=== PATIENT | female | born 1950 | race Caucasian/White ===

== ENCOUNTER 2017-07-05 16:36 | Inpatient (IN) ==
--- NOTE | 2017-07-05 17:54 | Emergency Department Note ---
Disposition Clinical Impression: ESRD (end stage renal disease) Pneumonia Qualifiers: Pneumonia type: due to unspecified organism Laterality: unspecified laterality Lung location: unspecified part of lung Qualified Code(s): J18.9 - Pneumonia, unspecified organism Hypothermia Qualifiers: Encounter type: initial encounter Qualified Code(s): T68.XXXA - Hypothermia, initial encounter Hypotension Qualifiers: Hypotension type: unspecified hypotension type Qualified Code(s): I95.9 - Hypotension, unspecified Chronic kidney disease Qualifiers: Chronic kidney disease stage: unspecified stage Qualified Code(s): N18.9 - Chronic kidney disease, unspecified Disposition: Admitted As Inpatient Condition: Fair Referrals: Robyn Van, [employer] [Primary Care Provider] - Forms: ED Satisfaction Letter Time of Disposition: 19:58 General Adult HPI - General Chief complaint: ED Shortness of Breath/Dyspnea Stated complaint: "swelling all over" Time Seen by Provider: 07/05/17 17:33 Source: patient Mode of arrival: wheelchair Limitations: no limitations Nursing Notes Reviewed: Yes Vital Signs Reviewed: Yes - History of Present Illness HPI Narrative: 67-year-old female with a history of diabetes, chronic kidney disease, COPD presents for evaluation of generalized swelling. Patient's history provided via the patient as well as the boyfriend at bedside. States that the patient had progressive swelling and weakness. Patient denies any chest pain. Patient states that she still is able to produce some urine however it is hard to quantify given that she wears a diaper. Patient denies any excessive oral intake. Warfarin states that the patient has been evaluated by nephrology and is in the process of undergoing an dialysis. Patient does not have a dialysis access established. Warfarin states the patient has been feeling short of breath. Patient typically does not wear any oxygen. Patient denies any abdominal pain. No nausea or vomiting. Denies history of liver disease or alcoholism. Pain Scale: 9 - Related Data Home Medications Medication Instructions Recorded Confirmed Acetaminophen [Tylenol] 500 mg PO Q6HR PRN 07/05/17 07/05/17 Allopurinol [Zyloprim 100 MG] 200 mg PO DAILY 07/05/17 07/05/17 Amlodipine Besylate 10 mg PO DAILY 07/05/17 07/05/17 Linagliptin [Tradjenta] 5 mg PO QAM 03/06/18 03/06/18 Omeprazole [PriLOSEC] 20 mg PO DAILY 07/05/17 07/05/17 Allergies Allergy/AdvReac Type Severity Reaction Status Date / Time No Known Allergies Allergy Verified 07/05/17 17:25 All systems ED: reviewed and negative except as stated. Constitutional: Denies: fever Cardiovascular: Denies: chest pain Respiratory: Reports: dyspnea. Denies: cough Gastrointestinal: Denies: abdominal pain, nausea, vomiting Past Medical History - Past Medical History Source: patient, old records reviewed, obtained from family Medical history: Reports: diabetes - Social History Smoking Status: Never smoker Alcohol use: Reports: none Drug use: Reports: none Physical Exam - General Limitations: no limitations General appearance: alert, obese, other (Chronically ill) - Head Head exam: atraumatic, normocephalic, normal inspection - Eye Eye exam: Present: normal appearance. Absent: scleral icterus - ENT ENT exam: normal oropharynx, mucous membranes dry - Neck Neck exam: Present: normal inspection - Chest Chest inspection: Present: normal inspection, symmetric chest wall rise - Respiratory Respiratory exam: Present: accessory muscle use, other (Diffusely diminished) - Abdominal Exam Abdominal exam: Present: soft, distention. Absent: guarding, rebound - Extremities Exam Extremities exam: Present: pedal edema (4+ pedal edema on the right lower leg. 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 Appears the patient does follow with likely Dr. Jay. Concerns of fluid overload and worsening kidney disease. Patient will get basic labs as well as a chest x-ray. Supplement oxygen as needed. Disposition admission. - Reevaluation(s) Reevaluation #1: Patient was noted to be hypothermic. Patient does have passive warming Cb hugger and blankets Time: 18:36 Reevaluation #2: Patient seen and examined. Patient's mentating appropriately. Discussed plan of care. Patient blood pressures improving. Patient's heart rate is improving. Given the patient being hypothermic hypotensive the patient be covered with broad-spectrum antibiotics with most likely source of infection in the lungs. Time: 20:54 - Consultations Consultation #1: Spoke with Dr. العلي and made aware that the patient will be admitted to the ICU. Time: 19:54 Vital Signs Temperature 0 F L 07/05/17 17:23 Pulse Rate 71 07/05/17 17:23 Respiratory Rate 18 07/05/17 17:23 Blood Pressure 80/46 07/05/17 17:23 O2 Sat by Pulse Oximetry 88 07/05/17 17:23 Temperature 96.7 F L 07/05/17 23:36 Pulse Rate 86 07/05/17 23:38 Respiratory Rate 20 07/05/17 23:38 Blood Pressure 107/56 07/05/17 23:38 O2 Sat by Pulse Oximetry 96 07/05/17 23:38 Oxygen Delivery Oxygen Delivery Room Air Medical Decision Making - MDM Narrative Medical decision making narrative: 67-year-old female patient for evaluation of swelling. Patient has end-stage renal disease and has acute on chronic kidney disease. Patient workup in the emergency department revealed that he she was hypotensive and hypothermic and bradycardic. Patient was actively passively rewarmed with improvement of blood pressure. Patient does have a midline as well as a good peripheral IV. Patient does appear to be clinically fluid overloaded. Chest x-ray does show evidence of edema which appear to be asymmetric and is going be covered with antibiotics given the patient's hypo-thermia and hypotension. Patient does have acute on chronic kidney disease. Discussed the case with nephrology who will see the patient. Patient was also given stress dose steroids as his concerns of endocrine and metabolic abnormalities. Patient did get a random cortisol level obtained prior to hydrocortisone. Even though the patient possibly has an infectious picture concerns about fluid status given her end- stage renal disease. - Lab Data Lab results reviewed: Yes I reviewed the patient's lab results. Result diagrams: 07/05/17 17:48 07/05/17 17:48 Lab Results 07/05/17 07/05/17 07/05/17 Range/Units 17:48 17:48 17:48 WBC 6.0 (4.3-11.1) K/mcL RBC 3.78 L (3.82-4.97) M/mcL Hgb 10.2 L (11.5-15.4) g/dL Hct 33.1 L (35.3-44.9) % MCV 87.6 (83.0-100.0) fL MCH 27.0 L (28.0-33.3) pg MCHC 30.8 L (31.6-35.5) g/dL RDW 20.9 H (11.5-14.5) % Plt Count 139 L (140-400) K/mcL MPV 11.5 (9.4-12.4) fL Immature Gran % 1.0 (0-4) % Seg Neutrophils % 83.2 % Lymphocytes % 7.3 % Monocytes % 7.5 % Eosinophils % 0.8 % Basophils % 0.2 % Neutrophils # 5.0 (1.6-8.9) K/mcL Lymphocytes # 0.4 L (0.6-4.6) K/mcL Monocytes # 0.5 (0.0-1.3) K/mcL Eosinophils # 0.1 (0.0-0.6) K/mcL Basophils # 0.0 (0.0-0.2) K/mcL Nucleated RBCs/100 WBC 0.3 H (0) /100 WBC PT (9.4-12.1) Seconds INR Sodium 138 (136-145) mEq/L Potassium 4.7 (3.5-5.1) mEq/L Chloride 106 (98-107) mEq/L Carbon Dioxide 17 L (23-29) mEq/L BUN 88 H (8-23) mg/dL Creatinine 5.94 H (0.60-1.20) mg/dL Est GFR ( Amer) 9 L (> 60) Est GFR (Non-Af Amer) 7 L (> 60) BUN/Creatinine Ratio 15 (6-26) Glucose 110 H (70-105) mg/dL POC Glucose (58-89) Calculated Osmolality 314 H (280-300) Lactic Acid 1.1 (0.5-2.2) mmol/L Calcium 9.0 (8.6-10.3) mg/dL Phosphorus (2.7-4.5) mg/dL Magnesium (1.6-2.6) mg/dL Total Bilirubin 0.6 (0.3-1.0) mg/dL Direct Bilirubin 0.2 (0.0-0.2) mg/dL Indirect Bilirubin 0.4 (0.0-1.2) mg/dL AST 10 L (13-39) Units/L ALT 8 (7-52) Units/L Alkaline Phosphatase 79 (34-104) Units/L Troponin I < 0.03 (< 0.04) ng/mL B-Natriuretic Peptide (Less than 100) pg/mL Serum Total Protein 6.6 (6.4-8.9) g/dL Albumin 4.0 (3.5-5.7) g/dL Globulin 2.6 (2.4-3.5) g/dL Albumin/Globulin Ratio 1.5 (1.1-2.2) TSH (0.340-5.600) mcIU/mL Free T4 (0.70-2.00) ng/dl Free T3 (2.50-3.90) pg/mL Random Cortisol 18.8 mcg/dl Urine Color (Yellow) Urine Clarity (Clear) Urine pH (5.0-8.0) pH Units Ur Specific [place] (1.010-1.025) Urine Protein (Neg-Trace) mg/dL Urine Glucose (UA) (Normal) mg/dL Urine Ketones (Negative) mg/dL Urine Blood (Negative) Urine Nitrite (Negative) Urine Bilirubin (Negative) Urine Urobilinogen (Normal) mg/dL Ur Leukocyte Esterase (Negative) Urine Microscopic RBC (0-3) per hpf Urine Microscopic WBC (0-3) per hpf Ur Squamous Epith Cells (None-Few) per lpf Urine Bacteria (None-Few) per hpf 07/05/17 07/05/17 07/05/17 Range/Units 17:48 17:48 17:48 WBC (4.3-11.1) K/mcL RBC (3.82-4.97) M/mcL Hgb (11.5-15.4) g/dL Hct (35.3-44.9) % MCV (83.0-100.0) fL MCH (28.0-33.3) pg MCHC (31.6-35.5) g/dL RDW (11.5-14.5) % Plt Count (140-400) K/mcL MPV (9.4-12.4) fL Immature Gran % (0-4) % Seg Neutrophils % % Lymphocytes % % Monocytes % % Eosinophils % % Basophils % % Neutrophils # (1.6-8.9) K/mcL Lymphocytes # (0.6-4.6) K/mcL Monocytes # (0.0-1.3) K/mcL Eosinophils # (0.0-0.6) K/mcL Basophils # (0.0-0.2) K/mcL Nucleated RBCs/100 WBC (0) /100 WBC PT 12.2 H (9.4-12.1) Seconds INR 1.1 Sodium (136-145) mEq/L Potassium (3.5-5.1) mEq/L Chloride (98-107) mEq/L Carbon Dioxide (23-29) mEq/L BUN (8-23) mg/dL Creatinine (0.60-1.20) mg/dL Est GFR ( Amer) (> 60) Est GFR (Non-Af Amer) (> 60) BUN/Creatinine Ratio (6-26) Glucose (70-105) mg/dL POC Glucose (58-89) Calculated Osmolality (280-300) Lactic Acid (0.5-2.2) mmol/L Calcium (8.6-10.3) mg/dL Phosphorus 8.4 H (2.7-4.5) mg/dL Magnesium 2.3 (1.6-2.6) mg/dL Total Bilirubin (0.3-1.0) mg/dL Direct Bilirubin (0.0-0.2) mg/dL Indirect Bilirubin (0.0-1.2) mg/dL AST (13-39) Units/L ALT (7-52) Units/L Alkaline Phosphatase (34-104) Units/L Troponin I (< 0.04) ng/mL B-Natriuretic Peptide 1048 H (Less than 100) pg/mL Serum Total Protein (6.4-8.9) g/dL Albumin (3.5-5.7) g/dL Globulin (2.4-3.5) g/dL Albumin/Globulin Ratio (1.1-2.2) TSH 8.153 H (0.340-5.600) mcIU/mL Free T4 1.09 (0.70-2.00) ng/dl Free T3 2.79 (2.50-3.90) pg/mL Random Cortisol mcg/dl Urine Color (Yellow) Urine Clarity (Clear) Urine pH (5.0-8.0) pH Units Ur Specific [place] (1.010-1.025) Urine Protein (Neg-Trace) mg/dL Urine Glucose (UA) (Normal) mg/dL Urine Ketones (Negative) mg/dL Urine Blood (Negative) Urine Nitrite (Negative) Urine Bilirubin (Negative) Urine Urobilinogen (Normal) mg/dL Ur Leukocyte Esterase (Negative) Urine Microscopic RBC (0-3) per hpf Urine Microscopic WBC (0-3) per hpf Ur Squamous Epith Cells (None-Few) per lpf Urine Bacteria (None-Few) per hpf 07/05/17 07/05/17 Range/Units 18:07 20:54 WBC (4.3-11.1) K/mcL RBC (3.82-4.97) M/mcL Hgb (11.5-15.4) g/dL Hct (35.3-44.9) % MCV (83.0-100.0) fL MCH (28.0-33.3) pg MCHC (31.6-35.5) g/dL RDW (11.5-14.5) % Plt Count (140-400) K/mcL MPV (9.4-12.4) fL Immature Gran % (0-4) % Seg Neutrophils % % Lymphocytes % % Monocytes % % Eosinophils % % Basophils % % Neutrophils # (1.6-8.9) K/mcL Lymphocytes # (0.6-4.6) K/mcL Monocytes # (0.0-1.3) K/mcL Eosinophils # (0.0-0.6) K/mcL Basophils # (0.0-0.2) K/mcL Nucleated RBCs/100 WBC (0) /100 WBC PT (9.4-12.1) Seconds INR Sodium (136-145) mEq/L Potassium (3.5-5.1) mEq/L Chloride (98-107) mEq/L Carbon Dioxide (23-29) mEq/L BUN (8-23) mg/dL Creatinine (0.60-1.20) mg/dL Est GFR ( Amer) (> 60) Est GFR (Non-Af Amer) (> 60) BUN/Creatinine Ratio (6-26) Glucose (70-105) mg/dL POC Glucose 102 H (58-89) Calculated Osmolality (280-300) Lactic Acid (0.5-2.2) mmol/L Calcium (8.6-10.3) mg/dL Phosphorus (2.7-4.5) mg/dL Magnesium (1.6-2.6) mg/dL Total Bilirubin (0.3-1.0) mg/dL Direct Bilirubin (0.0-0.2) mg/dL Indirect Bilirubin (0.0-1.2) mg/dL AST (13-39) Units/L ALT (7-52) Units/L Alkaline Phosphatase (34-104) Units/L Troponin I (< 0.04) ng/mL B-Natriuretic Peptide (Less than 100) pg/mL Serum Total Protein (6.4-8.9) g/dL Albumin (3.5-5.7) g/dL Globulin (2.4-3.5) g/dL Albumin/Globulin Ratio (1.1-2.2) TSH (0.340-5.600) mcIU/mL Free T4 (0.70-2.00) ng/dl Free T3 (2.50-3.90) pg/mL Random Cortisol mcg/dl Urine Color Dark Yellow (Yellow) Urine Clarity Turbid A (Clear) Urine pH 5.0 (5.0-8.0) pH Units Ur Specific [place] 1.029 H (1.010-1.025) Urine Protein 100 H (Neg-Trace) mg/dL Urine Glucose (UA) Normal (Normal) mg/dL Urine Ketones Trace H (Negative) mg/dL Urine Blood Large H (Negative) Urine Nitrite Negative (Negative) Urine Bilirubin Moderate H (Negative) Urine Urobilinogen Normal (Normal) mg/dL Ur Leukocyte Esterase Large H (Negative) Urine Microscopic RBC 15-30 H (0-3) per hpf Urine Microscopic WBC 30-50 H (0-3) per hpf Ur Squamous Epith Cells Few (None-Few) per lpf Urine Bacteria Few (None-Few) per hpf - Radiology Data Radiology results reviewed: Yes I reviewed the patient's radiology results. Chest X-Ray 07/05/17 17:38 IMPRESSION: Bilateral airspace disease which is asymmetric on the right with small bilateral pleural effusions. Findings may be related to asymmetric edema versus pneumonia. D/ / Jenifer Bowie MD / Jenifer Bowie MD Interpreting Provider: Jenifer Bowie MD - EKG Data EKG #1 EKG attestation: Yes I reviewed and interpreted this EKG. EKG shows normal: sinus rhythm Rate: normal Rhythm: NSR [place]/QRS: normal Voltage: decreased voltage throughout Heart block present: 1st Degree Interpretation: no acute changes Critical Care Time Critical Care Time: Yes Total Critical Care Time: 35 Attestation: The high probability of a clinically significant, sudden or life threatening deterioration of the [resp/renal] system(s) required my full and direct attention, intervention and personal management. The aggregate critical care time was [35] minutes. This time is in addition to time spent performing reported procedures but includes the following: [x] Data Review and interpretation [x] Patient assessment and monitoring of vital signs [x] Documentation [x] Medication orders and management S.B.A.R. - S.B.A.RSharee Situation: Demographics Background: Presenting Complaint Assessment: Vital Signs, Course and respsone to treatment, Patient/Family Expectation Recommendation: Barrier(s) to disposition, Recommendation based on pending studies, treatments, or consults S.B.A.RSharee Report Given to: Dr. Miller SShareeBShareeAKelvin Repor Time: 22:32 Attestation Statement - Attestation Attestation: I examined this patient and my medical decision-making was reviewed with the Resident Physician, Dr. Vaca. I agree with the documented findings, disposition and treatment plan as described except to the extent set forth below. Patient is a 67-year-old white female with end-stage renal disease who sees nephrology and is going to be started on dialysis soon. Patient presents with generalized gradually worsening swelling and edema as well as generalized weakness. On arrival patient is hypoxic on room air and mild respiratory distress. Patient meetings Sirs criteria in triage. Patient was brought back directly to bed and sepsis protocol was initiated, placed patient was placed on supplement oxygen nasal cannula . She was denying any focal neurologic changes , no headaches or visual changes, no chest pain pressure or heaviness, does complain of some shortness of breath but denies any associated cough or URI symptoms. Patient denies any abdominal pain or back pain no other associated symptoms. I agree with patient's physical exam findings as documented. IV fluid boluses were initiated for hypotension. She was placed under a bear hugger for hypothermia on arrival. EKG shows sinus rhythm generalized low voltage and poor R-wave progression nonspecific changes. Blood cultures were obtained urine cultures were obtained blood and urine were sent for lab evaluation, chest x-ray was obtained. Patient with bilateral pleural effusions we will cover with broad-spectrum antibiotics for possible sepsis due to hypothermia and hypotension. Blood pressures improving with IV fluids. He should had coarse all levels drawn and was given hydrocortisone here. Patient's vitals improving and respiratory status stable on nasal cannula oxygen. Patient will be admitted and continued evaluation and management. Nephrology was consulate from the ED.
[2017-07-05 18:14] LABS: Basophils % 0.2 %; Eosinophils # 0.1 K/mcL (0.0-0.6); Eosinophils % 0.8 %; Hematocrit 33.1 % (35.3-44.9); Hemoglobin 10.2 g/dL (11.5-15.4); Lymphocytes # 0.4 K/mcL (0.6-4.6); Lymphocytes % 7.3 %; Mean Corpuscular HGB Conc 30.8 g/dL (31.6-35.5); Mean Corpuscular Volume 87.6 fL (83.0-100.0); Mean Platelet Volume 11.5 fL (9.4-12.4); Monocytes # 0.5 K/mcL (0.0-1.3); Monocytes % 7.5 %; Nucleated Red Blood Cells 0.3 /100 WBC (0); Platelet Count 139 K/mcL (140-400); Red Blood Count 3.78 M/mcL (3.82-4.97); Red Cell Distribution Width 20.9 % (11.5-14.5); Segmented Neutrophils % 83.2 %
[2017-07-05 18:23] LABS: INR 1.1; Prothrombin Time 12.2 Seconds (9.4-12.1)
[2017-07-05 18:35] LABS: Troponin I < 0.03 ng/mL (< 0.04)
[2017-07-05 18:36] LABS: Magnesium 2.3 mg/dL (1.6-2.6); Phosphorous 8.4 mg/dL (2.7-4.5)
[2017-07-05 18:48] LABS: Thyroid Stimulating Hormone 8.153 mcIU/mL (0.340-5.600)
[2017-07-05 19:11] LABS: Alanine Aminotransferase 8 Units/L (7-52); Albumin/Globulin Ratio 1.5 (1.1-2.2); Alkaline Phosphatase 79 Units/L (34-104); Aspartate Amino Transferase 10 Units/L (13-39); BUN/Creatinine Ratio 15 (6-26); Bilirubin,Total 0.6 mg/dL (0.3-1.0); Blood Urea Nitrogen 88 mg/dL (8-23); Carbon Dioxide 17 mEq/L (23-29); Chloride 106 mEq/L (98-107); Globulin 2.6 g/dL (2.4-3.5); Glucose 110 mg/dL (70-105); Osmolality,Calculated 314 (280-300); Potassium 4.7 mEq/L (3.5-5.1); Sodium 138 mEq/L (136-145); Total Protein 6.6 g/dL (6.4-8.9); eGFR For African Americans 9 (> 60); eGFR For Non-African Americans 7 (> 60)
[2017-07-05 19:33] LABS: Bilirubin,Direct 0.2 mg/dL (0.0-0.2); Bilirubin,Indirect 0.4 mg/dL (0.0-1.2)
[2017-07-05 19:41] LABS: Triiodothyronine (T3) Free 2.79 pg/mL (2.50-3.90)
[2017-07-05] MEDS ORDERED: Hydrocortisone Sodium Succ 100 MG/2 ML VIAL IVP ONE (19:53)
[2017-07-05] MEDS ORDERED: Piperacillin/Tazobactam 3.375 GM in 0.9 % Sodium Chloride Mini Bag 100 ML IVPB ONE (19:54)
[2017-07-05] MEDS ORDERED: Piperacillin/Tazobactam 3.375 GM VIAL ONE (20:57)
[2017-07-05] MEDS ORDERED: Piperacillin/Tazobactam 3.375 GM in Water for inj. (sterile) 20 ML 20 ML IVP ONE (21:00)
[2017-07-05 21:21] LABS: Bilirubin,Urine Moderate (Negative); Blood,Urine Large (Negative); Clarity,Urine Turbid (Clear); Color,Urine Dark Yellow (Yellow); Glucose,Urine (UA) Normal (Normal); Ketones,Urine Trace mg/dL (Negative); Leukocyte Esterase,Urine Large (Negative); Nitrite,Urine Negative (Negative); Protein,Urine 100 mg/dL (Neg-Trace); Specific Gravity,Urine 1.029 (1.010-1.025); Urobilinogen,Urine Normal (Normal)
[2017-07-05 21:27] LABS: RBC,Urine 15-30 per hpf (0-3); Squamous Epithelial Cell,Urine Few per lpf (None-Few); WBC,Urine 30-50 per hpf (0-3)
[2017-07-05 21:28] LABS: Bacteria,Urine Few per hpf (None-Few)
[2017-07-06] MEDS ORDERED: Acetaminophen 325 MG TABLET PO PRN (02:59)
[2017-07-06] MEDS ORDERED: *HR* Dextrose 50 % in Water (Syg) 50 ML SYRINGE IVP PRN (02:59)
[2017-07-06] MEDS ORDERED: Dextrose Gel 15 GM/37.5 ML TUBE PO PRN ×2 (02:59)
[2017-07-06] MEDS ORDERED: Naloxone 0.4 MG/ML INJ IVP PRN (02:59)
[2017-07-06] MEDS ORDERED: D5% in Water 1,000 ML IVC PRN (02:59)
[2017-07-06] MEDS ORDERED: Albuterol 2.5 MG/3 ML NEBULIZER IH PRN (02:59)
[2017-07-06] MEDS ORDERED: 0.9 % Sodium Chloride 1,000 ML IVC SCH (03:00)
--- NOTE | 2017-07-06 03:31 | Internal Med History&Physical ---
Date of Encounter: 07/06/17 Time of Encounter: 01:50 Assessment and Plan (1) Pneumonia Current visit: Yes Status: Acute 1. History and exam suggest pneumonia. 2. Will treat with Zyvox and Zosyn and aerosols as needed. 3. Monitor clinically. Qualifiers: Pneumonia type: due to unspecified organism Laterality: right Lung location: lower lobe of lung Qualified Code(s): J18.1 - Lobar pneumonia, unspecified organism (2) Hypothermia Current visit: Yes Status: Acute 1. Likely due to sepsis. 2. Active re-warming instituted. 3. Monitor temperature and vitals closely. Qualifiers: Encounter type: initial encounter Qualified Code(s): T68.XXXA - Hypothermia , initial encounter (3) Sepsis Current visit: Yes Status: Acute 1. Given hypothermia, hypotension, and UTI findings, I suspect patient is septic. 2. Additionally, she has pneumonia on exam and per history. 3. Will treat with IV antibiotics and judicious IVF in the face of anasarca. Qualifiers: Sepsis type: sepsis due to unspecified organism Qualified Code(s): A41.9 - Sepsis, unspecified organism (4) Acute kidney injury superimposed on CKD Current visit: Yes Status: Acute 1. Dr. Huddleston consulted. 2. IVF as above. 3. Monitor renal function; patient likely needs dialysis this hospital stay. (5) DVT prophylaxis Current visit: Yes Status: Acute 1. Heparin SQ. Internal Medicine - H&P: HPI Chief complaint: swelling Admitted From: Emergency Dept Plans for Post Hospital Care: Home History of present illness: Ms. Ibarra is a 67 year old female who presents with complaints of increased swelling, fatigue, weakness, and generalized malaise. In the ER, patient was noted to be hypothermic and hypotensive. She was actively rewarmed and given a small fluid bolus. Workup included routine labs and imaging. She was noted to have acute renal failure on top of her chronic kidney disease. She has been following with Dr. Huddleston regarding her CKD. Her kidney function is to the point where she is on the verge of initiating dialysis. ER staff contacted me to admit the patient. Given her presenting symptoms, I was concerned for possible sepsis. I asked them to start some IV fluids and antibiotics. Upon my assessment of the patient, patient has evidence of anasarca, but she appears to have dry mucous membranes and appears to have some intravascular depletion. She admits to having had fevers and chills at home. She has also had a cough which has been somewhat productive. She has had some body aches. She denies any vomiting or diarrhea. She does also note that she has had increasing edema for the last several weeks. She also noticed that she has had decreased urine output as well the last few days. She denies any chest pain. Her initial core temperature was 91.5 degrees Fahrenheit and her blood pressure was 80s over 40s. She responded to actively to re-warming and IVF fluid bolus with her last temperature being 97.5 and last blood pressure being 104/44. Past Med Surg Social Fam HX - Past Medical History Attestation: Yes The following information was validated with the patient. Source: patient, old records reviewed Medical history: diabetes, peripheral artery disease Psychiatric history: no psych history - Past Surgical History Surgical History: no surgical history - Social History Smoking Status: Never smoker Smokeless Tobacco Status: No Alcohol use: none Drug use: none Current living situation: Home, With Family Activity Level: Independent ambulation - Family History Mother Living Status: Hx Family Genitourinary Disorders: No Father Living Status: Hx Family Genitourinary Disorders: No Internal Medicine - H&P: Meds Acetaminophen [Tylenol] 500 mg PO Q6HR PRN 07/05/17 [History] Allopurinol [Zyloprim 100 MG] 200 mg PO DAILY 07/05/17 [History] Amlodipine Besylate 10 mg PO DAILY 07/05/17 [History] Linagliptin [Tradjenta] 5 mg PO QAM 07/05/17 [History] Omeprazole [PriLOSEC] 20 mg PO DAILY 07/05/17 [History] 3 Allergy/AdvReac Type Severity Reaction Status Date / Time No Known Allergies Allergy Verified 07/05/17 17:25 - Constitutional Constitutional: chills, fever(s), weakness, weight gain, no night sweats - EENT Eyes: no blurry vision, no change in vision Ears: no ear pain, no tinnitus Nose, mouth and throat: no nasal congestion, no sinus pressure, no sore throat - Cardiovascular Cardiovascular ROS IM: dyspnea, dyspnea on exertion, edema, orthopnea, no chest pain, no palpitations, no syncope - Respiratory Respiratory: cough, dyspnea, chest congestion, excessive phlegm production, change in phlegm color, no hemoptysis - Gastrointestinal Gastrointestinal: no abdominal pain, no diarrhea, no hematemesis, no hematochezia, no melena, no vomiting - Genitourinary Genitourinary: dysuria, no flank pain, no hematuria - Musculoskeletal Musculoskeletal ROS IM: back pain, muscle cramps, no arthralgias - Integumentary Integumentary IM: no rash, no jaundice - Neurological Neurological ROS: no dizziness, no focal weakness, no frequent falls, no headache(s) - Psychiatric Psychiatric: no anxiety, no depression - Endocrine Endocrine IM: no polydipsia, no polyuria - Hematologic/Lymphatic Hematologic/Lymphatic: no easy bruising, no lymphadenopathy - Allergic/Immunologic Allergic/Immunologic: no wheezing, no GI upset with certain foods - Constitutional Vitals: Temp Pulse Resp BP Pulse Ox 98.1 F 87 20 104/44 93 07/06/17 02:00 07/06/17 02:00 07/06/17 02:00 07/06/17 02:00 07/06/17 02:00 General appearance: Present: cooperative, disheveled, A&O X 3, pleasant, obese, answers questions appropriately - Head Head exam: Present: normal inspection - Eye Eye exam: Present: EOMI, normal appearance, PERRL. Absent: scleral icterus Pupils: Present: normal accommodation - ENT ENT exam: Present: mucous membranes dry, normal exam, normal oropharynx - Neck Neck exam general surgery: Present: full ROM, supple. Absent: tenderness, nuchal rigidity, thyromegaly - Expanded Neck Exam Neck exam: Absent: carotid bruit - Respiratory Respiratory exam: Present: decreased breath sounds, rales (right base), rhonchi. Absent: chest wall tenderness, wheezes - Cardiovascular Cardiovascular exam: Present: RRR, +S1, +S2. Absent: diastolic murmur, systolic murmur - GI/Abdominal GI/Abdominal exam: Present: normal bowel sounds, soft. Absent: hepatomegaly, mass, splenomegaly, tenderness - Extremities Exam Extremities exam: Present: full ROM, normal capillary refill, pedal edema (3+ throughout all four extremitie and trunk), warm, radial pulses palpable and symmetrical. Absent: calf tenderness, joint swelling - Back Exam Back exam: Absent: CVA tenderness (L), CVA tenderness (R) - Neurological Exam Neurological exam: Present: alert, CN II-XII intact, oriented X3, no focal deficits - Psychiatric Psychiatric exam: Present: normal affect, normal mood - Skin Skin exam: Present: dry, warm Internal Med - H&P Results - Labs CBC & Chem 7: 07/05/17 17:48 07/05/17 17:48 - EKG Data -: EKG Interpreted by Myself - EKG Data Prior EKG available for review: no EKG comments: 07/06/17 03:38 NSR; no acute changes - Diagnostic Studies Chest x-ray Status: image reviewed by me (subtle basilar effusion with right lower lobe infiltrate)
[2017-07-06] MEDS: Ipratropium/Albuterol Neb 3 ML IH SCH ×6 (04:02→23:01)
[2017-07-06 04:49] LABS: Basophils % 0.2 %; Eosinophils % 0.2 %; Hematocrit 31.9 % (35.3-44.9); Hemoglobin 9.9 g/dL (11.5-15.4); Lymphocytes # 0.2 K/mcL (0.6-4.6); Lymphocytes % 4.6 %; Mean Corpuscular Volume 87.2 fL (83.0-100.0); Monocytes # 0.1 K/mcL (0.0-1.3); Neutrophils # 4.6 K/mcL (1.6-8.9); Nucleated Red Blood Cells 0.8 /100 WBC (0); Platelet Count 128 K/mcL (140-400); Red Blood Count 3.66 M/mcL (3.82-4.97); Red Cell Distribution Width 20.8 % (11.5-14.5)
[2017-07-06 04:57] LABS: INR 1.1; Prothrombin Time 12.2 Seconds (9.4-12.1)
[2017-07-06 05:00] LABS: Activated Partial Thrombo Time 33.7 Seconds (26.0-36.0)
[2017-07-06 05:10] LABS: Albumin 3.7 g/dL (3.5-5.7); Albumin/Globulin Ratio 1.4 (1.1-2.2); Bilirubin,Total 0.6 mg/dL (0.3-1.0); Calcium 8.5 mg/dL (8.6-10.3); Globulin 2.7 g/dL (2.4-3.5); Magnesium 2.3 mg/dL (1.6-2.6); Potassium 5.2 mEq/L (3.5-5.1); Total Protein 6.4 g/dL (6.4-8.9)
[2017-07-06] MEDS ORDERED: *HR* Heparin 5,000 UNIT/ML VIAL SQ SCH (06:00)
[2017-07-06] MEDS: *HR* Heparin 5,000 UNIT/ML VIAL SQ SCH ×2 (07:32→16:43)
[2017-07-06] MEDS: Insulin LISPRO 300 UNITS/3 ML VIAL SQ SCH ×3 (07:33→16:43)
[2017-07-06] MEDS ORDERED: Piperacillin/Tazobactam 3.375 GM in 0.9 % Sodium Chloride Mini Bag 100 ML IVPB SCH (08:00)
--- NOTE | 2017-07-06 08:33 | Nephrology Consult Note ---
Date of Encounter: 07/06/17 Time of Encounter: 08:30 Assessment and Plan (1) Chronic kidney disease, stage V Current Visit: Yes Status: Acute The patient has progressive chronic kidney disease related to diabetic nephropathy. She has associated significant volume overload as well. There is some concern for sepsis since the patient presented with hypotension and hypothermia. If all of her cultures remain negative we can place a tunnel dialysis catheter and initiate hemodialysis while the patient is here in the hospital. She can have a AV access placed as an outpatient. (2) Type 2 diabetes mellitus with diabetic chronic kidney disease Current Visit: Yes Status: Acute Qualifiers: Diabetes mellitus rn long term care insulin use: with jail use Chronic kidney disease stage: stage 5, not on chronic dialysis Qualified Code(s): E11.22 - Type 2 diabetes mellitus with diabetic chronic kidney disease; N18.5 - Chronic kidney disease, stage 5; N18.5 - Chronic kidney disease, stage 5; N18.5 - Chronic kidney disease, stage 5; N18.5 - Chronic kidney disease, stage 5; Z79.4 - termite control representative (current) use of insulin; Z79.4 - termite control representative (current) use of insulin ; Z79.4 - termite control representative (current) use of insulin; Z79.4 - termite control representative (current) use of insulin (3) PAD (peripheral artery disease) Current Visit: Yes Status: Acute History of Present Illness - History of Present Illness This is a 67-year-old female who presented to emergency room with complaints of increased swelling fatigue and weakness. She was noted to be hypotensive and also hypothermic. Patient is followed as an outpatient for progressive chronic kidney disease related to type II diabetic nephropathy and associated proteinuria. Other complications include gastroparesis and peripheral vascular disease. She also has a history of diabetic retinopathy. Patient has progressed to stage IV to stage V chronic kidney disease and had undergone dialysis education. She is elected to go on hemodialysis. She has been referred for vascular access placement although this has not been accomplished yet. Currently the patient denies any nausea vomiting or anorexia. Her main complaint is that of swelling. She does have some associated shortness of breath. Because of her hypothermia and hypotension she is being worked up for sepsis and is currently on empiric antibiotics. She says overall she is feeling better today. Past Med Surg Social Fam HX - Past Medical History Medical history: diabetes, peripheral artery disease Psychiatric history: no psych history - Past Surgical History Surgical History: no surgical history - Social History Smoking Status: Never smoker Smokeless Tobacco Status: No Alcohol use: none Drug use: none - Family History Mother Living Status: Hx Family Genitourinary Disorders: No Father Living Status: Hx Family Genitourinary Disorders: No Medications and Allergies Acetaminophen [Tylenol] 500 mg PO Q6HR PRN 07/05/17 [History] Allopurinol [Zyloprim 100 MG] 200 mg PO DAILY 07/05/17 [History] Amlodipine Besylate 10 mg PO DAILY 07/05/17 [History] Linagliptin [Tradjenta] 5 mg PO QAM 07/05/17 [History] Omeprazole [PriLOSEC] 20 mg PO DAILY 07/05/17 [History] 3 Allergy/AdvReac Type Severity Reaction Status Date / Time No Known Allergies Allergy Verified 07/05/17 17:25 Review of Systems Constitutional: as per HPI, weakness Eyes: bilateral: blurred vision (patient denies), diplopia (patient denies) Cardiovascular: dyspnea, dyspnea on exertion, edema, orthopnea Respiratory: dyspnea, dyspnea on exertion Gastrointestinal: no abdominal pain, no change in bowel habits Musculoskeletal: no muscle weakness, no numbness Integumentary: no hirsutism, no striae Neurological: as per HPI, weakness Psychiatric: no depression, no difficulty concentrating Endocrine: as per HPI Hematologic/Lymphatic: no easy bruising, no lymphadenopathy Exam - Vital Signs Vital signs: Initial Vital Signs Temp Pulse Resp BP Pulse Ox 0 F L 71 18 80/46 88 07/05/17 17:23 07/05/17 17:23 07/05/17 17:23 07/05/17 17:23 07/05/17 17:23 Vital Signs - Last 8 Hours Temp Pulse Resp BP Pulse Ox 07/06/17 08:00 97.8 F 86 12 108/56 96 07/06/17 07:45 97.8 F 07/06/17 07:00 87 12 100/45 96 07/06/17 06:00 86 15 102/57 94 07/06/17 05:00 87 25 102/49 94 07/06/17 04:48 97.5 F L 07/06/17 04:02 18 94 07/06/17 04:00 97.5 F L 85 20 94/47 94 03/07/18 03:00 86 19 99/53 94 07/06/17 02:00 98.1 F 87 20 104/44 93 07/06/17 01:28 86 95 07/06/17 01:06 95.7 F L 20 108/68 Intake and Output 07/05/17 07/06/17 07/06/17 23:59 07:59 15:59 Intake Total 580 / 580 360 / 360 Output Total 60 / 60 Balance 580 / 580 300 / 300 Intake: Oral 580 / 580 360 / 360 Output: Catheter 60 / 60 Urethral (Armstrong) 30 / 30 Other: Meal Breakfast Percent of Meal Consumed 95% Weight 105.5 kg Blood Glucose* 180 180 Patient Weight 07/06/17 23:59 Weight 105.5 kg - General Appearance Exam: Patient is alert and oriented. She is in no acute distress. Lungs exhibit diminished breath sounds especially on the right. Heart regular rate and rhythm with a 2/6 ejection murmur. There is no friction rub. Abdomen shows normal bowel sounds. No tenderness or organomegaly. Lower extremities show significant 3+ edema. Patient status post left above-knee amputation. Results - Lab Results 07/06/17 04:00 07/06/17 04:00 Most recent lab results Calcium 8.5 mg/dL (8.6-10.3) L 07/06/17 04:00 Phosphorus 8.4 mg/dL (2.7-4.5) H 07/05/17 17:48 Magnesium 2.3 mg/dL (1.6-2.6) 07/06/17 04:00 Consult Discharge Plan - Plan Referrals: Robyn Van, [employer] [Primary Care Provider] -
[2017-07-06] MEDS ORDERED: Furosemide 40 MG/4 ML VIAL IVP SCH (09:00)
[2017-07-06] MEDS ORDERED: Furosemide 40 MG/4 ML VIAL ONE (09:05)
[2017-07-06 09:10] LABS: Hemoglobin A1C 6.3 %
--- NOTE | 2017-07-06 09:53 | Event Note ---
<Jose Shaw - Last Filed: 07/06/17 09:48> Date of Encounter: 07/06/17 Time of Encounter: 09:48 Patient seen and examined at bedside. Patient reports feeling swollen all over. Otherwise she has no complaints. She states she is breathing well. She denies cough, congestion, chest pain. She states she has never been swollen like this before. Physical exam: Gen.: Patient awake alert in no acute distress Heart: Regular rate and rhythm, no murmurs, rubs, gallops Lungs: Clear to auscultations bilaterally, no rales, rhonchi, wheezes Abdomen: Soft, nontender, nondistended. Normoactive bowel sounds Extremities: 3+ pitting edema to lower extremities bilaterally, 1+ pitting edema in the upper extremities bilaterally. Assessment/Plan: Chronic kidney disease stage V: Patient's kidney disease appears to progressed and patient is now significantly fluid overloaded with minimal urine output. Nephrology was consulted and are following the patient, they have initiated diuresis and are considering initiating hemodialysis here as an inpatient. Patient is mildly hyperkalemic at 5.2, will recheck this afternoon. Further management per nephrology Pneumonia: Patient was initially diagnosed with pneumonia on admission however I am less convinced that she has an active infection. We will continue antibiotics for now and consider stopping them if cultures are returned negative. <Cesar Riggs - Last Filed: 07/06/17 18:59> Date of Encounter: 07/06/17 Ms Ibarra was admitted earlier today with worsening renal function. She is currently being diuresed. Exam alert Comfortable Anasarca present Agree with assessment and plan as above.
[2017-07-06] MEDS ORDERED: Furosemide 480 MG in D5% in Water 192 ML IVC SCH (12:30)
[2017-07-06 15:43] LABS: Calcium 8.3 mg/dL (8.6-10.3)
--- NOTE | 2017-07-06 19:36 | Electrocardiograph Report ---
[address] [place] [address] Test Date: 2017-07-05 Pat Name: Sil Ibarra Department: 103 Room: 11 Gender: F Ultrasound Sonographer: [facility] : 1950 Requested By: Jitendra Vaca Order Number: [id number] Reading MD: Mason Coelho MD Measurements Intervals [place] Rate: 70 P: 7 AR: 247 QRS: 3 QRSD: 101 T: -28 QT: 419 QTc: 439 Interpretive Statements SINUS RHYTHM WITH FIRST DEGREE AV BLOCK LOW QRS VOLTAGE POSSIBLE INFERIOR MYOCARDIAL INFARCTION, OF INDETERMINATE AGE Electronically Signed On 07-06-2017 19:34:49 EST by Mason Coelho MD
[2017-07-06] MEDS: Piperacillin/Tazobactam 3.375 GM in 0.9 % Sodium Chloride Mini Bag 100 ML IVPB SCH (20:30)
[2017-07-07] MEDS: *HR* Heparin 5,000 UNIT/ML VIAL SQ SCH ×3 (00:12→23:36)
[2017-07-07] MEDS: Ipratropium/Albuterol Neb 3 ML IH SCH ×6 (03:36→23:50)
[2017-07-07 04:18] LABS: Eosinophils % 0.4 %; Hematocrit 29.9 % (35.3-44.9); Hemoglobin 9.5 g/dL (11.5-15.4); Immature Granulocytes % 0.7 % (0-4); Lymphocytes # 0.4 K/mcL (0.6-4.6); Lymphocytes % 5.8 %; Mean Corpuscular HGB Conc 31.8 g/dL (31.6-35.5); Mean Corpuscular Hemoglobin 27.1 pg (28.0-33.3); Mean Corpuscular Volume 85.4 fL (83.0-100.0); Mean Platelet Volume 12.4 fL (9.4-12.4); Monocytes # 0.6 K/mcL (0.0-1.3); Monocytes % 8.6 %; Neutrophils # 5.8 K/mcL (1.6-8.9); Nucleated Red Blood Cells 0.3 /100 WBC (0); Platelet Count 122 K/mcL (140-400); Red Cell Distribution Width 20.9 % (11.5-14.5); Segmented Neutrophils % 84.5 %
[2017-07-07 04:43] LABS: Albumin 3.6 g/dL (3.5-5.7); Albumin/Globulin Ratio 1.4 (1.1-2.2); Bilirubin,Total 0.5 mg/dL (0.3-1.0); Calcium 8.1 mg/dL (8.6-10.3); Globulin 2.6 g/dL (2.4-3.5); Total Protein 6.2 g/dL (6.4-8.9)
[2017-07-07] MEDS: Piperacillin/Tazobactam 3.375 GM in 0.9 % Sodium Chloride Mini Bag 100 ML IVPB SCH ×2 (08:59→21:05)
[2017-07-07] MEDS: Insulin LISPRO 300 UNITS/3 ML VIAL SQ SCH ×2 (09:00→11:38)
[2017-07-07] MEDS ORDERED: *HR* Heparin 10,000 UNIT/10 ML VIAL IV PRN ×2 (09:47→17:27)
[2017-07-07] MEDS ORDERED: 0.9 % Sodium Chloride 250 ML IVC PRN ×2 (09:47→17:27)
--- NOTE | 2017-07-07 09:54 | Nephrology Progress Note ---
Date of Encounter: 07/07/17 Time of Encounter: 08:50 - Assessment and Plan (1) ESRD (end stage renal disease) Current Visit: Yes Status: Acute ESRD r/t diabetic nephropathy. IR consulted for permcath placement today, followed by HD. Plans for HD next three days. Orders given. Essentially anuric. Ordered stat renal US to r/o obstructive uropathy. I&O's. Left arm banded for future AV access-no lab draws, no BP. Subjective Interval history: Sitting up in bed. States feels good. Discussed placing Permcath and staring HD with outpatient chronic HD. Patient in agreement. Objective - Vital Signs Vital signs: Vital Signs Temp Pulse Resp BP Pulse Ox 07/07/17 09:00 87 20 103/52 94 07/07/17 08:00 87 20 101/51 94 07/07/17 07:53 86 07/07/17 07:30 97.6 F 07/07/17 06:03 86 20 98/50 94 07/07/17 05:10 88 18 99/50 93 07/07/17 03:58 97.5 F L 86 25 103/48 98 07/07/17 03:37 17 95 07/07/17 03:10 84 22 101/50 95 07/07/17 01:58 84 20 94/49 95 07/07/17 01:00 84 16 96/48 94 07/07/17 00:14 85 13 100/52 95 07/06/17 23:55 97.4 F L 07/06/17 23:20 85 17 102/50 96 07/06/17 23:02 17 95 07/06/17 22:20 82 12 91/47 97 07/06/17 21:12 84 94/46 94 07/06/17 20:22 97.2 F L 07/06/17 19:51 84 24 92/43 95 07/06/17 19:45 17 95 07/06/17 18:00 89 18 95/44 94 07/06/17 17:00 90 12 101/46 94 07/06/17 16:02 16 94 07/06/17 16:00 87 12 98/51 94 07/06/17 15:45 97.4 F L 07/06/17 15:00 87 12 96/74 94 07/06/17 14:00 92 12 105/48 96 07/06/17 13:00 91 12 106/50 96 07/06/17 12:00 89 12 94/48 95 07/06/17 11:46 16 91 07/06/17 11:43 97.8 F 07/06/17 11:00 88 12 99/44 90 07/06/17 10:00 87 12 105/50 90 Intake and Output 07/06/17 07/07/17 07/07/17 23:59 07:59 15:59 Intake Total 300 / 300 100 / 100 Output Total 0 / 0 Balance 300 / 300 100 / 100 Intake: IV Fluids 300 / 300 100 / 100 Zyvox Premix 600mg/300mL 600 mg 300 / 300 In 300 ml @ 150 mls/hr IVPB Q12HR [facility] Rx#:[id number] Zosyn 3.375 GM In 0.9 % Sodium 100 / 100 Chloride (Mini-Bag +) 100 ML @ 25 mls/hr IVPB Q12H [facility]IS Rx#: [id number] Output: Urine 0 / 0 Catheter 0 / 0 Other: Meal Dinner Percent of Meal Consumed 60% Stool Size Small Stool Consistency soft Stool Characteristics Normal for Patient Stool Color Brown Pale # Bowel Movements 1 Weight 107.5 kg Blood Glucose* 240 205 - General Appearance General appearance: Present: well-developed, well-nourished, appears started age EENT: Present: mucous membranes moist Neck: Present: no JVD Respiratory: Present: clear Cardiology: Present: edema, regular rate, regular rhythm Additional Comments: pitting, buttock down Gastrointestinal: Present: normoactive bowel sounds, no tenderness Integumentary: Present: warm and dry Neurologic: Present: alert and oriented x3 - Lab 07/07/17 03:50 07/07/17 03:50 Most recent lab results Calcium 8.1 mg/dL (8.6-10.3) L 07/07/17 03:50 Phosphorus 8.3 mg/dL (2.7-4.5) H 07/06/17 09:15 Magnesium 2.3 mg/dL (1.6-2.6) 07/06/17 04:00 Consult Discharge Plan - Plan Referrals: Robyn Van, MACHINING MANAGER [Primary Care Provider] -
[2017-07-07] MEDS ORDERED: 0.9 % Sodium Chloride 1,000 ML PRIME SCH ×2 (10:00→17:27)
--- NOTE | 2017-07-07 11:47 | Internal Med Progress Note ---
<Nabil Judge - Last Filed: 07/07/17 14:16> Date of Encounter: 07/07/17 Time of Encounter: 10:20 - Assessment and plan (1) ESRD (end stage renal disease) Current Visit: Yes Status: Acute Assessment and plan: ESRD 2* to diabetic nephropathy. IR consulted for permcath placement today, followed by HD. Per nephrology, plans for HD next three days. Pending renal US to r/o obstructive uropathy. Lasix drip discontinued. Monitor I&O's. Left arm banded for future AV access-no lab draws, no BP. (2) Anasarca associated with disorder of kidney Current Visit: Yes Status: Acute Assessment and plan: Due to ESRD, possible obstructive uropathy. See above plan. Echo ordered. (3) Pneumonia Current Visit: Yes Status: Acute Assessment and plan: Patient was initially diagnosed with pneumonia on admission however I am less convinced that she has an active infection. We will continue antibiotics for now and consider stopping them if cultures are returned negative. Qualifiers: Pneumonia type: due to unspecified organism Laterality: right Lung location: lower lobe of lung Qualified Code(s): J18.1 - Lobar pneumonia, unspecified organism (4) DM type 2 (diabetes mellitus, type 2) Current Visit: Yes Status: Acute Assessment and plan: Continue SSI as needed. Qualifiers: Diabetes mellitus complication status: with kidney complications Diabetes mellitus complication detail: with chronic kidney disease Diabetes mellitus assisted insulin use: without assisted use Chronic kidney disease stage: on chronic dialysis Qualified Code(s): E11.22 - Type 2 diabetes mellitus with diabetic chronic kidney disease; N18.6 - End stage renal disease; N18.6 - End stage renal disease; N18.6 - End stage renal disease; N18.6 - End stage renal disease; Z99.2 - Dependence on renal dialysis; Z99.2 - Dependence on renal dialysis; Z99.2 - Dependence on renal dialysis; Z99.2 - Dependence on renal dialysis (5) DVT prophylaxis Current Visit: Yes Status: Acute Assessment and plan: SQ Heparin - Subjective Interval history: Patient states she continues to be very edematous and notes some increased work in breathing despite good O2 saturation. GFR continues to drop, currently 7. Patient states understanding of plan for tunnelled HD catheter so that she can began dialysis. Afebrile. Prelim blood cultures show no growth. Patient denies chest patient at this time. - Constitutional Vitals: Temp Pulse Resp BP Pulse Ox 97.5 F L 83 22 100/51 93 07/07/17 11:10 07/07/17 11:42 07/07/17 11:00 07/07/17 11:00 07/07/17 11:00 General appearance: Present: cooperative, disheveled, A&O X 3, pleasant, obese, answers questions appropriately - Head Head exam: Present: atraumatic, normocephalic - Eye Eye exam: Present: conjuntiva pink, sclera anicteric - Neck Neck exam general surgery: Present: supple, trachea midline - Respiratory Respiratory exam: Present: decreased breath sounds, CTAB. Absent: accessory muscle use, rales, rhonchi, wheezes - Cardiovascular Cardiovascular exam: Present: RRR, +S1, +S2. Absent: diastolic murmur, gallop, rubs, systolic murmur - GI/Abdominal GI/Abdominal exam: Present: normal bowel sounds, soft. Absent: distended, tenderness - Extremities Exam Extremities exam: Present: warm. Absent: calf tenderness, cyanotic, pedal edema Additional comments: 3+ edema present from waist down, also 1+ edema present on BUE. Left AKA. No erythema. - Neurological Exam Neurological exam: Present: alert, oriented X3, no focal deficits. Absent: facial droop, speech deficit - Skin Skin exam: Present: dry, intact. Absent: cyanosis, erythema Internal Medicine: Result - Labs CBC & Chem 7: 07/07/17 03:50 07/07/17 03:50 Labs: Short CBC 07/07/17 Range/Units 03:50 WBC 6.8 (4.3-11.1) K/mcL Hgb 9.5 L (11.5-15.4) g/dL Hct 29.9 L (35.3-44.9) % Plt Count 122 L (140-400) K/mcL Neutrophils # 5.8 (1.6-8.9) K/mcL BMP 07/06/17 07/07/17 14:47 03:50 Sodium 136 136 Potassium 5.0 5.0 Chloride 104 106 Carbon Dioxide 15 L 16 L BUN 90 H 92 H Creatinine 6.29 H 6.71 H Glucose 223 H 189 H Calcium 8.3 L 8.1 L Liver Function 07/07/17 Range/Units 03:50 Total Bilirubin 0.5 (0.3-1.0) mg/dL AST 9 L (13-39) Units/L ALT 8 (7-52) Units/L Alkaline Phosphatase 69 (34-104) Units/L Albumin 3.6 (3.5-5.7) g/dL - ABG Interpretation ABG results: PT/INR, D-dimer PT 12.2 Seconds (9.4-12.1) H 07/06/17 04:00 Consult Discharge Plan - Plan Referrals: Robyn Van, O[employer]UP[employer] RN [Primary Care Provider] - <Cesar Riggs - Last Filed: 07/07/17 17:21> Date of Encounter: 07/07/17 - Assessment and plan (1) ESRD (end stage renal disease) Current Visit: Yes Status: Acute (2) Anasarca associated with disorder of kidney Current Visit: Yes Status: Acute (3) Sepsis Current Visit: Yes Status: Resolved Qualifiers: Sepsis type: sepsis due to unspecified organism Qualified Code(s): A41.9 - Sepsis, unspecified organism (4) DM type 2 (diabetes mellitus, type 2) Current Visit: Yes Status: Acute Qualifiers: Diabetes mellitus complication status: with kidney complications Diabetes mellitus complication detail: with chronic kidney disease Diabetes mellitus assisted insulin use: without continuous churn buttermaker use Chronic kidney disease stage: on chronic dialysis Qualified Code(s): E11.22 - Type 2 diabetes mellitus with diabetic chronic kidney disease; N18.6 - End stage renal disease; N18.6 - End stage renal disease; N18.6 - End stage renal disease; N18.6 - End stage renal disease; Z99.2 - Dependence on renal dialysis; Z99.2 - Dependence on renal dialysis; Z99.2 - Dependence on renal dialysis; Z99.2 - Dependence on renal dialysis (5) PAD (peripheral artery disease) Current Visit: Yes Status: Chronic (6) Diabetic nephropathy Current Visit: Yes Status: Chronic Qualifiers: Diabetes mellitus type: type 2 Qualified Code(s): E11.21 - Type 2 diabetes mellitus with diabetic nephropathy (7) Anemia Current Visit: Yes Status: Suspected Qualifiers: Anemia type: due to chronic kidney disease Chronic kidney disease stage: on chronic dialysis Qualified Code(s): N18.6 - End stage renal disease; D63.1 - Anemia in chronic kidney disease; D63.1 - Anemia in chronic kidney disease; Z99.2 - Dependence on renal dialysis; Z99.2 - Dependence on renal dialysis; Z99.2 - Dependence on renal dialysis; Z99.2 - Dependence on renal dialysis (8) Pneumonia Current Visit: Yes Status: Acute Qualifiers: Pneumonia type: due to unspecified organism Laterality: right Lung location: lower lobe of lung Qualified Code(s): J18.1 - Lobar pneumonia, unspecified organism - Constitutional Vitals: Temp Pulse Resp BP Pulse Ox 97.7 F 84 20 90/55 93 07/07/17 17:00 07/07/17 15:20 07/07/17 17:00 07/07/17 17:00 07/07/17 15:20 Internal Medicine: Result - Labs CBC & Chem 7: 07/07/17 03:50 07/07/17 03:50 Labs: Short CBC 07/07/17 Range/Units 03:50 WBC 6.8 (4.3-11.1) K/mcL Hgb 9.5 L (11.5-15.4) g/dL Hct 29.9 L (35.3-44.9) % Plt Count 122 L (140-400) K/mcL Neutrophils # 5.8 (1.6-8.9) K/mcL BMP 07/07/17 03:50 Sodium 136 Potassium 5.0 Chloride 106 Carbon Dioxide 16 L BUN 92 H Creatinine 6.71 H Glucose 189 H Calcium 8.1 L Liver Function 07/07/17 Range/Units 03:50 Total Bilirubin 0.5 (0.3-1.0) mg/dL AST 9 L (13-39) Units/L ALT 8 (7-52) Units/L Alkaline Phosphatase 69 (34-104) Units/L Albumin 3.6 (3.5-5.7) g/dL - ABG Interpretation ABG results: PT/INR, D-dimer PT 12.2 Seconds (9.4-12.1) H 07/06/17 04:00 - Impressions Impressions Guidance Needle Placement Ultrasound 07/07/17 00:00 IMPRESSION: Ultrasound and fluoroscopic guided tunneled HD catheter placement. The catheter is ready for immediate use. D/ / Cooper Quinonez MD / Cooper Quinonez MD Interpreting Provider: Cooper Quinonez MD Insertion Tunneled Catheter 07/07/17 00:00 IMPRESSION: Ultrasound and fluoroscopic guided tunneled HD catheter placement. The catheter is ready for immediate use. D/ / Cooper Quinonez MD / Cooper Quinonez MD Interpreting Provider: Cooper Quinonez MD - Attending Attestation I examined this patient and my medical decision-making was reviewed with the Resident Physician on 07/07/17. I agree with the documented findings, disposition and treatment plan as described except to the extent set forth below. Ms Ibarra is currently admitted for ESRD and initiation of hemodialysis. She remains moderate to high risk due to potential for worsening clinical status. Ms Ibarra is feeling OK but still very swollen. Denies pain. No fever. Not making urine. To have catheter placed today and dialysis started. Exam alert Comfortable resting in bed Mucus membranes dry Heart distant but regular Lungs diminished with some bibasilar rales Abd soft Anasarca present. I/P 1. ESRD - to start dialysis. 2. Anasarca Further diagnoses and plan as above.
[2017-07-07] MEDS ORDERED: 0.9 % Sodium Chloride 2,000 ML ONE (12:24)
[2017-07-07] MEDS ORDERED: Heparin 1,000 UNITS/500 mL 500 ML ONE (13:42)
[2017-07-07 13:51] LABS: Hepatitis B Surface Antigen Nonreactive (Nonreactive)
[2017-07-07] MEDS ORDERED: 0.9 % Sodium Chloride 500 ML ONE (14:01)
[2017-07-07] MEDS ORDERED: *HR* FentaNYL (PF) 100 MCG/2 ML VIAL IVP ONE (14:04)
[2017-07-07] MEDS ORDERED: *HR* Midazolam HCl 2 MG/2 ML VIAL IVP ONE ×2 (14:04→17:27)
[2017-07-07] MEDS ORDERED: *HR* Midazolam HCl 2 MG/2 ML VIAL ONE (14:08)
[2017-07-07] MEDS ORDERED: *HR* FentaNYL (PF) 100 MCG/2 ML VIAL ONE (14:09)
[2017-07-07] MEDS ORDERED: *HR* Heparin 5,000 UNIT/ML VIAL ONE (14:20)
--- NOTE | 2017-07-07 14:20 | IR Procedure Note ---
Date of procedure: 07/07/17 Consent Obtained: Verbal consent, Written consent Timeout: Correct patient and procedure verified, Correct site verified, Time out performed, Skin prep completed Local anesthetic: Lidocaine 1% Indications: Renal failure Procedure Performed: Tunneled HD catheter placement Was there an assistant attorney general present: No Site/Technique: Tunneled HD catheter placement Results/Findings: Catheter in good position Estimated blood loss (cc): 2 Complications: None; Tolerated procedure well Post Procedure Treatment Plan: May use HD catheter now Specimen: None
[2017-07-07] MEDS ORDERED: Dextrose Gel 15 GM/37.5 ML TUBE PO PRN ×2 (17:27)
[2017-07-07] MEDS ORDERED: Naloxone 0.4 MG/ML INJ IVP PRN (17:27)
[2017-07-07] MEDS ORDERED: D5% in Water 1,000 ML IVC PRN (17:27)
[2017-07-07] MEDS ORDERED: Acetaminophen 325 MG TABLET PO PRN (17:27)
[2017-07-07] MEDS ORDERED: Albuterol 2.5 MG/3 ML NEBULIZER IH PRN (17:27)
[2017-07-07] MEDS ORDERED: *HR* Dextrose 50 % in Water (Syg) 50 ML SYRINGE IVP PRN (17:27)
[2017-07-08] MEDS: Ipratropium/Albuterol Neb 3 ML IH SCH ×5 (04:04→20:39)
[2017-07-08 04:36] LABS: Calcium 7.9 mg/dL (8.6-10.3); Magnesium 2.1 mg/dL (1.6-2.6); Phosphorous 7.3 mg/dL (2.7-4.5); Potassium 4.4 mEq/L (3.5-5.1)
[2017-07-08] MEDS ORDERED: 0.9 % Sodium Chloride 250 ML IVC PRN (08:33)
[2017-07-08] MEDS: Insulin LISPRO 300 UNITS/3 ML VIAL SQ SCH ×4 (08:33→20:50)
[2017-07-08] MEDS ORDERED: *HR* Heparin 10,000 UNIT/10 ML VIAL IV PRN (08:33)
[2017-07-08] MEDS: *HR* Heparin 5,000 UNIT/ML VIAL SQ SCH ×2 (08:43→20:52)
--- NOTE | 2017-07-08 09:25 | Nephrology Progress Note ---
Date of Encounter: 07/08/17 Time of Encounter: 09:05 - Assessment and Plan (1) ESRD (end stage renal disease) Current Visit: Yes Status: Acute ESRD r/t diabetic nephropathy. Permcath placed followed by HD yesterday. HD today. Orders given. Renal US neg for obstructive uropathy. I&O's. Left arm banded for future AV access-no lab draws, no BP. Subjective Interval history: Sitting up in bed. States feels good, breathing easier today. Objective - Vital Signs Vital signs: Vital Signs Temp Pulse Resp BP Pulse Ox 07/08/17 06:41 98.1 F 98 17 92/56 91 07/08/17 04:39 97.8 F 91 18 82/52 95 07/08/17 04:04 16 93 07/08/17 00:15 97.3 F L 81 20 91/56 95 07/07/17 23:50 16 94 07/07/17 20:34 18 97 07/07/17 20:00 102/64 07/07/17 17:42 94.2 F L 83 19 90/52 97 07/07/17 17:00 97.7 F 20 90/55 07/07/17 16:45 94/49 07/07/17 16:30 93/48 07/07/17 16:15 94/48 07/07/17 16:00 97/48 07/07/17 15:45 96/50 07/07/17 15:30 96/51 07/07/17 15:20 84 23 97/48 93 07/07/17 15:15 95/49 07/07/17 15:00 97/48 07/07/17 14:45 97.9 F 18 104/41 07/07/17 14:26 93 23 105/57 93 07/07/17 14:22 86 16 108/59 96 07/07/17 14:17 86 17 109/57 93 07/07/17 14:09 81 17 101/49 94 07/07/17 13:00 84 16 96/48 94 07/07/17 12:13 16 94 07/07/17 12:00 85 16 85/65 94 07/07/17 11:42 83 07/07/17 11:10 97.5 F L 07/07/17 11:00 97.5 F L 83 22 100/51 93 07/07/17 10:00 85 20 101/52 94 Intake and Output 07/07/17 07/08/17 07/08/17 23:59 07:59 15:59 Intake Total 0 / 0 500 / 500 Output Total 2600 / 2600 50 / 50 Balance -2600 / -2600 450 / 450 Intake: Oral 0 / 0 500 / 500 Output: Urine 50 / 50 Total Dialysis (HD) Output 2600 / 2600 Other: Meal ham sandwich, goldfish crackers # Bowel Movements 0 Weight 108.437 kg Blood Glucose* 96 92 Hemodialysis Net Fluid Removed 2000 (mL) Patient Weight 07/08/17 23:59 Weight 108.437 kg - General Appearance General appearance: Present: well-developed, well-nourished, appears started age , obese EENT: Present: mucous membranes moist Neck: Present: no JVD Respiratory: Present: clear Cardiology: Present: edema, regular rate, regular rhythm Additional Comments: pitting buttock down, slight improvement Dialysis Vascular Access: Venous Catheter Gastrointestinal: Present: normoactive bowel sounds, no tenderness Integumentary: Present: warm and dry Neurologic: Present: alert and oriented x3 - Lab 07/07/17 03:50 07/08/17 03:30 Most recent lab results Calcium 7.9 mg/dL (8.6-10.3) L 07/08/17 03:30 Phosphorus 7.3 mg/dL (2.7-4.5) H 07/08/17 03:30 Magnesium 2.1 mg/dL (1.6-2.6) 07/08/17 03:30 Consult Discharge Plan - Plan Referrals: Robyn Van, HOR[employer] SH[employer] JUDGE [Primary Care Provider] -
[2017-07-08] MEDS ORDERED: 0.9 % Sodium Chloride 2,000 ML ONE (10:47)
--- NOTE | 2017-07-08 13:11 | Internal Med Progress Note ---
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 IR placed permcath on 07/07/17 Patient is on day 2 of 3continuous days of hemodialysis. Lasix drip discontinued. Monitor I&O's. Left arm banded for future AV access-no lab draws, no BP. No obstructive uropathy on ultrasound. Echo with EF of 50%, indeterminate diastolic function, mild tricuspid regurg, moderate pulm HTN. Monitor fluid status, labs/electrolytes, and vitals closely with some possible acute confusion. (2) Anasarca associated with disorder of kidney Current Visit: Yes Status: Acute Assessment and plan: Due to ESRD. See above plan. (3) Pneumonia Current Visit: Yes Status: Acute Assessment and plan: Patient was initially diagnosed with pneumonia on admission however I am less convinced that she has an active infection. We will continue antibiotics for now and consider stopping them if cultures are returned negative. Qualifiers: Pneumonia type: due to unspecified organism Laterality: right Lung location: lower lobe of lung Qualified Code(s): J18.1 - Lobar pneumonia, unspecified organism (4) DM type 2 (diabetes mellitus, type 2) Current Visit: Yes Status: Chronic Assessment and plan: Continue SSI as needed. Qualifiers: Diabetes mellitus technician terminal and repeater insulin use: without technician terminal and repeater use Diabetes mellitus complication status: with kidney complications Diabetes mellitus complication detail: with chronic kidney disease Chronic kidney disease stage : on chronic dialysis Qualified Code(s): E11.22 - Type 2 diabetes mellitus with diabetic chronic kidney disease; N18.6 - End stage renal disease; N18.6 - End stage renal disease; N18.6 - End stage renal disease; N18.6 - End stage renal disease; Z99.2 - Dependence on renal dialysis; Z99.2 - Dependence on renal dialysis; Z99.2 - Dependence on renal dialysis; Z99.2 - Dependence on renal dialysis (5) DVT prophylaxis Current Visit: Yes Status: Acute Assessment and plan: SQ Heparin - Subjective Interval history: Patient seen and examined in Dialysis. Patient denies acute distress, though notes she is still feeling swollen and that her "clothes are tight". Patient slightly confused on exam as she is in a loose fitting gown and she was talking about freckles. She was also noted as trying to pull/remove her catheter early this morning. Patient underwent HD catheter placement yesterday and today is her 2nd of 3 continuous days of dialysis. - Constitutional Vitals: Temp Pulse Resp BP Pulse Ox 97.6 F 98 20 119/47 91 07/08/17 11:00 07/08/17 06:41 07/08/17 11:00 07/08/17 11:46 07/08/17 06:41 General appearance: Present: cooperative, disheveled, A&O X 3, pleasant, obese, answers questions appropriately - Head Head exam: Present: atraumatic, normocephalic - Eye Eye exam: Present: conjuntiva pink, sclera anicteric - Neck Neck exam general surgery: Present: supple, trachea midline. Absent: lymphadenopathy - Respiratory Respiratory exam: Present: decreased breath sounds, CTAB. Absent: accessory muscle use, rales, rhonchi, wheezes - Cardiovascular Cardiovascular exam: Present: RRR, +S1, +S2. Absent: diastolic murmur, gallop, rubs, systolic murmur - GI/Abdominal GI/Abdominal exam: Present: normal bowel sounds, soft, no peritoneal signs. Absent: distended, tenderness - Extremities Exam Extremities exam: Present: warm. Absent: calf tenderness, cyanotic, pedal edema Additional comments: 3+ edema present from waist down, also 1+ edema present on BUE. Left AKA. No erythema. - Neurological Exam Neurological exam: Present: alert, oriented X3, no focal deficits. Absent: facial droop, speech deficit - Skin Skin exam: Present: dry, intact Internal Medicine: Result - Labs CBC & Chem 7: 07/07/17 03:50 07/08/17 03:30 Labs: BMP 07/08/17 03:30 Sodium 134 L Potassium 4.4 Chloride 102 Carbon Dioxide 19 L BUN 68 H Creatinine 5.69 H Glucose 83 Calcium 7.9 L - ABG Interpretation ABG results: PT/INR, D-dimer PT 12.2 Seconds (9.4-12.1) H 07/06/17 04:00 - Impressions Impressions Guidance Needle Placement Ultrasound 07/07/17 00:00 IMPRESSION: Ultrasound and fluoroscopic guided tunneled HD catheter placement. The catheter is ready for immediate use. D/ / Cooper Quinonez MD / Cooper Quinonez MD Interpreting Provider: Cooper Quinonez MD Insertion Tunneled Catheter 07/07/17 00:00 IMPRESSION: Ultrasound and fluoroscopic guided tunneled HD catheter placement. The catheter is ready for immediate use. D/ / Cooper Quinonez MD / Cooper Quinonez MD Interpreting Provider: Cooper Quinonez MD Echocardiogram 07/07/17 13:52 Impressions: LVEF 50%. Normal LV chamber size, wall thickness and low normal function. Indeterminate diastolic function. Normal right ventricular structure and function. Mild tricuspid regurgitation. Moderate pulmonary hypertension. Estimated RVSP is 48 mmHg. Left Ventricular Wall Motion: Rest Echo Findings All wall segments showed normal motion. Findings: Study Quality * Technically adequate exam. ECG Findings * Normal sinus rhythm. Left Ventricle * LVEF 50%. * Normal LV chamber size, wall thickness and low normal function. * Indeterminate diastolic function. Right Ventricle * Normal right ventricular structure and function. Left Atrium * Mild to moderately dilated left atrium. Right Atrium * Mildly dilated right atrium. Interatrial Septum * Interatrial septum not well evaluated. Aortic Valve * Trileaflet aortic valve. * Mildly calcified aortic valve leaflets. * No aortic regurgitation. * No aortic stenosis. Mitral Valve * Normal mitral valve structure. * No mitral stenosis. * Trace mitral regurgitation. Tricuspid Valve * Normal tricuspid valve structure. * Mild tricuspid regurgitation. * Moderate pulmonary hypertension. * Estimated RVSP is 48 mmHg. * Estimated RA pressure is 5 mmHg. Pulmonic Valve * Normal pulmonic valve structure and function. * No pulmonic regurgitation. Aorta * Normally sized aortic root. Pericardium * The pericardium appears normal. IVC * Normal IVC dimensions and inspiratory collapse. Pulmonary Artery * Normal visualized portions of the main pulmonary artery. ADDENDUM: 07/08/17 0843 Impressions: LVEF 50%. Normal LV chamber size, wall thickness and function. Indeterminate diastolic function. Normal right ventricular structure and function. Mild tricuspid regurgitation. Moderate pulmonary hypertension. Estimated RVSP is 48 mmHg. Small pericardial effusion adjacent to the right and left atria noted. Left Ventricular Wall Motion: Rest Echo Findings All wall segments showed normal motion. Findings: Study Quality * Technically adequate exam. ECG Findings * Normal sinus rhythm. Left Ventricle * LVEF 50%. * Normal LV chamber size, wall thickness and function. * Indeterminate diastolic function. Right Ventricle * Normal right ventricular structure and function. Left Atrium * Mild to moderately dilated left atrium. Right Atrium * Mildly dilated right atrium. Interatrial Septum * Interatrial septum not well evaluated. Aortic Valve * Trileaflet aortic valve. * Mildly calcified aortic valve leaflets. * No aortic regurgitation. * No aortic stenosis. Mitral Valve * Normal mitral valve structure. * No mitral stenosis. * Trace mitral regurgitation. Tricuspid Valve * Normal tricuspid valve structure. * Mild tricuspid regurgitation. * Moderate pulmonary hypertension. * Estimated RVSP is 48 mmHg. * Estimated RA pressure is 5 mmHg. Pulmonic Valve * Normal pulmonic valve structure and function. * No pulmonic regurgitation. Aorta * Normally sized aortic root. Pericardium * Small pericardial effusion adjacent to the right and left atria noted. IVC * Normal IVC dimensions and inspiratory collapse. Pulmonary Artery * Normal visualized portions of the main pulmonary artery. History: Unknown, patient confused. Retroperitoneum Ultrasound 07/07/17 19:30 IMPRESSION: 1. No hydronephrosis. 2. Right renal calculi. D/ / Ronal Ambrocio MD / Ronal Ambrocio MD Interpreting Provider: Ronal Ambrocio MD Consult Discharge Plan - Plan Referrals: Robyn Van, [employer]ALLPOINT PEN ASSEMBLY MACHINE OPERATOR [Primary Care Provider] - <Cesar Riggs - Last Filed: 07/08/17 19:16> Date of Encounter: 07/08/17 - Assessment and plan (1) ESRD (end stage renal disease) Current Visit: Yes Status: Acute (2) Anasarca associated with disorder of kidney Current Visit: Yes Status: Acute (3) Sepsis Current Visit: Yes Status: Resolved Qualifiers: Sepsis type: sepsis due to unspecified organism Qualified Code(s): A41.9 - Sepsis, unspecified organism (4) DM type 2 (diabetes mellitus, type 2) Current Visit: Yes Status: Chronic Qualifiers: Diabetes mellitus technician terminal and repeater insulin use: without senior living use Diabetes mellitus complication status: with kidney complications Diabetes mellitus complication detail: with chronic kidney disease Chronic kidney disease stage : on chronic dialysis Qualified Code(s): E11.22 - Type 2 diabetes mellitus with diabetic chronic kidney disease; N18.6 - End stage renal disease; N18.6 - End stage renal disease; N18.6 - End stage renal disease; N18.6 - End stage renal disease; Z99.2 - Dependence on renal dialysis; Z99.2 - Dependence on renal dialysis; Z99.2 - Dependence on renal dialysis; Z99.2 - Dependence on renal dialysis (5) PAD (peripheral artery disease) Current Visit: Yes Status: Chronic (6) Diabetic nephropathy Current Visit: Yes Status: Chronic Qualifiers: Diabetes mellitus type: type 2 Qualified Code(s): E11.21 - Type 2 diabetes mellitus with diabetic nephropathy (7) Anemia Current Visit: Yes Status: Suspected Qualifiers: Anemia type: due to chronic kidney disease Chronic kidney disease stage: on chronic dialysis Qualified Code(s): N18.6 - End stage renal disease; D63.1 - Anemia in chronic kidney disease; D63.1 - Anemia in chronic kidney disease; Z99.2 - Dependence on renal dialysis; Z99.2 - Dependence on renal dialysis; Z99.2 - Dependence on renal dialysis; Z99.2 - Dependence on renal dialysis (8) Pneumonia Current Visit: Yes Status: Acute Qualifiers: Pneumonia type: due to unspecified organism Laterality: right Lung location: lower lobe of lung Qualified Code(s): J18.1 - Lobar pneumonia, unspecified organism - Constitutional Vitals: Temp Pulse Resp BP Pulse Ox 97.3 F L 88 16 94/59 97 07/08/17 15:40 07/08/17 15:40 07/08/17 15:40 07/08/17 15:40 07/08/17 15:40 Internal Medicine: Result - Labs CBC & Chem 7: 07/07/17 03:50 07/08/17 03:30 Labs: BMP 07/08/17 03:30 Sodium 134 L Potassium 4.4 Chloride 102 Carbon Dioxide 19 L BUN 68 H Creatinine 5.69 H Glucose 83 Calcium 7.9 L - ABG Interpretation ABG results: PT/INR, D-dimer PT 12.2 Seconds (9.4-12.1) H 07/06/17 04:00 - Impressions Impressions Echocardiogram 07/07/17 13:52 Impressions: LVEF 50%. Normal LV chamber size, wall thickness and low normal function. Indeterminate diastolic function. Normal right ventricular structure and function. Mild tricuspid regurgitation. Moderate pulmonary hypertension. Estimated RVSP is 48 mmHg. Left Ventricular Wall Motion: Rest Echo Findings All wall segments showed normal motion. Findings: Study Quality * Technically adequate exam. ECG Findings * Normal sinus rhythm. Left Ventricle * LVEF 50%. * Normal LV chamber size, wall thickness and low normal function. * Indeterminate diastolic function. Right Ventricle * Normal right ventricular structure and function. Left Atrium * Mild to moderately dilated left atrium. Right Atrium * Mildly dilated right atrium. Interatrial Septum * Interatrial septum not well evaluated. Aortic Valve * Trileaflet aortic valve. * Mildly calcified aortic valve leaflets. * No aortic regurgitation. * No aortic stenosis. Mitral Valve * Normal mitral valve structure. * No mitral stenosis. * Trace mitral regurgitation. Tricuspid Valve * Normal tricuspid valve structure. * Mild tricuspid regurgitation. * Moderate pulmonary hypertension. * Estimated RVSP is 48 mmHg. * Estimated RA pressure is 5 mmHg. Pulmonic Valve * Normal pulmonic valve structure and function. * No pulmonic regurgitation. Aorta * Normally sized aortic root. Pericardium * The pericardium appears normal. IVC * Normal IVC dimensions and inspiratory collapse. Pulmonary Artery * Normal visualized portions of the main pulmonary artery. ADDENDUM: 07/08/17 0843 Impressions: LVEF 50%. Normal LV chamber size, wall thickness and function. Indeterminate diastolic function. Normal right ventricular structure and function. Mild tricuspid regurgitation. Moderate pulmonary hypertension. Estimated RVSP is 48 mmHg. Small pericardial effusion adjacent to the right and left atria noted. Left Ventricular Wall Motion: Rest Echo Findings All wall segments showed normal motion. Findings: Study Quality * Technically adequate exam. ECG Findings * Normal sinus rhythm. Left Ventricle * LVEF 50%. * Normal LV chamber size, wall thickness and function. * Indeterminate diastolic function. Right Ventricle * Normal right ventricular structure and function. Left Atrium * Mild to moderately dilated left atrium. Right Atrium * Mildly dilated right atrium. Interatrial Septum * Interatrial septum not well evaluated. Aortic Valve * Trileaflet aortic valve. * Mildly calcified aortic valve leaflets. * No aortic regurgitation. * No aortic stenosis. Mitral Valve * Normal mitral valve structure. * No mitral stenosis. * Trace mitral regurgitation. Tricuspid Valve * Normal tricuspid valve structure. * Mild tricuspid regurgitation. * Moderate pulmonary hypertension. * Estimated RVSP is 48 mmHg. * Estimated RA pressure is 5 mmHg. Pulmonic Valve * Normal pulmonic valve structure and function. * No pulmonic regurgitation. Aorta * Normally sized aortic root. Pericardium * Small pericardial effusion adjacent to the right and left atria noted. IVC * Normal IVC dimensions and inspiratory collapse. Pulmonary Artery * Normal visualized portions of the main pulmonary artery. History: Unknown, patient confused. Retroperitoneum Ultrasound 07/07/17 19:30 IMPRESSION: 1. No hydronephrosis. 2. Right renal calculi. D/ / Ronal Ambrocio MD / Ronal Ambrocio MD Interpreting Provider: Ronal Ambrocio MD - Attending Attestation I examined this patient and my medical decision-making was reviewed with the Resident Physician on 07/08/17. I agree with the documented findings, disposition and treatment plan as described except to the extent set forth below. Ms Ibarra is currently admitted for ESRD and start of dialysis. She remains moderate to high risk due to potential for worsening clinical status. Ms Ibarra is somewhat confused at times. She has pulled on her catheter. No fever or chills. Appears to be tolerating dialysis. Exam alert Comfortable Mucus membranes dry Heart reg No wheeze abd soft Less edema I/P 1. ESRD 2. Anasarca Further diagnoses and plan as above.
[2017-07-08] MEDS ORDERED: Piperacillin/Tazobactam 3.375 GM in 0.9 % Sodium Chloride Mini Bag 100 ML IVPB SCH (14:00)
[2017-07-08] MEDS ORDERED: *HR* Heparin 5,000 UNIT/ML VIAL ONE (14:05)
[2017-07-08] MEDS: Piperacillin/Tazobactam 3.375 GM in 0.9 % Sodium Chloride Mini Bag 100 ML IVPB SCH ×3 (14:28→20:51)
[2017-07-09] MEDS: Ipratropium/Albuterol Neb 3 ML IH SCH ×6 (00:06→21:00)
[2017-07-09] MEDS: *HR* Heparin 5,000 UNIT/ML VIAL SQ SCH ×4 (00:33→19:34)
[2017-07-09 03:55] LABS: Basophils % 0.2 %; Mean Corpuscular Volume 86.9 fL (83.0-100.0); Red Cell Distribution Width 21.2 % (11.5-14.5)
[2017-07-09 03:56] LABS: Eosinophils # 0.1 K/mcL (0.0-0.6); Eosinophils % 2.8 %; Hematocrit 29.2 % (35.3-44.9); Hemoglobin 9.2 g/dL (11.5-15.4); Immature Granulocytes % 0.6 % (0-4); Immature Platelets 12.7 % (1.1-6.1); Lymphocytes # 0.4 K/mcL (0.6-4.6); Lymphocytes % 7.6 %; Mean Corpuscular HGB Conc 31.5 g/dL (31.6-35.5); Mean Corpuscular Hemoglobin 27.4 pg (28.0-33.3); Mean Platelet Volume 11.8 fL (9.4-12.4); Monocytes # 0.5 K/mcL (0.0-1.3); Monocytes % 10.8 %; Neutrophils # 3.9 K/mcL (1.6-8.9); Nucleated Red Blood Cells 0.6 /100 WBC (0); Red Blood Count 3.36 M/mcL (3.82-4.97)
[2017-07-09 04:04] LABS: Platelet Count 70 K/mcL (140-400)
[2017-07-09 04:11] LABS: Calcium 8.1 mg/dL (8.6-10.3); Phosphorous 6.1 mg/dL (2.7-4.5); Potassium 4.2 mEq/L (3.5-5.1)
--- NOTE | 2017-07-09 07:56 | Nephrology Progress Note ---
Date of Encounter: 07/09/17 Time of Encounter: 07:55 - Assessment and Plan (1) Chronic kidney disease, stage V Current Visit: Yes Status: Acute The patient will undergo dialysis again today for volume removal (2) Type 2 diabetes mellitus with diabetic chronic kidney disease Current Visit: Yes Status: Acute Qualifiers: Diabetes mellitus manager long term care insulin use: with manager long term care use Chronic kidney disease stage: stage 5, not on chronic dialysis Qualified Code(s): E11.22 - Type 2 diabetes mellitus with diabetic chronic kidney disease; N18.5 - Chronic kidney disease, stage 5; N18.5 - Chronic kidney disease, stage 5; N18.5 - Chronic kidney disease, stage 5; N18.5 - Chronic kidney disease, stage 5; Z79.4 - skilled nursing (current) use of insulin; Z79.4 - manager long term care (current) use of insulin ; Z79.4 - manager long term care (current) use of insulin; Z79.4 - skilled nursing (current) use of insulin (3) PAD (peripheral artery disease) Current Visit: Yes Status: Chronic Subjective Interval history: Patient reports no new complaints. She has had dialysis for the past 2 days. She says she is feeling better overall. Urine output remains low. She still has quite a bit of swelling on physical exam. Objective - Vital Signs Vital signs: Vital Signs Temp Pulse Resp BP Pulse Ox 07/09/17 06:45 97.3 F L 83 14 127/70 97 07/09/17 03:18 97.5 F L 84 16 108/66 95 07/08/17 23:55 97.3 F L 82 17 107/64 95 07/08/17 19:54 97.4 F L 83 17 117/66 98 07/08/17 15:40 97.3 F L 88 16 94/59 97 07/08/17 11:46 119/47 07/08/17 11:40 113/48 07/08/17 11:25 118/53 07/08/17 11:10 115/58 07/08/17 11:00 97.6 F 20 119/47 07/08/17 10:40 115/56 07/08/17 10:25 121/59 07/08/17 10:10 122/57 07/08/17 09:55 122/53 07/08/17 09:40 97.6 F 20 114/51 Intake and Output 07/08/17 07/08/17 07/09/17 15:59 23:59 07:59 Intake Total 960 / 960 100 / 100 Output Total 2775 / 2775 100 / 100 Balance -1815 / -1815 100 / 100 -100 / -100 Intake: IV Fluids 100 / 100 Zosyn 3.375 GM In 0.9 % Sodium 100 / 100 Chloride (Mini-Bag +) 100 ML @ 25 mls/hr IVPB Q12H [facility] Rx#: [id number] Oral 360 / 360 0 / 0 Intake, Rinseback and Flushes 600 / 600 Output: Urine 0 / 0 Total Dialysis (HD) Output 2600 / 2600 Catheter 175 / 175 100 / 100 Other: Meal Breakfast Percent of Meal Consumed 25% Stool Size Large Copious Stool Consistency soft liquid Stool Color Brown Brown # Bowel Movements 1 1 Weight 105.687 kg Blood Glucose* 166 161 Hemodialysis Net Fluid Removed 2600 (mL) Patient Weight 07/09/17 23:59 Weight 105.687 kg - General Appearance Exam: Patient is alert and oriented. She is in no acute distress. Lungs clear to auscultation. Heart regular rate and rhythm. Abdomen was benign. She has 2-3 + lower extremity swelling. She status post left above-knee amputation. There is a tunnel dialysis catheter in the right chest. - Lab 07/09/17 03:40 07/09/17 03:40 Most recent lab results Calcium 8.1 mg/dL (8.6-10.3) L 07/09/17 03:40 Phosphorus 6.1 mg/dL (2.7-4.5) H 07/09/17 03:40 Magnesium 2.1 mg/dL (1.6-2.6) 07/08/17 03:30 Consult Discharge Plan - Plan Referrals: Robyn Van, BAGGAGE HANDLING SUPERVISOR [Primary Care Provider] -
[2017-07-09] MEDS ORDERED: 0.9 % Sodium Chloride 250 ML IVC PRN (07:57)
[2017-07-09] MEDS ORDERED: 0.9 % Sodium Chloride 1,000 ML ONE (08:00)
[2017-07-09] MEDS: Insulin LISPRO 300 UNITS/3 ML VIAL SQ SCH ×5 (08:10→21:05)
--- NOTE | 2017-07-09 10:35 | Internal Med Progress Note ---
Date of Encounter: 07/09/17 Time of Encounter: 09:50 - Assessment and plan (1) Acute metabolic encephalopathy Current Visit: Yes Status: Acute Assessment and plan: Has had episodes of confusion. Pulled at dialysis catheter. Most likely related to all the recent changes. Seems to be doing a little better today. Continue to monitor and supportive care. 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 IR placed permcath on 07/07/17 Patient is on day 3 of 3 continuous days of hemodialysis. Left arm banded for future AV access-no lab draws, no BP. Echo with EF of 50%, indeterminate diastolic function, mild tricuspid regurg, moderate pulm HTN. Monitor fluid status, labs/electrolytes, and vitals closely with some possible acute confusion. She appears to be tolerating this OK. Continue dialysis as per renal service. (3) Anasarca associated with disorder of kidney Current Visit: Yes Status: Acute Assessment and plan: Due to ESRD. See above plan. (4) Sepsis Current Visit: Yes Status: Resolved Qualifiers: Sepsis type: sepsis due to unspecified organism Qualified Code(s): A41.9 - Sepsis, unspecified organism (5) DM type 2 (diabetes mellitus, type 2) Current Visit: Yes Status: Chronic Assessment and plan: Continue SSI as needed. Qualifiers: Diabetes mellitus watermelon harvesting supervisor insulin use: without watermelon harvesting supervisor use Diabetes mellitus complication status: with kidney complications Diabetes mellitus complication detail: with chronic kidney disease Chronic kidney disease stage : on chronic dialysis Qualified Code(s): E11.22 - Type 2 diabetes mellitus with diabetic chronic kidney disease; N18.6 - End stage renal disease; N18.6 - End stage renal disease; N18.6 - End stage renal disease; N18.6 - End stage renal disease; Z99.2 - Dependence on renal dialysis; Z99.2 - Dependence on renal dialysis; Z99.2 - Dependence on renal dialysis; Z99.2 - Dependence on renal dialysis (6) PAD (peripheral artery disease) Current Visit: Yes Status: Chronic Assessment and plan: Chronic issue (7) Diabetic nephropathy Current Visit: Yes Status: Chronic Assessment and plan: Monitoring blood sugars and coverage as needed. Qualifiers: Diabetes mellitus type: type 2 Qualified Code(s): E11.21 - Type 2 diabetes mellitus with diabetic nephropathy (8) Anemia Current Visit: Yes Status: Suspected Assessment and plan: Following. Qualifiers: Anemia type: due to chronic kidney disease Chronic kidney disease stage: on chronic dialysis Qualified Code(s): N18.6 - End stage renal disease; D63.1 - Anemia in chronic kidney disease; D63.1 - Anemia in chronic kidney disease; Z99.2 - Dependence on renal dialysis; Z99.2 - Dependence on renal dialysis; Z99.2 - Dependence on renal dialysis; Z99.2 - Dependence on renal dialysis (9) Pneumonia Current Visit: Yes Status: Acute Assessment and plan: Plan for 7 days of IV abx at this time. Clinically she appears to have more issues with fluid than pneumonia. Qualifiers: Pneumonia type: due to unspecified organism Laterality: right Lung location: lower lobe of lung Qualified Code(s): J18.1 - Lobar pneumonia, unspecified organism - Subjective Interval history: Ms Ibarra is currently admitted for ESRD and starting of dialysis. She remains moderate to high risk due to potential for worsening clinical status. Ms Ibarra has been having some confusion. She appears to be a little better today. No fever or chills. She denies pain or SOB. No GI issues noted. She seems to be tolerating dialysis. - Constitutional Vitals: Temp Pulse Resp BP Pulse Ox 97.3 F L 83 14 127/70 97 07/09/17 06:45 07/09/17 06:45 07/09/17 06:45 07/09/17 06:45 07/09/17 06:45 General appearance: Present: cooperative, disheveled, A&O X 2, pleasant, obese, answers questions appropriately - Head Head exam: Present: normocephalic - Eye Eye exam: Present: conjuntiva pink - ENT ENT exam: Present: mucous membranes dry - Respiratory Respiratory exam: Present: decreased breath sounds, rhonchi. Absent: wheezes Additional comments: Scattered anterior rhonchi noted. - Cardiovascular Cardiovascular exam: Present: RRR, +S4. Absent: tachycardia - GI/Abdominal GI/Abdominal exam: Present: soft. Absent: tenderness - Extremities Exam Extremities exam: Present: warm. Absent: tenderness Additional comments: Still with significant anasarca. - Neurological Exam Neurological exam: Present: alert Additional comments: Oriented x 2 at this time. - Skin Skin exam: Present: dry, warm Internal Medicine: Result - Labs CBC & Chem 7: 07/09/17 03:40 07/09/17 03:40 Labs: Short CBC 07/09/17 Range/Units 03:40 WBC 5.0 (4.3-11.1) K/mcL Hgb 9.2 L (11.5-15.4) g/dL Hct 29.2 L (35.3-44.9) % Plt Count 70 L (140-400) K/mcL Neutrophils # 3.9 (1.6-8.9) K/mcL BMP 07/09/17 03:40 Sodium 137 Potassium 4.2 Chloride 102 Carbon Dioxide 24 BUN 47 H Creatinine 4.46 H Glucose 146 H Calcium 8.1 L - ABG Interpretation ABG results: PT/INR, D-dimer PT 12.2 Seconds (9.4-12.1) H 07/06/17 04:00 Consult Discharge Plan - Plan Referrals: Robyn Van, TRIM SETTER [Primary Care Provider] -
[2017-07-09] MEDS: Piperacillin/Tazobactam 3.375 GM in 0.9 % Sodium Chloride Mini Bag 100 ML IVPB SCH ×2 (17:05→19:33)
[2017-07-10] MEDS: *HR* Heparin 5,000 UNIT/ML VIAL SQ SCH ×4 (00:14→23:47)
[2017-07-10] MEDS: Ipratropium/Albuterol Neb 3 ML IH SCH ×7 (00:41→23:52)
[2017-07-10 04:24] LABS: Hematocrit 29.7 % (35.3-44.9); Hemoglobin 9.3 g/dL (11.5-15.4); Mean Corpuscular HGB Conc 31.3 g/dL (31.6-35.5); Mean Corpuscular Hemoglobin 27.4 pg (28.0-33.3); Mean Corpuscular Volume 87.4 fL (83.0-100.0); Mean Platelet Volume 12.1 fL (9.4-12.4); Red Cell Distribution Width 21.4 % (11.5-14.5)
[2017-07-10 04:26] LABS: Platelet Count 69 K/mcL (140-400)
[2017-07-10 04:46] LABS: Calcium 8.4 mg/dL (8.6-10.3); Potassium 4.2 mEq/L (3.5-5.1)
[2017-07-10] MEDS: Piperacillin/Tazobactam 3.375 GM in 0.9 % Sodium Chloride Mini Bag 100 ML IVPB SCH ×2 (05:07→17:38)
[2017-07-10] MEDS: Insulin LISPRO 300 UNITS/3 ML VIAL SQ SCH ×3 (12:56→21:40)
--- NOTE | 2017-07-10 13:59 | Internal Med Progress Note ---
Date of Encounter: 07/10/17 Time of Encounter: 11:45 - Assessment and plan (1) Acute metabolic encephalopathy Current Visit: Yes Status: Acute Assessment and plan: Seems to be doing better today. Family/SO at bedside feels she is doing well. Will continue to follow this for now. 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 IR placed permcath on 07/07/17 Patient is on day 3 of 3 continuous days of hemodialysis. Left arm banded for future AV access-no lab draws, no BP. Echo with EF of 50%, indeterminate diastolic function, mild tricuspid regurg, moderate pulm HTN. Monitor fluid status, labs/electrolytes, and vitals closely with some possible acute confusion. Further plan per renal. (3) Anasarca associated with disorder of kidney Current Visit: Yes Status: Acute Assessment and plan: Due to ESRD. See above plan. (4) Sepsis Current Visit: Yes Status: Resolved Qualifiers: Sepsis type: sepsis due to unspecified organism Qualified Code(s): A41.9 - Sepsis, unspecified organism (5) DM type 2 (diabetes mellitus, type 2) Current Visit: Yes Status: Chronic Assessment and plan: Continue SSI as needed. Qualifiers: Diabetes mellitus exterminator helper insulin use: without assisted use Diabetes mellitus complication status: with kidney complications Diabetes mellitus complication detail: with chronic kidney disease Chronic kidney disease stage : on chronic dialysis Qualified Code(s): E11.22 - Type 2 diabetes mellitus with diabetic chronic kidney disease; N18.6 - End stage renal disease; N18.6 - End stage renal disease; N18.6 - End stage renal disease; N18.6 - End stage renal disease; Z99.2 - Dependence on renal dialysis; Z99.2 - Dependence on renal dialysis; Z99.2 - Dependence on renal dialysis; Z99.2 - Dependence on renal dialysis (6) PAD (peripheral artery disease) Current Visit: Yes Status: Chronic Assessment and plan: Chronic issue (7) Diabetic nephropathy Current Visit: Yes Status: Chronic Assessment and plan: Monitoring blood sugars and coverage as needed. Qualifiers: Diabetes mellitus type: type 2 Qualified Code(s): E11.21 - Type 2 diabetes mellitus with diabetic nephropathy (8) Anemia Current Visit: Yes Status: Suspected Assessment and plan: Following. Qualifiers: Anemia type: due to chronic kidney disease Chronic kidney disease stage: on chronic dialysis Qualified Code(s): N18.6 - End stage renal disease; D63.1 - Anemia in chronic kidney disease; D63.1 - Anemia in chronic kidney disease; Z99.2 - Dependence on renal dialysis; Z99.2 - Dependence on renal dialysis; Z99.2 - Dependence on renal dialysis; Z99.2 - Dependence on renal dialysis (9) Pneumonia Current Visit: Yes Status: Acute Assessment and plan: Plan for 7 days of IV abx at this time. Clinically she appears to have more issues with fluid than pneumonia. No further new issues. Qualifiers: Pneumonia type: due to unspecified organism Laterality: right Lung location: lower lobe of lung Qualified Code(s): J18.1 - Lobar pneumonia, unspecified organism - Subjective Interval history: Ms Ibarra is currently admitted for ESRD and starting of dialysis. She remains moderate to high risk due to potential for worsening clinical status. Ms Ibarra is less confused today. No fever or chills. Has tolerated dialysis. No new issues. No CP or SOB. - Constitutional Vitals: Temp Pulse Resp BP Pulse Ox 97.9 F 93 16 101/60 93 07/10/17 10:49 07/10/17 10:49 07/10/17 11:19 07/10/17 10:49 07/10/17 11:19 General appearance: Present: cooperative, A&O X 3, pleasant, answers questions appropriately - Head Head exam: Present: normocephalic - Eye Eye exam: Present: conjuntiva pink - ENT ENT exam: Present: mucous membranes dry - Respiratory Respiratory exam: Present: decreased breath sounds. Absent: rhonchi, wheezes - Cardiovascular Cardiovascular exam: Present: distant heart sounds, RRR. Absent: tachycardia - GI/Abdominal GI/Abdominal exam: Present: soft. Absent: tenderness - Extremities Exam Extremities exam: Present: warm. Absent: tenderness - Neurological Exam Neurological exam: Present: alert, oriented X3 - Skin Skin exam: Present: dry, warm Internal Medicine: Result - Labs CBC & Chem 7: 07/10/17 03:05 07/10/17 03:05 Labs: Short CBC 07/10/17 Range/Units 03:05 WBC 6.1 (4.3-11.1) K/mcL Hgb 9.3 L (11.5-15.4) g/dL Hct 29.7 L (35.3-44.9) % Plt Count 69 L (140-400) K/mcL BMP 07/10/17 03:05 Sodium 136 Potassium 4.2 Chloride 99 Carbon Dioxide 28 BUN 32 H Creatinine 3.50 H Glucose 141 H Calcium 8.4 L - ABG Interpretation ABG results: PT/INR, D-dimer PT 12.2 Seconds (9.4-12.1) H 07/06/17 04:00 Consult Discharge Plan - Plan Referrals: Robyn Van, CABLE INSTALLER [Primary Care Provider] -
[2017-07-11] MEDS: Ipratropium/Albuterol Neb 3 ML IH SCH ×6 (04:10→23:55)
[2017-07-11 04:13] LABS: Mean Corpuscular HGB Conc 30.8 g/dL (31.6-35.5); Mean Corpuscular Hemoglobin 26.9 pg (28.0-33.3)
[2017-07-11 04:14] LABS: Hematocrit 29.2 % (35.3-44.9); Immature Platelets 12.3 % (1.1-6.1); Mean Corpuscular Volume 87.2 fL (83.0-100.0); Mean Platelet Volume 11.8 fL (9.4-12.4); Red Blood Count 3.35 M/mcL (3.82-4.97); Red Cell Distribution Width 21.5 % (11.5-14.5)
[2017-07-11 04:23] LABS: Albumin 3.6 g/dL (3.5-5.7); Calcium 8.5 mg/dL (8.6-10.3); Phosphorous 5.3 mg/dL (2.7-4.5); Potassium 4.5 mEq/L (3.5-5.1)
[2017-07-11] MEDS: Piperacillin/Tazobactam 3.375 GM in 0.9 % Sodium Chloride Mini Bag 100 ML IVPB SCH (05:11)
[2017-07-11] MEDS: *HR* Heparin 5,000 UNIT/ML VIAL SQ SCH ×2 (08:11→17:16)
[2017-07-11] MEDS: Insulin LISPRO 300 UNITS/3 ML VIAL SQ SCH ×4 (08:12→20:42)
[2017-07-11] MEDS ORDERED: 0.9 % Sodium Chloride 250 ML IVC PRN (08:19)
--- NOTE | 2017-07-11 08:19 | Nephrology Progress Note ---
Date of Encounter: 07/11/17 Time of Encounter: 08:18 - Assessment and Plan (1) Chronic kidney disease, stage V Current Visit: Yes Status: Acute The patient will undergo dialysis today. She may require additional ultrafiltration again tomorrow. (2) Type 2 diabetes mellitus with diabetic chronic kidney disease Current Visit: Yes Status: Acute Qualifiers: Diabetes mellitus correction warden insulin use: with correction warden use Chronic kidney disease stage: stage 5, not on chronic dialysis Qualified Code(s): E11.22 - Type 2 diabetes mellitus with diabetic chronic kidney disease; N18.5 - Chronic kidney disease, stage 5; N18.5 - Chronic kidney disease, stage 5; N18.5 - Chronic kidney disease, stage 5; N18.5 - Chronic kidney disease, stage 5; Z79.4 - assisted (current) use of insulin; Z79.4 - assisted (current) use of insulin ; Z79.4 - assisted (current) use of insulin; Z79.4 - assisted (current) use of insulin (3) PAD (peripheral artery disease) Current Visit: Yes Status: Chronic Subjective Interval history: Patient reports no new complaints. The patient's last dialysis was Tuesday. She continues to have quite a bit of swelling. She will undergo dialysis again today. Objective - Vital Signs Vital signs: Vital Signs Temp Pulse Resp BP Pulse Ox 07/11/17 07:29 16 97 07/11/17 07:07 97.3 F L 95 17 125/75 97 07/11/17 04:38 97.6 F 96 18 90/49 96 07/11/17 04:10 17 94 07/10/17 23:43 98.2 F 97 18 107/69 96 07/10/17 20:32 98.1 F 98 18 106/58 100 07/10/17 20:25 15 93 07/10/17 18:59 94 07/10/17 17:18 97.6 F 98 18 101/58 94 07/10/17 16:25 16 90 07/10/17 11:19 16 93 07/10/17 10:49 97.9 F 93 16 101/60 93 Intake and Output 07/10/17 07/11/17 07/11/17 23:59 07:59 15:59 Intake Total 460 / 460 Balance 460 / 460 Intake: IV Fluids 100 / 100 Zosyn 3.375 GM In 0.9 % Sodium 100 / 100 Chloride (Mini-Bag +) 100 ML @ 25 mls/hr IVPB Q12H ELIS Rx#: [id number] Oral 360 / 360 Other: Meal Dinner Percent of Meal Consumed 95% Stool Size Large Smear Stool Consistency soft loose Stool Color Brown Brown # Bowel Movements 1 # Bowel Movement Diapers 1 Weight 102 kg Blood Glucose* 206 133 Patient Weight 07/11/17 23:59 Weight 102 kg - General Appearance Exam: Patient is alert and oriented. She is in no acute distress. Lungsbreath sounds otherwise clear. Heart regular rate and rhythm. Abdomen is benign. there is 3+ lower extremity swelling. Patient is status post left below-knee amputation. Tunnel dialysis catheter is present. - Lab 07/11/17 03:45 07/11/17 03:45 Most recent lab results Calcium 8.5 mg/dL (8.6-10.3) L 07/11/17 03:45 Phosphorus 5.3 mg/dL (2.7-4.5) H 07/11/17 03:45 Magnesium 2.1 mg/dL (1.6-2.6) 07/08/17 03:30 Consult Discharge Plan - Plan Referrals: Robyn Van, RECEPTION CENTRE MANAGER [Primary Care Provider] -
--- NOTE | 2017-07-11 16:28 | Internal Med Progress Note ---
Date of Encounter: 07/11/17 Time of Encounter: 16:15 - Assessment and plan (1) Acute metabolic encephalopathy Current Visit: Yes Status: Resolved Assessment and plan: Continues to improve. Will continue supportive care for now. 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 IR placed permcath on 07/07/17 Patient is on day 3 of 3 continuous days of hemodialysis. Left arm banded for future AV access-no lab draws, no BP. Echo with EF of 50%, indeterminate diastolic function, mild tricuspid regurg, moderate pulm HTN. Monitor fluid status, labs/electrolytes, and vitals closely with some possible acute confusion. Further plan per renal. (3) Anasarca associated with disorder of kidney Current Visit: Yes Status: Acute Assessment and plan: Due to ESRD. See above plan. (4) Sepsis Current Visit: Yes Status: Resolved Qualifiers: Sepsis type: sepsis due to unspecified organism Qualified Code(s): A41.9 - Sepsis, unspecified organism (5) DM type 2 (diabetes mellitus, type 2) Current Visit: Yes Status: Chronic Assessment and plan: Continue SSI as needed. Qualifiers: Diabetes mellitus oil heaterman insulin use: without oil heaterman use Diabetes mellitus complication status: with kidney complications Diabetes mellitus complication detail: with chronic kidney disease Chronic kidney disease stage : on chronic dialysis Qualified Code(s): E11.22 - Type 2 diabetes mellitus with diabetic chronic kidney disease; N18.6 - End stage renal disease; N18.6 - End stage renal disease; N18.6 - End stage renal disease; N18.6 - End stage renal disease; Z99.2 - Dependence on renal dialysis; Z99.2 - Dependence on renal dialysis; Z99.2 - Dependence on renal dialysis; Z99.2 - Dependence on renal dialysis (6) PAD (peripheral artery disease) Current Visit: Yes Status: Chronic Assessment and plan: Chronic issue (7) Diabetic nephropathy Current Visit: Yes Status: Chronic Assessment and plan: Monitoring blood sugars and coverage as needed. Qualifiers: Diabetes mellitus type: type 2 Qualified Code(s): E11.21 - Type 2 diabetes mellitus with diabetic nephropathy (8) Anemia Current Visit: Yes Status: Suspected Assessment and plan: Following. Qualifiers: Anemia type: due to chronic kidney disease Chronic kidney disease stage: on chronic dialysis Qualified Code(s): N18.6 - End stage renal disease; D63.1 - Anemia in chronic kidney disease; D63.1 - Anemia in chronic kidney disease; Z99.2 - Dependence on renal dialysis; Z99.2 - Dependence on renal dialysis; Z99.2 - Dependence on renal dialysis; Z99.2 - Dependence on renal dialysis (9) Pneumonia Current Visit: Yes Status: Acute Assessment and plan: Plan for 7 days of IV abx total. Qualifiers: Pneumonia type: due to unspecified organism Laterality: right Lung location: lower lobe of lung Qualified Code(s): J18.1 - Lobar pneumonia, unspecified organism - Subjective Interval history: Ms Ibarra is currently admitted for ESRD and starting of dialysis. She remains moderate to high risk due to potential for worsening clinical status. Ms Ibarra is feeling better overall. She is less confused. She is still edematous but feels it is less. No fever or chills. No CP or SOB. S.O. at bedside and feels she is slowly improving. - Constitutional Vitals: Temp Pulse Resp BP Pulse Ox 98 F 101 20 107/65 88 07/11/17 15:32 07/11/17 15:32 07/11/17 15:32 07/11/17 15:32 07/11/17 15:32 General appearance: Present: cooperative, A&O X 3, pleasant, answers questions appropriately - Head Head exam: Present: normocephalic - Eye Eye exam: Present: conjuntiva pink - ENT ENT exam: Present: mucous membranes moist - Respiratory Respiratory exam: Present: decreased breath sounds. Absent: rales, rhonchi, wheezes - Cardiovascular Cardiovascular exam: Present: RRR. Absent: tachycardia - GI/Abdominal GI/Abdominal exam: Present: soft. Absent: tenderness - Extremities Exam Extremities exam: Present: warm. Absent: tenderness - Neurological Exam Neurological exam: Present: alert, oriented X3 - Skin Skin exam: Present: dry, warm Internal Medicine: Result - Labs CBC & Chem 7: 07/11/17 03:45 07/11/17 03:45 Labs: Short CBC 07/11/17 Range/Units 03:45 WBC 7.7 (4.3-11.1) K/mcL Hgb 9.0 L (11.5-15.4) g/dL Hct 29.2 L (35.3-44.9) % Plt Count 65 L (140-400) K/mcL BMP 07/11/17 03:45 Sodium 135 L Potassium 4.5 Chloride 98 Carbon Dioxide 27 BUN 38 H Creatinine 4.47 H Glucose 148 H Calcium 8.5 L Liver Function 07/11/17 Range/Units 03:45 Albumin 3.6 (3.5-5.7) g/dL - ABG Interpretation ABG results: PT/INR, D-dimer PT 12.2 Seconds (9.4-12.1) H 07/06/17 04:00 Consult Discharge Plan - Plan Referrals: Robyn Van, SERVICE COUNSELOR [Primary Care Provider] -
[2017-07-12] MEDS: *HR* Heparin 5,000 UNIT/ML VIAL SQ SCH ×4 (00:39→23:43)
[2017-07-12] MEDS: Ipratropium/Albuterol Neb 3 ML IH SCH ×5 (04:42→20:41)
--- NOTE | 2017-07-12 08:06 | Nephrology Progress Note ---
Date of Encounter: 07/12/17 Time of Encounter: 08:04 - Assessment and Plan (1) Chronic kidney disease, stage V Current Visit: Yes Status: Acute The patient will undergo additional ultrafiltration today for volume removal. She will have dialysis again tomorrow. I suspect that following dialysis tomorrow she may be ready for discharge. (2) Type 2 diabetes mellitus with diabetic chronic kidney disease Current Visit: Yes Status: Acute Qualifiers: Diabetes mellitus medical terminologist insulin use: with medical terminologist use Chronic kidney disease stage: stage 5, not on chronic dialysis Qualified Code(s): E11.22 - Type 2 diabetes mellitus with diabetic chronic kidney disease; N18.5 - Chronic kidney disease, stage 5; N18.5 - Chronic kidney disease, stage 5; N18.5 - Chronic kidney disease, stage 5; N18.5 - Chronic kidney disease, stage 5; Z79.4 - long-term (current) use of insulin; Z79.4 - termite helper (current) use of insulin ; Z79.4 - long-term (current) use of insulin; Z79.4 - long-term (current) use of insulin (3) PAD (peripheral artery disease) Current Visit: Yes Status: Chronic Subjective Interval history: Patient reports no new complaints. She had dialysis yesterday. She continues to have lower extremity swelling although it continues to improve. Objective - Vital Signs Vital signs: Vital Signs Temp Pulse Resp BP Pulse Ox 07/12/17 07:10 98.7 F 103 14 119/56 92 07/12/17 04:42 16 93 07/12/17 04:08 98.2 F 100 16 120/67 92 07/11/17 23:34 98.1 F 99 16 111/68 93 07/11/17 20:17 98.1 F 99 16 110/64 97 07/11/17 16:03 18 90 07/11/17 15:32 98 F 101 20 107/65 88 07/11/17 13:10 98.1 F 18 125/70 07/11/17 12:30 123/66 07/11/17 12:15 130/75 07/11/17 12:00 129/61 07/11/17 11:45 128/60 07/11/17 11:30 125/64 07/11/17 11:15 130/69 07/11/17 11:00 126/65 07/11/17 10:45 125/64 07/11/17 10:30 121/68 07/11/17 10:15 122/63 07/11/17 10:00 120/64 07/11/17 09:45 121/51 07/11/17 09:30 97.9 F 20 120/64 Intake and Output 07/11/17 07/12/17 07/12/17 23:59 07:59 15:59 Intake Total 240 / 240 0 / 0 Output Total Balance 220 / 220 -10 -10 Intake: Oral 240 / 240 0 / 0 Output: Catheter Urethral ([place]) Other: Meal Dinner Percent of Meal Consumed 100% Weight 102.512 kg Blood Glucose* 170 Patient Weight 07/12/17 23:59 Weight 102.512 kg - General Appearance Exam: Patient is alert and oriented. She is in no acute distress. Lungs clear to auscultation. Heart regular rate and rhythm. Abdomen was benign. There is less lower extremity swelling although some is still present. She status post left below-knee amputation. - Lab 07/11/17 03:45 07/11/17 03:45 Most recent lab results Calcium 8.5 mg/dL (8.6-10.3) L 07/11/17 03:45 Phosphorus 5.3 mg/dL (2.7-4.5) H 07/11/17 03:45 Magnesium 2.1 mg/dL (1.6-2.6) 07/08/17 03:30 Consult Discharge Plan - Plan Referrals: Robyn Van, ENGINEERING DOCUMENT CONTROL CLERK [Primary Care Provider] -
[2017-07-12] MEDS ORDERED: 0.9 % Sodium Chloride 250 ML IVC PRN (08:07)
[2017-07-12] MEDS: Insulin LISPRO 300 UNITS/3 ML VIAL SQ SCH ×4 (08:23→21:12)
[2017-07-12] MEDS ORDERED: 0.9 % Sodium Chloride 1,000 ML ONE (08:48)
[2017-07-12 11:19] LABS: Hemoglobin 10.3 g/dL (11.5-15.4)
[2017-07-12 11:20] LABS: Hematocrit 33.6 % (35.3-44.9); Immature Platelets 13.4 % (1.1-6.1); Mean Corpuscular HGB Conc 30.7 g/dL (31.6-35.5); Mean Corpuscular Hemoglobin 27.5 pg (28.0-33.3); Mean Corpuscular Volume 89.6 fL (83.0-100.0); Mean Platelet Volume 11.9 fL (9.4-12.4); Red Blood Count 3.75 M/mcL (3.82-4.97)
[2017-07-12 12:18] LABS: Calcium 9.2 mg/dL (8.6-10.3); Potassium 4.6 mEq/L (3.5-5.1)
--- NOTE | 2017-07-12 16:58 | Internal Med Progress Note ---
Date of Encounter: 07/12/17 Time of Encounter: 16:56 - Assessment and plan (1) Acute metabolic encephalopathy Current Visit: Yes Status: Resolved Assessment and plan: Resolved. (2) ESRD (end stage renal disease) Current Visit: Yes Status: Acute Assessment and plan: ESRD secondary to diabetic nephropathy. IR placed permcath on 07/07/17. Left arm banded for future AV access-no lab draws, no BP. ECHO with EF of 50%, indeterminate diastolic function, mild tricuspid regurg, moderate pulm HTN. Nephrology consulted; appreciate input. Patient dialyzed today; plan for dialysis again tomorrow. Continue with nephrology recommendations; plan for possible discharge tomorrow after dialysis. Continue to monitor fluid status, labs/electrolytes, and vitals closely. (3) Anasarca associated with disorder of kidney Current Visit: Yes Status: Acute Assessment and plan: Secondary to ESRD. Much improved. Continue dialysis and follow nephrology recommendations. (4) Sepsis Current Visit: Yes Status: Resolved Assessment and plan: Resolved. Qualifiers: Sepsis type: sepsis due to unspecified organism Qualified Code(s): A41.9 - Sepsis, unspecified organism (5) DM type 2 (diabetes mellitus, type 2) Current Visit: Yes Status: Chronic Assessment and plan: Continue accuchecks and SSI. Qualifiers: Diabetes mellitus custodial insulin use: without custodial use Diabetes mellitus complication status: with kidney complications Diabetes mellitus complication detail: with chronic kidney disease Chronic kidney disease stage : on chronic dialysis Qualified Code(s): E11.22 - Type 2 diabetes mellitus with diabetic chronic kidney disease; N18.6 - End stage renal disease; N18.6 - End stage renal disease; N18.6 - End stage renal disease; N18.6 - End stage renal disease; Z99.2 - Dependence on renal dialysis; Z99.2 - Dependence on renal dialysis; Z99.2 - Dependence on renal dialysis; Z99.2 - Dependence on renal dialysis (6) PAD (peripheral artery disease) Current Visit: Yes Status: Chronic Assessment and plan: Chronic issue. Continue to monitor. (7) Diabetic nephropathy Current Visit: Yes Status: Chronic Qualifiers: Diabetes mellitus type: type 2 Qualified Code(s): E11.21 - Type 2 diabetes mellitus with diabetic nephropathy (8) Anemia Current Visit: Yes Status: Chronic Assessment and plan: Stable. Continue to monitor. Qualifiers: Anemia type: due to chronic kidney disease Chronic kidney disease stage: on chronic dialysis Qualified Code(s): N18.6 - End stage renal disease; D63.1 - Anemia in chronic kidney disease; D63.1 - Anemia in chronic kidney disease; Z99.2 - Dependence on renal dialysis; Z99.2 - Dependence on renal dialysis; Z99.2 - Dependence on renal dialysis; Z99.2 - Dependence on renal dialysis (9) Pneumonia Current Visit: Yes Status: Resolved Assessment and plan: Completed 7 day antibiotic course. Still requiring supplemental O2; wean as tolerated. May need to go home with supplemental O2; has already qualified so will set up at discharge. Qualifiers: Pneumonia type: due to unspecified organism Laterality: right Lung location: lower lobe of lung Qualified Code(s): J18.1 - Lobar pneumonia, unspecified organism - Time Spent With Patient less than 15 minutes - Subjective Interval history: Patient had no acute events overnight. She is accompanied by her boyfriend today. She states that dialysis went well today. She states that swelling is much improved. She is alert and oriented x 3. She denies fever or chills. She has no respiratory difficulties, but she is still on O2 2L NC, and nursing has not been able to wean. She has been qualified for home O2. She has no new complaints. - Constitutional Vitals: Temp Pulse Resp BP Pulse Ox 99.4 F 105 17 109/54 97 07/12/17 15:16 07/12/17 15:16 07/12/17 16:41 07/12/17 15:16 07/12/17 16:41 General appearance: Present: cooperative, A&O X 3, pleasant, no acute distress, answers questions appropriately - Respiratory Respiratory exam: Present: CTAB. Absent: accessory muscle use, rales, rhonchi, wheezes Additional comments: Normal WOB - Cardiovascular Cardiovascular exam: Present: RRR, +S1, +S2. Absent: diastolic murmur, gallop, rubs, systolic murmur Additional comments: 2+ pitting BLE edema, trace BUE edema with wrinkled skin - GI/Abdominal GI/Abdominal exam: Present: normal bowel sounds, soft. Absent: distended, hepatomegaly, mass, splenomegaly, tenderness - Psychiatric Psychiatric exam: Present: normal affect, normal mood. Absent: anxious, depressed - Skin Skin exam: Present: dry, intact, warm. Absent: cyanosis, rash Internal Medicine: Result - Labs CBC & Chem 7: 07/12/17 11:01 07/12/17 11:01 Labs: Short CBC 07/12/17 Range/Units 11:01 WBC 11.5 H (4.3-11.1) K/mcL Hgb 10.3 L (11.5-15.4) g/dL Hct 33.6 L (35.3-44.9) % Plt Count 73 L (140-400) K/mcL BMP 07/12/17 11:01 Sodium 134 L Potassium 4.6 Chloride 96 L Carbon Dioxide 29 BUN 30 H Creatinine 3.55 H Glucose 148 H Calcium 9.2 - ABG Interpretation ABG results: PT/INR, D-dimer PT 12.2 Seconds (9.4-12.1) H 07/06/17 04:00 Consult Discharge Plan - Plan Referrals: Robyn Van, SERVICE DESK ANALYST [Primary Care Provider] -
[2017-07-13] MEDS: Ipratropium/Albuterol Neb 3 ML IH SCH ×6 (00:12→19:52)
[2017-07-13] MEDS ORDERED: 0.9 % Sodium Chloride 250 ML IVC PRN (08:15)
--- NOTE | 2017-07-13 08:15 | Nephrology Progress Note ---
Date of Encounter: 07/13/17 Time of Encounter: 08:13 - Assessment and Plan (1) Chronic kidney disease, stage V Current Visit: Yes Status: Acute The patient will undergo dialysis today. She will continue to be maintained on dialysis every Tuesday as an outpatient. From a renal perspective she may be able to be discharged after dialysis today. (2) Type 2 diabetes mellitus with diabetic chronic kidney disease Current Visit: Yes Status: Acute Qualifiers: Diabetes mellitus [facility] insulin use: with termite treater helper use Chronic kidney disease stage: stage 5, not on chronic dialysis Qualified Code(s): E11.22 - Type 2 diabetes mellitus with diabetic chronic kidney disease; N18.5 - Chronic kidney disease, stage 5; N18.5 - Chronic kidney disease, stage 5; N18.5 - Chronic kidney disease, stage 5; N18.5 - Chronic kidney disease, stage 5; Z79.4 - penitentiary (current) use of insulin; Z79.4 - penitentiary (current) use of insulin ; Z79.4 - penitentiary (current) use of insulin; Z79.4 - penitentiary (current) use of insulin (3) PAD (peripheral artery disease) Current Visit: Yes Status: Chronic Subjective Interval history: The patient reports no new complaints. She underwent ultrafiltration yesterday. She has less edema on physical exam. She will undergo her usual dialysis today. Objective - Vital Signs Vital signs: Vital Signs Temp Pulse Resp BP Pulse Ox 07/13/17 06:56 98.2 F 99 16 131/76 97 07/13/17 04:12 18 94 07/13/17 03:16 98.3 F 99 16 117/70 95 07/13/17 00:14 20 94 07/12/17 23:24 98.8 F 103 16 96/61 92 07/12/17 20:41 17 95 07/12/17 20:38 98.7 F 103 18 113/70 96 07/12/17 16:41 17 97 07/12/17 15:16 99.4 F 105 14 109/54 97 07/12/17 14:19 96 07/12/17 12:01 98.6 F 103 13 114/66 94 07/12/17 11:30 98.3 F 18 117/58 07/12/17 11:00 111/58 03/13/18 10:45 109/60 07/12/17 10:30 110/71 07/12/17 10:15 108/58 07/12/17 10:00 109/53 07/12/17 09:45 106/70 07/12/17 09:30 104/61 07/12/17 09:15 112/60 07/12/17 09:00 98.8 F 18 104/58 Intake and Output 07/12/17 07/13/17 07/13/17 23:59 07:59 15:59 Intake Total 0 / 0 Output Total Balance - Intake: Oral 0 / 0 Output: Catheter Other: Weight 96.615 kg Blood Glucose* 133 125 Patient Weight 07/13/17 23:59 Weight 96.615 kg - General Appearance Exam: Patient is alert and oriented. She is in no acute distress. Lungs clear to auscultation. Heart regular rate and rhythm. Abdomen is benign. There is less lower extremity swelling. Patient is status post left below-knee amputation. A tunnel dialysis catheter is present in the chest. - Lab 07/12/17 11:01 07/12/17 11:01 Most recent lab results Calcium 9.2 mg/dL (8.6-10.3) 07/12/17 11:01 Phosphorus 5.3 mg/dL (2.7-4.5) H 07/11/17 03:45 Magnesium 2.1 mg/dL (1.6-2.6) 07/08/17 03:30 Consult Discharge Plan - Plan Referrals: Robyn Van, KILN REPAIRER [Primary Care Provider] -
[2017-07-13] MEDS: *HR* Heparin 5,000 UNIT/ML VIAL SQ SCH ×2 (08:36→18:12)
[2017-07-13] MEDS: Insulin LISPRO 300 UNITS/3 ML VIAL SQ SCH ×3 (08:37→18:12)
[2017-07-13] MEDS ORDERED: 0.9 % Sodium Chloride 2,000 ML ONE (09:32)
[2017-07-13] MEDS ORDERED: *HR* Heparin 10,000 UNIT/10 ML VIAL IV PRN (09:34)
[2017-07-13 16:02] VITALS: BP 121/72
--- NOTE | 2017-07-13 16:55 | Discharge Summary ---
- NOTES TO OUTPATIENT PROVIDER Notes to Outpatient Provider: Follow up with PCP in 2-3 days after discharge. Go to outpatient dialysis Tuesday, Tuesday, and . Recheck BMP at follow up to monitor renal function. Follow up with nephrology as scheduled. Orders not resulted at time of discharge: Pending orders 07/06/17 06:00 ECG 12 lead ECG [ECG] AM 0600 07/13/17 04:00 Basic Metabolic Panel AM 0400 CBC [Complete Blood Count] [HEME] AM 0400 07/14/17 04:00 Basic Metabolic Panel AM 0400 Complete Blood Count w/o Diff [HEME] AM 04007/15/17 04:00 Basic Metabolic Panel AM 0400 Complete Blood Count w/o Diff [HEME] AM 04007/16/17 04:00 Basic Metabolic Panel AM 0400 Complete Blood Count w/o Diff [HEME] AM 0400 07/17/17 04:00 Basic Metabolic Panel AM 0400 Complete Blood Count w/o Diff [HEME] AM 0400 07/18/17 04:00 Basic Metabolic Panel AM 0400 Complete Blood Count w/o Diff [HEME] AM 0400 Date of Encounter: 07/13/17 Time of Encounter: 16:52 - Discharge Diagnosis (1) Sepsis Priority: Primary Status: Resolved Qualifiers: Sepsis type: sepsis due to unspecified organism Qualified Code(s): A41.9 - Sepsis, unspecified organism (2) Pneumonia Priority: Secondary Status: Resolved Qualifiers: Pneumonia type: due to unspecified organism Laterality: right Lung location: lower lobe of lung Qualified Code(s): J18.1 - Lobar pneumonia, unspecified organism (3) Acute metabolic encephalopathy Priority: Secondary Status: Resolved (4) ESRD (end stage renal disease) Priority: Secondary Status: Chronic (5) Anasarca associated with disorder of kidney Priority: Secondary Status: Chronic (6) DM type 2 (diabetes mellitus, type 2) Priority: Secondary Status: Chronic Qualifiers: Diabetes mellitus long term care social worker insulin use: without assisted use Diabetes mellitus complication status: with kidney complications Diabetes mellitus complication detail: with chronic kidney disease Chronic kidney disease stage : on chronic dialysis Qualified Code(s): E11.22 - Type 2 diabetes mellitus with diabetic chronic kidney disease; N18.6 - End stage renal disease; N18.6 - End stage renal disease; N18.6 - End stage renal disease; N18.6 - End stage renal disease; Z99.2 - Dependence on renal dialysis; Z99.2 - Dependence on renal dialysis; Z99.2 - Dependence on renal dialysis; Z99.2 - Dependence on renal dialysis (7) PAD (peripheral artery disease) Priority: Secondary Status: Chronic (8) Diabetic nephropathy Priority: Secondary Status: Chronic Qualifiers: Diabetes mellitus type: type 2 Qualified Code(s): E11.21 - Type 2 diabetes mellitus with diabetic nephropathy (9) Anemia Priority: Secondary Status: Chronic Qualifiers: Anemia type: due to chronic kidney disease Chronic kidney disease stage: on chronic dialysis Qualified Code(s): N18.6 - End stage renal disease; D63.1 - Anemia in chronic kidney disease; D63.1 - Anemia in chronic kidney disease; Z99.2 - Dependence on renal dialysis; Z99.2 - Dependence on renal dialysis; Z99.2 - Dependence on renal dialysis; Z99.2 - Dependence on renal dialysis Hospital course: Ms. Ibarra is a 67 year old female admitted for sepsis and hypothermia, likely secondary to pneumonia. She was admitted to general medical floor. She was started on zyvox and zosyn. Hypothermia improved with rewarming and improvement of sepsis. Nephrology was consulted for ESRD and dialysis need. Started on lasix drip. Renal ultrasound showed no obstructive nephropathy. ECHO ordered and showed LVEF of 50% with normal LV, normal RV, mild tricuspid regurgitation, and indeterminate diastolic function. Tunneled HD catheter placed by IR. Antibiotics deescalated as pneumonia less likely. She continued to receive dialysis 3 times/week during this hospitalization. Had some acute metabolic encephalopathy that improved with reorientation and removal of sears catheter. Patient cleared for discharge home by nephrology with schedule for outpatient dialysis on Tuesday, Tuesday, and Tuesday. She completed 7 days total of antibiotics. She will follow up with PCP in 2-3 days after discharge. Repeat BMP can be obtained at that time. Patient is not interested in PT/OT or inpatient rehabilitation. She only wants to go home. Patient has met maximum benefit of this hospitalization and will be discharged home in stable condition. Discharge discussed with: patient, nurse - Time Spent with Patient Total time spent providing and/or coordinating discharge services: Greater than 30 minutes - Discharge Medications Prescriptions: Sevelamer [Renvela] 1,600 mg PO TIDWM 7 Days #21 tablet Home Medications: Acetaminophen [Tylenol] 500 mg PO Q6HR PRN 07/05/17 [History] Allopurinol [Zyloprim 100 MG] 200 mg PO DAILY 07/05/17 [History] Amlodipine Besylate 10 mg PO DAILY 07/05/17 [History] Linagliptin [Tradjenta] 5 mg PO QAM 07/05/17 [History] Omeprazole [PriLOSEC] 20 mg PO DAILY 07/05/17 [History] Sevelamer [Renvela] 1,600 mg PO TIDWM 7 Days #21 tablet 07/13/17 [Rx] Allergies/Adverse Reactions: 3 Allergy/AdvReac Type Severity Reaction Status Date / Time No Known Allergies Allergy Verified 07/05/17 17:25 Date of admission: 07/06/17 00:41 Primary care physician: Robyn Van CNP Consults: 07/06/17 03:06 Consult to Physician [CONS] Routine Consulting Provider: Wilbert Huddleston Reason for Consult: arf/ckd Call Completed: No 07/06/17 17:59 Consult to Rug Inspector [CONS] Routine Reason for SW Consult: To set up her significant other to be her POA 07/07/17 08:50 Consult to Interventional Radiology [CONS] Routine Consulting Provider: Radiology Interventional Cols Reason for Consult: permcath placed today followed by HD today Time Notified: 08:50 Call Completed: Yes 07/07/17 10:00 Consult to Dialysis [CONS] ONCE 07/08/17 08:45 Consult to Dialysis [CONS] ONCE 07/09/17 08:00 Consult to Dialysis [CONS] ONCE 07/11/17 08:30 Consult to Dialysis [CONS] ONCE 07/12/17 08:15 Consult to Dialysis [CONS] ONCE 07/12/17 17:55 Consult to Occupational Therapy [CONS] Routine Comment: Evaluate, develop and implement POC Reason for Consult: weakness Does patient have active BEDREST order?: No Is patient medically & hemodynamically stable?: Yes Consult to Physical Therapy [CONS] Routine Comment: Evaluate, develop and implement POC Reason for Consult: wkns Does patient have active BEDREST order?: No Is patient medically & hemodynamically stable?: Yes 07/13/17 08:15 Consult to Dialysis [CONS] ONCE 07/14/17 08:15 Consult to Dialysis [CONS] ONCE Discharging clinician: Ahmet Mancilla Anticipated date of discharge: 07/13/17 - Constitutional Vitals: Temp Pulse Resp BP Pulse Ox 99.6 F 105 17 121/72 91 07/13/17 16:02 07/13/17 16:02 07/13/17 16:02 07/13/17 16:02 07/13/17 16:02 General appearance: Present: cooperative, A&O X 3, pleasant, no acute distress, answers questions appropriately - Respiratory Respiratory exam: Present: CTAB. Absent: accessory muscle use, rales, rhonchi, wheezes Additional comments: Normal WOB - Cardiovascular Cardiovascular exam: Present: RRR, +S1, +S2. Absent: gallop, rubs Additional comments: 2+ pitting BLE edema - GI/Abdominal GI/Abdominal exam: Present: normal bowel sounds, soft. Absent: distended, hepatomegaly, mass, splenomegaly, tenderness - Psychiatric Psychiatric exam: Present: normal affect, normal mood. Absent: anxious, depressed - Skin Skin exam: Present: dry, intact, warm. Absent: cyanosis, rash - Patient Status Disposition: Home, Self-Care Condition: Fair Overall status at discharge: patient is progressing back to baseline - Discharge Instructions Follow Up With: Robyn Van, CERTIFIED DIABETES EDUCATOR [Primary Care Provider] - Additional Instructions: Follow up with PCP in 2-3 days after discharge. Go to outpatient dialysis Tuesday, Tuesday, and . Recheck BMP at follow up to monitor renal function. Follow up with nephrology as scheduled. - Diet and Activity Activity: as per physical therapy, resume usual activities as tolerated Diet: advance to your usual diet, other (Renal)
== END 2017-07-13 19:50 | disposition home or self-care (01) | DRG 871 ==
LOC: EMEROO 16:36 → ICNU 07-06 00:41 → SUATTDRO 07-06 00:41 → ICNU 07-06 01:07 → 2ANU 07-07 17:22
PROVIDERS: ADMIT Family Medicine; ATTEND Internal Medicine
PROC: IRPERMA (2017-07-07 12:00)

== ENCOUNTER 2017-07-25 13:38 | Inpatient (IN) ==
[~2017-07-25 13:38] MED LIST: *HR* Etomidate 20 MG/10 ML AMPUL IVP ONE
[2017-07-25] MEDS ORDERED: 0.9 % Sodium Chloride 1,000 ML IVC ONE (13:47)
[2017-07-25] MEDS ORDERED: Naloxone 0.4 MG/ML INJ IVP ONE (13:47)
--- NOTE | 2017-07-25 13:55 | Emergency Department Note ---
Disposition Clinical Impression: Acute respiratory failure, Unconscious state, Chronic kidney disease Disposition: Admitted As Inpatient Condition: Critical General Adult HPI - General Chief complaint: ED Cardiac Arrest/CPR Stated complaint: arrest Time Seen by Provider: 07/25/17 13:44 Source: EMS Limitations: other Nursing Notes Reviewed: Yes Vital Signs Reviewed: Yes - History of Present Illness Pain Scale: 0 - Related Data Home Medications Medication Instructions Recorded Confirmed Acetaminophen [Tylenol] 500 mg PO Q6HR PRN 07/05/17 07/25/17 Allopurinol [Zyloprim 100 MG] 200 mg PO DAILY 07/05/17 07/25/17 Amlodipine Besylate 10 mg PO DAILY 07/05/17 07/25/17 Linagliptin [Tradjenta] 5 mg PO QAM 07/05/17 07/25/17 Omeprazole [PriLOSEC] 20 mg PO DAILY PRN 07/05/17 07/25/17 Previous Rx's Medication Instructions Recorded Sevelamer [Renvela] 1,600 mg PO TIDWM 7 Days #21 tablet 07/13/17 Allergies Allergy/AdvReac Type Severity Reaction Status Date / Time No Known Allergies Allergy Verified 07/05/17 17:25 Past Medical History - Past Medical History Medical history: Reports: diabetes Surgical history: Reports: no surgical history Psychiatric history: Reports: no psych history - Social History Smoking Status: Never smoker Smokeless Tobacco Status: No Alcohol use: Reports: none Drug use: Reports: none Physical Exam - General Limitations: other General appearance: other Course Vital Signs Temperature 96.0 F L 07/25/17 13:39 Pulse Rate 64 07/25/17 13:39 Respiratory Rate 20 07/25/17 13:39 Blood Pressure 92/75 07/25/17 13:39 O2 Sat by Pulse Oximetry 93 07/25/17 13:39 Temperature 96.0 F L 07/25/17 13:39 Pulse Rate 79 07/25/17 17:17 Respiratory Rate 18 07/25/17 18:05 Blood Pressure 108/66 07/25/17 16:11 O2 Sat by Pulse Oximetry 100 07/25/17 18:05 Oxygen Delivery Oxygen Delivery Ventilator Medical Decision Making - MDM Narrative Medical decision making narrative: This documentation is done with the assistance of Dragon dictation. Despite efforts made to ensure accuracy, there may be inaccuracies in dumper mold cleaner or spelling and typographical errors. I examined this patient and my medical decision-making was reviewed with the Resident Physician. I agree with the documented findings, disposition and treatment plan as described except to the extent set forth below. Patient seen on arrival with Dr. Zelaya in EMS, I agree with his evaluation and management plan, supervise care the patient's stay. Patient comes to us from dialysis with very limited history. She sounds that she is recently started on dialysis. Some hospital here. Had a CAT. Was going for dialysis treatment. Was doing well fpc through dialysis they knows her to be unresponsive. It is uncertain whether she was truly in cardiac arrest but she did have mental status changes they started CPR called squad 1 squad got there they stated no meds had been given just fluids. Her pressure was low. Sugar was normal. Mom did not respond and then brought here. She is nasally intubated. She does have a heart rate and pulse. No meds were given. Subtle certain whether she was actually in cardiac arrest. Return to CT of her head check labs see if we get in touch with the dialysis center to get a better history and then she will need admission. 1330 hrs.: Patient in EKG performed shows an atrial fibrillation rate is 68, QRS is 91 QTc is 434 no signs of ischemia low voltage throughout. Compared this EKG had done earlier in the month which at that time showed a sinus rhythm with first-degree AV block low voltage throughout also. 1357 hrs.: I looked at her last history she was admitted for sepsis and likely pneumonia. Had stage IV renal disease and then seemed to progress. Also noted of metabolic encephalopathy. 1402 hrs.: Spoke to the nurse over the dialysis center. She is the patient had no complaints. No medications were given. She had been on dialysis for about 10 minutes. She actually asked for a couple coffee. When they went to do that. They noticed the patient was blue and unresponsive. They checked a pressure and she was 70 over palp. I could not palpate a pulse. They started CPR. No medications were given. Give her fluids called 911 and her post fluid blood pressure was over 100. And then that is when medics came medics did not give her any medications in transport after intubation here. e - Lab Data Result diagrams: 07/25/17 13:46 07/25/17 13:46 Lab Results 07/25/17 07/25/17 07/25/17 Range/Units 13:46 13:46 13:46 WBC 8.7 (4.3-11.1) K/mcL RBC 3.48 L (3.82-4.97) M/mcL Hgb 9.7 L (11.5-15.4) g/dL Hct 32.3 L (35.3-44.9) % MCV 92.8 (83.0-100.0) fL MCH 27.9 L (28.0-33.3) pg MCHC 30.0 L (31.6-35.5) g/dL RDW 20.6 H (11.5-14.5) % Plt Count 174 (140-400) K/mcL MPV 11.4 (9.4-12.4) fL Immature Gran % 6.2 H (0-4) % Seg Neutrophils % 64.0 % Lymphocytes % 22.0 % Monocytes % 6.4 % Eosinophils % 0.8 % Basophils % 0.6 % Neutrophils # 5.6 (1.6-8.9) K/mcL Lymphocytes # 1.9 (0.6-4.6) K/mcL Monocytes # 0.6 (0.0-1.3) K/mcL Eosinophils # 0.1 (0.0-0.6) K/mcL Basophils # 0.1 (0.0-0.2) K/mcL Nucleated RBCs/100 WBC 0.2 H (0) /100 WBC PT 13.7 H (9.4-12.1) Seconds INR 1.3 APTT 74.9 H (26.0-36.0) Seconds Sodium (136-145) mEq/L Potassium (3.5-5.1) mEq/L Chloride (98-107) mEq/L Carbon Dioxide (23-29) mEq/L BUN (8-23) mg/dL Creatinine (0.60-1.20) mg/dL Est GFR ( Amer) (> 60) Est GFR (Non-Af Amer) (> 60) BUN/Creatinine Ratio (6-26) Glucose (70-105) mg/dL Calculated Osmolality (280-300) Lactic Acid (0.5-2.2) mmol/L Calcium (8.6-10.3) mg/dL Total Bilirubin (0.3-1.0) mg/dL AST (13-39) Units/L ALT (7-52) Units/L Alkaline Phosphatase (34-104) Units/L Troponin I (< 0.04) ng/mL B-Natriuretic Peptide 2124 H (Less than 100) pg/mL Serum Total Protein (6.4-8.9) g/dL Albumin (3.5-5.7) g/dL Globulin (2.4-3.5) g/dL Albumin/Globulin Ratio (1.1-2.2) 07/25/17 07/25/17 Range/Units 13:46 13:46 WBC (4.3-11.1) K/mcL RBC (3.82-4.97) M/mcL Hgb (11.5-15.4) g/dL Hct (35.3-44.9) % MCV (83.0-100.0) fL MCH (28.0-33.3) pg MCHC (31.6-35.5) g/dL RDW (11.5-14.5) % Plt Count (140-400) K/mcL MPV (9.4-12.4) fL Immature Gran % (0-4) % Seg Neutrophils % % Lymphocytes % % Monocytes % % Eosinophils % % Basophils % % Neutrophils # (1.6-8.9) K/mcL Lymphocytes # (0.6-4.6) K/mcL Monocytes # (0.0-1.3) K/mcL Eosinophils # (0.0-0.6) K/mcL Basophils # (0.0-0.2) K/mcL Nucleated RBCs/100 WBC (0) /100 WBC PT (9.4-12.1) Seconds INR APTT (26.0-36.0) Seconds Sodium 143 (136-145) mEq/L Potassium 3.5 (3.5-5.1) mEq/L Chloride 109 H (98-107) mEq/L Carbon Dioxide 20 L (23-29) mEq/L BUN 21 (8-23) mg/dL Creatinine 2.98 H (0.60-1.20) mg/dL Est GFR ( Amer) 19 L (> 60) Est GFR (Non-Af Amer) 16 L (> 60) BUN/Creatinine Ratio 7 (6-26) Glucose 145 H (70-105) mg/dL Calculated Osmolality 302 H (280-300) Lactic Acid 2.9 H (0.5-2.2) mmol/L Calcium 8.0 L (8.6-10.3) mg/dL Total Bilirubin 0.6 (0.3-1.0) mg/dL AST 49 H (13-39) Units/L ALT 31 (7-52) Units/L Alkaline Phosphatase 115 H (34-104) Units/L Troponin I 0.04 H* (< 0.04) ng/mL B-Natriuretic Peptide (Less than 100) pg/mL Serum Total Protein 6.0 L (6.4-8.9) g/dL Albumin 3.4 L (3.5-5.7) g/dL Globulin 2.6 (2.4-3.5) g/dL Albumin/Globulin Ratio 1.3 (1.1-2.2)
--- NOTE | 2017-07-25 14:03 | Emergency Department Note ---
Disposition Clinical Impression: Unconscious state Acute respiratory failure Qualifiers: Respiratory failure complication: unspecified whether with hypoxia or hypercapnia Qualified Code(s): J96.00 - Acute respiratory failure, unspecified whether with hypoxia or hypercapnia Chronic kidney disease Qualifiers: Chronic kidney disease stage: unspecified stage Qualified Code(s): N18.9 - Chronic kidney disease, unspecified Disposition: Admitted As Inpatient Condition: Critical Time of Disposition: 16:30 General Adult HPI - General Chief complaint: ED Cardiac Arrest/CPR Stated complaint: arrest Time Seen by Provider: 07/25/17 13:44 Source: EMS Mode of arrival: EMS Limitations: other Nursing Notes Reviewed: Yes Vital Signs Reviewed: Yes - History of Present Illness HPI Narrative: 67-year-old female presented to the emergency department from dialysis center via EMS. At the dialysis center they said that she was normal upon coming there she was 10 minutes into her dialysis when she asked for Coffee the nurse went to go get the cup of coffee came back and she was blue and unresponsive. At that time base of the check for pulses were unable to find one so they started CPR immediately. EMS arrived today immediately intubated the patient checked for a pulse and patient did have a pulse. Patient was still unresponsive at this time. The intubation was done via nasal endotracheal intubation. Patient arrived here she was still nonresponsive. But she did have a pulse and a normal rhythm after talking to family they said that she had been normal prior to her going to dialysis there is been no preceding events. She was discharged from the hospital approximately one week ago where she was diagnosed with sepsis and pneumonia. She also had chronic kidney disease that is with now is prompted the dialysis. They said she had had. No fevers or chills or nausea or vomiting or chest pain or shortness of breath or abdominal pain or any other symptoms prior to going to dialysis.. Pain Scale: 0 - Related Data Home Medications Medication Instructions Recorded Confirmed Acetaminophen [Tylenol] 500 mg PO Q6HR PRN 07/05/17 07/05/17 Allopurinol [Zyloprim 100 MG] 200 mg PO DAILY 07/05/17 07/05/17 Amlodipine Besylate 10 mg PO DAILY 07/05/17 07/05/17 Linagliptin [Tradjenta] 5 mg PO QAM 07/05/17 07/05/17 Omeprazole [PriLOSEC] 20 mg PO DAILY 07/05/17 07/05/17 Previous Rx's Medication Instructions Recorded Sevelamer [Renvela] 1,600 mg PO TIDWM 7 Days #21 tablet 07/13/17 Allergies Allergy/AdvReac Type Severity Reaction Status Date / Time No Known Allergies Allergy Verified 07/05/17 17:25 Review of Systems: 10 point review of systems done and negative unless otherwise stated in the history of present illness. All systems ED: reviewed and negative except as stated. Review of Systems: As Per HPI Past Medical History - Past Medical History Attestation: Yes The following information was validated with the patient. Source: patient Medical history: Reports: diabetes Surgical history: Reports: no surgical history Psychiatric history: Reports: no psych history - Social History Smoking Status: Never smoker Smokeless Tobacco Status: No Alcohol use: Reports: none Drug use: Reports: none Physical Exam - General Limitations: other General appearance: obtunded, other - Head Head exam: atraumatic, normocephalic, normal inspection - Eye Eye exam: Present: normal appearance, PERRL, EOMI - ENT ENT exam: normal exam, normal oropharynx, mucous membranes moist - Neck Neck exam: Present: normal inspection, full ROM, trachea midline - Chest Chest inspection: Present: normal inspection, symmetric chest wall rise - Respiratory Respiratory exam: Present: normal lung sounds bilaterally - Cardiovascular Cardiovascular exam: Present: regular rate, normal rhythm, normal heart sounds - Abdominal Exam Abdominal exam: Present: soft, Non-Tender. Absent: tenderness, distention, guarding, rebound, rigidity - Extremities Exam Extremities exam: Present: normal inspection, full ROM. Absent: tenderness, pedal edema - Expanded Lower Extremity Exam Neurovascular/Tendon exam: Present: normal capillary refill. Absent: pulse deficit, motor deficit, sensory deficit, tendon deficit - Back Exam Back exam: Present: normal inspection, full ROM. Absent: tenderness, CVA tenderness (R), CVA tenderness (L) - Expanded Neurological Exam Coma Scale Eye Opening: None Coma Scale Motor Response: None Coma Scale Verbal Response: Incomprehensible Coma Scale Total: 4 - Skin Skin exam: Present: warm, dry, intact, normal color Course Vital Signs Temperature 96.0 F L 07/25/17 13:39 Pulse Rate 64 07/25/17 13:39 Respiratory Rate 20 07/25/17 13:39 Blood Pressure 92/75 07/25/17 13:39 O2 Sat by Pulse Oximetry 93 07/25/17 13:39 Temperature 96.0 F L 07/25/17 13:39 Pulse Rate 80 07/25/17 16:11 Respiratory Rate 20 07/25/17 16:11 Blood Pressure 108/66 07/25/17 16:11 O2 Sat by Pulse Oximetry 100 07/25/17 16:11 Oxygen Delivery Oxygen Delivery Ventilator Medical Decision Making - MDM Narrative Medical decision making narrative: 67-year-old female presented to the emergency department via EMS intubated. This was done nasoendotracheal. She did have a rhythm and heartbeat when she arrived. It was an unknown cause of her cardiac arrest. She was hypotensive when we first evaluated her. We did get a second IV line. Patient also had dialysis catheter in case we needed other axis. She had an IO upon arrival those in by EMS. We gave HER-2 liters of IV fluids to help with the hypotension. We did basic labs on her which did show elevated troponin elevated creatinine and no other acute findings. We did a CT of her head immediately which showed no acute abnormalities. Patient was becoming responsive midway through the stay here so she is we have given her 2 doses of 4 mg of Versed to continue to sedate her. We also gave her Narcan to see if this was opiate-induced she did not respond to this. I did speak with her hydrographic engineer Dr. Jay to see if he knew of any source and also let her him know that patient was in a be admitted and most likely need his dialysis. He said he could not think of any kind of source that could be causing her altered mental status. He did say that he would talk to the ICU about dialysis. Consultation for nephrology was put in. Due to the patient's critical status and being intubated patient needed to be admitted to the ICU area and I spoke with the intensity of Dr. Monge who agreed to admit the patient to their service. Vision is stable at this time. We did talk about doing central line and changing to an oral endotracheal intubation. Due to the ER being very busy ICU said they would do that in the ICU. We did talk about doing CT angios of the chest patient due to her not being tachycardic this was low yield and they chose to cancel it will consider doing it later. Patient is critical at this time but still does have a good heart rate good rhythm and is breathing on the ventilator. Patient is transferred to the ICU. Chest X-Ray 07/25/17 13:46 IMPRESSION: 1. Interstitial edema and bilateral pleural effusions, right greater than left. 2. Endotracheal tube terminating 3.5 cm above the laney. 3. Right internal jugular central venous catheter terminating at the cavoatrial junction. 4. No pneumothorax identified. D/ / 07/25/2017 15:24:23 Damian Escoto MD / humberto Interpreting Provider: Damian Escoto MD Head CT 07/25/17 13:46 IMPRESSION: No acute intracranial abnormality. Diffuse atrophic changes with findings suggesting chronic microvascular ischemia D/ / Jose Boston MD / Jose oBston MD Interpreting Provider: Jose Boston MD - Medical Records Medical records reviewed: Yes I reviewed the patient's medical records. - Lab Data Lab results reviewed: Yes I reviewed the patient's lab results. Result diagrams: 07/25/17 13:46 07/25/17 13:46 Lab Results 07/25/17 07/25/17 07/25/17 Range/Units 13:46 13:46 13:46 WBC 8.7 (4.3-11.1) K/mcL RBC 3.48 L (3.82-4.97) M/mcL Hgb 9.7 L (11.5-15.4) g/dL Hct 32.3 L (35.3-44.9) % MCV 92.8 (83.0-100.0) fL MCH 27.9 L (28.0-33.3) pg MCHC 30.0 L (31.6-35.5) g/dL RDW 20.6 H (11.5-14.5) % Plt Count 174 (140-400) K/mcL MPV 11.4 (9.4-12.4) fL Immature Gran % 6.2 H (0-4) % Seg Neutrophils % 64.0 % Lymphocytes % 22.0 % Monocytes % 6.4 % Eosinophils % 0.8 % Basophils % 0.6 % Neutrophils # 5.6 (1.6-8.9) K/mcL Lymphocytes # 1.9 (0.6-4.6) K/mcL Monocytes # 0.6 (0.0-1.3) K/mcL Eosinophils # 0.1 (0.0-0.6) K/mcL Basophils # 0.1 (0.0-0.2) K/mcL Nucleated RBCs/100 WBC 0.2 H (0) /100 WBC PT 13.7 H (9.4-12.1) Seconds INR 1.3 APTT 74.9 H (26.0-36.0) Seconds Sodium (136-145) mEq/L Potassium (3.5-5.1) mEq/L Chloride (98-107) mEq/L Carbon Dioxide (23-29) mEq/L BUN (8-23) mg/dL Creatinine (0.60-1.20) mg/dL Est GFR ( Amer) (> 60) Est GFR (Non-Af Amer) (> 60) BUN/Creatinine Ratio (6-26) Glucose (70-105) mg/dL Calculated Osmolality (280-300) Lactic Acid (0.5-2.2) mmol/L Calcium (8.6-10.3) mg/dL Total Bilirubin (0.3-1.0) mg/dL AST (13-39) Units/L ALT (7-52) Units/L Alkaline Phosphatase (34-104) Units/L Troponin I (< 0.04) ng/mL B-Natriuretic Peptide 2124 H (Less than 100) pg/mL Serum Total Protein (6.4-8.9) g/dL Albumin (3.5-5.7) g/dL Globulin (2.4-3.5) g/dL Albumin/Globulin Ratio (1.1-2.2) 07/25/17 07/25/17 Range/Units 13:46 13:46 WBC (4.3-11.1) K/mcL RBC (3.82-4.97) M/mcL Hgb (11.5-15.4) g/dL Hct (35.3-44.9) % MCV (83.0-100.0) fL MCH (28.0-33.3) pg MCHC (31.6-35.5) g/dL RDW (11.5-14.5) % Plt Count (140-400) K/mcL MPV (9.4-12.4) fL Immature Gran % (0-4) % Seg Neutrophils % % Lymphocytes % % Monocytes % % Eosinophils % % Basophils % % Neutrophils # (1.6-8.9) K/mcL Lymphocytes # (0.6-4.6) K/mcL Monocytes # (0.0-1.3) K/mcL Eosinophils # (0.0-0.6) K/mcL Basophils # (0.0-0.2) K/mcL Nucleated RBCs/100 WBC (0) /100 WBC PT (9.4-12.1) Seconds INR APTT (26.0-36.0) Seconds Sodium 143 (136-145) mEq/L Potassium 3.5 (3.5-5.1) mEq/L Chloride 109 H (98-107) mEq/L Carbon Dioxide 20 L (23-29) mEq/L BUN 21 (8-23) mg/dL Creatinine 2.98 H (0.60-1.20) mg/dL Est GFR ( Amer) 19 L (> 60) Est GFR (Non-Af Amer) 16 L (> 60) BUN/Creatinine Ratio 7 (6-26) Glucose 145 H (70-105) mg/dL Calculated Osmolality 302 H (280-300) Lactic Acid 2.9 H (0.5-2.2) mmol/L Calcium 8.0 L (8.6-10.3) mg/dL Total Bilirubin 0.6 (0.3-1.0) mg/dL AST 49 H (13-39) Units/L ALT 31 (7-52) Units/L Alkaline Phosphatase 115 H (34-104) Units/L Troponin I 0.04 H* (< 0.04) ng/mL B-Natriuretic Peptide (Less than 100) pg/mL Serum Total Protein 6.0 L (6.4-8.9) g/dL Albumin 3.4 L (3.5-5.7) g/dL Globulin 2.6 (2.4-3.5) g/dL Albumin/Globulin Ratio 1.3 (1.1-2.2) - Radiology Data Radiology results reviewed: Yes I reviewed the patient's radiology results.
[2017-07-25] MEDS ORDERED: *HR* Midazolam HCl 2 MG/2 ML VIAL IVP ONE ×4 (14:07→18:44)
[2017-07-25] MEDS ORDERED: *HR* Midazolam HCl 2 MG/2 ML VIAL ONE ×2 (14:08→18:34)
[2017-07-25 14:13] LABS: Basophils # 0.1 K/mcL (0.0-0.2); Basophils % 0.6 %; Eosinophils # 0.1 K/mcL (0.0-0.6); Eosinophils % 0.8 %; Hematocrit 32.3 % (35.3-44.9); Hemoglobin 9.7 g/dL (11.5-15.4); INR 1.3; Immature Granulocytes % 6.2 % (0-4); Lymphocytes # 1.9 K/mcL (0.6-4.6); Mean Corpuscular Hemoglobin 27.9 pg (28.0-33.3); Mean Corpuscular Volume 92.8 fL (83.0-100.0); Mean Platelet Volume 11.4 fL (9.4-12.4); Monocytes # 0.6 K/mcL (0.0-1.3); Monocytes % 6.4 %; Neutrophils # 5.6 K/mcL (1.6-8.9); Nucleated Red Blood Cells 0.2 /100 WBC (0); Platelet Count 174 K/mcL (140-400); Prothrombin Time 13.7 Seconds (9.4-12.1); Red Blood Count 3.48 M/mcL (3.82-4.97); Red Cell Distribution Width 20.6 % (11.5-14.5)
[2017-07-25 14:16] LABS: Activated Partial Thrombo Time 74.9 Seconds (26.0-36.0)
[2017-07-25 14:27] LABS: Troponin I 0.04 ng/mL (< 0.04)
[2017-07-25 14:37] LABS: Albumin 3.4 g/dL (3.5-5.7); Albumin/Globulin Ratio 1.3 (1.1-2.2); Bilirubin,Total 0.6 mg/dL (0.3-1.0); Globulin 2.6 g/dL (2.4-3.5); Potassium 3.5 mEq/L (3.5-5.1)
--- NOTE | 2017-07-25 16:26 | Pulmonology History & Physical ---
<Cooper Gonzalez - Last Filed: 07/25/17 18:20> Date of Encounter: 07/25/17 Time of Encounter: 16:20 Assessment and Plan (1) Cardiac arrest Current visit: Yes Status: Acute - S/p cardiac arrest at dialysis center - Unknown etiology at this time. - Troponin mildly elevated at 0.04, will trend - EKG shows possible old septal infarct - Unlikely Pulmonary embolism at this time given normal heart rate, non hypoxic. Plan - Continue supportive care including Ventilator, pressers if necessary (2) Heart failure Current visit: Yes Status: Acute - HFrEF and indeterminate diastolic dysfunction on Echo in 07/17 - EF 50% - Patient is hypervolemic on exam with diffuse rales, peripheral edema - She is oliguric on dialysis - CXR in ED on 07/25/17 shows diffuse pulmonary edema - Currently saturating 100% O2 on ventilator. Plan - HD per nephrology as below with goal of net loss of fluids - Supportive care of ventilator as she requires. Qualifiers: Heart failure type: combined systolic and diastolic Heart failure chronicity: acute on chronic Qualified Code(s): I50.43 - Acute on chronic combined systolic (congestive) and diastolic (congestive) heart failure (3) Fluid overload Current visit: Yes Status: Acute - As above secondary to HFrEF and ESRD - HD per nephrology, Dr. Huddleston Qualifiers: Hypervolemia type: other Qualified Code(s): E87.79 - Other fluid overload (4) Chronic kidney disease, stage V Current visit: Yes Status: Acute - ESRD on MWF dialysis with Dr. Huddleston - BUN/Cr of 21/2.98 on presentation. - She completed 5 minutes of dialysis today - Renally dose medications - Nephrology consulted in ED, appreciate recommendations (5) Lactic acid acidosis Current visit: Yes Status: Acute - Lactic acid of 2.9 on presentation to ED - Likely secondary to cardiac arrest with hypoperfusion - She received 2L NS bolus in ED - We will trend. - This is not likely related to sepsis and more likely hypoperfusion of tissues , however we will rule out infectious etiologies. - Will cover with empiric antibiotic of vancomycin, zosyn, levaquin. (6) Type 2 diabetes mellitus with diabetic chronic kidney disease Current visit: Yes Status: Acute - Glucose 145 - A1c on 07/06/17 of 6.3% - SSI Qualifiers: Diabetes mellitus manager long term care insulin use: with manager long term care use Chronic kidney disease stage: on chronic dialysis Qualified Code(s): E11.22 - Type 2 diabetes mellitus with diabetic chronic kidney disease; N18.6 - End stage renal disease; Z99.2 - Dependence on renal dialysis; Z99.2 - Dependence on renal dialysis; Z99.2 - Dependence on renal dialysis; N18.6 - End stage renal disease ; N18.6 - End stage renal disease; N18.6 - End stage renal disease; Z79.4 - group home (current) use of insulin; Z79.4 - group home (current) use of insulin; Z79.4 - ferry terminal agent (current) use of insulin; Z79.4 - group home (current) use of insulin; Z99.2 - Dependence on renal dialysis (7) Elevated troponin Current visit: Yes Status: Acute - Troponin of 0.04. This is likely related to ESRD. - Will trend. (8) DVT prophylaxis Current visit: Yes Status: Acute - Heparin 5000 units q12 hours History of Present Illness Chief complaint: cardiac arrest HPI: Ms. Ibarra is a 67 year old female with a PMHx of HTN, DM, HFrEF, ESRD on MWF HD presents to ED from dialysis center after cardiac arrest. Per EMS report and ED report, patient was previously well and presented to dialysis center. She completed approximately 5 minutes of dialysis before staff noticed that she "turned blue" and could not feel a pulse. CPR was started and she did regain a pulse before presentation to the ED. She was intubated on transportation via EMS with nasotracheal tube. She has been stable since presentation to ED with vitals wnl on ventilation and has not required presser support. She has been getting Versed 4mg x 2 doses for sedation. EKG showed sinus rhythm with possible septal infarct of indeterminate age. She follows with Dr. Huddleston who was contacted in the ED. Per her boyfriend who was present at bedside, she has been previously well and had no complaints this morning. She was recently admitted to [facility] on 07/05/17 for sepsis secondary to pneumonia and admitted to the ICU. She was discharged in stable condition per chart review. Boyfriend also states that she is relatively new to dialysis, just starting in the past month. In the ED, labs significant for baseline anemia, BUN/Cr of 29/2.98. Lactic acid of 2.9. Troponin 0.04. CXR shows pumonary edema and CT head shows no acute process. Past Med Surg Social Fam HX - Past Medical History Medical history: diabetes Psychiatric history: no psych history - Past Surgical History Surgical History: no surgical history - Social History Smoking Status: Never smoker Smokeless Tobacco Status: No Alcohol use: none Drug use: none - Family History Mother Living Status: Father Living Status: Medications and Allergies RX: Acetaminophen [Tylenol] 500 mg PO Q6HR PRN 07/05/17 [History] RX: Allopurinol [Zyloprim 100 MG] 200 mg PO DAILY 07/05/17 [History] RX: Amlodipine Besylate 10 mg PO DAILY 07/05/17 [History] RX: Linagliptin [Tradjenta] 5 mg PO QAM 07/05/17 [History] RX: Omeprazole [PriLOSEC] 20 mg PO DAILY PRN 07/05/17 [History] RX: Sevelamer [Renvela] 1,600 mg PO TIDWM 7 Days #21 tablet 07/13/17 [Rx] 3 Allergy/AdvReac Type Severity Reaction Status Date / Time No Known Allergies Allergy Verified 07/05/17 17:25 ROS unobtainable: due to endotracheal tube All Systems: The remainder of the systems were reviewed and are negative Physical Examination Vital Signs: Vital Signs, Last 4 Hours Pulse Resp BP Pulse Ox 07/25/17 16:11 80 20 108/66 100 Gen.: Vitals noted. No acute distress. Intubated and calm. She does respond to verbal and noxious stimuli. HEENT: Pupils equal, minimally reactive to light, Normocephalic, atraumatic, MMM Cardiac: RRR, no murmur, +S1/S2 Pulmonary: Diffuse rales present on auscultation. 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 Results - Laboratory Findings CBC and BMP: 07/25/17 13:46 07/25/17 13:46 PT/INR, D-dimer PT 13.7 Seconds (9.4-12.1) H 07/25/17 13:46 Abnormal lab findings: Abnormal lab results RBC 3.48 M/mcL (3.82-4.97) L 07/25/17 13:46 Hgb 9.7 g/dL (11.5-15.4) L 07/25/17 13:46 Hct 32.3 % (35.3-44.9) L 07/25/17 13:46 MCH 27.9 pg (28.0-33.3) L 07/25/17 13:46 MCHC 30.0 g/dL (31.6-35.5) L 07/25/17 13:46 RDW 20.6 % (11.5-14.5) H 07/25/17 13:46 Immature Gran % 6.2 % (0-4) H 07/25/17 13:46 Nucleated RBCs/100 WBC 0.2 /100 WBC (0) H 07/25/17 13:46 PT 13.7 Seconds (9.4-12.1) H 07/25/17 13:46 APTT 74.9 Seconds (26.0-36.0) H 07/25/17 13:46 Chloride 109 mEq/L (98-107) H 07/25/17 13:46 Carbon Dioxide 20 mEq/L (23-29) L 07/25/17 13:46 Creatinine 2.98 mg/dL (0.60-1.20) H 07/25/17 13:46 Est GFR ( Amer) 19 (> 60) L 07/25/17 13:46 Est GFR (Non-Af Amer) 16 (> 60) L 07/25/17 13:46 Glucose 145 mg/dL (70-105) H 07/25/17 13:46 Calculated Osmolality 302 (280-300) H 07/25/17 13:46 Lactic Acid 2.9 mmol/L (0.5-2.2) H 07/25/17 13:46 Calcium 8.0 mg/dL (8.6-10.3) L 07/25/17 13:46 AST 49 Units/L (13-39) H 07/25/17 13:46 Alkaline Phosphatase 115 Units/L (34-104) H 07/25/17 13:46 Troponin I 0.04 ng/mL (< 0.04) H* 07/25/17 13:46 B-Natriuretic Peptide 2124 pg/mL (Less than 100) H 07/25/17 13:46 Serum Total Protein 6.0 g/dL (6.4-8.9) L 07/25/17 13:46 Albumin 3.4 g/dL (3.5-5.7) L 07/25/17 13:46 <Joelle Charles S - Last Filed: 07/25/17 21:49> Date of Encounter: 07/25/17 History of Present Illness HPI: Ms. Ibarra is a 67 year old female All Systems: The remainder of the systems were reviewed and are negative Physical Examination Vital Signs: Vital Signs, Last 4 Hours Temp Pulse Resp BP Pulse Ox 07/25/17 21:21 14 105/57 100 07/25/17 21:00 97.4 F L 70 16 109/60 100 07/25/17 20:00 16 109/60 100 07/25/17 19:47 96.2 F L 80 14 107/57 100 07/25/17 19:00 80 14 107/57 100 07/25/17 18:05 18 100 07/25/17 18:00 80 19 111/83 100 Results - Laboratory Findings CBC and BMP: 07/25/17 13:46 07/25/17 13:46 ABG ABG pH 7.49 pH Units (7.32-7.45) H 07/25/17 18:52 ABG pCO2 31 mmHg (35-45) L 07/25/17 18:52 ABG pO2 228 mmHg (85-104) H 07/25/17 18:52 ABG O2 Saturation 100 % (95-98) H 07/25/17 18:52 PT/INR, D-dimer PT 13.7 Seconds (9.4-12.1) H 07/25/17 13:46 Abnormal lab findings: Abnormal lab results RBC 3.48 M/mcL (3.82-4.97) L 07/25/17 13:46 Hgb 9.7 g/dL (11.5-15.4) L 07/25/17 13:46 Hct 32.3 % (35.3-44.9) L 07/25/17 13:46 MCH 27.9 pg (28.0-33.3) L 07/25/17 13:46 MCHC 30.0 g/dL (31.6-35.5) L 07/25/17 13:46 RDW 20.6 % (11.5-14.5) H 07/25/17 13:46 Immature Gran % 6.2 % (0-4) H 07/25/17 13:46 Nucleated RBCs/100 WBC 0.2 /100 WBC (0) H 07/25/17 13:46 PT 13.7 Seconds (9.4-12.1) H 07/25/17 13:46 APTT 74.9 Seconds (26.0-36.0) H 07/25/17 13:46 ABG pH 7.49 pH Units (7.32-7.45) H 07/25/17 18:52 ABG pCO2 31 mmHg (35-45) L 07/25/17 18:52 ABG pO2 228 mmHg (85-104) H 07/25/17 18:52 ABG O2 Saturation 100 % (95-98) H 07/25/17 18:52 Chloride 109 mEq/L (98-107) H 07/25/17 13:46 Carbon Dioxide 20 mEq/L (23-29) L 07/25/17 13:46 Creatinine 2.98 mg/dL (0.60-1.20) H 07/25/17 13:46 Est GFR ( Amer) 19 (> 60) L 07/25/17 13:46 Est GFR (Non-Af Amer) 16 (> 60) L 07/25/17 13:46 Glucose 145 mg/dL (70-105) H 07/25/17 13:46 POC Glucose 120 (58-89) H 07/25/17 17:03 Calculated Osmolality 302 (280-300) H 07/25/17 13:46 Calcium 8.0 mg/dL (8.6-10.3) L 07/25/17 13:46 AST 49 Units/L (13-39) H 07/25/17 13:46 Alkaline Phosphatase 115 Units/L (34-104) H 07/25/17 13:46 Troponin I 0.38 ng/mL (< 0.04) H* 07/25/17 19:30 B-Natriuretic Peptide 2124 pg/mL (Less than 100) H 07/25/17 13:46 Serum Total Protein 6.0 g/dL (6.4-8.9) L 07/25/17 13:46 Albumin 3.4 g/dL (3.5-5.7) L 07/25/17 13:46 Urine Clarity Cloudy (Clear) A 07/25/17 18:17 Urine Protein >=300 mg/dL (Neg-Trace) H 07/25/17 18:17 Urine Ketones 15 mg/dL (Negative) H 07/25/17 18:17 Urine Blood Large (Negative) H 07/25/17 18:17 Urine Bilirubin Moderate (Negative) H 07/25/17 18:17 Ur Leukocyte Esterase Small (Negative) H 07/25/17 18:17 Urine Microscopic RBC 15-30 per hpf (0-3) H 07/25/17 18:17 Urine Microscopic WBC 15-30 per hpf (0-3) H 07/25/17 18:17 Ur Squamous Epith Cells Many per lpf (None-Few) H 07/25/17 18:17 - Attending Attestation I saw and evaluated this patient and my medical decision-making was reviewed with the Resident Physician. I agree with the documented findings, disposition and treatment plan as described except to the extent set forth below. We independently had [id number] contact with the patient I spent 45 minutes of Critical Care time with this patient. It involved decision making of high complexity to assess, manipulate, and support vital organ system failure and/or to prevent further life threatening deterioration of the patient's condition. The time involved in the performance of separately reportable procedures was not counted toward critical care time. Patient seen and examined at bedside Labs, radiology, chart personally reviewed. EXTRACTOR FILLER:Patient is opening her eyes to verbal stimuli but doesnt follow commands are doing purposeful movements , she is more awake moving all her four extremities her CT scan didnt show any acute abnormalities . Pulm: Patient V/Q mismatch is secondary to fluid overload due to missed dialysis , some diastolic heart failure and a superimposed infiltrate patient has respiratory alkalosis will drop the TV to 400 will repeat the ABG , his V/Q mismatch will get better with dialysis to continue broad spectrum antibiotics Cards:Hemodynamically stable , PEA arrest might secondary hypoxic respiratory failure low suspicion for PE or ACS will get an ECHO in the morning . FEN-GI: Keep her NPO tonight will PPI prophylaxis Renal: Patient will get dialysis tomorrow through [facility] there is not metabolic reason for dialysis apart from fluid overload ID: Possible to cover with broad spectrum antibiotics Heme/Onc: Labs reviewed Endo: Glucose Monitored Integ/MSK: Skin Care per routine ICU Nursing Protocol to prevent ulcers. Lines: All lines examined without evidence of infection : Dispo: Patient is critically ill with need of mechanical ventilation with close hemodynamic monitoring CODE: Full Code
[2017-07-25] MEDS ORDERED: Lacri-Lube 3.5 GM TUBE BOTH EYES PRN (18:11)
[2017-07-25] MEDS ORDERED: Naloxone 0.4 MG/ML INJ IVP PRN (18:11)
--- NOTE | 2017-07-25 18:20 | Procedure Note ---
<Cooper Gonzalez - Last Filed: 07/25/17 18:33> Date of procedure: 07/25/17 Pre-op diagnosis: cardiac arrest Post-op diagnosis: same Procedure: Consent was obtained, the patient was placed in supine position and the area was prepped and draped in a sterile fashion. The area over the left IJ was anesthetized using 2cc's of 1% lidocaine. Using the ultrasound, the IJ was identified, and a cook needle was used to cannulate the vein. Dark, non- pulsatile blood was seen. Using the Seldinger technique, a guidewire was passed through the needle and the needle was withdrawn. A small incision was made and a dilator sheath was then passed over the guidewire and then removed. The 20 cm catheter was then placed as the guidewire was removed. The catheter was then sutured in place. All 3 ports had good return, and flushed with normal saline easily. The patient tolerated the procedure well. A post-procedure chest x-ray indicates adequate position with no pneumothorax. My attending, Dr. Charles, was present for the entire procedure. Anesthesia: IV sedation Surgeon: Cooper Gonzalez Was there an costumer assistant present: Yes [employer] Consultant: Shabnam Myers Estimated blood loss (cc): 5 Specimen: none Pathology: none sent Condition: stable Disposition: ICU <Joelle Charles - Last Filed: 07/25/17 19:44> Procedure: I was present during the entire procedure assisted with the critical portions with the procedure .
[2017-07-25] MEDS ORDERED: D5% in Water 1,000 ML IVC PRN (18:29)
[2017-07-25] MEDS ORDERED: *HR* Dextrose 50 % in Water (Syg) 50 ML SYRINGE IVP PRN (18:29)
[2017-07-25] MEDS ORDERED: Dextrose Gel 15 GM PO PRN ×2 (18:29)
[2017-07-25] MEDS ORDERED: *HR* Heparin 5,000 UNIT/ML VIAL ONE (18:40)
--- NOTE | 2017-07-25 18:41 | Procedure Note ---
<Cooper Gonzalez - Last Filed: 07/25/17 18:37> Date of procedure: 07/25/17 Pre-op diagnosis: cardiac arrest Post-op diagnosis: same Procedure: Procedure: Endotracheal intubation Date: 07/25/17 Time: 1750 Cath Lab Tech: Cooper Gonzalez Attending: Dr. Joelle Charles Indication:S/p cardiac arrest The patient was placed in supine position. All equipment was checked and operational before beginning the procedure. Sedation was obtained using 4mg versed. Patient was paralyzed using 20 mg etomidate. The patient was easily ventilated using a nasotracheal tube which was placed by EMS. Video laryngoscope using a Mac 4 blade was inserted into the oropharynx at which time a grade 1 view of the vocal cords was visualized. A 7.5 [place] Islander endotracheal tube was inserted and visualized going through the cords. The stylet was removed. Colorimetric change was visualized on the CO2 meter. Breath sounds were heard in both lung verduzco. There were no breast breath sounds auscultated over the stomach. The endotracheal tube was placed at 23 cm at the lip line. Attending physician was in attendance throughout the entirety of the procedures. A chest x-ray was ordered afterwards to assess for pneumothorax and placement of the endotracheal tube. ET tube was pulled back 3 cm with good position on repeat CXR. The patient tolerated the procedure well without desaturation or hemodynamic compromise. Anesthesia: IV sedation Surgeon: Cooper Gonzalez Was there an case assistant present: Yes Web Production Manager: Shabnam Myers Estimated blood loss (cc): 0 Specimen: none Pathology: none sent Condition: stable Disposition: ICU <Joelle Charles S - Last Filed: 07/25/17 19:46> Procedure: I was present during the entire procedure assisted with critical portions
[2017-07-25 18:55] LABS: ABG Base Excess 1 mEq/L (-2 to 3); ABG HCO3 24 mEq/L (21-27); ABG Oxygen Saturation 100 % (95-98); ABG PCO2 31 mmHg (35-45); ABG PH 7.49 pH Units (7.32-7.45); ABG PO2 228 mmHg (85-104); ABG TCO2 25 mEq/L (20-26); Blood Gas Respiration Rate 14; Blood Gas VT 500 cc
[2017-07-25] MEDS ORDERED: Levofloxacin 750 MG/150 ML 750 MG/150 ML BAG IVPB SCH (19:00)
[2017-07-25] MEDS: Dexmedetomidine HCl 400 MCG/100 ML MLS IVC SCH (19:27)
[2017-07-25] MEDS: Pantoprazole 40 MG VIAL IVP SCH (19:27)
[2017-07-25] MEDS: Chlorhexidine Rinse 15 ML MOUTHWASH MM SCH (19:28)
[2017-07-25 19:57] LABS: Bilirubin,Urine Moderate (Negative); Blood,Urine Large (Negative); Clarity,Urine Cloudy (Clear); Color,Urine Dark Yellow (Yellow); Glucose,Urine (UA) Normal (Normal); Ketones,Urine 15 mg/dL (Negative); Leukocyte Esterase,Urine Small (Negative); Nitrite,Urine Negative (Negative); Protein,Urine >=300 mg/dL (Neg-Trace); Specific Gravity,Urine 1.025 (1.010-1.025); Urobilinogen,Urine Normal (Normal)
[2017-07-25] MEDS: FentaNYL (PF) 1,000 MCG in 0.9 % Sodium Chloride 80 ML IVC SCH (19:57)
[2017-07-25 19:59] LABS: Bacteria,Urine None Seen per hpf (None-Few); Hyaline Casts,Urine None Seen per lpf (None-Few); Squamous Epithelial Cell,Urine Many per lpf (None-Few); WBC,Urine 15-30 per hpf (0-3)
[2017-07-25] MEDS: Piperacillin/Tazobactam 3.375 GM in 0.9 % Sodium Chloride Mini Bag 100 ML IVPB SCH (20:06)
[2017-07-25 20:08] LABS: RBC,Urine 15-30 per hpf (0-3)
[2017-07-25] MEDS: Lacri-Lube 3.5 GM TUBE BOTH EYES SCH ×2 (20:09→23:12)
[2017-07-25] MEDS ORDERED: Aspirin 325 MG TABLET PO ONE (21:09)
[2017-07-25] MEDS: Insulin LISPRO 300 UNITS/3 ML VIAL SQ SCH (23:12)
[2017-07-26] MEDS ORDERED: Piperacillin/Tazobactam 3.375 GM in 0.9 % Sodium Chloride Mini Bag 100 ML IVPB SCH
[2017-07-26] MEDS: Lacri-Lube 3.5 GM TUBE BOTH EYES SCH ×7 (02:02→23:15)
[2017-07-26 03:19] LABS: Basophils % 0.2 %; Eosinophils % 0.5 %; Hematocrit 29.6 % (35.3-44.9); Immature Granulocytes % 0.8 % (0-4); Lymphocytes # 0.6 K/mcL (0.6-4.6); Lymphocytes % 9.2 %; Mean Corpuscular HGB Conc 30.4 g/dL (31.6-35.5); Mean Corpuscular Hemoglobin 27.6 pg (28.0-33.3); Mean Corpuscular Volume 90.8 fL (83.0-100.0); Mean Platelet Volume 10.5 fL (9.4-12.4); Monocytes # 0.6 K/mcL (0.0-1.3); Monocytes % 9.5 %; Neutrophils # 4.9 K/mcL (1.6-8.9); Platelet Count 177 K/mcL (140-400); Red Blood Count 3.26 M/mcL (3.82-4.97); Segmented Neutrophils % 79.8 %
[2017-07-26 03:35] LABS: Calcium 8.3 mg/dL (8.6-10.3); Magnesium 1.7 mg/dL (1.6-2.6); Potassium 3.8 mEq/L (3.5-5.1)
[2017-07-26] MEDS: *HR* Heparin 5,000 UNIT/ML VIAL SQ SCH ×2 (05:00→17:35)
[2017-07-26] MEDS: Insulin LISPRO 300 UNITS/3 ML VIAL SQ SCH ×4 (05:02→23:35)
[2017-07-26 05:14] LABS: ABG Base Excess 0 mEq/L (-2 to 3); ABG HCO3 24 mEq/L (21-27); ABG Oxygen Saturation 95 % (95-98); ABG PCO2 34 mmHg (35-45); ABG PH 7.45 pH Units (7.32-7.45); ABG PO2 69 mmHg (85-104); ABG TCO2 25 mEq/L (20-26); Blood Gas Modality PRVC; Blood Gas Respiration Rate 14; Blood Gas VT 400 cc
[2017-07-26] MEDS: Piperacillin/Tazobactam 3.375 GM in 0.9 % Sodium Chloride Mini Bag 100 ML IVPB SCH ×2 (07:47→19:54)
[2017-07-26] MEDS: Pantoprazole 40 MG VIAL IVP SCH (07:47)
[2017-07-26] MEDS: Chlorhexidine Rinse 15 ML MOUTHWASH MM SCH ×2 (07:47→19:55)
--- NOTE | 2017-07-26 07:57 | Nephrology Consult Note ---
Date of Encounter: 07/26/17 Time of Encounter: 07:55 Assessment and Plan (1) ESRD (end stage renal disease) Current Visit: No Status: Chronic The patient will undergo dialysis today. She does need additional volume removal. Hopefully following dialysis she will be able to be extubated today. (2) Type 2 diabetes mellitus with diabetic chronic kidney disease Current Visit: Yes Status: Acute Qualifiers: Diabetes mellitus intermediate insulin use: with intermediate use Chronic kidney disease stage: on chronic dialysis Qualified Code(s): E11.22 - Type 2 diabetes mellitus with diabetic chronic kidney disease; N18.6 - End stage renal disease; Z99.2 - Dependence on renal dialysis; Z99.2 - Dependence on renal dialysis; Z99.2 - Dependence on renal dialysis; N18.6 - End stage renal disease ; N18.6 - End stage renal disease; N18.6 - End stage renal disease; Z79.4 - metal checker (current) use of insulin; Z79.4 - metal checker (current) use of insulin; Z79.4 - long-term (current) use of insulin; Z79.4 - metal checker (current) use of insulin; Z99.2 - Dependence on renal dialysis (3) Cardiac arrest Current Visit: Yes Status: Acute History of Present Illness - History of Present Illness This is a 67-year-old female with end-stage renal disease. She receives dialysis in [place] every Tuesday. She was in dialysis yesterday. Within 10 minutes of being placed on the machine she experienced a cardiac arrest. She did require chest compressions. She was intubated and subsequently transferred to the emergency room. Before the patient actually left the dialysis unit she had a cardiac rhythm, a pulse, and a blood pressure. Currently the patient is intubated in the ICU. She is currently hemodynamically stable. She did not receive her full dialysis yesterday. Past Med Surg Social Fam HX - Past Medical History Medical history: diabetes Psychiatric history: no psych history - Past Surgical History Surgical History: no surgical history - Social History Smoking Status: Never smoker Smokeless Tobacco Status: No Alcohol use: none Drug use: none - Family History Mother Living Status: Father Living Status: Medications and Allergies Acetaminophen [Tylenol] 500 mg PO Q6HR PRN 07/05/17 [History] Allopurinol [Zyloprim 100 MG] 200 mg PO DAILY 07/05/17 [History] Amlodipine Besylate 10 mg PO DAILY 07/05/17 [History] Linagliptin [Tradjenta] 5 mg PO QAM 07/05/17 [History] Omeprazole [PriLOSEC] 20 mg PO DAILY PRN 07/05/17 [History] Sevelamer [Renvela] 1,600 mg PO TIDWM 7 Days #21 tablet 07/13/17 [Rx] 3 Allergy/AdvReac Type Severity Reaction Status Date / Time No Known Allergies Allergy Verified 07/05/17 17:25 Review of Systems ROS unobtainable: due to endotracheal tube Exam - Vital Signs Vital signs: Initial Vital Signs Temp Pulse Resp BP Pulse Ox 96.0 F L 64 20 92/75 93 07/25/17 13:39 07/25/17 13:39 07/25/17 13:39 07/25/17 13:39 07/25/17 13:39 Vital Signs - Last 8 Hours Temp Pulse Resp BP Pulse Ox 07/26/17 07:51 15 108/61 97 07/26/17 07:00 74 14 111/60 98 07/26/17 06:00 69 15 111/60 96 07/26/17 05:45 14 106/57 97 07/26/17 05:00 73 18 103/55 97 07/26/17 04:00 67 18 110/59 97 07/26/17 03:58 14 105/57 95 07/26/17 03:00 98 F 67 14 108/60 93 07/26/17 02:00 68 14 113/64 97 07/26/17 01:14 14 113/63 97 07/26/17 00:55 69 14 111/61 95 07/26/17 00:00 69 14 110/63 96 Intake and Output 07/25/17 07/25/17 07/26/17 15:59 23:59 07:59 Intake Total 650 / 650 100 / 100 Output Total 90 / 90 100 / 100 Balance 560 / 560 0 / 0 Intake: IV Fluids 650 / 650 100 / 100 Levaquin Premix 750mg/150 mL 150 / 150 750 mg In 150 ml @ 100 mls/hr IVPB Q48H [facility] Rx#:[id number] Zosyn 3.375 GM In 0.9 % Sodium 100 / 100 Chloride (Mini-Bag +) 100 ML @ 25 mls/hr IVPB Q12H [facility] Rx#: [id number] Vancocin 1,750 MG In 0.9 % 500 / 500 Sodium Chloride 500 ML @ 333. 333 mls/hr IVPB ONCE ONE Rx#: [id number] Output: Catheter 90 / 90 100 / 100 Other: Stool Size Large Stool Consistency soft Stool Color Brown - General Appearance Exam: Patient is intubated. She is able to shake her head in response to questions. Vital signs are stable. Lungs coarse breath sounds. Heart regular rate and rhythm with a 2/6 systolic ejection murmur. Abdomen is soft. There is no guarding or rigidity. There is 2+ lower extremity swelling. Patient is status post left below-knee amputation. There is a tunnel dialysis catheter in the right chest. Results - Lab Results 07/26/17 03:00 07/26/17 03:00 Most recent lab results ABG pH 7.45 pH Units (7.32-7.45) 07/26/17 05:11 ABG pCO2 34 mmHg (35-45) L 07/26/17 05:11 ABG pO2 69 mmHg (85-104) L 07/26/17 05:11 ABG HCO3 24 mEq/L (21-27) 07/26/17 05:11 ABG O2 Saturation 95 % (95-98) 07/26/17 05:11 Calcium 8.3 mg/dL (8.6-10.3) L 07/26/17 03:00 Magnesium 1.7 mg/dL (1.6-2.6) 07/26/17 03:00 Consult Discharge Plan - Plan Referrals: Robyn Van, MOTORBIKE COURIER [Primary Care Provider] -
[2017-07-26] MEDS ORDERED: 0.9 % Sodium Chloride 250 ML IVC PRN (07:58)
[2017-07-26] MEDS ORDERED: Aminoglycoside Consult 1 EACH MC ONE (08:15)
--- NOTE | 2017-07-26 09:41 | Electrocardiograph Report ---
[place] Etable Test Date: 2017-07-25 Pat Name: Sil Ibarra Department: 102 Room: [facility] Gender: F Broom Man: : 1950 Requested By: Cristino West Order Number: [id number] Reading MD: Sarkis Barillas MD Measurements Intervals [place] Rate: 67 P: SC: 0 QRS: 14 QRSD: 91 T: 73 QT: 419 QTc: 434 Interpretive Statements ATRIAL FIBRILLATION LOW QRS VOLTAGE [QRS DEFLECTION < 0.5/1.0 mV IN LIMB/CHEST LEADS] Electronically Signed On 07-26-2017 9:40:06 EDT by Sarkis Barillas MD
--- NOTE | 2017-07-26 09:48 | Pulmonology Progress Note ---
Date of Encounter: 07/26/17 Time of Encounter: 09:45 Assessment and Plan (1) Cardiac arrest Current Visit: Yes Status: Acute Patient had cardiac arrest in the dialysis center unclear etiology , CTA was negative , NSTEMI Troponin is trending down most likely due to supply demand mismatch if the troponin trending upward will consult cardiology (2) Heart failure Current Visit: Yes Status: Acute Patient fluid removal aided by dialysis 3 litres fluid removed will attempt CPAP trial after dialysis Qualifiers: Heart failure type: combined systolic and diastolic Heart failure chronicity: acute on chronic Qualified Code(s): I50.43 - Acute on chronic combined systolic (congestive) and diastolic (congestive) heart failure (3) Chronic kidney disease, stage V Current Visit: Yes Status: Acute Patient presented with fluid overload due to acute deteroriation of kidney function in the setting of ESRD and exacerbation of diastolic heart failure after today dialysis will attempt CPAP trial and extubation . (4) DVT prophylaxis Current Visit: Yes Status: Acute To continue the current regimen . (5) Elevated troponin Current Visit: Yes Status: Acute NSTEMI supply demand mismatch troponin trending down (6) Type 2 diabetes mellitus with diabetic chronic kidney disease Current Visit: Yes Status: Acute To continue the current regimen Qualifiers: Diabetes mellitus senior living insulin use: with aquaculture farm manager use Chronic kidney disease stage: on chronic dialysis Qualified Code(s): E11.22 - Type 2 diabetes mellitus with diabetic chronic kidney disease; N18.6 - End stage renal disease; Z99.2 - Dependence on renal dialysis; Z99.2 - Dependence on renal dialysis; Z99.2 - Dependence on renal dialysis; N18.6 - End stage renal disease ; N18.6 - End stage renal disease; N18.6 - End stage renal disease; Z79.4 - senior care (current) use of insulin; Z79.4 - senior care (current) use of insulin; Z79.4 - senior care (current) use of insulin; Z79.4 - gambling broker (current) use of insulin; Z99.2 - Dependence on renal dialysis Subjective Principal diagnosis: Acute on chronic respiratory failure due to fluid overlaod Interval history: Patient is fully awake following commands will attempt CPAP after dialysis today , denies any chest pain or tightness says her breathing is ok Objective PUL Vital signs: Last Vital Signs Temp 98.0 F 07/26/17 08:22 Pulse 75 07/26/17 09:00 Resp 16 07/26/17 09:44 BP 107/57 07/26/17 09:44 Pulse Ox 98 07/26/17 09:44 Auscultation: bilateral: diminished breath sounds (bibasilar diminished breadth sounds ), rales (bilateral scattered rales ) Extremities: edema, other (s/p amputation ) Ventilator Settings Ventilator Settings: Ventilator Settings, Last 8 Hours Ventilator Mode VC+ Ventilator Mode VC+ Ventilator Mode VC+ Ventilator Mode VC+ Ventilator Mode VC+ Ventilator Mode VC+ Ventilator Mode VC+ Ventilator Mode VC+ Ventilator Mode VC+ Ventilator Mode VC+ Ventilator Mode VC+ Ventilator Tidal Volume 400 Setting Ventilator Tidal Volume 400 Setting Ventilator Tidal Volume 400 Setting Ventilator Tidal Volume 400 Setting Ventilator Tidal Volume 400 Setting Ventilator Tidal Volume 400 Setting Ventilator Tidal Volume 400 Setting Ventilator Tidal Volume 400 Setting Ventilator Tidal Volume 400 Setting Ventilator Tidal Volume 400 Setting Ventilator Tidal Volume 400 Setting Ventilator Respiratory Rate 14 Setting Ventilator Respiratory Rate 14 Setting Ventilator Respiratory Rate 14 Setting Ventilator Respiratory Rate 14 Setting Ventilator Respiratory Rate 14 Setting Ventilator Respiratory Rate 14 Setting Ventilator Respiratory Rate 14 Setting Ventilator Respiratory Rate 14 Setting Ventilator Respiratory Rate 14 Setting Ventilator Respiratory Rate 14 Setting Ventilator Respiratory Rate 14 Setting Actual Respiratory Rate 16 Actual Respiratory Rate 15 Actual Respiratory Rate 14 Actual Respiratory Rate 14 Actual Respiratory Rate 14 Actual Respiratory Rate 19 Actual Respiratory Rate 14 Actual Respiratory Rate 19 Actual Respiratory Rate 19 Actual Respiratory Rate 14 Actual Respiratory Rate 14 Actual Respiratory Rate 14 Positive End Expiratory 5 Pressure Positive End Expiratory 5 Pressure Positive End Expiratory 5 Pressure Positive End Expiratory 5 Pressure Positive End Expiratory 5 Pressure Positive End Expiratory 5 Pressure Positive End Expiratory 5 Pressure Positive End Expiratory 5 Pressure Positive End Expiratory 5 Pressure Positive End Expiratory 5 Pressure Positive End Expiratory 5 Pressure Positive End Expiratory 5 Pressure Positive End Expiratory 5 Pressure Peak Inspiratory Airway 25 Pressure Peak Inspiratory Airway 23 Pressure Peak Inspiratory Airway 25 Pressure Peak Inspiratory Airway 27 Pressure Peak Inspiratory Airway 25 Pressure Peak Inspiratory Airway 24 Pressure Peak Inspiratory Airway 25 Pressure Peak Inspiratory Airway 26 Pressure Peak Inspiratory Airway 24 Pressure Peak Inspiratory Airway 23 Pressure Peak Inspiratory Airway 24 Pressure Peak Inspiratory Airway 24 Pressure Results - Laboratory Findings CBC and BMP: 07/26/17 03:00 07/26/17 03:00 ABG ABG pH 7.45 pH Units (7.32-7.45) 07/26/17 05:11 ABG pCO2 34 mmHg (35-45) L 07/26/17 05:11 ABG pO2 69 mmHg (85-104) L 07/26/17 05:11 ABG O2 Saturation 95 % (95-98) 07/26/17 05:11 PT/INR, D-dimer PT 13.7 Seconds (9.4-12.1) H 07/25/17 13:46 Abnormal lab findings: Abnormal lab results RBC 3.26 M/mcL (3.82-4.97) L 07/26/17 03:00 Hgb 9.0 g/dL (11.5-15.4) L 07/26/17 03:00 Hct 29.6 % (35.3-44.9) L 07/26/17 03:00 MCH 27.6 pg (28.0-33.3) L 07/26/17 03:00 MCHC 30.4 g/dL (31.6-35.5) L 07/26/17 03:00 RDW 20.0 % (11.5-14.5) H 07/26/17 03:00 Nucleated RBCs/100 WBC 0.2 /100 WBC (0) H 07/25/17 13:46 PT 13.7 Seconds (9.4-12.1) H 07/25/17 13:46 APTT 74.9 Seconds (26.0-36.0) H 07/25/17 13:46 ABG pCO2 34 mmHg (35-45) L 07/26/17 05:11 ABG pO2 69 mmHg (85-104) L 07/26/17 05:11 Chloride 108 mEq/L (98-107) H 07/26/17 03:00 Carbon Dioxide 22 mEq/L (23-29) L 07/26/17 03:00 BUN 26 mg/dL (8-23) H 07/26/17 03:00 Creatinine 3.15 mg/dL (0.60-1.20) H 07/26/17 03:00 Est GFR ( Amer) 18 (> 60) L 07/26/17 03:00 Est GFR (Non-Af Amer) 15 (> 60) L 07/26/17 03:00 Glucose 136 mg/dL (70-105) H 07/26/17 03:00 POC Glucose 125 (58-89) H 07/26/17 05:01 Calcium 8.3 mg/dL (8.6-10.3) L 07/26/17 03:00 AST 49 Units/L (13-39) H 07/25/17 13:46 Alkaline Phosphatase 115 Units/L (34-104) H 07/25/17 13:46 Troponin I 1.01 ng/mL (< 0.04) H* 07/26/17 08:00 B-Natriuretic Peptide 2124 pg/mL (Less than 100) H 07/25/17 13:46 Serum Total Protein 6.0 g/dL (6.4-8.9) L 07/25/17 13:46 Albumin 3.4 g/dL (3.5-5.7) L 07/25/17 13:46 Urine Clarity Cloudy (Clear) A 07/25/17 18:17 Urine Protein >=300 mg/dL (Neg-Trace) H 07/25/17 18:17 Urine Ketones 15 mg/dL (Negative) H 07/25/17 18:17 Urine Blood Large (Negative) H 07/25/17 18:17 Urine Bilirubin Moderate (Negative) H 07/25/17 18:17 Ur Leukocyte Esterase Small (Negative) H 07/25/17 18:17 Urine Microscopic RBC 15-30 per hpf (0-3) H 07/25/17 18:17 Urine Microscopic WBC 15-30 per hpf (0-3) H 07/25/17 18:17 Ur Squamous Epith Cells Many per lpf (None-Few) H 07/25/17 18:17 - Clinical Findings Intake & Output: Intake & Output 07/25/17 07/26/17 07/26/17 23:59 07:59 15:59 Intake Total 650 / 650 100 / 100 Output Total 90 / 90 100 / 100 50 / 50 Balance 560 / 560 0 / 0 -50 / -50 Consult Discharge Plan - Plan Referrals: Robyn Van, GENERATOR ASSEMBLER [Primary Care Provider] -
[2017-07-26] MEDS ORDERED: *HR* Heparin 10,000 UNIT/10 ML VIAL IV PRN (14:47)
[2017-07-26] MEDS: Dexmedetomidine HCl 400 MCG/100 ML MLS IVC SCH (16:39)
[2017-07-26] MEDS: FentaNYL (PF) 1,000 MCG in 0.9 % Sodium Chloride 80 ML IVC SCH (19:39)
[2017-07-26] MEDS: *HR* FentaNYL (PF) 100 MCG/2 ML VIAL IVP PRN (21:26)
[2017-07-27] MEDS: *HR* FentaNYL (PF) 100 MCG/2 ML VIAL IVP PRN (02:18)
[2017-07-27 03:42] LABS: Hematocrit 27.8 % (35.3-44.9); Hemoglobin 8.6 g/dL (11.5-15.4); Mean Corpuscular HGB Conc 30.9 g/dL (31.6-35.5); Mean Corpuscular Hemoglobin 27.9 pg (28.0-33.3); Mean Corpuscular Volume 90.3 fL (83.0-100.0); Mean Platelet Volume 10.1 fL (9.4-12.4); Platelet Count 171 K/mcL (140-400); Red Blood Count 3.08 M/mcL (3.82-4.97)
[2017-07-27 04:16] LABS: Vancomycin,Random 16.7 mcg/mL
[2017-07-27 05:13] LABS: Calcium 8.4 mg/dL (8.6-10.3); Potassium 3.8 mEq/L (3.5-5.1)
[2017-07-27] MEDS: Insulin LISPRO 300 UNITS/3 ML VIAL SQ SCH ×3 (05:31→19:46)
[2017-07-27] MEDS: *HR* Heparin 5,000 UNIT/ML VIAL SQ SCH ×2 (05:31→17:03)
--- NOTE | 2017-07-27 07:16 | Pulmonology Progress Note ---
<Marcelino Mckee - Last Filed: 07/27/17 17:54> Date of Encounter: 07/27/17 Time of Encounter: 09:00 Assessment and Plan (1) Cardiac arrest Current Visit: Yes Status: Acute Troponin down-trending -- limited echo completed and reported; see quoted results below -- continuing to monitor; no acute ACS symptoms per patient at bedside EV/EV limited echocardiogram Impressions: LVEF 50%. Normal right ventricular structure and function. There is no pericardial effusion present. (2) ESRD (end stage renal disease) Current Visit: Yes Status: Chronic Initially arrested during hemodialysis -- nephrology onboard and patient continuing hemodialysis on inpatient basis per usual outpatient schedule -- monitoring lytes qAM (3) Heart failure Current Visit: Yes Status: Acute Volume overload being addressed by hemodialysis; nephrology onboard -- continue monitoring Qualifiers: Heart failure type: combined systolic and diastolic Heart failure chronicity: acute on chronic Qualified Code(s): I50.43 - Acute on chronic combined systolic (congestive) and diastolic (congestive) heart failure (4) Elevated troponin Current Visit: Yes Status: Acute As above, downtrending; likely secondary to increased myocardial demand (5) Type 2 diabetes mellitus with diabetic chronic kidney disease Current Visit: Yes Status: Acute Fingerstick blood sugars within normal range to mid 100s range -- no current change to therapies at this time Qualifiers: Diabetes mellitus continuous churn buttermaker insulin use: with continuous churn buttermaker use Chronic kidney disease stage: on chronic dialysis Qualified Code(s): E11.22 - Type 2 diabetes mellitus with diabetic chronic kidney disease; N18.6 - End stage renal disease; Z99.2 - Dependence on renal dialysis; Z99.2 - Dependence on renal dialysis; Z99.2 - Dependence on renal dialysis; N18.6 - End stage renal disease ; N18.6 - End stage renal disease; N18.6 - End stage renal disease; Z79.4 - detention (current) use of insulin; Z79.4 - detention (current) use of insulin; Z79.4 - superintendent terminal (current) use of insulin; Z79.4 - superintendent terminal (current) use of insulin; Z99.2 - Dependence on renal dialysis (6) DVT prophylaxis Current Visit: Yes Status: Acute Continue heparin Subjective Principal diagnosis: Acute on chronic respiratory failure due to fluid overlaod Interval history: PT extubated on 07/26/17. Patient has no current/acute complaints at this time. She is currently on BiPAP and is no acute respiratory distress; conversational without any heightened respiratory effort. Objective PUL Vital signs: Last Vital Signs Temp 99.1 F 07/27/17 04:33 Pulse 81 07/27/17 06:00 Resp 21 07/27/17 06:00 BP 111/53 07/27/17 06:00 Pulse Ox 96 07/27/17 06:00 CONSTITUTIONAL: Alert and oriented X3, well-nourished, well appearing, in no apparent distress HEAD: Normocephalic; atraumatic. EYES: no scleral icterus, no drainage, no conjunctival injection RESP: BiPAP masking place, NRD without use of accessory musculature, CTA b/l with no wheezes/rales/rhonchi CARD: Regular rhythm, without murmurs, rubs, or gallop ABD: grossly normal, soft, non-tender, no guarding/distention/rigidity SKIN: normal appearance, no pallor/diaphoresis,mottling,jaundice,cyanosis EXT: Rad pulses 2+ and symmetrical; 2+ pitting edema in the right lower extremity (left lower extremity surgically absent S/P BKA) PSYCH: appropriate mood/affect Results - Laboratory Findings CBC and BMP: 07/27/17 03:31 07/27/17 03:31 ABG ABG pH 7.45 pH Units (7.32-7.45) 07/26/17 05:11 ABG pCO2 34 mmHg (35-45) L 07/26/17 05:11 ABG pO2 69 mmHg (85-104) L 07/26/17 05:11 ABG O2 Saturation 95 % (95-98) 07/26/17 05:11 PT/INR, D-dimer PT 13.7 Seconds (9.4-12.1) H 07/25/17 13:46 Abnormal lab findings: Abnormal lab results RBC 3.08 M/mcL (3.82-4.97) L 07/27/17 03:31 Hgb 8.6 g/dL (11.5-15.4) L 07/27/17 03:31 Hct 27.8 % (35.3-44.9) L 07/27/17 03:31 MCH 27.9 pg (28.0-33.3) L 07/27/17 03:31 MCHC 30.9 g/dL (31.6-35.5) L 07/27/17 03:31 RDW 20.0 % (11.5-14.5) H 07/27/17 03:31 Nucleated RBCs/100 WBC 0.2 /100 WBC (0) H 07/25/17 13:46 PT 13.7 Seconds (9.4-12.1) H 07/25/17 13:46 APTT 74.9 Seconds (26.0-36.0) H 07/25/17 13:46 ABG pCO2 34 mmHg (35-45) L 07/26/17 05:11 ABG pO2 69 mmHg (85-104) L 07/26/17 05:11 Creatinine 2.47 mg/dL (0.60-1.20) H 07/27/17 03:31 Est GFR ( Amer) 24 (> 60) L 07/27/17 03:31 Est GFR (Non-Af Amer) 19 (> 60) L 07/27/17 03:31 Calcium 8.4 mg/dL (8.6-10.3) L 07/27/17 03:31 AST 49 Units/L (13-39) H 07/25/17 13:46 Alkaline Phosphatase 115 Units/L (34-104) H 07/25/17 13:46 Troponin I 0.63 ng/mL (< 0.04) H* 07/26/17 20:04 B-Natriuretic Peptide 2124 pg/mL (Less than 100) H 07/25/17 13:46 Serum Total Protein 6.0 g/dL (6.4-8.9) L 07/25/17 13:46 Albumin 3.4 g/dL (3.5-5.7) L 07/25/17 13:46 Urine Clarity Cloudy (Clear) A 07/25/17 18:17 Urine Protein >=300 mg/dL (Neg-Trace) H 07/25/17 18:17 Urine Ketones 15 mg/dL (Negative) H 07/25/17 18:17 Urine Blood Large (Negative) H 07/25/17 18:17 Urine Bilirubin Moderate (Negative) H 07/25/17 18:17 Ur Leukocyte Esterase Small (Negative) H 07/25/17 18:17 Urine Microscopic RBC 15-30 per hpf (0-3) H 07/25/17 18:17 Urine Microscopic WBC 15-30 per hpf (0-3) H 07/25/17 18:17 Ur Squamous Epith Cells Many per lpf (None-Few) H 07/25/17 18:17 - Clinical Findings Intake & Output: Intake & Output 07/26/17 07/26/17 07/27/17 15:59 23:59 07:59 Intake Total 690 / 690 200 / 200 Output Total 3675 / 3675 50 / 50 75 / 75 Balance -2985 / -2985 150 / 150 -75 / -75 Weight 90.3 kg 93.9 kg Consult Discharge Plan - Plan Referrals: Robyn Van, PUBLIC HEALTH TRAINING ASSISTANT [Primary Care Provider] - <Joelle Charles - Last Filed: 07/28/17 00:09> Date of Encounter: 07/28/17 Assessment and Plan (1) Cardiac arrest Current Visit: Yes Status: Acute (2) Heart failure Current Visit: Yes Status: Acute Qualifiers: Heart failure type: combined systolic and diastolic Heart failure chronicity: acute on chronic Qualified Code(s): I50.43 - Acute on chronic combined systolic (congestive) and diastolic (congestive) heart failure (3) Chronic kidney disease, stage V Current Visit: Yes Status: Acute (4) DVT prophylaxis Current Visit: Yes Status: Acute (5) Elevated troponin Current Visit: Yes Status: Acute (6) Type 2 diabetes mellitus with diabetic chronic kidney disease Current Visit: Yes Status: Acute Qualifiers: Diabetes mellitus continuous churn buttermaker insulin use: with shelter use Chronic kidney disease stage: on chronic dialysis Qualified Code(s): E11.22 - Type 2 diabetes mellitus with diabetic chronic kidney disease; N18.6 - End stage renal disease; Z99.2 - Dependence on renal dialysis; Z99.2 - Dependence on renal dialysis; Z99.2 - Dependence on renal dialysis; N18.6 - End stage renal disease ; N18.6 - End stage renal disease; N18.6 - End stage renal disease; Z79.4 - detention (current) use of insulin; Z79.4 - detention (current) use of insulin; Z79.4 - detention (current) use of insulin; Z79.4 - superintendent terminal (current) use of insulin; Z99.2 - Dependence on renal dialysis Objective PUL Vital signs: Last Vital Signs Temp 98.0 F 07/27/17 21:10 Pulse 76 07/27/17 23:30 Resp 16 07/27/17 23:00 BP 103/48 07/27/17 23:00 Pulse Ox 97 07/27/17 23:00 Results - Laboratory Findings CBC and BMP: 07/27/17 03:31 07/27/17 03:31 ABG ABG pH 7.45 pH Units (7.32-7.45) 07/26/17 05:11 ABG pCO2 34 mmHg (35-45) L 07/26/17 05:11 ABG pO2 69 mmHg (85-104) L 07/26/17 05:11 ABG O2 Saturation 95 % (95-98) 07/26/17 05:11 PT/INR, D-dimer PT 13.7 Seconds (9.4-12.1) H 07/25/17 13:46 Abnormal lab findings: Abnormal lab results RBC 3.08 M/mcL (3.82-4.97) L 07/27/17 03:31 Hgb 8.6 g/dL (11.5-15.4) L 07/27/17 03:31 Hct 27.8 % (35.3-44.9) L 07/27/17 03:31 MCH 27.9 pg (28.0-33.3) L 07/27/17 03:31 MCHC 30.9 g/dL (31.6-35.5) L 07/27/17 03:31 RDW 20.0 % (11.5-14.5) H 07/27/17 03:31 Nucleated RBCs/100 WBC 0.2 /100 WBC (0) H 07/25/17 13:46 PT 13.7 Seconds (9.4-12.1) H 07/25/17 13:46 APTT 74.9 Seconds (26.0-36.0) H 07/25/17 13:46 ABG pCO2 34 mmHg (35-45) L 07/26/17 05:11 ABG pO2 69 mmHg (85-104) L 07/26/17 05:11 Creatinine 2.47 mg/dL (0.60-1.20) H 07/27/17 03:31 Est GFR ( Amer) 24 (> 60) L 07/27/17 03:31 Est GFR (Non-Af Amer) 19 (> 60) L 07/27/17 03:31 POC Glucose 192 (58-89) H 07/27/17 23:42 Calcium 8.4 mg/dL (8.6-10.3) L 07/27/17 03:31 AST 49 Units/L (13-39) H 07/25/17 13:46 Alkaline Phosphatase 115 Units/L (34-104) H 07/25/17 13:46 Troponin I 0.63 ng/mL (< 0.04) H* 07/26/17 20:04 B-Natriuretic Peptide 2124 pg/mL (Less than 100) H 07/25/17 13:46 Serum Total Protein 6.0 g/dL (6.4-8.9) L 07/25/17 13:46 Albumin 3.4 g/dL (3.5-5.7) L 07/25/17 13:46 Urine Clarity Cloudy (Clear) A 07/25/17 18:17 Urine Protein >=300 mg/dL (Neg-Trace) H 07/25/17 18:17 Urine Ketones 15 mg/dL (Negative) H 07/25/17 18:17 Urine Blood Large (Negative) H 07/25/17 18:17 Urine Bilirubin Moderate (Negative) H 07/25/17 18:17 Ur Leukocyte Esterase Small (Negative) H 07/25/17 18:17 Urine Microscopic RBC 15-30 per hpf (0-3) H 07/25/17 18:17 Urine Microscopic WBC 15-30 per hpf (0-3) H 07/25/17 18:17 Ur Squamous Epith Cells Many per lpf (None-Few) H 07/25/17 18:17 - Clinical Findings Intake & Output: Intake & Output 07/27/17 07/27/17 07/28/17 15:59 23:59 07:59 Intake Total 850 / 850 Output Total 50 / 50 3600 / 3600 Balance -50 / -50 -2750 / -2750 - Attending Attestation - Attending Attestation I saw and evaluated this patient and my medical decision-making was reviewed with the Resident Physician. I agree with the documented findings, disposition and treatment plan as described except to the extent set forth below. We independently had [id number] contact with the patient Patient seen and examined at bedside Labs, radiology, chart personally reviewed. MANAGER SEARCH ENGINE:Patient is conscious oriented following commands off BIPAp Pulm: Patient V/Q mismatch is secondary to fluid overload due to missed dialysis , some diastolic heart failure and a superimposed infiltrate patient has respiratory alkalosis will drop the TV to 400 will repeat the ABG , his V/Q mismatch will get better with dialysis to continue broad spectrum antibiotics 07/27 she tolerated extubation doing well on night BIPAP with BIPAP prn during the day . Cards:Hemodynamically stable , PEA arrest might secondary hypoxic respiratory failure low suspicion for PE or ACS FEN-GI: Full liquid diet Renal: Patient will get dialysis today alos through permacath for fluid removal ID: Will start descalating antibitoics Heme/Onc: Labs reviewed Endo: Glucose Monitored Integ/MSK: Skin Care per routine ICU Nursing Protocol to prevent ulcers. Lines: All lines examined without evidence of infection : Dispo: Patient is critically ill with need of mechanical ventilation with close hemodynamic monitoring CODE: Full Code
[2017-07-27] MEDS ORDERED: 0.9 % Sodium Chloride 250 ML IVC PRN (08:24)
--- NOTE | 2017-07-27 08:24 | Nephrology Progress Note ---
Date of Encounter: 07/27/17 Time of Encounter: 08:23 - Assessment and Plan (1) ESRD (end stage renal disease) Current Visit: No Status: Chronic The patient will undergo dialysis today to get her back on her regular outpatient schedule and also for additional volume removal to help her pulmonary status. (2) Type 2 diabetes mellitus with diabetic chronic kidney disease Current Visit: Yes Status: Acute Qualifiers: Diabetes mellitus terminal manager insulin use: with terminal manager use Chronic kidney disease stage: on chronic dialysis Qualified Code(s): E11.22 - Type 2 diabetes mellitus with diabetic chronic kidney disease; N18.6 - End stage renal disease; Z99.2 - Dependence on renal dialysis; Z99.2 - Dependence on renal dialysis; Z99.2 - Dependence on renal dialysis; N18.6 - End stage renal disease ; N18.6 - End stage renal disease; N18.6 - End stage renal disease; Z79.4 - termite control representative (current) use of insulin; Z79.4 - termite control representative (current) use of insulin; Z79.4 - USP (current) use of insulin; Z79.4 - USP (current) use of insulin; Z99.2 - Dependence on renal dialysis (3) Cardiac arrest Current Visit: Yes Status: Acute Subjective Principal diagnosis: Acute on chronic respiratory failure due to fluid overlaod Interval history: The patient has been extubated. She is currently on BiPAP. She denies any complaints. She did undergo dialysis yesterday because she missed her dialysis on Tuesday. She will undergo dialysis again today for additional volume removal and also to get her back on her regular outpatient schedule. Objective - Vital Signs Vital signs: Vital Signs Temp Pulse Resp BP Pulse Ox 07/27/17 08:00 99.1 F 82 21 105/35 96 07/27/17 06:00 81 21 111/53 96 07/27/17 05:00 81 23 103/56 98 07/27/17 04:33 99.1 F 07/27/17 04:11 20 97 07/27/17 04:00 81 21 106/39 97 07/27/17 03:46 81 07/27/17 03:00 80 19 101/38 98 07/27/17 02:00 86 19 116/32 96 07/27/17 01:00 86 22 102/59 96 07/27/17 00:12 98.9 F 03/28/18 00:00 85 23 109/39 99 07/26/17 23:24 23 97 07/26/17 23:00 85 14 127/62 98 07/26/17 22:10 82 18 103/48 97 07/26/17 21:00 87 18 109/34 100 07/26/17 20:41 97.9 F 07/26/17 20:00 83 16 106/46 90 07/26/17 19:00 85 29 104/37 100 07/26/17 18:00 83 12 106/39 99 07/26/17 17:00 80 12 109/40 99 07/26/17 16:36 28 112/49 100 07/26/17 16:21 17 112/49 99 07/26/17 16:17 97.2 F L 07/26/17 16:00 78 17 112/49 98 07/26/17 15:41 17 119/52 100 07/26/17 15:25 98.1 F 15 119/57 07/26/17 15:20 117/46 07/26/17 15:05 112/54 07/26/17 15:00 77 14 119/52 99 07/26/17 14:50 108/55 07/26/17 14:35 113/58 07/26/17 14:20 114/54 07/26/17 14:05 112/59 07/26/17 14:00 63 14 112/59 98 07/26/17 13:50 106/52 07/26/17 13:35 105/53 07/26/17 13:20 96/51 07/26/17 13:10 16 95/55 98 07/26/17 13:05 95/55 07/26/17 13:00 65 14 91/46 100 07/26/17 12:50 104/63 07/26/17 12:35 108/64 07/26/17 12:20 113/61 07/26/17 12:05 98.1 F 16 111/62 07/26/17 12:00 80 17 103/60 97 07/26/17 11:19 17 112/52 96 07/26/17 11:00 98.1 F 84 17 109/56 98 07/26/17 10:00 81 16 105/54 98 07/26/17 09:44 16 107/57 98 07/26/17 09:00 75 14 108/57 96 Intake and Output 07/26/17 07/27/17 07/27/17 23:59 07:59 15:59 Intake Total 200 / 200 Output Total 50 / 50 75 / 75 Balance 150 / 150 -75 / -75 Intake: IV Fluids 200 / 200 FentaNYL (PF) 1,000 MCG In 0.9 0 / 0 % Sodium Chloride 80 ML @ 50 MCG/HR 5 mls/hr IVC CONT ELIS Rx #:[id number] Zosyn 3.375 GM In 0.9 % Sodium 200 / 200 Chloride (Mini-Bag +) 100 ML @ 25 mls/hr IVPB Q12H ELIS Rx#: [id number] Output: Catheter 50 / 50 75 / 75 Other: Weight 93.9 kg Blood Glucose* 85 86 Patient Weight 07/27/17 23:59 Weight 93.9 kg - General Appearance Exam: The patient is on BiPAP. She is alert and oriented. She is in no acute distress. Lungs coarse breath sounds. Heart regular rate and rhythm. She has less lower extremity edema but some is still present. She is status post left BKA. She has a tunnel dialysis catheter present in the chest. - Lab 07/27/17 03:31 07/27/17 03:31 Most recent lab results ABG pH 7.45 pH Units (7.32-7.45) 07/26/17 05:11 ABG pCO2 34 mmHg (35-45) L 07/26/17 05:11 ABG pO2 69 mmHg (85-104) L 07/26/17 05:11 ABG HCO3 24 mEq/L (21-27) 07/26/17 05:11 ABG O2 Saturation 95 % (95-98) 07/26/17 05:11 Calcium 8.4 mg/dL (8.6-10.3) L 07/27/17 03:31 Magnesium 1.7 mg/dL (1.6-2.6) 07/26/17 03:00 Consult Discharge Plan - Plan Referrals: Robyn Van, BEHAVIORAL ANALYST [Primary Care Provider] -
[2017-07-27] MEDS: Piperacillin/Tazobactam 3.375 GM in 0.9 % Sodium Chloride Mini Bag 100 ML IVPB SCH ×2 (09:53→19:45)
[2017-07-27] MEDS: Chlorhexidine Rinse 15 ML MOUTHWASH MM SCH (09:53)
[2017-07-27] MEDS: Pantoprazole 40 MG VIAL IVP SCH (09:54)
[2017-07-27] MEDS: Lacri-Lube 3.5 GM TUBE BOTH EYES SCH ×3 (09:56→16:58)
[2017-07-27] MEDS ORDERED: OXYCODONE Oral CONC 10 MG/0.5 ML ORAL.SYG SL PRN (11:49)
[2017-07-27] MEDS ORDERED: LEVOFLOXACIN 500 MG/100 ML MLS IVPB SCH (16:00)
[2017-07-27] MEDS: Dexmedetomidine HCl 400 MCG/100 ML MLS IVC SCH (16:57)
[2017-07-28] MEDS: Insulin LISPRO 300 UNITS/3 ML VIAL SQ SCH ×4 (00:13→21:12)
[2017-07-28 03:43] LABS: Hematocrit 28.2 % (35.3-44.9); Hemoglobin 8.7 g/dL (11.5-15.4); Mean Corpuscular HGB Conc 30.9 g/dL (31.6-35.5); Mean Corpuscular Volume 90.7 fL (83.0-100.0); Mean Platelet Volume 10.3 fL (9.4-12.4); Platelet Count 160 K/mcL (140-400); Red Blood Count 3.11 M/mcL (3.82-4.97); Red Cell Distribution Width 19.9 % (11.5-14.5)
[2017-07-28 04:11] LABS: Calcium 8.4 mg/dL (8.6-10.3); Potassium 3.8 mEq/L (3.5-5.1)
[2017-07-28] MEDS: *HR* Heparin 5,000 UNIT/ML VIAL SQ SCH ×2 (05:21→16:02)
[2017-07-28] MEDS: Pantoprazole 40 MG VIAL IVP SCH (08:48)
[2017-07-28] MEDS: Piperacillin/Tazobactam 3.375 GM in 0.9 % Sodium Chloride Mini Bag 100 ML IVPB SCH ×2 (08:49→21:27)
--- NOTE | 2017-07-28 09:38 | Pulmonology Progress Note ---
<[place] - Last Filed: 07/28/17 14:22> Date of Encounter: 07/28/17 Time of Encounter: 08:30 Assessment and Plan (1) Cardiac arrest Current Visit: Yes Status: Acute Stable with likely diastolic dysfunction; would likely benefit from preload modifying Rx once blood pressures stabilize (tenuous/adequate BPs this AM) EV/EV limited echocardiogram Impressions: LVEF 50%. Normal right ventricular structure and function. There is no pericardial effusion present. (2) ESRD (end stage renal disease) Current Visit: Yes Status: Chronic Initially arrested during hemodialysis -- nephrology onboard and patient continuing hemodialysis on inpatient basis per usual outpatient schedule -- monitoring lytes qAM which are wnl this AM (3) Heart failure Current Visit: Yes Status: Acute Volume overload being addressed by hemodialysis; nephrology onboard -- continue monitoring -- BPs stable overnight though borderline Qualifiers: Heart failure type: combined systolic and diastolic Heart failure chronicity: acute on chronic Qualified Code(s): I50.43 - Acute on chronic combined systolic (congestive) and diastolic (congestive) heart failure (4) Elevated troponin Current Visit: Yes Status: Acute As above, downtrending; likely secondary to increased myocardial demand (5) Type 2 diabetes mellitus with diabetic chronic kidney disease Current Visit: Yes Status: Acute Fingerstick blood sugars within normal range to mid 100s range -- changes SSI schedule to TIDAC-HS Qualifiers: Diabetes mellitus usp insulin use: with usp use Chronic kidney disease stage: on chronic dialysis Qualified Code(s): E11.22 - Type 2 diabetes mellitus with diabetic chronic kidney disease; N18.6 - End stage renal disease; Z99.2 - Dependence on renal dialysis; Z99.2 - Dependence on renal dialysis; Z99.2 - Dependence on renal dialysis; N18.6 - End stage renal disease ; N18.6 - End stage renal disease; N18.6 - End stage renal disease; Z79.4 - USP (current) use of insulin; Z79.4 - superintendent terminal (current) use of insulin; Z79.4 - USP (current) use of insulin; Z79.4 - USP (current) use of insulin; Z99.2 - Dependence on renal dialysis (6) DVT prophylaxis Current Visit: Yes Status: Acute Continue heparin Subjective Principal diagnosis: Acute on chronic respiratory failure due to fluid overlaod Interval history: PT extubated on 07/26/17. Patient has no current/acute complaints at this time. She is currently on BiPAP and is no acute respiratory distress; conversational without any heightened respiratory effort. 07/28: feels well today. On 2L NC with no respiratory distress. Back on MWF HD schedule per nephrology. Had HD yesterday -- overnight BP has been stable. Objective PUL Vital signs: Last Vital Signs Temp 98.1 F 07/28/17 08:40 Pulse 74 07/28/17 06:00 Resp 14 07/28/17 06:00 BP 101/44 07/28/17 06:00 Pulse Ox 94 07/28/17 06:00 CONSTITUTIONAL: Alert and oriented X3, well-nourished, well appearing, in no apparent distress HEAD: Normocephalic; atraumatic. EYES: no scleral icterus, no drainage, no conjunctival injection RESP: on Nasal O2, NRD without use of accessory musculature, CTA b/l with no wheezes/rales/rhonchi CARD: Regular rhythm, without murmurs, rubs, or gallop ABD: grossly normal, soft, non-tender, no guarding/distention/rigidity SKIN: normal appearance, no pallor/diaphoresis,mottling,jaundice,cyanosis EXT: Rad pulses 2+ and symmetrical; 2+ pitting edema in the right lower extremity (left lower extremity surgically absent S/P BKA) PSYCH: appropriate mood/affect Results - Laboratory Findings CBC and BMP: 07/28/17 03:30 07/28/17 03:30 ABG ABG pH 7.45 pH Units (7.32-7.45) 07/26/17 05:11 ABG pCO2 34 mmHg (35-45) L 07/26/17 05:11 ABG pO2 69 mmHg (85-104) L 07/26/17 05:11 ABG O2 Saturation 95 % (95-98) 07/26/17 05:11 PT/INR, D-dimer PT 13.7 Seconds (9.4-12.1) H 07/25/17 13:46 Abnormal lab findings: Abnormal lab results RBC 3.11 M/mcL (3.82-4.97) L 07/28/17 03:30 Hgb 8.7 g/dL (11.5-15.4) L 07/28/17 03:30 Hct 28.2 % (35.3-44.9) L 07/28/17 03:30 MCHC 30.9 g/dL (31.6-35.5) L 07/28/17 03:30 RDW 19.9 % (11.5-14.5) H 07/28/17 03:30 Nucleated RBCs/100 WBC 0.2 /100 WBC (0) H 07/25/17 13:46 PT 13.7 Seconds (9.4-12.1) H 07/25/17 13:46 APTT 74.9 Seconds (26.0-36.0) H 07/25/17 13:46 ABG pCO2 34 mmHg (35-45) L 07/26/17 05:11 ABG pO2 69 mmHg (85-104) L 07/26/17 05:11 Creatinine 2.09 mg/dL (0.60-1.20) H 07/28/17 03:30 Est GFR ( Amer) 29 (> 60) L 07/28/17 03:30 Est GFR (Non-Af Amer) 24 (> 60) L 07/28/17 03:30 POC Glucose 92 (58-89) H 07/28/17 05:20 Calcium 8.4 mg/dL (8.6-10.3) L 07/28/17 03:30 AST 49 Units/L (13-39) H 07/25/17 13:46 Alkaline Phosphatase 115 Units/L (34-104) H 07/25/17 13:46 Troponin I 0.63 ng/mL (< 0.04) H* 07/26/17 20:04 B-Natriuretic Peptide 2124 pg/mL (Less than 100) H 07/25/17 13:46 Serum Total Protein 6.0 g/dL (6.4-8.9) L 07/25/17 13:46 Albumin 3.4 g/dL (3.5-5.7) L 07/25/17 13:46 Urine Clarity Cloudy (Clear) A 07/25/17 18:17 Urine Protein >=300 mg/dL (Neg-Trace) H 07/25/17 18:17 Urine Ketones 15 mg/dL (Negative) H 07/25/17 18:17 Urine Blood Large (Negative) H 07/25/17 18:17 Urine Bilirubin Moderate (Negative) H 07/25/17 18:17 Ur Leukocyte Esterase Small (Negative) H 07/25/17 18:17 Urine Microscopic RBC 15-30 per hpf (0-3) H 07/25/17 18:17 Urine Microscopic WBC 15-30 per hpf (0-3) H 07/25/17 18:17 Ur Squamous Epith Cells Many per lpf (None-Few) H 07/25/17 18:17 - Clinical Findings Intake & Output: Intake & Output 07/27/17 07/28/17 07/28/17 23:59 07:59 15:59 Intake Total 950 / 950 Output Total 3600 / 3600 50 / 50 50 / 50 Balance -2650 / -2650 -50 / -50 -50 / -50 Weight 92.8 kg Consult Discharge Plan - Plan Referrals: Robyn Van, BELT MOLDER [Primary Care Provider] - <Joelle Charles S - Last Filed: 07/29/17 00:42> Date of Encounter: 07/29/17 Assessment and Plan (1) Cardiac arrest Current Visit: Yes Status: Acute (2) Heart failure Current Visit: Yes Status: Acute Qualifiers: Heart failure type: combined systolic and diastolic Heart failure chronicity: acute on chronic Qualified Code(s): I50.43 - Acute on chronic combined systolic (congestive) and diastolic (congestive) heart failure (3) Chronic kidney disease, stage V Current Visit: Yes Status: Acute (4) DVT prophylaxis Current Visit: Yes Status: Acute (5) Elevated troponin Current Visit: Yes Status: Acute (6) Type 2 diabetes mellitus with diabetic chronic kidney disease Current Visit: Yes Status: Acute Qualifiers: Diabetes mellitus oysterman insulin use: with oysterman use Chronic kidney disease stage: on chronic dialysis Qualified Code(s): E11.22 - Type 2 diabetes mellitus with diabetic chronic kidney disease; N18.6 - End stage renal disease; Z99.2 - Dependence on renal dialysis; Z99.2 - Dependence on renal dialysis; Z99.2 - Dependence on renal dialysis; N18.6 - End stage renal disease ; N18.6 - End stage renal disease; N18.6 - End stage renal disease; Z79.4 - superintendent terminal (current) use of insulin; Z79.4 - superintendent terminal (current) use of insulin; Z79.4 - superintendent terminal (current) use of insulin; Z79.4 - USP (current) use of insulin; Z99.2 - Dependence on renal dialysis Objective PUL Vital signs: Last Vital Signs Temp 98.6 F 07/28/17 20:40 Pulse 86 07/28/17 20:40 Resp 18 07/28/17 20:40 BP 94/50 07/28/17 20:40 Pulse Ox 99 07/28/17 20:40 Results - Laboratory Findings CBC and BMP: 07/28/17 03:30 07/28/17 03:30 ABG ABG pH 7.45 pH Units (7.32-7.45) 07/26/17 05:11 ABG pCO2 34 mmHg (35-45) L 07/26/17 05:11 ABG pO2 69 mmHg (85-104) L 07/26/17 05:11 ABG O2 Saturation 95 % (95-98) 07/26/17 05:11 PT/INR, D-dimer PT 13.7 Seconds (9.4-12.1) H 07/25/17 13:46 Abnormal lab findings: Abnormal lab results RBC 3.11 M/mcL (3.82-4.97) L 07/28/17 03:30 Hgb 8.7 g/dL (11.5-15.4) L 07/28/17 03:30 Hct 28.2 % (35.3-44.9) L 07/28/17 03:30 MCHC 30.9 g/dL (31.6-35.5) L 07/28/17 03:30 RDW 19.9 % (11.5-14.5) H 07/28/17 03:30 Nucleated RBCs/100 WBC 0.2 /100 WBC (0) H 07/25/17 13:46 PT 13.7 Seconds (9.4-12.1) H 07/25/17 13:46 APTT 74.9 Seconds (26.0-36.0) H 07/25/17 13:46 ABG pCO2 34 mmHg (35-45) L 07/26/17 05:11 ABG pO2 69 mmHg (85-104) L 07/26/17 05:11 Creatinine 2.09 mg/dL (0.60-1.20) H 07/28/17 03:30 Est GFR ( Amer) 29 (> 60) L 07/28/17 03:30 Est GFR (Non-Af Amer) 24 (> 60) L 07/28/17 03:30 POC Glucose 119 mg/dL (58-89) H 07/28/17 11:34 Calcium 8.4 mg/dL (8.6-10.3) L 07/28/17 03:30 AST 49 Units/L (13-39) H 07/25/17 13:46 Alkaline Phosphatase 115 Units/L (34-104) H 07/25/17 13:46 Troponin I 0.63 ng/mL (< 0.04) H* 07/26/17 20:04 B-Natriuretic Peptide 2124 pg/mL (Less than 100) H 07/25/17 13:46 Serum Total Protein 6.0 g/dL (6.4-8.9) L 07/25/17 13:46 Albumin 3.4 g/dL (3.5-5.7) L 07/25/17 13:46 Urine Clarity Cloudy (Clear) A 07/25/17 18:17 Urine Protein >=300 mg/dL (Neg-Trace) H 07/25/17 18:17 Urine Ketones 15 mg/dL (Negative) H 07/25/17 18:17 Urine Blood Large (Negative) H 07/25/17 18:17 Urine Bilirubin Moderate (Negative) H 07/25/17 18:17 Ur Leukocyte Esterase Small (Negative) H 07/25/17 18:17 Urine Microscopic RBC 15-30 per hpf (0-3) H 07/25/17 18:17 Urine Microscopic WBC 15-30 per hpf (0-3) H 07/25/17 18:17 Ur Squamous Epith Cells Many per lpf (None-Few) H 07/25/17 18:17 - Clinical Findings Intake & Output: Intake & Output 07/28/17 07/28/17 07/29/17 15:59 23:59 07:59 Intake Total 120 / 120 0 / 0 Output Total 50 / 50 Balance 70 / 70 0 / 0 - Attending Attestation - Attending Attestation I saw and evaluated this patient and my medical decision-making was reviewed with the Resident Physician. I agree with the documented findings, disposition and treatment plan as described except to the extent set forth below. We independently had pkjw-[id number] contact with the patient Patient seen and examined at bedside Labs, radiology, chart personally reviewed. SPECIAL EDUCATION INSTRUCTOR:Patient is conscious oriented following commands off BIPAp Pulm: Patient V/Q mismatch is secondary to fluid overload due to missed dialysis , some diastolic heart failure and a superimposed infiltrate patient has respiratory alkalosis will drop the TV to 400 will repeat the ABG , his V/Q mismatch will get better with dialysis to continue broad spectrum antibiotics 07/27 she tolerated extubation doing well on night BIPAP with BIPAP prn during the day . 07/28 doing well will need BIPAP at night Cards:Hemodynamically stable , PEA arrest might secondary hypoxic respiratory failure low suspicion for PE or ACS . continue salt and water restriction will need good control of pre load and after load FEN-GI: Advance the diet as tolerated Renal: ESRD on dialysis follow renal recs ID: Descalating antibiotics Heme/Onc: Labs reviewed Endo: Glucose Monitored Integ/MSK: Skin Care per routine ICU Nursing Protocol to prevent ulcers. Lines: All lines examined without evidence of infection : Dispo: Patient is crit CODE: Full Code
--- NOTE | 2017-07-28 09:44 | Nephrology Progress Note ---
Date of Encounter: 07/28/17 Time of Encounter: 08:55 - Assessment and Plan (1) ESRD (end stage renal disease) Current Visit: Yes Status: Chronic S/P cardiac arrest. ESRD-No HD today, keeping MWF schedule. Subjective Principal diagnosis: Acute on chronic respiratory failure due to fluid overlaod Interval history: Sitting up in bed. States feeling good. Plans to move out of ICU. Objective - Vital Signs Vital signs: Vital Signs Temp Pulse Resp BP Pulse Ox 07/28/17 08:40 98.1 F 07/28/17 06:00 74 14 101/44 94 07/28/17 05:00 71 26 99/47 97 07/28/17 04:57 98.1 F 07/28/17 04:00 73 25 101/45 97 07/28/17 03:30 74 07/28/17 03:00 74 14 103/46 100 07/28/17 02:00 74 18 101/42 100 07/28/17 01:00 75 18 107/57 91 07/28/17 00:17 98.1 F 07/28/17 00:00 76 18 93/44 97 07/27/17 23:30 76 07/27/17 23:00 77 16 103/48 97 07/27/17 22:50 20 98/34 99 07/27/17 22:00 78 20 98/34 99 07/27/17 21:10 98.0 F 07/27/17 21:00 80 25 96/48 96 07/27/17 20:00 81 16 101/53 100 07/27/17 19:30 81 07/27/17 19:10 97.7 F 16 111/43 07/27/17 19:00 80 14 96/57 94 07/27/17 18:45 105/35 07/27/17 18:30 104/53 07/27/17 18:15 108/42 07/27/17 18:00 81 18 108/42 96 07/27/17 17:45 101/33 07/27/17 17:30 101/42 07/27/17 17:15 110/46 07/27/17 17:00 80 18 100/39 96 07/27/17 16:45 105/51 07/27/17 16:30 113/54 07/27/17 16:15 102/56 07/27/17 16:00 98.0 F 96 18 107/47 96 07/27/17 15:50 97.1 F L 07/27/17 15:00 85 07/27/17 14:00 89 21 106/42 96 07/27/17 13:00 89 21 105/45 96 07/27/17 12:15 97.9 F 07/27/17 12:00 84 21 108/41 96 07/27/17 11:49 84 07/27/17 11:00 84 21 111/41 96 07/27/17 10:00 82 21 100/37 96 Intake and Output 07/27/17 07/28/17 07/28/17 23:59 07:59 15:59 Intake Total 950 / 950 Output Total 3600 / 3600 50 / 50 50 / 50 Balance -2650 / -2650 -50 / -50 -50 / -50 Intake: IV Fluids 300 / 300 Levaquin Premix 500mg/100mL 500 100 / 100 mg In 100 ml @ 100 mls/hr IVPB Q48H [facility] Rx#:[id number] Zosyn 3.375 GM In 0.9 % Sodium 200 / 200 Chloride (Mini-Bag +) 100 ML @ 25 mls/hr IVPB Q12H [facility] Rx#: [id number] Oral 50 / 50 Intake, Rinseback and Flushes 600 / 600 Output: Urine 0 / 0 Total Dialysis (HD) Output 3600 / 3600 Catheter 50 / 50 50 / 50 Other: Meal Dinner Percent of Meal Consumed 100% Weight 92.8 kg Blood Glucose* 192 Hemodialysis Net Fluid Removed 3000 (mL) Patient Weight 07/28/17 23:59 Weight 92.8 kg - General Appearance General appearance: Present: well-developed, well-nourished, appears started age EENT: Present: mucous membranes moist Neck: Present: no JVD Respiratory: Present: clear Additional Comments: Left BKA, mild RLE Gastrointestinal: Present: normoactive bowel sounds, no tenderness Integumentary: Present: warm and dry Neurologic: Present: alert and oriented x3 - Lab 07/28/17 03:30 07/28/17 03:30 Most recent lab results ABG pH 7.45 pH Units (7.32-7.45) 07/26/17 05:11 ABG pCO2 34 mmHg (35-45) L 07/26/17 05:11 ABG pO2 69 mmHg (85-104) L 07/26/17 05:11 ABG HCO3 24 mEq/L (21-27) 07/26/17 05:11 ABG O2 Saturation 95 % (95-98) 07/26/17 05:11 Calcium 8.4 mg/dL (8.6-10.3) L 07/28/17 03:30 Magnesium 1.7 mg/dL (1.6-2.6) 07/26/17 03:00 Consult Discharge Plan - Plan Referrals: Robyn Van, RENDERING EQUIPMENT TENDER [Primary Care Provider] -
[2017-07-28] MEDS ORDERED: Insulin LISPRO 300 UNITS/3 ML VIAL SQ SCH ×2 (11:30→21:00)
[2017-07-28] MEDS ORDERED: OXYCODONE Oral CONC 10 MG/0.5 ML ORAL.SYG SL PRN (15:20)
[2017-07-28] MEDS ORDERED: Dextrose Gel 15 GM PO PRN ×2 (15:20)
[2017-07-28] MEDS ORDERED: *HR* Heparin 10,000 UNIT/10 ML VIAL IV PRN (15:20)
[2017-07-28] MEDS ORDERED: Naloxone 0.4 MG/ML INJ IVP PRN (15:20)
[2017-07-28] MEDS ORDERED: *HR* Dextrose 50 % in Water (Syg) 50 ML SYRINGE IVP PRN (15:20)
[2017-07-28] MEDS ORDERED: 0.9 % Sodium Chloride 250 ML IVC PRN (15:20)
[2017-07-28] MEDS ORDERED: D5% in Water 1,000 ML IVC PRN (15:20)
[2017-07-29] MEDS: *HR* Heparin 5,000 UNIT/ML VIAL SQ SCH ×2 (05:00→16:41)
[2017-07-29 05:24] LABS: Hematocrit 27.4 % (35.3-44.9); Hemoglobin 8.3 g/dL (11.5-15.4); Mean Corpuscular HGB Conc 30.3 g/dL (31.6-35.5); Mean Corpuscular Hemoglobin 27.6 pg (28.0-33.3); Mean Platelet Volume 10.8 fL (9.4-12.4); Platelet Count 164 K/mcL (140-400); Red Blood Count 3.01 M/mcL (3.82-4.97)
[2017-07-29 06:01] LABS: Calcium 8.9 mg/dL (8.6-10.3); Potassium 4.3 mEq/L (3.5-5.1)
[2017-07-29] MEDS ORDERED: 0.9 % Sodium Chloride 250 ML IVC PRN (07:46)
[2017-07-29] MEDS ORDERED: *HR* Heparin 10,000 UNIT/10 ML VIAL IV PRN (07:46)
[2017-07-29] MEDS ORDERED: 0.9 % Sodium Chloride 1,000 ML ONE (07:59)
[2017-07-29] MEDS ORDERED: 0.9 % Sodium Chloride 1,000 ML PRIME SCH (08:00)
[2017-07-29] MEDS: Insulin LISPRO 300 UNITS/3 ML VIAL SQ SCH ×4 (08:12→21:19)
[2017-07-29] MEDS: Piperacillin/Tazobactam 3.375 GM in 0.9 % Sodium Chloride Mini Bag 100 ML IVPB SCH (08:14)
--- NOTE | 2017-07-29 10:43 | Nephrology Progress Note ---
Date of Encounter: 07/29/17 Time of Encounter: 09:45 - Assessment and Plan (1) ESRD (end stage renal disease) Current Visit: Yes Status: Chronic S/P cardiac arrest. ESRD-HD today, keeping MWF schedule. Orders given. Subjective Principal diagnosis: Acute on chronic respiratory failure due to fluid overlaod Interval history: Seen on HD. States feeling better. Would like to go home. Objective - Vital Signs Vital signs: Vital Signs Temp Pulse Resp BP Pulse Ox 07/29/17 07:01 98.2 F 92 18 146/72 95 07/29/17 03:51 98.0 F 85 18 104/49 98 07/29/17 00:41 98.0 F 81 18 102/48 95 07/28/17 20:40 98.6 F 86 18 94/50 99 07/28/17 15:00 97.9 F 82 15 104/63 95 07/28/17 12:22 98.2 F Intake and Output 07/28/17 07/29/17 07/29/17 23:59 07:59 15:59 Intake Total 0 / 0 100 / 100 / 30 Output Total 0 / 0 Balance 0 / 0 100 / 100 30 / 30 Intake: IV Fluids 100 / 100 Zosyn 3.375 GM In 0.9 % Sodium 100 / 100 Chloride (Mini-Bag +) 100 ML @ 25 mls/hr IVPB Q12H [facility] Rx#: [id number] Oral 0 / 0 / 30 Output: Urine 0 / 0 Other: Meal Dinner Percent of Meal Consumed 75% Blood Glucose* 136 126 - General Appearance General appearance: Present: well-developed, well-nourished, appears started age EENT: Present: mucous membranes moist Neck: Present: no JVD Respiratory: Present: clear Cardiology: Present: edema, regular rate, regular rhythm Additional Comments: Right mild pitting, Left BKA Gastrointestinal: Present: normoactive bowel sounds, no tenderness Integumentary: Present: warm and dry Neurologic: Present: alert and oriented x3 - Lab 07/29/17 04:00 07/29/17 04:00 Most recent lab results ABG pH 7.45 pH Units (7.32-7.45) 07/26/17 05:11 ABG pCO2 34 mmHg (35-45) L 07/26/17 05:11 ABG pO2 69 mmHg (85-104) L 07/26/17 05:11 ABG HCO3 24 mEq/L (21-27) 07/26/17 05:11 ABG O2 Saturation 95 % (95-98) 07/26/17 05:11 Calcium 8.9 mg/dL (8.6-10.3) 07/29/17 04:00 Magnesium 1.7 mg/dL (1.6-2.6) 07/26/17 03:00 Consult Discharge Plan - Plan Referrals: Robyn Van, HIGHWAY TRAFFIC CONTROL TECHNICIAN [Primary Care Provider] -
--- NOTE | 2017-07-29 13:06 | Internal Med Progress Note ---
Date of Encounter: 07/29/17 Time of Encounter: 13:03 - Assessment and plan (1) Cardiac arrest Current Visit: Yes Status: Acute Assessment and plan: Unclear etiology. Boyfriend tells me that she had a low blood pressure while in dialysis and he was called by the dialysis center after the arrest afterwards. Echocardiogram limited showed EF 50%. Troponins were elevated on admission at 0.04 and went up to a maximum of 1.01 before trending down to 0.63 as of 07/26. This may have been from CPR. We will repeat one now. EKG with no ST or T-wave changes. Consult cardiology regarding the elevated troponins. Patient has no history of coronary artery disease. (2) Elevated troponin Current Visit: Yes Status: Acute Assessment and plan: Plan as above. Troponins were elevated on admission at 0.04 and went up to a maximum of 1.01 before trending down to 0.63 as of 07/26. This may have been from CPR. The patient tells me that she was told that she had an CA back in 2008 but she is not on cardiac meds and never had a LHC. (3) Heart failure Current Visit: Yes Status: Acute Assessment and plan: No signs of significant volume overload. This is chronic diastolic heart failure. Continue to remove volume with dialysis. O2 support as needed. Qualifiers: Heart failure type: combined systolic and diastolic Heart failure chronicity: acute on chronic Qualified Code(s): I50.43 - Acute on chronic combined systolic (congestive) and diastolic (congestive) heart failure (4) Lactic acid acidosis Current Visit: Yes Status: Acute Assessment and plan: Resolved. Likely from the arrest. (5) ESRD (end stage renal disease) Current Visit: Yes Status: Chronic Assessment and plan: Dialysis per nephrology. (6) DVT prophylaxis Current Visit: Yes Status: Acute Assessment and plan: Heparin subcutaneous - Subjective Interval history: Patient was seen and examined. Afebrile. No acute events. Transferred out of the ICU with a history of hypertension, diabetes mellitus, diastolic heart failure, end-stage renal disease on dialysis. Initially presented from dialysis center after a cardiac arrest for which she was intubated and later extubated. Initially had elevated lactic acid but that is resolved. Troponins were elevated as well as on admission 0.04 and went up to a maximum of 1.01 before trending down to 0.63 as of 07/26. EKG with no ST or T-wave changes that are acute. The patient had a recent admission into the ICU for pneumonia and was discharged in stable condition. - Constitutional Vitals: Temp Pulse Resp BP Pulse Ox 97.5 F L 92 18 118/59 95 07/29/17 09:10 07/29/17 07:01 07/29/17 09:10 07/29/17 11:10 07/29/17 07:01 Exam: GEN: NAD CVS: RRR. S1, S2, No m/r/g RESP: CTAB ABD: Soft, NT, ND, +BS EXT: No edema. 2+ DP. No rashes NEURO: Nonfocal Internal Medicine: Result - Labs CBC & Chem 7: 07/29/17 04:00 07/29/17 04:00 Labs: Short CBC 07/29/17 Range/Units 04:00 WBC 5.7 (4.3-11.1) K/mcL Hgb 8.3 L (11.5-15.4) g/dL Hct 27.4 L (35.3-44.9) % Plt Count 164 (140-400) K/mcL BMP 07/29/17 04:00 Sodium 137 Potassium 4.3 Chloride 100 Carbon Dioxide 27 BUN 19 Creatinine 3.05 H Glucose 145 H Calcium 8.9 - ABG Interpretation ABG results: ABG ABG pH 7.45 pH Units (7.32-7.45) 07/26/17 05:11 ABG pCO2 34 mmHg (35-45) L 07/26/17 05:11 ABG pO2 69 mmHg (85-104) L 07/26/17 05:11 ABG O2 Saturation 95 % (95-98) 07/26/17 05:11 PT/INR, D-dimer PT 13.7 Seconds (9.4-12.1) H 07/25/17 13:46 Consult Discharge Plan - Plan Referrals: Robyn Van, AVIATION ELECTRICAL TECHNICIAN [Primary Care Provider] -
--- NOTE | 2017-07-29 14:11 | Cardiology Consult Note ---
Addendum entered and electronically signed by Mikey Jaffe CNP 07/29/17 14:57 : Hold off on bb due to hypotension. Original Note: <Mikey Jaffe - Last Filed: 07/29/17 13:59> Date of Encounter: 07/29/17 Time of Encounter: 13:59 Assessment and Plan (1) Cardiac arrest Current Visit: Yes Status: Acute Reported to have no pulse at dialysis and was given CPR. No rhythm strips for review. Noted to have fluid overload on arrival. Required ventilatory support. EKG on admission is very poor tracing with low voltage. Not clear afib. No obvious ST changes. Will order EKG now. Limited TTE showed no change. TTE from 07/08/17 showed EF 50%. Mild TR. no pulmonary HTN. Troponin noted to be elevated. Likely due to cardiac arrest and CPR. Denies cardiovascular symptoms. Recommend asa, statin, and BB. (2) CAD (coronary artery disease) Current Visit: Yes Status: Acute H/o [place] and PCI in 2008 at [facility]. Poor cardiology f/u. Recommend asa, statin, and bb. Consider stress test in the future. Qualifiers: Coronary Disease-Associated Artery/Lesion type: [place] artery [place] vs. transplanted heart: [place] heart Associated angina: without angina Qualified Code(s): I25.10 - Atherosclerotic heart disease of [place] coronary artery without angina pectoris (3) Elevated troponin Current Visit: Yes Status: Acute Troponin elevated up to 1.01. Likely due to cardiac arrest and CPR in ESRD patient. B/p also reported to be 60/doppler. No change in EF on limited TTE. EKG with no acute ST changes. Discussion w patient/family: The assessment and plan as outlined above was discussed with the patient and/or family members who expressed understanding and agreement. All questions were answered. Thank you for involving us in the care of your patient. Please call with any questions. History of Present Illness Consult date: 07/29/17 Requesting physician: Yuliana Roland Consult reason: cardiac arrest, elevated troponin Chief complaint: loss of conciousness during dialysis History of present illness: Ms. Ibarra is a 67 year old female with past medical history of [place] and PCI in 2008 , ESRD newly on dialysis, HTN, DM, and L BKA. who presented to the ED after she was reported to develope cardiac arrest at dialysis. SHe is a new dialysis patient and was on her second dialysis. Per record the dialysis nurse found her to be unresponsive, blue, and pulseless after 5 min of dialysis. CPR and IV fluid was started. Once the EMS arrived she was intubated with nasal tube. She was noted to be volume overloaded on admission. She required ventilator support for 1 day and bipap for two days. She received dialysis with fluid removal. She is now on the stepdown unit. She denies symptoms leading up to the event. Denies chest pain or SOB. Denies weight gain, orthopnea, or PND. 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) - Social History Smoking Status: Never smoker Smokeless Tobacco Status: No Alcohol use: none Drug use: none - Family History Mother Living Status: Father Living Status: Medications and Allergies Acetaminophen [Tylenol] 500 mg PO Q6HR PRN 07/05/17 [History] Allopurinol [Zyloprim 100 MG] 200 mg PO DAILY 07/05/17 [History] Amlodipine Besylate 10 mg PO DAILY 07/05/17 [History] Linagliptin [Tradjenta] 5 mg PO QAM 07/05/17 [History] Omeprazole [PriLOSEC] 20 mg PO DAILY PRN 07/05/17 [History] Sevelamer [Renvela] 1,600 mg PO TIDWM 7 Days #21 tablet 07/13/17 [Rx] 3 Allergy/AdvReac Type Severity Reaction Status Date / Time No Known Allergies Allergy Verified 07/05/17 17:25 All Systems Review: The remainder of the systems were reviewed and are negative Physical Examination Vital Signs, Last 4 Hours Temp Resp BP 07/29/17 12:30 97.6 F 20 119/60 07/29/17 12:10 101/48 07/29/17 11:55 103/50 07/29/17 11:40 104/60 07/29/17 11:25 107/50 07/29/17 11:10 118/59 07/29/17 10:55 118/57 07/29/17 10:40 117/58 07/29/17 10:25 127/59 07/29/17 10:10 124/62 General: Conversant, No Apparent Distress HEENT: Atraumatic, Normocephaly, Mucus Membranes Moist Neck: No JVD, Normal carotid pulses Cardiac: Reg Rate and Rhythm, Normal S1 and S2, No Murmur Lungs: Normal Breath Sounds, No Wheeze, Rales, Rhonchi Neuro: Alert and responsive, No focal deficits noted Abdomen: Soft, Non-Tender Skin: No rashes noted on visualized skin Musculoskeletal: No Chest Wall Tenderness Extremities: No Clubbing, No Cyanosis, No Edema, Other (BKA) Results 07/29/17 04:00 07/29/17 04:00 Lab Results 07/29/17 07/29/17 04:00 04:00 WBC 5.7 Hgb 8.3 L Hct 27.4 L Plt Count 164 Sodium 137 Potassium 4.3 Chloride 100 Carbon Dioxide 27 BUN 19 Creatinine 3.05 H Glucose 145 H Calcium 8.9 - Imaging and Cardiology Echo: report reviewed Consult Discharge Plan - Plan Referrals: Robyn Van, AFIA [Primary Care Provider] - <Riya Salazar - Last Filed: 07/29/17 16:44> Date of Encounter: 07/29/17 - Attending Attestation I examined this patient and my medical decision-making was reviewed with the RIGGING SUPERVISOR. I agree with the documented findings, disposition and treatment plan as described. Ms. Ibarra presented to the hospital after being found pulseless and after undergoing CPR at a dialysis unit. The details of the events during dialysis are unclear - no data present to clarify. Did require ventilatory support upon arrival suspicious for a respiratory cause. Her ECG upon arrival demonstrates no acute findings but baseline is artifactual and challenging to interpret the rhythm. Repeat ECG demonstrates NSR, no acute findings. A limited echo demonstrated no change in LVEF from prior. Etiology of circumstances does not appear to represent an acute coronary event. Troponin elevation is not diagnostic for ACS - was drawn after CPR. Patient not having cardiac symptoms. Recommend continuing asa, statin. Will sign off. Recommend outpatient follow up. Assessment and Plan Discussion w patient/family: The assessment and plan as outlined above was discussed with the patient and/or family members who expressed understanding and agreement. All questions were answered. Thank you for involving us in the care of your patient. Please call with any questions. History of Present Illness History of present illness: Ms. Ibarra is a 67 year old female All Systems Review: The remainder of the systems were reviewed and are negative Physical Examination Vital Signs, Last 4 Hours Temp Pulse Resp BP Pulse Ox 07/29/17 16:00 98.0 F 82 18 110/55 96 Results 07/29/17 04:00 07/29/17 04:00 Lab Results 07/29/17 07/29/17 07/29/17 04:00 04:00 14:12 WBC 5.7 Hgb 8.3 L Hct 27.4 L Plt Count 164 Sodium 137 Potassium 4.3 Chloride 100 Carbon Dioxide 27 BUN 19 Creatinine 3.05 H Glucose 145 H Calcium 8.9 Troponin I 0.20 H*
[2017-07-29] MEDS ORDERED: Levofloxacin 500 MG/100 ML 500 MG/100 ML BAG IVPB SCH (16:00)
[2017-07-29] MEDS: Aspirin 81 MG TAB.CHEW PO SCH (16:34)
[2017-07-30 05:37] LABS: Basophils % 0.3 %; Eosinophils # 0.1 K/mcL (0.0-0.6); Eosinophils % 1.4 %; Hematocrit 29.4 % (35.3-44.9); Hemoglobin 8.8 g/dL (11.5-15.4); Immature Granulocytes % 1.2 % (0-4); Lymphocytes # 0.8 K/mcL (0.6-4.6); Mean Corpuscular HGB Conc 29.9 g/dL (31.6-35.5); Mean Corpuscular Hemoglobin 27.5 pg (28.0-33.3); Mean Corpuscular Volume 91.9 fL (83.0-100.0); Mean Platelet Volume 11.8 fL (9.4-12.4); Monocytes # 0.9 K/mcL (0.0-1.3); Monocytes % 14.6 %; Neutrophils # 4.1 K/mcL (1.6-8.9); Platelet Count 187 K/mcL (140-400); Segmented Neutrophils % 69.5 %
[2017-07-30 05:56] LABS: Calcium 9.1 mg/dL (8.6-10.3)
[2017-07-30] MEDS: *HR* Heparin 5,000 UNIT/ML VIAL SQ SCH (06:13)
--- NOTE | 2017-07-30 08:46 | Nephrology Progress Note ---
Date of Encounter: 07/30/17 Time of Encounter: 08:25 - Assessment and Plan (1) ESRD (end stage renal disease) Current Visit: Yes Status: Chronic S/P cardiac arrest. ESRD-No HD today, keeping MWF schedule. Subjective Principal diagnosis: Acute on chronic respiratory failure due to fluid overlaod Interval history: States feeling better. Would like to go home. Objective - Vital Signs Vital signs: Vital Signs Temp Pulse Resp BP Pulse Ox 07/30/17 06:54 97.9 F 80 17 106/66 96 07/30/17 04:40 98.1 F 85 17 117/51 94 07/29/17 23:29 99.1 F 89 16 117/62 93 07/29/17 19:31 98.7 F 92 17 115/60 95 07/29/17 16:00 98.0 F 82 18 110/55 96 07/29/17 12:30 97.6 F 20 119/60 07/29/17 12:10 101/48 07/29/17 11:55 103/50 07/29/17 11:40 104/60 07/29/17 11:25 107/50 07/29/17 11:10 118/59 07/29/17 10:55 118/57 07/29/17 10:40 117/58 07/29/17 10:25 127/59 07/29/17 10:10 124/62 07/29/17 09:55 125/63 07/29/17 09:40 118/62 07/29/17 09:25 124/64 07/29/17 09:10 97.5 F L 18 122/62 Intake and Output 07/29/17 07/30/17 07/30/17 23:59 07:59 15:59 Intake Total 30 30 Output Total 0 / 0 Balance 30 30 Intake: Oral 30 30 Output: Urine 0 / 0 Other: Stool Size Smear Stool Consistency soft # Urine Diapers 0 1 # Bowel Movement Diapers 0 1 Weight 86.5 kg Blood Glucose* 151 - General Appearance General appearance: Present: well-developed, well-nourished, appears started age EENT: Present: mucous membranes moist Neck: Present: no JVD Respiratory: Present: clear Cardiology: Present: edema, regular rate, regular rhythm Additional Comments: mild, right, shriveled skin. left BKA Dialysis Vascular Access: Venous Catheter Gastrointestinal: Present: normoactive bowel sounds, no tenderness Integumentary: Present: warm and dry Neurologic: Present: alert and oriented x3 - Lab 07/30/17 04:17 07/30/17 04:17 Most recent lab results ABG pH 7.45 pH Units (7.32-7.45) 07/26/17 05:11 ABG pCO2 34 mmHg (35-45) L 07/26/17 05:11 ABG pO2 69 mmHg (85-104) L 07/26/17 05:11 ABG HCO3 24 mEq/L (21-27) 07/26/17 05:11 ABG O2 Saturation 95 % (95-98) 07/26/17 05:11 Calcium 9.1 mg/dL (8.6-10.3) 07/30/17 04:17 Magnesium 1.7 mg/dL (1.6-2.6) 07/30/17 04:17 Consult Discharge Plan - Plan Referrals: Robyn Van, CORD CUTTER [Primary Care Provider] -
[2017-07-30] MEDS ORDERED: amLODIPine 5 MG TABLET PO SCH (09:00)
[2017-07-30] MEDS ORDERED: Magnesium Oxide 400 MG TABLET PO ONE (09:33)
--- NOTE | 2017-07-30 09:41 | Discharge Summary ---
- NOTES TO OUTPATIENT PROVIDER Notes to Outpatient Provider: Cardiology saw the patient for elevated trops and thought it was due to CPR. They did start her on ASA/statin. No BB due to borderline hypotension. She has a h/o of [place] in 2008. They did recommend a stress test in the outpatient setting Orders not resulted at time of discharge: Pending orders 07/29/17 14:52 EKG [ECG 12 lead ECG] [ECG] Stat 07/31/17 04:00 BMP [Basic Metabolic Panel] AM 0400 Complete Blood Count w/o Diff [HEME] AM 0400 08/01/17 04:00 BMP [Basic Metabolic Panel] AM 0400 Complete Blood Count w/o Diff [HEME] AM 0400 Date of Encounter: 07/30/17 Time of Encounter: 09:38 - Discharge Diagnosis (1) Cardiac arrest Priority: Primary Status: Acute (2) Elevated troponin Priority: Primary Status: Acute (3) Heart failure Priority: Secondary Status: Acute Qualifiers: Heart failure type: combined systolic and diastolic Heart failure chronicity: acute on chronic Qualified Code(s): I50.43 - Acute on chronic combined systolic (congestive) and diastolic (congestive) heart failure (4) Lactic acid acidosis Priority: Primary Status: Acute (5) ESRD (end stage renal disease) Priority: Secondary Status: Chronic Hospital course: Ms. Ibarra is a 67 year old female with a PMHx of HTN, DM, HFrEF, ESRD on MWF HD presented to ED from dialysis center after cardiac arrest. Per EMS report and ED report, patient was previously well and presented to dialysis center. She completed approximately 5 minutes of dialysis before staff noticed that she "turned blue" and could not feel a pulse. CPR was started and she did regain a pulse before presentation to the ED. She was intubated on transportation via EMS with nasotracheal tube. Reportedly she had a drop in her blood pressure while in dialysis. She was stable since presentation to ED with vitals wnl on ventilation and has not required presser support. She was admitted to the ICU and eventually extubated and transferred out of the ICU. She had elevated troponins which were suspected to be secondary to CPR. I only saw the patient the day prior to her discharge as she was transferred out of ICU. Given the elevated troponins and a history of [place] that the patient mentioned to me, I consulted with cardiology. They recommended starting the patient on aspirin and statin. A beta manjit could not be started due to the fact the patient's blood pressure was borderline. An echocardiogram done while hospitalized showed an EF of 50% with normal right ventricular rupture and function. This was only a limited echo as she had a TTE done in early June which showed again 50% ejection fraction with normal LV chamber size and function. There was indeterminate diastolic function. Mild tricuspid regurgitation. Cardiology recommended outpatient follow-up for possible stress test. The patient was back to her baseline and was discharged on 07/30. - Time Spent with Patient Total time spent providing and/or coordinating discharge services: Greater than 30 minutes - Discharge Medications Prescriptions: Aspirin 81 mg PO DAILY #30 tab.chew Atorvastatin [Lipitor] 40 mg PO HS #30 tablet Home Medications: Acetaminophen [Tylenol] 500 mg PO Q6HR PRN 07/05/17 [History] Allopurinol [Zyloprim 100 MG] 200 mg PO DAILY 07/05/17 [History] Amlodipine Besylate 10 mg PO DAILY 07/05/17 [History] Linagliptin [Tradjenta] 5 mg PO QAM 07/05/17 [History] Omeprazole [PriLOSEC] 20 mg PO DAILY PRN 07/05/17 [History] Sevelamer [Renvela] 1,600 mg PO TIDWM 7 Days #21 tablet 07/13/17 [Rx] Aspirin 81 mg PO DAILY #30 tab.chew 07/30/17 [Rx] Atorvastatin [Lipitor] 40 mg PO HS #30 tablet 07/30/17 [Rx] Allergies/Adverse Reactions: 3 Allergy/AdvReac Type Severity Reaction Status Date / Time No Known Allergies Allergy Verified 07/05/17 17:25 Date of admission: 07/25/17 16:09 Primary care physician: Robyn Van CNP Consults: 07/26/17 08:00 Consult to Dialysis [CONS] ONCE 07/27/17 08:30 Consult to Dialysis [CONS] ONCE 07/29/17 08:00 Consult to Dialysis [CONS] ONCE 07/29/17 12:59 Consult to Occupational Therapy [CONS] Routine Comment: Evaluate, develop and implement POC Reason for Consult: therapy/placement needs Does patient have active BEDREST order?: No Is patient medically & hemodynamically stable?: Yes 07/29/17 13:00 Consult to Cardiology [CONS] Routine Comment: Consulting Provider: Cardiology Fior Reason for Consult: s/p cardiac arrest. elevated trops on admit. Unclear etiologh for arrest Call Completed: Yes Consult to Physical Therapy [CONS] Routine Comment: Evaluate, develop and implement POC Reason for Consult: PT eval Does patient have active BEDREST order?: No Is patient medically & hemodynamically stable?: Yes - Constitutional Vitals: Temp Pulse Resp BP Pulse Ox 97.9 F 80 17 106/66 96 07/30/17 06:54 07/30/17 06:54 07/30/17 06:54 07/30/17 06:54 07/30/17 06:54 Exam: GEN: NAD CVS: RRR. S1, S2, No m/r/g RESP: CTAB ABD: Soft, NT, ND, +BS EXT: No edema. 2+ DP. No rashes NEURO: Nonfocal - Patient Status Disposition: Home, Self-Care Condition: Fair Overall status at discharge: patient is progressing back to baseline - Discharge Instructions Follow Up With: Robyn Van, AFIA [Primary Care Provider] - Riya Salazar DO [Partnered Physician] - (1-2 weeks) - Diet and Activity Activity: increase activity as tolerated, wear oxygen at all times Diet: diabetic diet
[2017-07-30] MEDS: Aspirin 81 MG TAB.CHEW PO SCH (10:28)
[2017-07-30] MEDS: Insulin LISPRO 300 UNITS/3 ML VIAL SQ SCH ×2 (10:29→11:43)
[2017-07-30 11:20] VITALS: BP 128/69
--- NOTE | 2017-08-01 12:22 | Electrocardiograph Report ---
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
--- NOTE | 2017-08-01 12:22 | Electrocardiograph Report ---
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
== END 2017-07-30 14:08 | disposition home or self-care (01) | DRG 208 ==
LOC: EMEROO 13:38 → ICNU 16:09 → 2ANU 07-28 14:53
PROVIDERS: ADMIT Internal Medicine Pulmonary Disease; ATTEND Internal Medicine Pulmonary Disease

== ENCOUNTER 2018-03-11 16:57 | Inpatient (IN) ==
--- NOTE | 2018-03-11 17:10 | Emergency Department Note ---
Disposition Clinical Impression: Altered mental status, unspecified Qualifiers: Altered mental status type: disorientation Qualified Code(s): R41.0 - Disorientation, unspecified UTI (urinary tract infection) Qualifiers: Urinary tract infection type: site unspecified Hematuria presence: with hematuria Qualified Code(s): N39.0 - Urinary tract infection, site not specified Osteomyelitis Qualifiers: Osteomyelitis type: other Osteomyelitis location: other site Qualified Code(s): M86.8X8 - Other osteomyelitis, other site Disposition: Admitted As Inpatient Condition: Fair Referrals: Omid Guillermo MD [Primary Care Provider] - Time of Disposition: 19:30 General Adult HPI - General Stated complaint: AMS Time Seen by Provider: 03/11/18 17:05 Nursing Notes Reviewed: Yes Vital Signs Reviewed: Yes - History of Present Illness HPI Narrative: 67-year-old female presents from [facility] or she lives via EMS for evaluation of altered mentation and increasing facial edema. Per documentation, altered mentation described as being "out of her mind", talking nonsense in her sleep, involuntary jerking movements of her RLE. General color is more ashen; baseline color is pale. Noticed this morning per nurse. Unknown specific onset. Patient was previously on dialysis. She has refused all a ppointments since early December. She was seeing Dr. Huddleston for dialysis; her left upper chest wall port was removed in the last 1-2 months. She was placed to [place] as she was receiving poor care at home. She has no POA. Patient is well known to EMS. At baseline, patient is quiet and reserved. CODE STATUS per [place] = Full Code. ROS: Positive: As above Negative: Patient denies confusion. No fever, chills, chest pains, palpitations, shortness of breath, abdominal pains, changes in urination. No history of falls or trauma. - Related Data Home Medications Medication Instructions Recorded Confirmed Acetaminophen [Tylenol] 500 mg PO Q6HR PRN 07/05/17 07/25/17 Allopurinol [Zyloprim 100 MG] 200 mg PO DAILY 07/05/17 07/25/17 Linagliptin [Tradjenta] 5 mg PO QAM 07/05/17 07/25/17 Omeprazole [PriLOSEC] 20 mg PO DAILY PRN 07/05/17 07/25/17 Previous Rx's Medication Instructions Recorded Aspirin 81 mg PO DAILY #30 tab.chew 07/30/17 Atorvastatin [Lipitor] 40 mg PO HS #30 tablet 07/30/17 Allergies Allergy/AdvReac Type Severity Reaction Status Date / Time No Known Allergies Allergy Verified 07/05/17 17:25 All systems ED: reviewed and negative except as stated. Review of Systems: As Per HPI Past Medical History - Past Medical History Medical history: Reports: coronary artery disease, diabetes, hyperlipidemia, hypertension, renal disease Surgical history: Reports: angioplasty/stent, other Psychiatric history: Reports: no psych history - Social History Smoking Status: Former smoker Smokeless Tobacco Status: No Alcohol use: Reports: none Drug use: Reports: none Physical Exam Vital Signs Reviewed General: Patient is alert, oriented, and in no acute distress. She is giddy and laughing. Head: atraumatic, normocephalic Eye: normal appearance, PERRL, EOMI, no scleral icterus, no conjunctival injection ENT: mucous membranes moist, normal external ear exam Neck: normal inspection, trachea midline, full ROM Chest: normal inspection, symmetric chest rise Respiratory: Good respiratory effort. Bilateral breath sounds are clear without wheezing, crackles, or rhonchi. Cardiovascular: Regular rate and rhythm. No clicks, rubs, gallops, or murmors. Normal heart sounds. Abdomen: Bowel sounds present normoactive x-4 quadrants. Abdomen is soft, nondistended, and nontender. No guarding or rebound. No organomegaly noted. Musculoskeletal: Spontaneously moving all extremities. LLE BKA. Skin: warm, dry. Open wound on right great toe is malodorous, no purulance or erythema. Neuro: GCS 15. Alert and oriented to self. She knows that she is at [place] and in [place]. The state that she is in is [place]. President is [place]. Se nsation light touch intact. Psych: Patient's affect is appropriate for situation. Course Course Narrative: EKG dated to 03/21/1817: 08 interpreted as sinus rhythm with rate of 75. VA 220, QRS 94, QTC 460. Normal axis. No T-wave blunting or hyperacute T waves. Nonspecific ST-T changes. Compared to previous dated 07/29/2017 showing no acute ischemic changes or comparison. Multiple initial concerns. Patient was previously on dialysis but does not on sofa last several months. Concern for possible hyperkalemia. No evidence of such on EKG. Work pending. Also concern for possible UTI. She does have an open wound on her right great toe which smells foul however it is not erythematous and has no purulence. Will x-ray looking for possible osteoarthritis. CT head given her altered mentation to ensure no encephalopathy. Hepatic panel given her change in color to make sure that she does not have hyperbilirubinemia. If LFTs normal, no concern for hyperammoniaemia. Serum hematology shows no leukocytosis. Hemoglobin at the upper end of her baseline. Urinalysis obtained by straight catheter is concerning for UTI. Separate cult ure ordered. Renal function is at patient's baseline. We will hold on IV fluids at this time. Foot xray concerning for possible osteomyelitis. Empiric vancomycin and cefepime for UTI and osteomyelitis. Discussed the above with the patient. She agrees to coming into the hospital. Discussed the above with the admitting hospitalist, Dr. Jiménez, who agrees to accept the patient for continued evaluation and monitoring. Chest X-Ray 03/11/18 17:05 IMPRESSION: Findings likely related to worsening edema. D/ / Rekha Arnold MD / Rekha Arnold MD Interpreting Provider: Rekha Arnold MD Foot X-Ray 03/11/18 17:07 IMPRESSION: Diffuse soft tissue swelling is well as soft tissue gas adjacent to the proximal and distal phalanx of the 1st digit. No cortical destruction however given proximity of ulcer and soft tissue gas findings are concerning for osteomyelitis. Sclerotic appearance and somewhat deformed appearance of the calcaneus posteriorly which may be related to previous injury or chronic osteomyelitis. Fracture involving the posterior calcaneus superiorly near the insertion of the Achilles. This is age indeterminate. D/ / Rekha Arnold MD / Rekha Arnold MD Interpreting Provider: Rekha Arnold MD Vital Signs Temperature 98.0 F 03/11/18 17:06 Pulse Rate 75 03/11/18 17:06 Respiratory Rate 20 03/11/18 17:06 Blood Pressure 170/91 03/11/18 17:06 O2 Sat by Pulse Oximetry 96 03/11/18 17:06 Temperature 98.0 F 03/11/18 17:06 Pulse Rate 78 03/11/18 19:26 Respiratory Rate 18 03/11/18 19:26 Blood Pressure 142/77 03/11/18 19:26 O2 Sat by Pulse Oximetry 94 03/11/18 19:26 Oxygen Delivery Oxygen Delivery Room Air Medical Decision Making - Lab Data Result diagrams: 03/11/18 17:38 03/11/18 17:38 Lab Results 03/11/18 03/11/18 03/11/18 Range/Units 17:20 17:38 17:38 WBC 6.2 (4.3-11.1) K/mcL RBC 3.55 L (3.82-4.97) M/mcL Hgb 10.5 L (11.5-15.4) g/dL Hct 34.6 L (35.3-44.9) % MCV 97.5 (83.0-100.0) fL MCH 29.6 (28.0-33.3) pg MCHC 30.3 L (31.6-35.5) g/dL RDW 18.2 H (11.5-14.5) % Plt Count 154 (140-400) K/mcL MPV 12.1 (9.4-12.4) fL Immature Gran % 0.3 (0-4) % Seg Neutrophils % 77.0 % Lymphocytes % 11.4 % Monocytes % 7.5 % Eosinophils % 3.5 % Basophils % 0.3 % Neutrophils # 4.8 (1.6-8.9) K/mcL Lymphocytes # 0.7 (0.6-4.6) K/mcL Monocytes # 0.5 (0.0-1.3) K/mcL Eosinophils # 0.2 (0.0-0.6) K/mcL Basophils # 0.0 (0.0-0.2) K/mcL Sodium 142 (136-145) mEq/L Potassium 5.0 (3.5-5.1) mEq/L Chloride 109 H (98-107) mEq/L Carbon Dioxide 25 (23-29) mEq/L BUN 59 H (8-23) mg/dL Creatinine 2.19 H (0.60-1.20) mg/dL Est GFR ( Amer) 27 L (> 60) Est GFR (Non-Af Amer) 22 L (> 60) BUN/Creatinine Ratio 27 H (6-26) Glucose 183 H (70-105) mg/dL Calculated Osmolality 315 H (280-300) Calcium 9.5 (8.6-10.3) mg/dL Total Bilirubin 0.8 (0.3-1.0) mg/dL Direct Bilirubin 0.3 H (0.0-0.2) mg/dL Indirect Bilirubin 0.5 (0.0-1.2) mg/dL AST 12 L (13-39) Units/L ALT 11 (7-52) Units/L Alkaline Phosphatase 129 H (34-104) Units/L Troponin I 0.03 (< 0.04) ng/mL Serum Total Protein 6.6 (6.4-8.9) g/dL Albumin 3.8 (3.5-5.7) g/dL Globulin 2.8 (2.4-3.5) g/dL Albumin/Globulin Ratio 1.4 (1.1-2.2) TSH (0.340-5.600) mcIU/mL Urine Color Yellow (Yellow) Urine Clarity Turbid A (Clear) Urine pH 7.0 (5.0-8.0) pH Units Ur Specific Mcleod 1.013 (1.010-1.025) Urine Protein >=300 H (Neg-Trace) mg/dL Urine Glucose (UA) Normal (Normal) mg/dL Urine Ketones Negative (Negative) mg/dL Urine Blood Small H (Negative) Urine Nitrite Negative (Negative) Urine Bilirubin Negative (Negative) Urine Urobilinogen Normal (Normal) mg/dL Ur Leukocyte Esterase Large H (Negative) Urine Microscopic RBC 5-15 H (0-3) per hpf Urine Microscopic WBC TNTC H (0-3) per hpf Ur Squamous Epith Cells Many H (None-Few) per lpf Urine Bacteria Many H (None-Few) per hpf Hyaline Casts Few (None-Few) per lpf Ur Culture Indicated? NO. A (NO) 03/11/18 Range/Units 17:38 WBC (4.3-11.1) K/mcL RBC (3.82-4.97) M/mcL Hgb (11.5-15.4) g/dL Hct (35.3-44.9) % MCV (83.0-100.0) fL MCH (28.0-33.3) pg MCHC (31.6-35.5) g/dL RDW (11.5-14.5) % Plt Count (140-400) K/mcL MPV (9.4-12.4) fL Immature Gran % (0-4) % Seg Neutrophils % % Lymphocytes % % Monocytes % % Eosinophils % % Basophils % % Neutrophils # (1.6-8.9) K/mcL Lymphocytes # (0.6-4.6) K/mcL Monocytes # (0.0-1.3) K/mcL Eosinophils # (0.0-0.6) K/mcL Basophils # (0.0-0.2) K/mcL Sodium (136-145) mEq/L Potassium (3.5-5.1) mEq/L Chloride (98-107) mEq/L Carbon Dioxide (23-29) mEq/L BUN (8-23) mg/dL Creatinine (0.60-1.20) mg/dL Est GFR ( Amer) (> 60) Est GFR (Non-Af Amer) (> 60) BUN/Creatinine Ratio (6-26) Glucose (70-105) mg/dL Calculated Osmolality (280-300) Calcium (8.6-10.3) mg/dL Total Bilirubin (0.3-1.0) mg/dL Direct Bilirubin (0.0-0.2) mg/dL Indirect Bilirubin (0.0-1.2) mg/dL AST (13-39) Units/L ALT (7-52) Units/L Alkaline Phosphatase (34-104) Units/L Troponin I (< 0.04) ng/mL Serum Total Protein (6.4-8.9) g/dL Albumin (3.5-5.7) g/dL Globulin (2.4-3.5) g/dL Albumin/Globulin Ratio (1.1-2.2) TSH 4.277 (0.340-5.600) mcIU/mL Urine Color (Yellow) Urine Clarity (Clear) Urine pH (5.0-8.0) pH Units Ur Specific Mcleod (1.010-1.025) Urine Protein (Neg-Trace) mg/dL Urine Glucose (UA) (Normal) mg/dL Urine Ketones (Negative) mg/dL Urine Blood (Negative) Urine Nitrite (Negative) Urine Bilirubin (Negative) Urine Urobilinogen (Normal) mg/dL Ur Leukocyte Esterase (Negative) Urine Microscopic RBC (0-3) per hpf Urine Microscopic WBC (0-3) per hpf Ur Squamous Epith Cells (None-Few) per lpf Urine Bacteria (None-Few) per hpf Hyaline Casts (None-Few) per lpf Ur Culture Indicated? (NO)
--- NOTE | 2018-03-11 17:11 | Emergency Department Note ---
Disposition Clinical Impression: Altered mental status, unspecified Qualifiers: Altered mental status type: disorientation Qualified Code(s): R41.0 - Disorientation, unspecified Disposition: Admitted As Inpatient General Adult HPI - General Stated complaint: AMS Time Seen by Provider: 03/11/18 17:05 Nursing Notes Reviewed: Yes Vital Signs Reviewed: Yes - History of Present Illness HPI Narrative: ED attending Attestation note Patient was seen with the emergency medicine resident, Wilfrido Crump: I have independently evaluated the patient and have had [id number] contact with the patient. I have reviewed the history and physical, evaluation and management plan in addition to the pertinent laboratory, ancillary and imaging studies along with consultation recommendations if applicable. I agree with their evaluation, management and disposition.. 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 Patient [facility] by EMS [facility] for increasing altered mental status and confusion. Of patient is animated and confused but cooperative and pleasant. Patient will get an EKG screening labs a CT scan of her foot due to a deep infection and ulcer we wanted to exclude the possibility of osteomyelitis. Patient will be admitted. Disposition pending. - Related Data Home Medications Medication Instructions Recorded Confirmed Acetaminophen [Tylenol] 500 mg PO Q6HR PRN 07/05/17 07/25/17 Allopurinol [Zyloprim 100 MG] 200 mg PO DAILY 07/05/17 07/25/17 Linagliptin [Tradjenta] 5 mg PO QAM 07/05/17 07/25/17 Omeprazole [PriLOSEC] 20 mg PO DAILY PRN 07/05/17 07/25/17 Previous Rx's Medication Instructions Recorded Aspirin 81 mg PO DAILY #30 tab.chew 07/30/17 Atorvastatin [Lipitor] 40 mg PO HS #30 tablet 07/30/17 Allergies Allergy/AdvReac Type Severity Reaction Status Date / Time No Known Allergies Allergy Verified 07/05/17 17:25 Past Medical History - Past Medical History Medical history: Reports: coronary artery disease, diabetes, hyperlipidemia, hypertension, renal disease Surgical history: Reports: angioplasty/stent, other Psychiatric history: Reports: no psych history - Social History Smoking Status: Former smoker Smokeless Tobacco Status: No Alcohol use: Reports: none Drug use: Reports: none
[2018-03-11 17:35] LABS: Bilirubin,Urine Negative (Negative); Blood,Urine Small (Negative); Clarity,Urine Turbid (Clear); Color,Urine Yellow (Yellow); Glucose,Urine (UA) Normal (Normal); Ketones,Urine Negative (Negative); Leukocyte Esterase,Urine Large (Negative); Nitrite,Urine Negative (Negative); Protein,Urine >=300 mg/dL (Neg-Trace); Specific Gravity,Urine 1.013 (1.010-1.025); Urobilinogen,Urine Normal (Normal)
[2018-03-11 17:41] LABS: Bacteria,Urine Many per hpf (None-Few); Hyaline Casts,Urine Few per lpf (None-Few); Squamous Epithelial Cell,Urine Many per lpf (None-Few); WBC,Urine TNTC per hpf (0-3)
[2018-03-11 17:50] LABS: Basophils % 0.3 %; Eosinophils # 0.2 K/mcL (0.0-0.6); Eosinophils % 3.5 %; Hematocrit 34.6 % (35.3-44.9); Hemoglobin 10.5 g/dL (11.5-15.4); Immature Granulocytes % 0.3 % (0-4); Lymphocytes # 0.7 K/mcL (0.6-4.6); Lymphocytes % 11.4 %; Mean Corpuscular HGB Conc 30.3 g/dL (31.6-35.5); Mean Corpuscular Hemoglobin 29.6 pg (28.0-33.3); Mean Corpuscular Volume 97.5 fL (83.0-100.0); Mean Platelet Volume 12.1 fL (9.4-12.4); Monocytes # 0.5 K/mcL (0.0-1.3); Monocytes % 7.5 %; Neutrophils # 4.8 K/mcL (1.6-8.9); Platelet Count 154 K/mcL (140-400); Red Blood Count 3.55 M/mcL (3.82-4.97); Red Cell Distribution Width 18.2 % (11.5-14.5)
[2018-03-11 18:10] LABS: Troponin I 0.03 ng/mL (< 0.04)
[2018-03-11 18:12] LABS: Albumin 3.8 g/dL (3.5-5.7); Albumin/Globulin Ratio 1.4 (1.1-2.2); Bilirubin,Direct 0.3 mg/dL (0.0-0.2); Bilirubin,Indirect 0.5 mg/dL (0.0-1.2); Bilirubin,Total 0.8 mg/dL (0.3-1.0); Calcium 9.5 mg/dL (8.6-10.3); Globulin 2.8 g/dL (2.4-3.5); Total Protein 6.6 g/dL (6.4-8.9)
[2018-03-11] MEDS ORDERED: Cefepime HCl 2,000 MG in 0.9 % Sodium Chloride Mini Bag 100 ML IVPB STA (18:15)
--- NOTE | 2018-03-11 19:59 | Internal Med History&Physical ---
<Naima Chappell N - Last Filed: 03/11/18 22:07> Date of Encounter: 03/11/18 Time of Encounter: 19:58 Internal Medicine - H&P: HPI Chief complaint: Altered mental status Admitted From: Emergency Dept History of present illness: Ms. Ibarra is a 67 year old female with a history of hypertension, hyperlipidemia, diabetes, coronary artery disease, and renal disease. She resides at [facility]. She was brought to the ED due to reports of altered mental status and facial swelling that was noticed this morning. Per ED documentation, patient was observed by [facility] staff to be talking nonsense in her sleep and "out of her mind". Patient denies any recent illnesses or constitutional symptoms. She denies any acute complaints or concerns. Essential vital signs obtained in the emergency department were as follows: Temperature 98.0, HR 75, RR 20, BP 170/91, and pulse oximetry 96%. Laboratory studies were significant for hemoglobin 10.5, hematocrit 34.6, chloride 109, BUN 59, creatinine 2.19, direct bilirubin 0.3, and alkaline phosphatase 129. Urinalysis demonstrated a large amount of urine protein, with a value >=300, as well as small blood, large leukocyte esterase, 5-15 microscopic RBCs, many urine bacteria, and white blood cells too numerous to count. Head CT demonstrated no acute abnormalities. Physical exam performed in the ED revealed presence of a foul smelling wound on the right great toe. X-ray of the right foot demonstrated diffuse soft tissue swelling with soft tissue gas adjacent to the proximal and distal phalanx of the first digit. Though no cortical obstruction was seen, there was high concern for osteomyelitis given the proximity of the ulcer and soft tissue gas findings. Patient received vancomycin and cefepime in the ED, and was admitted to the hospitalist service for further infection workup and antibiotic therapy. Patient was seen and evaluated at the bedside. At that time, she was sleeping lately, and was easily awoken with voice. She reported only being tired, and wanting to go to sleep. She denies any acute complaints or concerns. Patient denied any recent fevers, chills, congestion, chest pain, cough, shortness of breath, abdominal pain, nausea, or changes in bowel habits. She denied any dysuria, urinary frequency, or urinary urgency. Past Med Surg Social Fam HX - Past Medical History Medical history: coronary artery disease, diabetes, hyperlipidemia, hypertension, renal disease Additional medical history: bp/cholesterol "controlled" Psychiatric history: no psych history - Past Surgical History Surgical History: angioplasty/stent, other Additional surgical history: Right BKA - Social History Smoking Status: Former smoker Smokeless Tobacco Status: No Alcohol use: none Drug use: none - Family History Father Living Status: Mother Living Status: Internal Medicine - H&P: Meds RX: Acetaminophen [Tylenol] 500 mg PO Q6HR PRN 07/05/17 [History] RX: Allopurinol [Zyloprim 100 MG] 200 mg PO DAILY 07/05/17 [History] RX: Linagliptin [Tradjenta] 5 mg PO QAM 07/05/17 [History] RX: Omeprazole [PriLOSEC] 20 mg PO DAILY PRN 07/05/17 [History] RX: Aspirin 81 mg PO DAILY #30 tab.chew 07/30/17 [Rx] RX: Atorvastatin [Lipitor] 40 mg PO HS #30 tablet 07/30/17 [Rx] Allergy/AdvReac Type Severity Reaction Status Date / Time No Known Allergies Allergy Verified 07/05/17 17:25 All Systems PM: A 10-system review of systems was performed and is negative for pertinent findings except as documented above in the HPI. - Constitutional Vitals: Temp Pulse Resp BP Pulse Ox 98.0 F 78 18 142/77 94 03/11/18 17:06 03/11/18 19:26 03/11/18 19:26 03/11/18 19:26 03/11/18 19:26 Exam: GENERAL: Well-developed, well-nourished adult female in no acute distress. HEENT: Atraumatic and normocephalic. Swelling of bilateral upper and lower eyelids present. NECK: Soft and nontender. No lymphadenopathy. CARDIOVASCULAR: Regular rate and rhythm. S1 and S2 present. No murmurs, gallops, or rubs appreciated. RESPIRATORY: CTA bilaterally. Chest rises and falls symmetrically with respiration. No sensory muscle use. GASTROINTESTINAL: Active bowel sounds 4 quadrants. Patient reports mild left sided abdominal tenderness to palpation. EXTREMITIES: 1+ pitting edema in right lower extremity. Open wound with a small amount of purulent drainage on medial surface of the right great toe. Left lower extremity is surgically absent secondary to prior BKA. SKIN: Warm, dry, and intact. NEUROLOGIC: Alert and oriented 3. Patient answers questions appropriately and is cooperative with exam. She does makes statements that are out of context and unrelated to the current conversation. No apparent focal deficits. PSYCHIATRIC: Appropriate mood and affect. Internal Med - H&P Results - Labs CBC & Chem 7: 03/11/18 17:38 03/11/18 17:38 Labs: Short CBC 03/11/18 Range/Units 17:38 WBC 6.2 (4.3-11.1) K/mcL Hgb 10.5 L (11.5-15.4) g/dL Hct 34.6 L (35.3-44.9) % Plt Count 154 (140-400) K/mcL Neutrophils # 4.8 (1.6-8.9) K/mcL BMP 03/11/18 17:38 Sodium 142 Potassium 5.0 Chloride 109 H Carbon Dioxide 25 BUN 59 H Creatinine 2.19 H Glucose 183 H Calcium 9.5 Cardiac Enzymes 03/11/18 Range/Units 17:38 Troponin I 0.03 (< 0.04) ng/mL Liver Function 03/11/18 Range/Units 17:38 Total Bilirubin 0.8 (0.3-1.0) mg/dL Direct Bilirubin 0.3 H (0.0-0.2) mg/dL AST 12 L (13-39) Units/L ALT 11 (7-52) Units/L Alkaline Phosphatase 129 H (34-104) Units/L Albumin 3.8 (3.5-5.7) g/dL Urine 03/11/18 Range/Units 17:20 Urine Color Yellow (Yellow) Urine Clarity Turbid A (Clear) Urine pH 7.0 (5.0-8.0) pH Units Ur Specific [place] 1.013 (1.010-1.025) Urine Protein >=300 H (Neg-Trace) mg/dL Urine Glucose (UA) Normal (Normal) mg/dL - Impressions ITS Impressions Chest X-Ray 03/11/18 17:05 IMPRESSION: Findings likely related to worsening edema. D/ / Rekha Arnold MD / Rekha Arnold MD Interpreting Provider: Rekha Arnold MD Foot X-Ray 03/11/18 17:07 IMPRESSION: Diffuse soft tissue swelling is well as soft tissue gas adjacent to the proximal and distal phalanx of the 1st digit. No cortical destruction however given proximity of ulcer and soft tissue gas findings are concerning for osteomyelitis. Sclerotic appearance and somewhat deformed appearance of the calcaneus posteriorly which may be related to previous injury or chronic osteomyelitis. Fracture involving the posterior calcaneus superiorly near the insertion of the Achilles. This is age indeterminate. D/ / Rekha Arnold MD / Rekha Arnold MD Interpreting Provider: Rekha Arnold MD Head CT 03/11/18 17:07 IMPRESSION: 1. No acute intracranial abnormality. 2. New chronic appearing lacunar infarct in the right [place]. 3. Unchanged encephalomalacia in the base of the left frontal lobe. 4. Minimal diffuse atrophy with moderate chronic small vessel ischemic changes. D/ / Jose Mota MD / Jose Mota MD Interpreting Provider: Jose Mota MD - Assessment and plan (1) Osteomyelitis Current Visit: Yes Status: Acute Assessment and plan: Wound on right great toe concerning for osteomyelitis, with x-ray findings of soft tissue gas adjacent to the proximal and distal phalanx. - Empiric antibiotic therapy with vancomycin and zosyn - MRI of the right foot pending - Podiatry consult for potential bone biopsy - Consult to wound care Qualifiers: Osteomyelitis type: other Osteomyelitis location: other site Qualified Code(s): M86.8X8 - Other osteomyelitis, other site (2) UTI (urinary tract infection) Current Visit: Yes Status: Acute Assessment and plan: Urinalysis concerning for acute UTI due to presence of large leukocyte esterase, white blood cells TNTC, and many bacteria. - Urine culture pending - Broad-spectrum antibiotic coverage with vancomycin and zosyn Qualifiers: Urinary tract infection type: site unspecified Hematuria presence: with hematuria Qualified Code(s): N39.0 - Urinary tract infection, site not specified; R31.9 - Hematuria, unspecified (3) Chronic kidney disease Current Visit: No Status: Acute Assessment and plan: Patient reportedly discontinued dialysis treatments approximately 2 months ago. Her creatinine today was elevated at 2.19. - Repeat electrolyte panel with morning laboratory studies - Avoid nephrotoxins and renally dose medications as appropriate Qualifiers: Chronic kidney disease stage: unspecified stage Qualified Code(s): N18.9 - Chronic kidney disease, unspecified (4) HLD (hyperlipidemia) Current Visit: Yes Status: Chronic Assessment and plan: - Continue home medication of atorvastatin Qualifiers: Hyperlipidemia type: unspecified Qualified Code(s): E78.5 - Hyperlipidemia, unspecified (5) DVT prophylaxis Current Visit: No Status: Acute Assessment and plan: - Heparin 5000units SQ Q8H - Time Spent With Patient Total time spent is greater than 50% in coordination of care (as documented) at patient's floor/unit and/or counseling patient: <Chintan Jiménezreno - Last Filed: 03/11/18 23:18> Date of Encounter: 03/11/18 All Systems PM: A 10-system review of systems was performed and is negative for pertinent findings except as documented above in the HPI. - Constitutional Vitals: Temp Pulse Resp BP Pulse Ox 98.0 F 78 18 142/77 94 03/11/18 17:06 03/11/18 19:26 03/11/18 19:26 03/11/18 19:26 03/11/18 19:26 Internal Med - H&P Results - Labs CBC & Chem 7: 03/11/18 17:38 03/11/18 17:38 Labs: Short CBC 03/11/18 Range/Units 17:38 WBC 6.2 (4.3-11.1) K/mcL Hgb 10.5 L (11.5-15.4) g/dL Hct 34.6 L (35.3-44.9) % Plt Count 154 (140-400) K/mcL Neutrophils # 4.8 (1.6-8.9) K/mcL BMP 03/11/18 17:38 Sodium 142 Potassium 5.0 Chloride 109 H Carbon Dioxide 25 BUN 59 H Creatinine 2.19 H Glucose 183 H Calcium 9.5 Cardiac Enzymes 03/11/18 Range/Units 17:38 Troponin I 0.03 (< 0.04) ng/mL Liver Function 03/11/18 Range/Units 17:38 Total Bilirubin 0.8 (0.3-1.0) mg/dL Direct Bilirubin 0.3 H (0.0-0.2) mg/dL AST 12 L (13-39) Units/L ALT 11 (7-52) Units/L Alkaline Phosphatase 129 H (34-104) Units/L Albumin 3.8 (3.5-5.7) g/dL Urine 03/11/18 Range/Units 17:20 Urine Color Yellow (Yellow) Urine Clarity Turbid A (Clear) Urine pH 7.0 (5.0-8.0) pH Units Ur Specific [place] 1.013 (1.010-1.025) Urine Protein >=300 H (Neg-Trace) mg/dL Urine Glucose (UA) Normal (Normal) mg/dL - Impressions ITS Impressions Chest X-Ray 03/11/18 17:05 IMPRESSION: Findings likely related to worsening edema. D/ / Rekha Arnold MD / Rekha Arnold MD Interpreting Provider: Rekha Arnold MD Foot X-Ray 03/11/18 17:07 IMPRESSION: Diffuse soft tissue swelling is well as soft tissue gas adjacent to the proximal and distal phalanx of the 1st digit. No cortical destruction however given proximity of ulcer and soft tissue gas findings are concerning for osteomyelitis. Sclerotic appearance and somewhat deformed appearance of the calcaneus posteriorly which may be related to previous injury or chronic osteomyelitis. Fracture involving the posterior calcaneus superiorly near the insertion of the Achilles. This is age indeterminate. D/ / Rekha Arnold MD / Rekha Arnold MD Interpreting Provider: Rekha Arnold MD Head CT 03/11/18 17:07 IMPRESSION: 1. No acute intracranial abnormality. 2. New chronic appearing lacunar infarct in the right [place]. 3. Unchanged encephalomalacia in the base of the left frontal lobe. 4. Minimal diffuse atrophy with moderate chronic small vessel ischemic changes. D/ / Jose Mota MD / Jose Mota MD Interpreting Provider: Jose Mota MD - Time Spent With Patient Total time spent is greater than 50% in coordination of care (as documented) at patient's floor/unit and/or counseling patient: - Attending Attestation I performed a history and physical exam of the patient and discussed management with the resident. I reviewed the resident's note and agree with the documented findings and plan of care. Sil Ibarra is a 59-year-old woman with a history of CK D previously being on dialysis, coronary artery disease, diabetes and hypertension who is a resident at [facility] who comes in via EMS with a complaint of altered mental status and increasing facial edema. It is reported that she seemed out of her mind as she was saying incomprehensible things and her general state of being seemed different. It is said that she has refused to go for all her outpatient appointments for the past 2 months. Her left upper chest wall port was removed 2 months ago after recovery of her kidney function. On arrival to the ER she was clinically and hemodynamically stable. She offered no complaints whatsoever and had a GCS of 15. Lab work was grossly unremarkable. UA obtained via straight catheter showed signs concerning for UTI. She seemed to have a right great toe ulceration which was x-rayed showing soft tissue gas and possible concerns for underlying osteomyelitis. Physical exam remarkable for a left BKA that is well- healed and she moves all her extremities spontaneously. He is oriented to person and place. Affect is appropriate. We will admit as inpatient for possible UTI and further evaluation of osteomyelitis with MRI. Obtain peripheral blood cultures and keep on empiric antibiotics. Resume home medications and place on DVT prophylaxis. KALEIGH BARRY.
[2018-03-11] MEDS ORDERED: Acetaminophen 325 MG TABLET PO PRN (20:11)
[2018-03-11] MEDS: *HR* Heparin 5,000 UNIT/ML VIAL SQ SCH (23:45)
[2018-03-11] MEDS: Insulin LISPRO 300 UNITS/3 ML VIAL SQ SCH (23:46)
[2018-03-12 04:50] LABS: Basophils % 0.5 %; Eosinophils # 0.1 K/mcL (0.0-0.6); Hematocrit 31.5 % (35.3-44.9); Hemoglobin 9.4 g/dL (11.5-15.4); Immature Granulocytes % 0.5 % (0-4); Lymphocytes # 0.7 K/mcL (0.6-4.6); Lymphocytes % 10.1 %; Mean Corpuscular HGB Conc 29.8 g/dL (31.6-35.5); Mean Corpuscular Hemoglobin 29.4 pg (28.0-33.3); Mean Corpuscular Volume 98.4 fL (83.0-100.0); Mean Platelet Volume 11.8 fL (9.4-12.4); Monocytes # 0.5 K/mcL (0.0-1.3); Monocytes % 7.4 %; Neutrophils # 5.2 K/mcL (1.6-8.9); Platelet Count 133 K/mcL (140-400); Red Cell Distribution Width 18.1 % (11.5-14.5); Segmented Neutrophils % 79.5 %
[2018-03-12 05:11] LABS: Potassium 4.6 mEq/L (3.5-5.1)
[2018-03-12] MEDS: Aspirin 81 MG TAB.CHEW PO SCH (08:12)
[2018-03-12] MEDS: Piperacillin/Tazobactam 3.375 GM in 0.9 % Sodium Chloride Mini Bag 100 ML IVPB SCH ×2 (08:12→15:19)
[2018-03-12] MEDS: Insulin LISPRO 300 UNITS/3 ML VIAL SQ SCH ×4 (08:13→22:25)
[2018-03-12] MEDS: *HR* Heparin 5,000 UNIT/ML VIAL SQ SCH ×2 (08:13→15:19)
--- NOTE | 2018-03-12 10:02 | Podiatry Consult Note ---
Date of Encounter: 03/12/18 Time of Encounter: 10:00 Assessment and Plan (1) Toe ulcer due to DM Current visit: Yes Status: Acute Assessment: #1 Davenport grade 2 ulceration dorsomedial aspect right great toe. Probe to bone test is negative. Examination is not consistent with fluctuance or gas within the tissue. Soft tissue is soft and supple. No crepitus. Capillary rebound time is less than 3 seconds. There is no odor therefore no reason to believe that this is actively infected or necrotic. #2 multiple comorbidities as outlined in history Plan: #1 local wound care consisting of cleansing twice a day and application of Santyl ointment #2 we will obtain baseline noninvasive vascular studies #3 baseline ESR #4 will follow daily #5 agree with present antibiotic therapy #6 we will offload right heel/foot with offloading boot to avoid and prevent ulceration of the right heel Qualifiers: Diabetes mellitus type: type 2 Laterality: right Non-pressure ulcer stage: limited to breakdown of skin Qualified Code(s): E11.621 - Type 2 diabetes mellitus with foot ulcer; L97.511 - Non-pressure chronic ulcer of other part of right foot limited to breakdown of skin History of Present Illness Chief complaint: Wound right great toe HPI: Ms. Ibarra is a 67 year old female , was admitted for altered mental status. She is recently oriented 3 alert conversant. Patient states that she has "fall asleep easily". Recent history of dialysis. She does complain of diffuse pruritus without rash. Patient states today that she is no longer on dialysis. She presently has no chest pain nausea vomiting fever chills. History of below- knee amputation [facility] 2001. Patient states she loves "her coffee and her Pepsi and is not going to stop drinking either one of them." Concern for possible gas the right great toe per x-ray. No, leukocytosis with left shift/no bands, no fever. Patient also has history of gout with last uric acid in June of this year being 9.6. Presently not taking any uricosuric medication. Patient cannot remember the last time she may have had an acute episode. She does have an ulceration of unknow duration of dorsal medial aspect of the right great toe. Past Med Surg Social Fam HX - Past Medical History Medical history: coronary artery disease, diabetes, hyperlipidemia, hypertension, renal disease Additional medical history: bp/cholesterol "controlled" Psychiatric history: no psych history - Past Surgical History Surgical History: angioplasty/stent, other Additional surgical history: Right BKA - Social History Smoking Status: Former smoker Smokeless Tobacco Status: No Alcohol use: none Drug use: none - Family History Mother Living Status: Age at : 62 Cause of : Diabetes Hx Family Endocrine Disorder: Yes Father Living Status: Medications and Allergies Acetaminophen [Tylenol] 500 mg PO Q6HR PRN 07/05/17 [History] Allopurinol [Zyloprim 100 MG] 200 mg PO DAILY 07/05/17 [History] Linagliptin [Tradjenta] 5 mg PO QAM 07/05/17 [History] Omeprazole [PriLOSEC] 20 mg PO DAILY PRN 07/05/17 [History] Aspirin 81 mg PO DAILY #30 tab.chew 07/30/17 [Rx] Atorvastatin [Lipitor] 40 mg PO HS #30 tablet 07/30/17 [Rx] Allergy/AdvReac Type Severity Reaction Status Date / Time No Known Allergies Allergy Verified 07/05/17 17:25 All Systems Reviewed: The remainder of the systems were reviewed and are negative Physical Exam - Constitutional Vitals: Temp Pulse Resp BP Pulse Ox 97.6 F 79 16 127/87 97 03/12/18 07:51 03/12/18 07:51 03/12/18 07:51 03/12/18 07:51 03/12/18 07:51 General appearance: cooperative, obese - Expanded Lower Extremities Exam Foot/Toe exam: Present: amputation (BKA left.) Gait: Present: not tested/not observed - Neurological Exam Neurological exam: Present: alert, altered Additional comments: Patient exhibits loss of protective sensation 2 point examination light touch and vibration the distal aspect right great toe to tibial tubercle right side only. - Skin Additional comments: I observe ulceration full-thickness Davenport grade 2 dorsal medial aspect of right great toe likely secondary to abrasion. Wound edges are attached no undermining no sinus tract no tunneling. No necrosis fluctuance odor purulence cellulitis or lymphangitis. Toes nontender to touch. 90% fibrinous tissue 10% granulation tissue. - Vascular Capillary Refill: less than 3 seconds Lower Extremity Vascular: sensory deficit Results - Labs Result Diagrams: 03/12/18 04:24 03/12/18 04:24 Labs: Abnormal lab results RBC 3.20 M/mcL (3.82-4.97) L 03/12/18 04:24 Hgb 9.4 g/dL (11.5-15.4) L 03/12/18 04:24 Hct 31.5 % (35.3-44.9) L 03/12/18 04:24 MCHC 29.8 g/dL (31.6-35.5) L 03/12/18 04:24 RDW 18.1 % (11.5-14.5) H 03/12/18 04:24 Plt Count 133 K/mcL (140-400) L 03/12/18 04:24 Chloride 109 mEq/L (98-107) H 03/12/18 04:24 Carbon Dioxide 22 mEq/L (23-29) L 03/12/18 04:24 BUN 57 mg/dL (8-23) H 03/12/18 04:24 Creatinine 2.05 mg/dL (0.60-1.20) H 03/12/18 04:24 Est GFR ( Amer) 29 (> 60) L 03/12/18 04:24 Est GFR (Non-Af Amer) 24 (> 60) L 03/12/18 04:24 BUN/Creatinine Ratio 28 (6-26) H 03/12/18 04:24 Glucose 190 mg/dL (70-105) H 03/12/18 04:24 Calculated Osmolality 311 (280-300) H 03/12/18 04:24 Direct Bilirubin 0.3 mg/dL (0.0-0.2) H 03/11/18 17:38 AST 12 Units/L (13-39) L 03/11/18 17:38 Alkaline Phosphatase 129 Units/L (34-104) H 03/11/18 17:38 Urine Clarity Turbid (Clear) A 03/11/18 17:20 Urine Protein >=300 mg/dL (Neg-Trace) H 03/11/18 17:20 Urine Blood Small (Negative) H 03/11/18 17:20 Ur Leukocyte Esterase Large (Negative) H 03/11/18 17:20 Urine Microscopic RBC 5-15 per hpf (0-3) H 03/11/18 17:20 Urine Microscopic WBC TNTC per hpf (0-3) H 03/11/18 17:20 Ur Squamous Epith Cells Many per lpf (None-Few) H 03/11/18 17:20 Urine Bacteria Many per hpf (None-Few) H 03/11/18 17:20 Ur Culture Indicated? NO. (NO) A 03/11/18 17:20 H & H 03/11/18 03/12/18 Range/Units 17:38 04:24 Hgb 10.5 L 9.4 L (11.5-15.4) g/dL Hct 34.6 L 31.5 L (35.3-44.9) % All other labs normal. - Diagnostic results Ankle/Foot x-ray: image reviewed (I observe the x-ray left foot with concern for possible gas in the tissue.) Consult Discharge Plan - Plan
--- NOTE | 2018-03-12 15:48 | Internal Med Progress Note ---
Hospitalist Progress Note - Encounter Date of Encounter: 03/12/18 Time of Encounter: 15:45 - Subjective Interval History: SUBJECTIVE: The patient feels good today. Her altered mental status observed yesterday subsided. The pain in the area of right great toe is relatively mild. Denies chest pain and difficulty breathing. Denies abdominal pain, nausea and vomiting. She has good appetite. She has normal urination. OBJECTIVE: Skin: Free of rash and discoloration. There is an area of cellulitis in proximity to right great toe. See description and by podiatry. ENMT: Oral/pharyngeal mucosa is normal in appearance. Eyes: Sclera is white. There is no discharge from eyes. Respiratory: Normal breath sounds; no crackles or wheezes. CV: Heart is regular; no gallop or murmur. GI: Abdomen is soft and not tender. There is no palpable mass or visceromegaly. Neuro: There is no focal deficits. ADDITIONAL DATA: Hemoglobin is 9.4; 10.5 yesterday. She has normal WBC and platelet count. Creatinine is 2.05; 2.19 yesterday. It is basically baseline. She has normal electrolytes. CT of her brain shows new chronic appearing lacunar infarct in the right kanwal. It shows unchanged encephalomalacia in the base of the left frontal lobe. X-rays of right foot does not show any evidence for osteomyelitis. Chest x-ray shows normal findings. ASSESSMENT AND PLAN: Altered mental status likely secondary to developing infection in the area of right great toe. She does have diabetic ulcer there. See notes from podiatry. See results of x-ray of right foot. MRI of right foot is pending. Her mental status improved dramatically after she had been started on antibiotics. We will continue IV vancomycin and IV Zosyn. 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 We will keep her on diabetic diet and his stream Humalog. She may need longer acting insulin Levemir. Anemia in CKD stage IV. We will be watching this problem closely. Coronary artery disease. We will continue aspirin and Lipitor. Toprol-XL will be started. GERD. Under control. We will continue Prilosec. - Exam Vitals: Temp Pulse Resp BP Pulse Ox 98.1 F 66 18 123/73 95 03/12/18 11:36 03/12/18 11:36 03/12/18 11:36 03/12/18 11:36 03/12/18 11:36 Exam: xx - Assessment and Plan (1) Altered mental status, unspecified Current Visit: Yes Status: Acute (2) Toe ulcer due to DM Current Visit: Yes Status: Acute (3) Osteomyelitis Current Visit: Yes Status: Suspected (4) DM type 2 (diabetes mellitus, type 2) Current Visit: No Status: Chronic (5) Anemia in chronic renal disease Current Visit: Yes Status: Chronic (6) CAD (coronary artery disease) Current Visit: No Status: Acute (7) GERD (gastroesophageal reflux disease) Current Visit: Yes Status: Acute - Time Spent with Patient Total time spent is greater than 50% in coordination of care (as documented) at patient's floor/unit and/or counseling patient: 25 - 35 minutes Plan of Care Discussed with: patient Internal Medicine: Result - Labs CBC & Chem 7: 03/12/18 04:24 03/12/18 04:24 Labs: Short CBC 03/11/18 03/12/18 Range/Units 17:38 04:24 WBC 6.2 6.5 (4.3-11.1) K/mcL Hgb 10.5 L 9.4 L (11.5-15.4) g/dL Hct 34.6 L 31.5 L (35.3-44.9) % Plt Count 154 133 L (140-400) K/mcL Neutrophils # 4.8 5.2 (1.6-8.9) K/mcL BMP 03/11/18 03/12/18 17:38 04:24 Sodium 142 140 Potassium 5.0 4.6 Chloride 109 H 109 H Carbon Dioxide 25 22 L BUN 59 H 57 H Creatinine 2.19 H 2.05 H Glucose 183 H 190 H Calcium 9.5 9.0 Cardiac Enzymes 03/11/18 Range/Units 17:38 Troponin I 0.03 (< 0.04) ng/mL Liver Function 03/11/18 Range/Units 17:38 Total Bilirubin 0.8 (0.3-1.0) mg/dL Direct Bilirubin 0.3 H (0.0-0.2) mg/dL AST 12 L (13-39) Units/L ALT 11 (7-52) Units/L Alkaline Phosphatase 129 H (34-104) Units/L Albumin 3.8 (3.5-5.7) g/dL Urine 03/11/18 Range/Units 17:20 Urine Color Yellow (Yellow) Urine Clarity Turbid A (Clear) Urine pH 7.0 (5.0-8.0) pH Units Ur Specific [place] 1.013 (1.010-1.025) Urine Protein >=300 H (Neg-Trace) mg/dL Urine Glucose (UA) Normal (Normal) mg/dL - Impressions Impressions Chest X-Ray 03/11/18 17:05 IMPRESSION: Findings likely related to worsening edema. D/ / Rekha Arnold MD / Rekha Arnold MD Interpreting Provider: Rekha Arnold MD Foot X-Ray 03/11/18 17:07 IMPRESSION: Diffuse soft tissue swelling is well as soft tissue gas adjacent to the proximal and distal phalanx of the 1st digit. No cortical destruction however given proximity of ulcer and soft tissue gas findings are concerning for osteomyelitis. Sclerotic appearance and somewhat deformed appearance of the calcaneus posteriorly which may be related to previous injury or chronic osteomyelitis. Fracture involving the posterior calcaneus superiorly near the insertion of the Achilles. This is age indeterminate. D/ / Rekha Arnold MD / Rekha Arnold MD Interpreting Provider: Rekha Arnold MD Head CT 03/11/18 17:07 IMPRESSION: 1. No acute intracranial abnormality. 2. New chronic appearing lacunar infarct in the right kanwal. 3. Unchanged encephalomalacia in the base of the left frontal lobe. 4. Minimal diffuse atrophy with moderate chronic small vessel ischemic changes. D/ / Jose Mota MD / Jose Mota MD Interpreting Provider: Jose Mota MD Consult Discharge Plan - Plan Referrals: Omid Guillermo MD [Primary Care Provider] - (1) Altered mental status, unspecified Qualifiers: Altered mental status type: disorientation Qualified Code(s): R41.0 - Disorientation, unspecified (2) Toe ulcer due to DM Qualifiers: Diabetes mellitus type: type 2 Laterality: right Non-pressure ulcer stage: limited to breakdown of skin Qualified Code(s): E11.621 - Type 2 diabetes mellitus with foot ulcer; L97.511 - Non-pressure chronic ulcer of other part of right foot limited to breakdown of skin (3) Osteomyelitis Qualifiers: Osteomyelitis type: other Osteomyelitis location: other site Qualified Code(s): M86.8X8 - Other osteomyelitis, other site (4) DM type 2 (diabetes mellitus, type 2) Qualifiers: Diabetes mellitus [facility] insulin use: without [facility] use Diabetes mellitus complication status: with kidney complications Diabetes mellitus complication detail: with chronic kidney disease Chronic kidney disease stage: on chronic dialysis Qualified Code(s): E11.22 - Type 2 diabetes mellitus with diabetic chronic kidney disease; N18.6 - End stage renal disease; Z99.2 - Dependence on renal dialysis (6) CAD (coronary artery disease) Qualifiers: Coronary Disease-Associated Artery/Lesion type: [place] artery [place] vs. transplanted heart: [place] heart Associated angina: without angina Qualified Code(s): I25.10 - Atherosclerotic heart disease of [place] coronary artery without angina pectoris
[2018-03-13] MEDS: *HR* Heparin 5,000 UNIT/ML VIAL SQ SCH ×4 (00:05→23:07)
[2018-03-13] MEDS: Piperacillin/Tazobactam 3.375 GM in 0.9 % Sodium Chloride Mini Bag 100 ML IVPB SCH ×3 (00:06→16:51)
[2018-03-13] MEDS: Insulin LISPRO 300 UNITS/3 ML VIAL SQ SCH ×4 (07:46→19:55)
[2018-03-13] MEDS: Aspirin 81 MG TAB.CHEW PO SCH (07:55)
[2018-03-13] MEDS: Metoprolol XL (24 HR) Succ 50 MG TAB.ER.24H PO SCH (07:55)
[2018-03-13 09:18] LABS: Estimated Average Glucose 151 mg/dl; Hemoglobin A1C 6.9 %
--- NOTE | 2018-03-13 15:51 | Podiatry Progress Note ---
Date of Encounter: 03/13/18 Time of Encounter: 15:48 - Assessment and Plan (1) Toe ulcer due to DM Current Visit: Yes Status: Acute 1 [place] grade 2 ulceration dorsal aspect of right hallux. No fluctuance noted. No drainage noted. Negative calf pain with squeeze. CFT <3 seconds. No odor, no streaking. Erythema noted to outlying wound bed. Dressing removed with minimal drainage noted. Place santyl to wound bed twice daily. Cover with 4x4 dry gauze and kerlex. Nursing to change. ESR-2, HGB A1C 6.9 VERO 1.76, noncompressible from ankle to thigh TCPO2- Right foot 55, right ankle 47 MRI obtained 03/13 negative for abscees, suspected early OM Will order boot to offload pressure. ATB currently being managed by primary team. Will follow daily. MR/MR foot RT wo con IMPRESSION: 1. Soft tissue defect overlying the medial aspect of 1st MTP joint. No abscess. 2. Suspected early osteomyelitis of the 1st proximal phalangeal head and possibly the distal phalangeal base. Consider septic arthritis although no joint effusion is identified. 3. Nondisplaced right 5th intra-articular metatarsal base fracture. D/ / 03/13/2018 11:31:42 Prudencio Pablo MD / gera Interpreting Provider: Prudencio Pablo MD Qualifiers: Diabetes mellitus type: type 2 Laterality: right Non-pressure ulcer stage: limited to breakdown of skin Qualified Code(s): E11.621 - Type 2 diabetes mellitus with foot ulcer; L97.511 - Non-pressure chronic ulcer of other part of right foot limited to breakdown of skin (2) Osteomyelitis Current Visit: Yes Status: Suspected Suspected. See previous plan Qualifiers: Osteomyelitis type: other Osteomyelitis location: other site Qualified Code(s): M86.8X8 - Other osteomyelitis, other site Subjective Interval history: Patient awake in bed. Alert and oriented x 3. Denies any overnight complications. Reports she came in to the hospital because she could not walk. States that her boyfriend suggested she come to the hospital. She reports pain in heel. States that pain is worse when ambulating. Does not report pain upon wakening. Patient able to pinpoint pain to lateral aspect of calcaneous and to the achilles tendon area. Denies any other complications. Denies fevers, pain, nausea, vomiting, chills. Denies chest pain or shortness of breath. Objective - Vital Signs Vital Signs: Vital Signs Temp Pulse Resp BP Pulse Ox 03/13/18 11:41 98.4 F 74 16 147/79 96 03/13/18 06:59 98.4 F 80 16 140/59 95 03/13/18 03:56 97.9 F 81 17 149/76 97 03/13/18 00:26 98.2 F 41 17 142/76 97 03/12/18 19:46 98.0 F 81 18 130/64 96 03/12/18 16:32 99.1 F 74 16 128/77 96 Intake and Output 03/12/18 03/13/18 03/13/18 23:59 07:59 15:59 Intake Total 350 / 350 100 / 100 360 / 360 Balance 350 / 350 100 / 100 360 / 360 Intake: IV Fluids 350 / 350 100 / 100 Zosyn 3.375 GM In 0.9 % Sodium 100 / 100 100 / 100 Chloride (Mini-Bag +) 100 ML @ 25 mls/hr IVPB Q8HR ELIS Rx#: [id number] Vancocin 1,500 MG In 0.9 % 250 / 250 Sodium Chloride 250 ML @ 166. 667 mls/hr IVPB ONCE ONE Rx#: [id number] Oral 360 / 360 Other: Meal Breakfast Percent of Meal Consumed 100% # Urine Diapers 1 Weight 101 kg Blood Glucose* 120 121 111 Patient Weight 03/13/18 23:59 Weight 101 kg - Exam Exam: Constitiutional: Alert and oriented x 3. Vascular:1/4 DP/PT right foot, 2/4 popliteal LLE CFT <3 sec to all digits right foot, warm to warm from tibia to toes right foot, no pain when calf squeezed. Neurologic: Sensation to touch, normal plantar response, absent position sense dorsiflexion/plantar flexion Dermatologic: Right hallux with [place] stage 2 ulceration, DTI to plantar aspect of foot noted to distal and midfoot. Musculoskeletal: 3/5 muscle strength and normal tone right foot. - Lab Result Diagrams: 03/12/18 04:24 03/12/18 04:24 Labs: Abnormal lab results RBC 3.20 M/mcL (3.82-4.97) L 03/12/18 04:24 Hgb 9.4 g/dL (11.5-15.4) L 03/12/18 04:24 Hct 31.5 % (35.3-44.9) L 03/12/18 04:24 MCHC 29.8 g/dL (31.6-35.5) L 03/12/18 04:24 RDW 18.1 % (11.5-14.5) H 03/12/18 04:24 Plt Count 133 K/mcL (140-400) L 03/12/18 04:24 Chloride 109 mEq/L (98-107) H 03/12/18 04:24 Carbon Dioxide 22 mEq/L (23-29) L 03/12/18 04:24 BUN 57 mg/dL (8-23) H 03/12/18 04:24 Creatinine 2.05 mg/dL (0.60-1.20) H 03/12/18 04:24 Est GFR ( Amer) 29 (> 60) L 03/12/18 04:24 Est GFR (Non-Af Amer) 24 (> 60) L 03/12/18 04:24 BUN/Creatinine Ratio 28 (6-26) H 03/12/18 04:24 Glucose 190 mg/dL (70-105) H 03/12/18 04:24 POC Glucose 120 mg/dL (70-99) H 03/12/18 19:51 Hemoglobin A1c 6.9 % (-5.6) H 03/12/18 04:24 Calculated Osmolality 311 (280-300) H 03/12/18 04:24 Direct Bilirubin 0.3 mg/dL (0.0-0.2) H 03/11/18 17:38 AST 12 Units/L (13-39) L 03/11/18 17:38 Alkaline Phosphatase 129 Units/L (34-104) H 03/11/18 17:38 Urine Clarity Turbid (Clear) A 03/11/18 17:20 Urine Protein >=300 mg/dL (Neg-Trace) H 03/11/18 17:20 Urine Blood Small (Negative) H 03/11/18 17:20 Ur Leukocyte Esterase Large (Negative) H 03/11/18 17:20 Urine Microscopic RBC 5-15 per hpf (0-3) H 03/11/18 17:20 Urine Microscopic WBC TNTC per hpf (0-3) H 03/11/18 17:20 Ur Squamous Epith Cells Many per lpf (None-Few) H 03/11/18 17:20 Urine Bacteria Many per hpf (None-Few) H 03/11/18 17:20 Ur Culture Indicated? NO. (NO) A 03/11/18 17:20 Vancomycin Trough 14 mcg/mL (5-10) H 03/12/18 19:23 Microbiology, Last 48 Hours 03/11/18 20:30 Blood Culture - Preliminary Peripheral Venipuncture Culture is incubating and being continuously monitored for growth. Final report to follow. 03/11/18 20:30 Blood Culture - Preliminary Peripheral Venipuncture Culture is incubating and being continuously monitored for growth. Final report to follow. Consult Discharge Plan - Plan Additional Instructions: Follow with Dr. Allen in wound clinic. Please make appointment prior to D/C. Referrals: Omid Guillermo MD [Primary Care Provider] - ([facility]) Igor Allen DPM [Partnered Physician] -
--- NOTE | 2018-03-13 23:22 | Internal Med Progress Note ---
Hospitalist Progress Note - Encounter Date of Encounter: 03/13/18 Time of Encounter: 17:00 - Subjective Interval History: SUBJECTIVE: The patient feels pretty good today. She does not have any significant pain in the area of the right great toe. She got a special boot for ambulation, offloading pressure from right great toe. Denies fever and chills. OBJECTIVE: Skin: Free of rash and discoloration. There is an area of cellulitis in proximity to right great toe. See description by podiatry. ENMT: Oral/pharyngeal mucosa is normal in appearance. Eyes: Sclera is white. There is no discharge from eyes. Respiratory: Normal breath sounds; no crackles or wheezes. CV: Heart is regular; no gallop or murmur. GI: Abdomen is soft and not tender. There is no palpable mass or visceromegaly. Neuro: There is no focal deficits. ADDITIONAL DATA: I am ordering a CBC and BMP in the morning. Her sedimentation rate is only 2. MRI of her right foot was done today. It shows suspected early osteomyelitis of the rest proximal phalangeal head. Those changes may be also attributable to DJD. Blood cultures are negative, so far. ASSESSMENT AND PLAN: Diabetic ulcer/cellulitis with suspected osteomyelitis of the right great toe. See notes from podiatry. The patient is on IV vancomycin/IV Zosyn. Blood cultures are pending. Altered mental status observed at admission subsided. 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 We will keep her on diabetic diet and when needed Humalog. No need for long-acting insulin now. Anemia in CKD stage IV. We will be watching this problem closely. Coronary artery disease. We will continue aspirin and Lipitor. Toprol-XL will be started. GERD. Under control. We will continue Prilosec. - Exam Vitals: Temp Pulse Resp BP Pulse Ox 98.5 F 64 16 138/68 96 03/13/18 19:21 03/13/18 19:21 03/13/18 19:21 03/13/18 19:21 03/13/18 20:48 Exam: xx - Assessment and Plan (1) Toe ulcer due to DM Current Visit: Yes Status: Acute (2) Osteomyelitis Current Visit: Yes Status: Suspected (3) DM type 2 (diabetes mellitus, type 2) Current Visit: No Status: Chronic (4) Anemia in chronic renal disease Current Visit: Yes Status: Chronic (5) CAD (coronary artery disease) Current Visit: No Status: Acute (6) GERD (gastroesophageal reflux disease) Current Visit: Yes Status: Acute (7) Altered mental status, unspecified Current Visit: Yes Status: Resolved - Time Spent with Patient Total time spent is greater than 50% in coordination of care (as documented) at patient's floor/unit and/or counseling patient: 25 - 35 minutes Plan of Care Discussed with: patient Internal Medicine: Result - Labs CBC & Chem 7: 03/12/18 04:24 03/12/18 04:24 - Impressions Impressions Foot MRI 03/13/18 09:22 IMPRESSION: 1. Soft tissue defect overlying the medial aspect of 1st MTP joint. No abscess. 2. Suspected early osteomyelitis of the 1st proximal phalangeal head and possibly the distal phalangeal base. Consider septic arthritis although no joint effusion is identified. 3. Nondisplaced right 5th intra-articular metatarsal base fracture. D/ / 03/13/2018 11:31:42 Prudencio Pablo MD / gera Interpreting Provider: Prudencio Pablo MD Consult Discharge Plan - Plan Additional Instructions: Follow with Dr. Allen in wound clinic. Please make appointment prior to D/C. Referrals: Omid Guillermo MD [Primary Care Provider] - (P) Igor Allen DPM [Partnered Physician] - (1) Toe ulcer due to DM Qualifiers: Diabetes mellitus type: type 2 Laterality: right Non-pressure ulcer stage: limited to breakdown of skin Qualified Code(s): E11.621 - Type 2 diabetes mellitus with foot ulcer; L97.511 - Non-pressure chronic ulcer of other part of right foot limited to breakdown of skin (2) Osteomyelitis Qualifiers: Osteomyelitis type: other Osteomyelitis location: other site Qualified Code(s): M86.8X8 - Other osteomyelitis, other site (3) DM type 2 (diabetes mellitus, type 2) Qualifiers: Diabetes mellitus [employer] insulin use: without halfway use Diabetes mellitus complication status: with kidney complications Diabetes mellitus complication detail: with chronic kidney disease Chronic kidney disease stage: on chronic dialysis Qualified Code(s): E11.22 - Type 2 diabetes mellitus with diabetic chronic kidney disease; N18.6 - End stage renal disease; Z99.2 - Dependence on renal dialysis (5) CAD (coronary artery disease) Qualifiers: Coronary Disease-Associated Artery/Lesion type: [place] artery [place] vs. transplanted heart: [place] heart Associated angina: without angina Qualified Code(s): I25.10 - Atherosclerotic heart disease of [place] coronary artery without angina pectoris (7) Altered mental status, unspecified Qualifiers: Altered mental status type: disorientation Qualified Code(s): R41.0 - Disorientation, unspecified
[2018-03-14 04:55] LABS: Basophils % 0.4 %; Eosinophils # 0.3 K/mcL (0.0-0.6); Eosinophils % 5.3 %; Hematocrit 31.9 % (35.3-44.9); Hemoglobin 9.6 g/dL (11.5-15.4); Immature Granulocytes % 0.2 % (0-4); Lymphocytes # 0.7 K/mcL (0.6-4.6); Lymphocytes % 13.1 %; Mean Corpuscular HGB Conc 30.1 g/dL (31.6-35.5); Mean Corpuscular Hemoglobin 29.4 pg (28.0-33.3); Mean Corpuscular Volume 97.9 fL (83.0-100.0); Mean Platelet Volume 11.6 fL (9.4-12.4); Monocytes # 0.6 K/mcL (0.0-1.3); Monocytes % 10.6 %; Neutrophils # 3.9 K/mcL (1.6-8.9); Platelet Count 130 K/mcL (140-400); Red Blood Count 3.26 M/mcL (3.82-4.97); Red Cell Distribution Width 18.4 % (11.5-14.5); Segmented Neutrophils % 70.4 %
[2018-03-14 05:10] LABS: Calcium 8.5 mg/dL (8.6-10.3); Potassium 4.8 mEq/L (3.5-5.1)
[2018-03-14] MEDS ORDERED: Piperacillin/Tazobactam 3.375 GM VIAL ONE (05:27)
[2018-03-14] MEDS: Piperacillin/Tazobactam 3.375 GM in 0.9 % Sodium Chloride Mini Bag 100 ML IVPB SCH (06:07)
[2018-03-14] MEDS: Insulin LISPRO 300 UNITS/3 ML VIAL SQ SCH ×4 (07:22→20:34)
[2018-03-14] MEDS: Metoprolol XL (24 HR) Succ 50 MG TAB.ER.24H PO SCH (07:49)
[2018-03-14] MEDS: *HR* Heparin 5,000 UNIT/ML VIAL SQ SCH ×2 (07:49→16:40)
[2018-03-14] MEDS: Aspirin 81 MG TAB.CHEW PO SCH (07:49)
--- NOTE | 2018-03-14 09:07 | Infectious Disease Consult ---
Date of Encounter: 03/14/18 Time of Encounter: 09:02 Assessment and Plan (1) Osteomyelitis Status: Suspected Assessment and plan: Location: First proximal phalangeal head and distal phalanx base of the right foot. Cause of organism: Unclear. No wound culture has been obtained. MRI showed findings consistent with possible early osteomyelitis of the first proximal head and possible distal phalanx base. Podiatry consult and following. Discussed with the podiatry team who does not feel that this is OM. ESR normal. CRP not checked. Currently on vancomycin and Zosyn. Recommendations: - Await cultures to finalize. - Discontinue Vanc and Zosyn. - Will discuss possible bone biopsy with podiatry. If able to be performed, send for culture (aerobic and anaerobic) and pathology. - Start fosfomycin 3 grams PO x 1 dose now for UTI. - Wound care per the podiatry team. - Duration of treatment depends on the clinical picture. - Monitor renal function and dose-adjust antibiotics. Qualifiers: Osteomyelitis type: other Osteomyelitis location: other site Qualified Code(s): M86.8X8 - Other osteomyelitis, other site (2) UTI (urinary tract infection) Status: Acute Assessment and plan: Causative organism: Unclear. Urine cultures positive for gram-negative rods. Final ID and susceptibilities are pending. Uncomplicated. True infection vs. asymptomatic bacteriuria. Antibiotic recommendations as above. Qualifiers: Urinary tract infection type: acute cystitis Hematuria presence: with hematuria Qualified Code(s): N30.01 - Acute cystitis with hematuria (3) Toe ulcer due to DM Status: Acute Assessment and plan: Chronic, ongoing for 3-4 years. Podiatry consulted. Wound care per the podiatry team. Qualifiers: Diabetes mellitus type: type 2 Laterality: right Non-pressure ulcer stage: limited to breakdown of skin Qualified Code(s): E11.621 - Type 2 diabetes mellitus with foot ulcer; L97.511 - Non-pressure chronic ulcer of other part of right foot limited to breakdown of skin (4) Acute metabolic encephalopathy Status: Resolved Assessment and plan: Likely secondary to UTI versus early osteomyelitis. CT of the head was negative. Resolved. (5) Chronic kidney disease Status: Acute Qualifiers: Chronic kidney disease stage: unspecified stage Qualified Code(s): N18.9 - Chronic kidney disease, unspecified (6) PAD (peripheral artery disease) Status: Chronic Assessment and plan: Status post left BKA in 2001. 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 Diabetes mellitus complication status: with kidney complications Diabetes mellitus complication detail: with chronic kidney disease Chronic kidney disease stage: on chronic dialysis Qualified Code(s): E11.22 - Type 2 diabetes mellitus with diabetic chronic kidney disease; N18.6 - End stage renal disease; Z99.2 - Dependence on renal dialysis Infectious Disease HPI - Data of Consult Patient: new to practice Consult date: 03/14/18 Requesting Physician: Anthony Menjivar Primary Care Provider: Omid Guillermo MD - Consult Narrative Reason for consult: Osteomyelitis right foot History of present illness: Ms. Ibarra is a 67 year old female with a past medical history of CAD, diabetes, hyperlipidemia, hypertension, CKD previously on hemodialysis that was d iscontinued about a month ago, and PVD status post left BKA in 2001. The patient was admitted to the hospital 03/11/18 for altered mental status, UTI, and osteomyelitis. We are consulted 03/14/18 for antibiotic recommendations for ostium myelitis of the right foot. Briefly, the patient is a 67-year-old female with past medical history as stated above. The patient presented to the emergency department from the [facility] where she lives with complaints of altered mental status and facial swelling. Upon arrival, the patient was afebrile and hemodynamically stable. Laboratory studies revealed a normal white blood cell count. Her serum creatinine was elevated at 2.19 consistent with her chronic kidney disease. LFTs were normal. Urinalysis appeared contaminated, but the culture is growing gram-negative rods. Chest x-ray showed worsening edema. She had a right foot x-ray that showed soft tissue swelling and gas adjacent to the proximal and distal phalanx of the first digit concerning prostate myelitis. There is also posterior calcaneus fracture of undetermined age and a possible previous injury versus chronic ostium myelitis of the calcaneus. She was CT of the head that was negative. Blood cultures were obtained 2 sets. She was given Vanco and cefepime and admitted to the hospital for further evaluation. Since admission, the patient has remained afebrile and hemodynamically stable. Her white blood cell count has remained normal. She was evaluated by podiatry who did not express concern of acute infection. She had VERO studies that showed right lower [place] noncompressible vessels and TCP O2 monitoring consistent with healing. She had an MRI of the right foot that showed a soft tissue defect overlying the medial aspect of the first MTP joint with no abscess. There was suspected early osteomyelitis of the first proximal phalangeal head and possibly the distal phalangeal base as well as a nondisplaced right fifth intra-articular metatarsal base fracture. Currently, the patient is on vancomycin and Zosyn. We have been asked to evaluate and make further recommendations. During my exam today, the patient states that she has been her usual state of health. She is not aware of the events leading up to her hospitalization. She denies any fevers or chills or rigors. States that for the past week she has had some left eyelid swelling and discomfort and redness with some mildly purulent drainage from her left eye. She denies any visual changes, congestion, earache, or sore throat. Denies chest pain, shortness of breath, or cough. De nies nausea, vomiting, diarrhea, constipation. She denies any urinary complaints including dysuria, hematuria, urinary frequency, or abdominal pain. She denies any pain in her joints or extremities. She states the ulceration to her right foot has been there for the last 3 or 4 years and has been nonhealing. She states she [facility] She has a remote history of left BKA secondary to diabetic foot ulcer. She denies any oral thrush or open skin lesions. The patient currently resides a local extended care facility. She denies any tobacco, alcohol, or illicit drug use. Denies anychronic infectious diseases. CC: Anthony Menjivar Past Med Surg Social Fam HX - Past Medical History Attestation: Yes The following information was validated with the patient. Source: patient, old records reviewed, nursing notes reviewed Medical history: coronary artery disease, diabetes, hyperlipidemia, hypertension, renal disease Additional medical history: bp/cholesterol "controlled" Psychiatric history: no psych history - Past Surgical History Surgical History: angioplasty/stent, other Additional surgical history: Right BKA - Social History Smoking Status: Former smoker Smokeless Tobacco Status: No Alcohol use: none Drug use: none Occupational status: disabled Current living situation: [facility] Activity Level: Uses cane/walker Recent Out of Country Travel Within the Last 8 Weeks: No Exposure or Possible Exposure to Illness During Travel: No - Family History Father Living Status: Mother Living Status: Age at : 62 Cause of : Diabetes Hx Family Endocrine Disorder: Yes Infectious Disease-CN:Meds RX: Allopurinol [Zyloprim 100 MG] 100 mg PO HS 07/05/17 [History] RX: Linagliptin [Tradjenta] 5 mg PO DAILY 07/05/17 [History] RX: Omeprazole [PriLOSEC] 20 mg PO DAILY 07/05/17 [History] RX: Aspirin 81 mg PO DAILY #30 tab.chew 07/30/17 [Rx] RX: Atorvastatin [Lipitor] 40 mg PO HS #30 tablet 07/30/17 [Rx] Acetaminophen [Tylenol] 650 mg PO Q6HR PRN 03/12/18 [History] Amino Acids/Protein Hydrolys [Pro-Stat Awc Liquid Packet] 30 ml PO DAILY 03/12/18 [History] Metoprolol [Lopressor] 25 mg PO BID 03/12/18 [History] RX: Allopurinol [Zyloprim 300 MG] 300 mg PO HS 03/12/18 [History] RX: Furosemide [Lasix] 20 mg PO QAM 03/12/18 [History] RX: PARoxetine HCl [Paroxetine HCl] 10 mg PO DAILY 03/12/18 [History] RX: Tobramycin Opth OINT [Tobrex] 1 drop LEFT EYE TID 03/12/18 [History] Sevelamer [Renvela] 800 mg PO TIDWM 03/12/18 [History] Allergy/AdvReac Type Severity Reaction Status Date / Time No Known Allergies Allergy Verified 07/05/17 17:25 All systems: reviewed and no additional remarkable complaints except as stated Exam - Constitutional Vitals: Temp Pulse Resp BP Pulse Ox 98.0 F 67 16 114/52 96 03/14/18 07:03 03/14/18 07:03 03/14/18 07:03 03/14/18 07:03 03/14/18 07:03 General appearance: cooperative, no acute distress, obese - Head Head exam: Present: atraumatic, normal inspection, normocephalic - Eye Eye exam: Present: EOMI, PERRL. Absent: normal appearance (Left upper eyelid erythematous and edematous. Tender with palpation. Scant green drainage noted to the left eyelid.) Pupils: Present: normal accommodation - ENT ENT exam: Present: mucous membranes moist - Neck Neck exam: Present: normal inspection - Respiratory Respiratory exam: Present: CTAB. Absent: rhonchi, wheezes - Cardiovascular Cardiovascular exam: Present: RRR, +S1, +S2 - GI/Abdominal GI/Abdominal exam: Present: distended (obese), normal bowel sounds, soft. Absent: tenderness - Extremities Exam Extremities exam: Absent: normal inspection (Right LE walking boot intact.) Additional comments: Left BKA stump without abnormality. - Neurological Exam Neurological exam: Present: alert, oriented X3, no focal deficits - Psychiatric Psychiatric exam: Present: normal affect, normal mood - Skin Skin exam: Present: dry, intact, normal color, warm Infectious Disease CN: Results - Labs CBC & Chem 7: 03/14/18 04:40 03/14/18 04:40 Cultures: Cultures 03/11/18 17:20 Urine Culture - Preliminary Urine,Catheterized Gram Negative Luis 03/11/18 20:30 Blood Culture - Preliminary Peripheral Venipuncture Culture is incubating and being continuously monitored for growth. Final report to follow. 03/11/18 20:30 Blood Culture - Preliminary Peripheral Venipuncture Culture is incubating and being continuously monitored for growth. Final report to follow. Serology: Serology 03/11/18 Range/Units 17:20 Urine Color Yellow (Yellow) Urine Clarity Turbid A (Clear) Urine pH 7.0 (5.0-8.0) pH Units Ur Specific [place] 1.013 (1.010-1.025) Urine Protein >=300 H (Neg-Trace) mg/dL Urine Glucose (UA) Normal (Normal) mg/dL Urine Ketones Negative (Negative) mg/dL Urine Blood Small H (Negative) Urine Nitrite Negative (Negative) Urine Bilirubin Negative (Negative) Urine Urobilinogen Normal (Normal) mg/dL Ur Leukocyte Esterase Large H (Negative) Urine Microscopic RBC 5-15 H (0-3) per hpf Urine Microscopic WBC TNTC H (0-3) per hpf Ur Squamous Epith Cells Many H (None-Few) per lpf Urine Bacteria Many H (None-Few) per hpf Hyaline Casts Few (None-Few) per lpf Ur Culture Indicated? NO. A (NO) Consult Discharge Plan - Plan Additional Instructions: Follow with Dr. Allen in wound clinic. Please make appointment prior to D/C. Referrals: Omid Guillermo MD [Primary Care Provider] - ([facility]) Igor Allen DPM [Partnered Physician] - - Attending Attestation I examined this patient and my medical decision-making was reviewed with the Resident Physician. I agree with the documented findings, disposition and treatment plan as described except to the extent set forth below. This is an addendum to original report dictated by Rosenda Sam CNP. Please refer to [facility] note for full detail. Patient is a 67-year-old woman with past medical history mentioned below presented to [place] with altered mental status. Patient is known to have diabetes mellitus type 2, chronic kidney disease with history of dialysis that was stopped last month. Exact reason why was stopped is not clear. Also has peripheral artery disease with history of left BKA in 2001. Workup on admission revealed that the patient has possible UTI and is chronic gram-negative luis final ID pending. Patient also has a diabetic foot ulcer and she has an MRI done which is suggestive of early osteomyelitis. Patient was started on broad- spectrum antibiotics we were consulted to evaluate the patient. Interestingly enough patients ESR was only 2. Assessment and plan: Altered mental status likely secondary to underlying infection - resolved patient is alert oriented 4. UTI causative organism gram-negative luis Questionable osteomyelitis per MRI Diabetes mellitus type 2 Peripheral artery disease Chronic kidney disease Hordeolum right lower eye lid. Warm compresses. topical bacitracin. Recommendations: At this point I would like to stop the antibiotics and get a culture and a biopsy of the foot so I can tailor antibiotics accordingly. But in the meantime I cannot give the patient antibiotics the cause if she did have altered mental status due to UTI I think we should treat. That creates a dilemma. After discussion we have decided to give the patient an oral antibiotic but hopefully has gram-negative coverage and does not have good penetration to the tissue so it does not alter the culture results. We will go with fosfomycin. We were thinking nitrofurantoin but with a creatinine clearance we were a little bit a pprehensive. We also spoke with the podiatry team and they said they will be happy to biopsy. Consider holding all blood thinners and scheduled for a biopsy. Please send Intra-Op cultures for routine, anaerobic, fungal and AFB. We will continue to follow closely.
--- NOTE | 2018-03-14 13:33 | Internal Med Progress Note ---
Hospitalist Progress Note - Encounter Date of Encounter: 03/14/18 Time of Encounter: 08:45 - Subjective Interval History: patient was seen and examined at bedside. was provided woth surgical boot adn complains that it is heavy. tolerating PO diet, pain is controlled she denies fever, chills, CP, SOB, cough, palpitations, N/v/D - Exam Vitals: Temp Pulse Resp BP Pulse Ox 98.0 F 63 16 151/80 96 03/14/18 11:19 03/14/18 11:19 03/14/18 11:19 03/14/18 11:19 03/14/18 11:19 Exam: General: Patient is alert, oriented, no acute distress, obese Head: atraumatic, normocephalic, Eye: normal appearance, PERRL, no scleral icterus, no conjunctival injection ENT: mucous membranes moist, normal external ear exam Neck: normal inspection, trachea midline, full ROM, no carotid bruits Chest: normal inspection, symmetric chest rise Respiratory: Good respiratory effort. Bilateral breath sounds are clear without wheezing, crackles, or rhonchi. Cardiovascular: Regular rate and rhythm. s1 and s2 No clicks, rubs, gallops, or murmors. Abdomen: Bowel sounds present normoactive x-4 quadrants. Abdomen is soft, nondistended. no Epigastric tenderness. No guarding or rebound. No organomegaly noted, obese musculoskeletal: Spontaneously moving all extremities.left BKA without signs of infection, right leg has surgical boot Skin: warm, dry, intact. Neuro: Alert and oriented x3. Sensation light touch intact. no focal deficit Psych: Patient's affect is normal - Assessment and Plan (1) Osteomyelitis Current Visit: Yes Status: Suspected Assessment and Plan: First proximal phalangeal head and distal phalanx base of the right foot osteomyelitis podiatry consulted nad on board ESR WNL continue vancomycin ad zosyn ID on board BCX NGTD VERO on 03/12 Moderately diminished waveform at the right ankle. Vessels are noncompressible. Noncompressible vessels may mask underlying disease. MRI on 03/13- IMPRESSION: 1. Soft tissue defect overlying the medial aspect of 1st MTP joint. No abscess. 2. Suspected early osteomyelitis of the 1st proximal phalangeal head and possibly the distal phalangeal base. Consider septic arthritis although no joint effusion is identified. 3. Nondisplaced right 5th intra-articular metatarsal base fracture. (2) Toe ulcer due to DM Current Visit: Yes Status: Acute Assessment and Plan: podiatry on board management as per above (3) UTI (urinary tract infection) Current Visit: Yes Status: Acute Assessment and Plan: uncomplicated cystitis Urine cultures positive for gram-negative rods. Final ID and susceptibilities are pending. on IV zosyn (4) PAD (peripheral artery disease) Current Visit: Yes Status: Acute Assessment and Plan: will continue with ASa and statins study on 03/12 Moderately diminished waveform at the right ankle. Vessels are noncompressible. Noncompressible vessels may mask underlying disease. (5) DM type 2 (diabetes mellitus, type 2) Current Visit: No Status: Chronic Assessment and Plan: on sliding scale insulin will continue to adjust as per finger sticks A1c was 6.9 on 03/12 (6) CAD (coronary artery disease) Current Visit: No Status: Acute Assessment and Plan: continue ASA, BB and statins (7) Altered mental status, unspecified Current Visit: Yes Status: Resolved Assessment and Plan: likely infectious) secondary to UTI and early osteomyelitis doubt metabolic resolved head CT 03/11 IMPRESSION: 1. No acute intracranial abnormality. 2. New chronic appearing lacunar infarct in the right kan[place]. 3. Unchanged encephalomalacia in the base of the left frontal lobe. 4. Minimal diffuse atrophy with moderate chronic small vessel ischemic changes. (8) Anemia in chronic renal disease Current Visit: Yes Status: Chronic Assessment and Plan: baseline creatinine ranges from 2-4 continue monitoring renal functions dose adjust medications by pharmacy continue sevelamer (9) GERD (gastroesophageal reflux disease) Current Visit: Yes Status: Acute Assessment and Plan: continue home medications (10) Obesity (BMI 30-39.9) Current Visit: Yes Status: Acute Assessment and Plan: BMI 39.4 nurtrition consult (11) DVT prophylaxis Current Visit: Yes Status: Acute Assessment and Plan: heparin sc - Time Spent with Patient Total time spent is greater than 50% in coordination of care (as documented) at patient's floor/unit and/or counseling patient: Internal Medicine: Result - Labs CBC & Chem 7: 03/14/18 04:40 03/14/18 04:40 Labs: Short CBC 03/14/18 Range/Units 04:40 WBC 5.5 (4.3-11.1) K/mcL Hgb 9.6 L (11.5-15.4) g/dL Hct 31.9 L (35.3-44.9) % Plt Count 130 L (140-400) K/mcL Neutrophils # 3.9 (1.6-8.9) K/mcL BMP 03/14/18 04:40 Sodium 140 Potassium 4.8 Chloride 109 H Carbon Dioxide 24 BUN 61 H Creatinine 2.38 H Glucose 141 H Calcium 8.5 L - Impressions Impressions Foot MRI 03/13/18 09:22 IMPRESSION: 1. Soft tissue defect overlying the medial aspect of 1st MTP joint. No abscess. 2. Suspected early osteomyelitis of the 1st proximal phalangeal head and possibly the distal phalangeal base. Consider septic arthritis although no joint effusion is identified. 3. Nondisplaced right 5th intra-articular metatarsal base fracture. D/ / 03/13/2018 11:31:42 Prudencio Pablo MD / gera Interpreting Provider: Prudencio Pablo MD Consult Discharge Plan - Plan Additional Instructions: Follow with Dr. Allen in wound clinic. Please make appointment prior to D/C. Referrals: Omid Guillermo MD [Primary Care Provider] - ([facility]) Igor Allen DPM [Partnered Physician] - (1) Osteomyelitis Qualifiers: Osteomyelitis type: other Osteomyelitis location: other site Qualified Code(s): M86.8X8 - Other osteomyelitis, other site (2) Toe ulcer due to DM Qualifiers: Diabetes mellitus type: type 2 Laterality: right Non-pressure ulcer stage: limited to breakdown of skin Qualified Code(s): E11.621 - Type 2 diabetes mellitus with foot ulcer; L97.511 - Non-pressure chronic ulcer of other part of right foot limited to breakdown of skin (3) UTI (urinary tract infection) Qualifiers: Urinary tract infection type: acute cystitis Hematuria presence: with hematuria Qualified Code(s): N30.01 - Acute cystitis with hematuria (5) DM type 2 (diabetes mellitus, type 2) Qualifiers: Diabetes mellitus mcfp insulin use: without mcfp use Diabetes mellitus complication status: with kidney complications Diabetes mellitus complication detail: with chronic kidney disease Chronic kidney disease stage: on chronic dialysis Qualified Code(s): E11.22 - Type 2 diabetes mellitus with diabetic chronic kidney disease; N18.6 - End stage renal disease; Z99.2 - Dependence on renal dialysis (6) CAD (coronary artery disease) Qualifiers: Coronary Disease-Associated Artery/Lesion type: [place] artery [place] vs. transplanted heart: [place] heart Associated angina: without angina Qualified Code(s): I25.10 - Atherosclerotic heart disease of [place] coronary artery without angina pectoris (7) Altered mental status, unspecified Qualifiers: Altered mental status type: disorientation Qualified Code(s): R41.0 - Disorientation, unspecified (8) Anemia in chronic renal disease Qualifiers: Chronic kidney disease stage: stage 4 (severe) Qualified Code(s): N18.4 - Chronic kidney disease, stage 4 (severe); D63.1 - Anemia in chronic kidney disease
[2018-03-14] MEDS ORDERED: Aminoglycoside Consult 1 EACH MC ONE (14:29)
[2018-03-14] MEDS ORDERED: Fosfomycin Tromethamine 3 GM Packet PO ONE (15:00)
--- NOTE | 2018-03-14 19:13 | Electrocardiograph Report ---
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
[2018-03-15] MEDS: *HR* Heparin 5,000 UNIT/ML VIAL SQ SCH ×3 (00:19→17:32)
[2018-03-15 08:10] LABS: Calcium 8.5 mg/dL (8.6-10.3); Potassium 5.5 mEq/L (3.5-5.1)
[2018-03-15] MEDS: Insulin LISPRO 300 UNITS/3 ML VIAL SQ SCH ×4 (10:19→20:34)
[2018-03-15] MEDS: Furosemide 20 MG TABLET PO SCH (10:20)
[2018-03-15] MEDS: Metoprolol XL (24 HR) Succ 50 MG TAB.ER.24H PO SCH (10:20)
[2018-03-15] MEDS: Aspirin 81 MG TAB.CHEW PO SCH (10:21)
--- NOTE | 2018-03-15 11:46 | Internal Med Progress Note ---
Hospitalist Progress Note - Encounter Date of Encounter: 03/15/18 Time of Encounter: 11:44 - Subjective Interval History: patient was seen and examined at bedside. tolerating PO diet, pain is controlled, denies vision loss, eye pain or discharge from the eyes she denies fever, chills, CP, SOB, cough, palpitations, N/v/D - Exam Vitals: Temp Pulse Resp BP Pulse Ox 97.9 F 69 16 152/76 97 03/15/18 06:37 03/15/18 06:37 03/15/18 06:37 03/15/18 06:37 03/15/18 06:37 Exam: General: Patient is alert, oriented, no acute distress, obese Head: atraumatic, normocephalic, Eye: 1x1 cm superficial swelling of the inferior right corner of the eye lid with 0.2x0.2 cm area of pus collection. left eye has superior mild swelling above the eye lid 0.5 x 0.2 cm.(improved) PERRL, no scleral icterus, no conjunctival injection ENT: mucous membranes moist, normal external ear exam Neck: normal inspection, trachea midline, full ROM, no carotid bruits Chest: normal inspection, symmetric chest rise Respiratory: Good respiratory effort. Bilateral breath sounds are clear without wheezing, crackles, or rhonchi. Cardiovascular: Regular rate and rhythm. s1 and s2 No clicks, rubs, gallops, or murmors. Abdomen: Bowel sounds present normoactive x-4 quadrants. Abdomen is soft, nondistended. no Epigastric tenderness. No guarding or rebound. No organomegaly noted, obese musculoskeletal: Spontaneously moving all extremities.left BKA without signs of infection, right leg has surgical boot Skin: warm, dry, intact. Neuro: Alert and oriented x3. Sensation light touch intact. no focal deficit Psych: Patient's affect is normal - Assessment and Plan (1) Osteomyelitis Current Visit: Yes Status: Suspected Assessment and Plan: First proximal phalangeal head and distal phalanx base of the right foot osteomyelitis podiatry on board - for bone biopsy 03/15 ESR WNL Abx discontinued as per ID recs ID on board BCX NGTD VERO on 03/12 Moderately diminished waveform at the right ankle. Vessels are noncompressible. Noncompressible vessels may mask underlying disease. MRI on 03/13- IMPRESSION: 1. Soft tissue defect overlying the medial aspect of 1st MTP joint. No abscess. 2. Suspected early osteomyelitis of the 1st proximal phalangeal head and possibly the distal phalangeal base. Consider septic arthritis although no joint effusion is identified. 3. Nondisplaced right 5th intra-articular metatarsal base fracture. (2) Toe ulcer due to DM Current Visit: Yes Status: Acute Assessment and Plan: podiatry on board management as per above (3) UTI (urinary tract infection) Current Visit: Yes Status: Acute Assessment and Plan: uncomplicated cystitis Urine cultures positive for E.coli goodson sensitive Final ID and susceptibilities are pending. recieved one dose of fosfomycin on 03/14 was treated with zosyn- D/C as per ID recs on 03/14 (4) Swelling of left lower eyelid Current Visit: Yes Status: Acute Assessment and Plan: ?abscess on the left lower eyelid and above right upper eye lid was started on mupirocin cream warm compress will consult ENT (5) CKD (chronic kidney disease) stage 4, GFR 15-29 ml/min Current Visit: Yes Status: Acute Assessment and Plan: baseline creatinine ranges from 2-4 continue monitoring renal functions dose adjust medications by pharmacy continue sevelamer (6) PAD (peripheral artery disease) Current Visit: Yes Status: Acute Assessment and Plan: will continue with ASa and statins study on 03/12 Moderately diminished waveform at the right ankle. Vessels are noncompressible. Noncompressible vessels may mask underlying disease. (7) DM type 2 (diabetes mellitus, type 2) Current Visit: No Status: Chronic Assessment and Plan: on sliding scale insulin will continue to adjust as per finger sticks A1c was 6.9 on 03/12 (8) CAD (coronary artery disease) Current Visit: No Status: Acute Assessment and Plan: continue ASA, BB and statins (9) Altered mental status, unspecified Current Visit: Yes Status: Resolved Assessment and Plan: likely infectious) secondary to UTI and early osteomyelitis doubt metabolic resolved head CT 03/11 IMPRESSION: 1. No acute intracranial abnormality. 2. New chronic appearing lacunar infarct in the right [place]. 3. Unchanged encephalomalacia in the base of the left frontal lobe. 4. Minimal diffuse atrophy with moderate chronic small vessel ischemic changes. (10) Anemia in chronic renal disease Current Visit: Yes Status: Chronic Assessment and Plan: H/H stable will continue to monitor (11) GERD (gastroesophageal reflux disease) Current Visit: Yes Status: Acute Assessment and Plan: continue home medications (12) Obesity (BMI 30-39.9) Current Visit: Yes Status: Acute Assessment and Plan: BMI 39.4 nurtrition consult (13) Hyperkalemia Current Visit: Yes Status: Acute Assessment and Plan: treated with kayaxalate follow BMP in AM (14) DVT prophylaxis Current Visit: Yes Status: Acute Assessment and Plan: heparin sc - Time Spent with Patient Total time spent is greater than 50% in coordination of care (as documented) at patient's floor/unit and/or counseling patient: Internal Medicine: Result - Labs CBC & Chem 7: 03/14/18 04:40 03/15/18 04:48 Labs: BMP 03/15/18 04:48 Sodium 143 Potassium 5.5 H Chloride 112 H Carbon Dioxide 25 BUN 60 H Creatinine 2.62 H Glucose 171 H Calcium 8.5 L Consult Discharge Plan - Plan Additional Instructions: Follow with Dr. Allen in wound clinic. Please make appointment prior to D/C. Referrals: Omid Guillermo MD [Primary Care Provider] - (WMP) Igor Allen DPM [Partnered Physician] - (1) Osteomyelitis Qualifiers: Osteomyelitis type: other Osteomyelitis location: other site Qualified Code(s): M86.8X8 - Other osteomyelitis, other site (2) Toe ulcer due to DM Qualifiers: Diabetes mellitus type: type 2 Laterality: right Non-pressure ulcer stage: limited to breakdown of skin Qualified Code(s): E11.621 - Type 2 diabetes mellitus with foot ulcer; L97.511 - Non-pressure chronic ulcer of other part of right foot limited to breakdown of skin (3) UTI (urinary tract infection) Qualifiers: Urinary tract infection type: acute cystitis Hematuria presence: with hematuria Qualified Code(s): N30.01 - Acute cystitis with hematuria (7) DM type 2 (diabetes mellitus, type 2) Qualifiers: Diabetes mellitus fci insulin use: without parts counterman use Diabetes mellitus complication status: with kidney complications Diabetes mellitus complication detail: with chronic kidney disease Chronic kidney disease stage: on chronic dialysis Qualified Code(s): E11.22 - Type 2 diabetes mellitus with diabetic chronic kidney disease; N18.6 - End stage renal disease; Z99.2 - Dependence on renal dialysis (8) CAD (coronary artery disease) Qualifiers: Coronary Disease-Associated Artery/Lesion type: [place] artery [place] vs. transplanted heart: [place] heart Associated angina: without angina Qualified Code(s): I25.10 - Atherosclerotic heart disease of [place] coronary artery without angina pectoris (9) Altered mental status, unspecified Qualifiers: Altered mental status type: disorientation Qualified Code(s): R41.0 - Disorientation, unspecified (10) Anemia in chronic renal disease Qualifiers: Chronic kidney disease stage: stage 4 (severe) Qualified Code(s): N18.4 - Chronic kidney disease, stage 4 (severe); D63.1 - Anemia in chronic kidney disease
[2018-03-15] MEDS ORDERED: Lidocaine -MPF 1% 5 ML AMPUL ONE (11:55)
--- NOTE | 2018-03-15 12:40 | Procedure Note ---
Date of procedure: 03/15/18 Pre-op diagnosis: osteomyelitis right hallux Post-op diagnosis: same Procedure: 1. Bone biopsy right hallux proximal phalanx. Patient presented to [facility] with a chronic right 1st toe ulcer. She was initially being treated with local wound care and an MRI was ordered due to concern for osteomyelitis. MRI showed evidence of osteomyelitis of the right hallux proximal and distal phalanx. The patient elected to proceed with limb salvage given the fact that she has a left BKA. Risks, benefits, and expected post operative course was reviewed for a bone biopsy procedure of the right 1st toe. She agrees to terminal manager antibiotics based on culture sensitivities. Surgical consent was signed by the patient. The right 1st toe was injected with 4mL of 1% lidocaine plain. The toe was prepped with betadine. A Jamshidi needle was used to obtain a bone culture of both the proximal and distal phalanx of the right hallux, through the toe ulcer. A specimen was sent to micro and a separate specimen was sent to pathology. The wound was irrigated with normal saline then dressed with betadine soaked kerlix and dry dressing. She tolerated the procedure well and there were no complications. Anesthesia: local Surgeon: Jayson Choi Was there an occupational therapist assistants present: Yes Transmission Line Engineer: Rosenda Healy Estimated blood loss (cc): 1 Specimen: Bone culture right hallux proximal phalanx to micro and pathology Pathology: other (Right hallux proximal phalanx) Condition: stable Disposition: floor
--- NOTE | 2018-03-15 14:49 | Podiatry Progress Note ---
Date of Encounter: 03/15/18 Time of Encounter: 12:00 - Assessment and Plan (1) Toe ulcer due to DM Current Visit: Yes Status: Acute 1 [place] grade 2 ulceration dorsal aspect of right hallux. No fluctuance noted. No drainage noted. Negative calf pain with squeeze. CFT <3 seconds. No odor, no streaking. Erythema noted to outlying wound bed. Dressing removed with minimal drainage noted. Place santyl to wound bed twice daily. Cover with 4x4 dry gauze and kerlex. Nursing to change. 03/12- ESR-2, HGB A1C 6.9 WBC 5.5 today 03/12- VERO 1.76, noncompressible from ankle to thigh 03/12- TCPO2- Right foot 55, right ankle 47 MRI obtained 03/13 negative for abscees, suspected early OM Bone biopsy to be completed today. Will send cultures. ID following for ATB management Continue to wear diabetic boot. MR/MR foot RT wo con IMPRESSION: 1. Soft tissue defect overlying the medial aspect of 1st MTP joint. No abscess. 2. Suspected early osteomyelitis of the 1st proximal phalangeal head and possibly the distal phalangeal base. Consider septic arthritis although no joint effusion is identified. 3. Nondisplaced right 5th intra-articular metatarsal base fracture. D/ / 03/13/2018 11:31:42 Prudencio Pablo MD / gera Interpreting Provider: Prudencio Pablo MD Qualifiers: Diabetes mellitus type: type 2 Laterality: right Non-pressure ulcer stage: limited to breakdown of skin Qualified Code(s): E11.621 - Type 2 diabetes mellitus with foot ulcer; L97.511 - Non-pressure chronic ulcer of other part of right foot limited to breakdown of skin (2) Osteomyelitis Current Visit: Yes Status: Suspected Suspected. See previous plan Qualifiers: Osteomyelitis type: other Osteomyelitis location: other site Qualified Code(s): M86.8X8 - Other osteomyelitis, other site Subjective Interval history: Patient awake in bed. Alert and oriented x 3. Denies any overnight complicatio ns. Patient reports that she has some feeling in RLE. Discussed with patient possiblity of bone biopsy today. Patient agreeable. Denies fevers, pain, nausea, vomiting, chills. Denies chest pain or shortness of breath. Objective - Vital Signs Vital Signs: Vital Signs Temp Pulse Resp BP Pulse Ox 03/15/18 11:46 98.2 F 69 18 173/68 97 03/15/18 06:37 97.9 F 69 16 152/76 97 03/15/18 03:51 97.6 F 70 16 135/72 97 03/14/18 23:25 97.9 F 71 16 157/79 99 03/14/18 21:15 99 03/14/18 20:45 99 03/14/18 18:47 98.1 F 74 16 139/79 99 03/14/18 16:08 97.9 F 64 18 165/80 96 Intake and Output 03/14/18 03/15/18 03/15/18 23:59 07:59 15:59 Intake Total 240 / 240 240 / 240 Balance 240 / 240 240 / 240 Intake: Oral 240 / 240 240 / 240 Other: Meal Lunch Percent of Meal Consumed 100% Stool Size Large Large Stool Consistency loose loose liquid Stool Color Shai Colored Brown # Urine Diapers 1 1 # Bowel Movements 1 # Bowel Movement Diapers 1 1 Weight 102.7 kg Blood Glucose* 162 159 161 - Exam Exam: Constitiutional: Alert and oriented x 3. Vascular:1/4 DP/PT right foot, 2/4 popliteal LLE, L BKA, CFT <3 sec to all digits right foot, warm to warm from tibia to toes right foot, no pain when calf squeezed. Neurologic: Sensation to touch, normal plantar response, absent position sense dorsiflexion/plantar flexion Dermatologic: Right hallux with [place] stage 2 ulceration, DTI to plantar aspect of foot noted to distal and midfoot. Musculoskeletal: 3/5 muscle strength and normal tone right foot. - Lab Result Diagrams: 03/14/18 04:40 03/15/18 04:48 Labs: Abnormal lab results RBC 3.26 M/mcL (3.82-4.97) L 03/14/18 04:40 Hgb 9.6 g/dL (11.5-15.4) L 03/14/18 04:40 Hct 31.9 % (35.3-44.9) L 03/14/18 04:40 MCHC 30.1 g/dL (31.6-35.5) L 03/14/18 04:40 RDW 18.4 % (11.5-14.5) H 03/14/18 04:40 Plt Count 130 K/mcL (140-400) L 03/14/18 04:40 Potassium 5.5 mEq/L (3.5-5.1) H 03/15/18 04:48 Chloride 112 mEq/L (98-107) H 03/15/18 04:48 BUN 60 mg/dL (8-23) H 03/15/18 04:48 Creatinine 2.62 mg/dL (0.60-1.20) H 03/15/18 04:48 Est GFR ( Amer) 22 (> 60) L 03/15/18 04:48 Est GFR (Non-Af Amer) 18 (> 60) L 03/15/18 04:48 Glucose 171 mg/dL (70-105) H 03/15/18 04:48 POC Glucose 162 mg/dL (70-99) H 03/14/18 19:56 Hemoglobin A1c 6.9 % (-5.6) H 03/12/18 04:24 Calculated Osmolality 317 (280-300) H 03/15/18 04:48 Calcium 8.5 mg/dL (8.6-10.3) L 03/15/18 04:48 Direct Bilirubin 0.3 mg/dL (0.0-0.2) H 03/11/18 17:38 AST 12 Units/L (13-39) L 03/11/18 17:38 Alkaline Phosphatase 129 Units/L (34-104) H 03/11/18 17:38 Urine Clarity Turbid (Clear) A 03/11/18 17:20 Urine Protein >=300 mg/dL (Neg-Trace) H 03/11/18 17:20 Urine Blood Small (Negative) H 03/11/18 17:20 Ur Leukocyte Esterase Large (Negative) H 03/11/18 17:20 Urine Microscopic RBC 5-15 per hpf (0-3) H 03/11/18 17:20 Urine Microscopic WBC TNTC per hpf (0-3) H 03/11/18 17:20 Ur Squamous Epith Cells Many per lpf (None-Few) H 03/11/18 17:20 Urine Bacteria Many per hpf (None-Few) H 03/11/18 17:20 Ur Culture Indicated? NO. (NO) A 03/11/18 17:20 Vancomycin Trough 31 mcg/mL (5-10) H 03/14/18 17:01 Microbiology, Last 48 Hours 03/11/18 17:20 Urine Culture - Final Urine,Catheterized Escherichia coli Consult Discharge Plan - Plan Additional Instructions: Follow with Dr. Allen in wound clinic. Please make appointment prior to D/C. Referrals: Omid Guillermo MD [Primary Care Provider] - (WMP) Igor Allen DPM [Partnered Physician] -
--- NOTE | 2018-03-15 14:51 | Infectious Disease Progress No ---
Date of Encounter: 03/15/18 Time of Encounter: 13:00 - Assessment and Plan (1) Osteomyelitis Current Visit: Yes Status: Suspected Location: First proximal phalangeal head and distal phalanx base of the right foot. Causative organism: Unclear. No wound culture has been obtained. MRI showed findings consistent with possible early osteomyelitis of the first proximal head and possible distal phalanx base. Podiatry consulted and following. Status post bedside biopsy today. Culture and pathology are pending. ESR normal. CRP not checked. Recommendations: - Await cultures and pathology to finalize. - Continue to observe off antibiotics. - Wound care per the podiatry team. - Ask ENT to evaluate right eye infection. Qualifiers: Osteomyelitis type: other Osteomyelitis location: other site Qualified Code(s): M86.8X8 - Other osteomyelitis, other site (2) UTI (urinary tract infection) Current Visit: Yes Status: Acute Causative organism: Unclear. Urine cultures positive for gram-negative rods. Final ID and susceptibilities are pending. Uncomplicated. True infection vs. asymptomatic bacteriuria. Treated with fosfomycin. Qualifiers: Urinary tract infection type: acute cystitis Hematuria presence: with hematuria Qualified Code(s): N30.01 - Acute cystitis with hematuria (3) Toe ulcer due to DM Current Visit: Yes Status: Acute Chronic, ongoing for 3-4 years. Podiatry consulted. Wound care per the podiatry team. Qualifiers: Diabetes mellitus type: type 2 Laterality: right Non-pressure ulcer stage: limited to breakdown of skin Qualified Code(s): E11.621 - Type 2 diabetes mellitus with foot ulcer; L97.511 - Non-pressure chronic ulcer of other part of right foot limited to breakdown of skin (4) Acute metabolic encephalopathy Current Visit: No Status: Resolved Likely secondary to UTI versus early osteomyelitis. CT of the head was negative. Resolved. (5) Chronic kidney disease Current Visit: No Status: Acute Qualifiers: Chronic kidney disease stage: unspecified stage Qualified Code(s): N18.9 - Chronic kidney disease, unspecified (6) PAD (peripheral artery disease) Current Visit: No Status: Chronic Status post left BKA in 2001. 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 ENT to evaluate. - Subjective Interval history: Seen and examined. No acute events noted overnight. Patient states overall she feels well. Denies any fevers or chills or rigors. Denies headache or neck pain. Denies any chest pain, shortness of breath, or cough. Denies any nausea, vomiting, diarrhea, or constipation. She is incontinent of urine and stool at baseline. She reports her last bowel movement was today. His abdominal pain or urinary complaints. Denies any oral thrush or any skin lesions. Denies pain at the site of her ulceration. Status post bedside biopsy of the right great toe Infect Dis PN-Objective Data - Labs CBC & Chem 7: 03/14/18 04:40 03/15/18 04:48 Labs: Laboratory Results - last 24 hr 03/14/18 03/14/18 03/14/18 07:09 11:24 16:13 Sodium Potassium Chloride Carbon Dioxide BUN Creatinine Est GFR ( Amer) Est GFR (Non-Af Amer) BUN/Creatinine Ratio Glucose POC Glucose 133 H 151 H 178 H Calculated Osmolality Calcium Vancomycin Trough 03/14/18 03/14/18 03/15/18 17:01 19:56 04:48 Sodium 143 Potassium 5.5 H Chloride 112 H Carbon Dioxide 25 BUN 60 H Creatinine 2.62 H Est GFR ( Amer) 22 L Est GFR (Non-Af Amer) 18 L BUN/Creatinine Ratio 23 Glucose 171 H POC Glucose 162 H Calculated Osmolality 317 H Calcium 8.5 L Vancomycin Trough 31 H Cultures: Cultures 03/11/18 17:20 Urine Culture - Final Urine,Catheterized Escherichia coli 03/11/18 20:30 Blood Culture - Preliminary Peripheral Venipuncture Culture is incubating and being continuously monitored for growth. Final report to follow. 03/11/18 20:30 Blood Culture - Preliminary Peripheral Venipuncture Culture is incubating and being continuously monitored for growth. Final report to follow. Serology 03/11/18 Range/Units 17:20 Urine Color Yellow (Yellow) Urine Clarity Turbid A (Clear) Urine pH 7.0 (5.0-8.0) pH Units Ur Specific [place] 1.013 (1.010-1.025) Urine Protein >=300 H (Neg-Trace) mg/dL Urine Glucose (UA) Normal (Normal) mg/dL Urine Ketones Negative (Negative) mg/dL Urine Blood Small H (Negative) Urine Nitrite Negative (Negative) Urine Bilirubin Negative (Negative) Urine Urobilinogen Normal (Normal) mg/dL Ur Leukocyte Esterase Large H (Negative) Urine Microscopic RBC 5-15 H (0-3) per hpf Urine Microscopic WBC TNTC H (0-3) per hpf Ur Squamous Epith Cells Many H (None-Few) per lpf Urine Bacteria Many H (None-Few) per hpf Hyaline Casts Few (None-Few) per lpf Ur Culture Indicated? NO. A (NO) Exam - Constitutional Vitals: Temp Pulse Resp BP Pulse Ox 98.2 F 69 18 173/68 97 03/15/18 11:46 03/15/18 11:46 03/15/18 11:46 03/15/18 11:46 03/15/18 11:46 General appearance: cooperative, no acute distress, obese - Head Head exam: Present: atraumatic, normal inspection, normocephalic - Eye Eye exam: Present: PERRL. Absent: normal appearance (Edema noted to the left upper lid. Pustule noted to the right lower lid.) Pupils: Present: normal accommodation - ENT ENT exam: Present: mucous membranes moist - Neck Neck exam: Present: normal inspection - Respiratory Respiratory exam: Present: CTAB. Absent: rales, respiratory distress, rhonchi, wheezes - Cardiovascular Cardiovascular exam: Present: irregular rhythm, RRR, +S1, +S2 - GI/Abdominal GI/Abdominal exam: Present: distended (Obese), normal bowel sounds, soft. Absent: tenderness - Extremities Exam Extremities exam: Absent: normal inspection (Left AKA stump without abnormality. Right foot dressing C/D/I.) - Neurological Exam Neurological exam: Present: alert, oriented X3, no focal deficits - Psychiatric Psychiatric exam: Present: normal affect, normal mood - Skin Skin exam: Present: dry, intact, normal color, warm Consult Discharge Plan - Plan Additional Instructions: Follow with Dr. Allen in wound clinic. Please make appointment prior to D/C. Referrals: Omid Guillermo MD [Primary Care Provider] - (P) Igor Allen DPM [Partnered Physician] - - Attending Attestation I examined this patient and my medical decision-making was reviewed with the Resident Physician. I agree with the documented findings, disposition and treatment plan as described except to the extent set forth below.
[2018-03-15] MEDS ORDERED: 0.9 % Sodium Chloride 1,000 ML IVC SCH (16:30)
--- NOTE | 2018-03-15 22:20 | Event Note ---
Date of Encounter: 03/15/18 Time of Encounter: 22:00 Notified by nurse of patient having large diarrhea bowel movement with what appeared to be blood. Vitals stable. Will check stat CBC. Repeat labs in a.m.
[2018-03-15 22:32] LABS: Basophils % 0.4 %; Eosinophils # 0.4 K/mcL (0.0-0.6); Eosinophils % 8.1 %; Hematocrit 33.2 % (35.3-44.9); Hemoglobin 10.1 g/dL (11.5-15.4); Immature Granulocytes % 0.4 % (0-4); Lymphocytes # 0.7 K/mcL (0.6-4.6); Lymphocytes % 12.5 %; Mean Corpuscular HGB Conc 30.4 g/dL (31.6-35.5); Mean Corpuscular Hemoglobin 29.8 pg (28.0-33.3); Mean Corpuscular Volume 97.9 fL (83.0-100.0); Mean Platelet Volume 10.4 fL (9.4-12.4); Monocytes # 0.6 K/mcL (0.0-1.3); Monocytes % 11.3 %; Neutrophils # 3.5 K/mcL (1.6-8.9); Platelet Count 132 K/mcL (140-400); Red Blood Count 3.39 M/mcL (3.82-4.97); Red Cell Distribution Width 18.8 % (11.5-14.5); Segmented Neutrophils % 67.3 %
[2018-03-16] MEDS: *HR* Heparin 5,000 UNIT/ML VIAL SQ SCH ×3 (00:23→17:32)
[2018-03-16 05:03] LABS: Basophils % 0.2 %; Eosinophils # 0.3 K/mcL (0.0-0.6); Eosinophils % 6.5 %; Hematocrit 32.8 % (35.3-44.9); Hemoglobin 9.8 g/dL (11.5-15.4); Immature Granulocytes % 0.2 % (0-4); Lymphocytes # 0.6 K/mcL (0.6-4.6); Lymphocytes % 11.8 %; Mean Corpuscular HGB Conc 29.9 g/dL (31.6-35.5); Mean Corpuscular Hemoglobin 29.3 pg (28.0-33.3); Mean Corpuscular Volume 97.9 fL (83.0-100.0); Mean Platelet Volume 12.1 fL (9.4-12.4); Monocytes # 0.6 K/mcL (0.0-1.3); Monocytes % 10.6 %; Neutrophils # 3.7 K/mcL (1.6-8.9); Platelet Count 145 K/mcL (140-400); Red Blood Count 3.35 M/mcL (3.82-4.97); Red Cell Distribution Width 18.6 % (11.5-14.5); Segmented Neutrophils % 70.7 %
[2018-03-16 05:29] LABS: Calcium 8.4 mg/dL (8.6-10.3); Potassium 4.2 mEq/L (3.5-5.1)
[2018-03-16] MEDS: Aspirin 81 MG TAB.CHEW PO SCH (08:36)
[2018-03-16] MEDS: Metoprolol XL (24 HR) Succ 50 MG TAB.ER.24H PO SCH (08:36)
[2018-03-16] MEDS: Furosemide 20 MG TABLET PO SCH (08:36)
[2018-03-16] MEDS: Insulin LISPRO 300 UNITS/3 ML VIAL SQ SCH ×4 (08:37→21:52)
--- NOTE | 2018-03-16 09:27 | Internal Med Progress Note ---
Hospitalist Progress Note - Encounter Date of Encounter: 03/16/18 Time of Encounter: 09:25 - Subjective Interval History: patient was seen and examined at bedside. tolerating PO diet, pain is controlled, denies vision loss, eye pain or discharge from the eyes had bone biopsy yesterday and denies any complications. she denies fever, chills, CP, SOB, cough, palpitations, N/v/D - Exam Vitals: Temp Pulse Resp BP Pulse Ox 97.6 F 80 18 153/82 98 03/16/18 07:25 03/16/18 07:25 03/16/18 07:25 03/16/18 07:25 03/16/18 07:25 Exam: General: Patient is alert, oriented, no acute distress, obese Head: atraumatic, normocephalic, Eye: 1x1 cm superficial swelling of the inferior right corner of the eye lid with 0.2x0.2 cm area of pus collection (improved). left eye has superior mild swelling above the eye lid 0.5 x 0.2 cm.(improved) PERRL, no scleral icterus, no conjunctival injection ENT: mucous membranes moist, normal external ear exam Neck: normal inspection, trachea midline, full ROM, no carotid bruits Chest: normal inspection, symmetric chest rise Respiratory: Good respiratory effort. Bilateral breath sounds are clear without wheezing, crackles, or rhonchi. Cardiovascular: Regular rate and rhythm. s1 and s2 No clicks, rubs, gallops, or murmors. Abdomen: Bowel sounds present normoactive x-4 quadrants. Abdomen is soft, nondistended. no Epigastric tenderness. No guarding or rebound. No organomegaly noted, obese musculoskeletal: Spontaneously moving all extremities.left BKA without signs of infection, right leg has surgical boot Skin: warm, dry, intact. Neuro: Alert and oriented x3. Sensation light touch intact. no focal deficit Psych: Patient's affect is normal - Assessment and Plan (1) Osteomyelitis Current Visit: Yes Status: Suspected Assessment and Plan: First proximal phalangeal head and distal phalanx base of the right foot oste omyelitis podiatry on board - s/p bone biopsy 03/15 -Culture and pathology are pending ESR WNL CRP- not performed on admission Abx discontinued as per ID recs - will await for bone cx BCX NGTD VERO on 03/12 Moderately diminished waveform at the right ankle. Vessels are noncompressible. Noncompressible vessels may mask underlying disease. MRI on 03/13- IMPRESSION: 1. Soft tissue defect overlying the medial aspect of 1st MTP joint. No abscess. 2. Suspected early osteomyelitis of the 1st proximal phalangeal head and possibly the distal phalangeal base. Consider septic arthritis although no joint effusion is identified. 3. Nondisplaced right 5th intra-articular metatarsal base fracture. (2) Toe ulcer due to DM Current Visit: Yes Status: Acute Assessment and Plan: podiatry on board management as per above (3) Swelling of left lower eyelid Current Visit: Yes Status: Acute Assessment and Plan: swelling of the left upper eyelid and above right lower eye lid most likely chalazion less likely abscess on mupirocin cream warm compress BID Discussed with ENT who saw the patietn at bedside and agrees that its most likely chalazion and recommended to contnue the above management to follow up with ophthalmology as OP (4) UTI (urinary tract infection) Current Visit: Yes Status: Resolved Assessment and Plan: uncomplicated cystitis - resolved Urine cultures positive for E.coli goodson sensitive recieved one dose of fosfomycin on 03/14 was treated with zosyn- D/C as per ID recs on 03/14 (5) CKD (chronic kidney disease) stage 4, GFR 15-29 ml/min Current Visit: Yes Status: Acute Assessment and Plan: baseline creatinine ranges from 2-4 continue monitoring renal functions dose adjust medications by pharmacy continue sevelamer (6) PAD (peripheral artery disease) Current Visit: Yes Status: Acute Assessment and Plan: will continue with ASA and statins study on 03/12 Moderately diminished waveform at the right ankle. Vessels are noncompressible. Noncompressible vessels may mask underlying disease. (7) DM type 2 (diabetes mellitus, type 2) Current Visit: No Status: Chronic Assessment and Plan: on sliding scale insulin will continue to adjust as per finger sticks A1c was 6.9 on 03/12 (8) CAD (coronary artery disease) Current Visit: No Status: Acute Assessment and Plan: continue ASA, BB and statins (9) Altered mental status, unspecified Current Visit: Yes Status: Resolved Assessment and Plan: likely infectious) secondary to UTI and early osteomyelitis doubt metabolic resolved head CT 03/11 IMPRESSION: 1. No acute intracranial abnormality. 2. New chronic appearing lacunar infarct in the right [place]. 3. Unchanged encephalomalacia in the base of the left frontal lobe. 4. Minimal diffuse atrophy with moderate chronic small vessel ischemic changes. (10) Anemia in chronic renal disease Current Visit: Yes Status: Chronic Assessment and Plan: H/H stable will continue to monitor (11) GERD (gastroesophageal reflux disease) Current Visit: Yes Status: Acute Assessment and Plan: continue home medications (12) Obesity (BMI 30-39.9) Current Visit: Yes Status: Acute Assessment and Plan: BMI 39.4 nurtrition consult (13) Hyperkalemia Current Visit: Yes Status: Acute Assessment and Plan: treated with kayaxalate- resolved (14) DVT prophylaxis Current Visit: Yes Status: Acute Assessment and Plan: heparin sc - Time Spent with Patient Total time spent is greater than 50% in coordination of care (as documented) at patient's floor/unit and/or counseling patient: Internal Medicine: Result - Labs CBC & Chem 7: 03/16/18 04:19 03/16/18 04:19 Labs: Short CBC 03/15/18 03/16/18 Range/Units 22:22 04:19 WBC 5.2 5.3 (4.3-11.1) K/mcL Hgb 10.1 L 9.8 L (11.5-15.4) g/dL Hct 33.2 L 32.8 L (35.3-44.9) % Plt Count 132 L 145 (140-400) K/mcL Neutrophils # 3.5 3.7 (1.6-8.9) K/mcL BMP 03/16/18 04:19 Sodium 143 Potassium 4.2 Chloride 111 H Carbon Dioxide 23 BUN 56 H Creatinine 2.37 H Glucose 141 H Calcium 8.4 L Consult Discharge Plan - Plan Additional Instructions: Follow with Dr. Allen in wound clinic. Please make appointment prior to D/C. Referrals: Omid Guillermo MD [Primary Care Provider] - ([facility]) Igor Allen DPM [Partnered Physician] - (1) Osteomyelitis Qualifiers: Osteomyelitis type: other Osteomyelitis location: other site Qualified Code(s): M86.8X8 - Other osteomyelitis, other site (2) Toe ulcer due to DM Qualifiers: Diabetes mellitus type: type 2 Laterality: right Non-pressure ulcer stage: limited to breakdown of skin Qualified Code(s): E11.621 - Type 2 diabetes mellitus with foot ulcer; L97.511 - Non-pressure chronic ulcer of other part of right foot limited to breakdown of skin (4) UTI (urinary tract infection) Qualifiers: Urinary tract infection type: acute cystitis Hematuria presence: with hematuria Qualified Code(s): N30.01 - Acute cystitis with hematuria (7) DM type 2 (diabetes mellitus, type 2) Qualifiers: Diabetes mellitus correction insulin use: without correction use Diabetes mellitus complication status: with kidney complications Diabetes mellitus complication detail: with chronic kidney disease Chronic kidney disease stage: on chronic dialysis Qualified Code(s): E11.22 - Type 2 diabetes mellitus with diabetic chronic kidney disease; N18.6 - End stage renal disease; Z99.2 - Dependence on renal dialysis (8) CAD (coronary artery disease) Qualifiers: Coronary Disease-Associated Artery/Lesion type: [place] artery [place] vs. transplanted heart: [place] heart Associated angina: without angina Qualified Code(s): I25.10 - Atherosclerotic heart disease of [place] coronary artery without angina pectoris (9) Altered mental status, unspecified Qualifiers: Altered mental status type: disorientation Qualified Code(s): R41.0 - Disorientation, unspecified (10) Anemia in chronic renal disease Qualifiers: Chronic kidney disease stage: stage 4 (severe) Qualified Code(s): N18.4 - Chronic kidney disease, stage 4 (severe); D63.1 - Anemia in chronic kidney disease
--- NOTE | 2018-03-16 10:03 | Podiatry Progress Note ---
Date of Encounter: 03/17/18 Time of Encounter: 08:30 - Assessment and Plan (1) Toe ulcer due to DM Current Visit: Yes Status: Acute 1 [place] grade 2 ulceration dorsal aspect of right hallux. No fluctuance noted. Minimal sanginous drainage noted. Negative calf pain with squeeze. CFT <3 seconds. No odor, no streaking. Erythema noted to outlying wound bed. Changed dressing this AM. Place santyl to wound bed twice daily. Cover with 4x4 dry gauze and kerlex. Nursing to change. 03/12- ESR-2, HGB A1C 6.9 WBC 5.3 today 03/12- VERO 1.76, noncompressible from ankle to thigh 03/12- TCPO2- Right foot 55, right ankle 47 MRI obtained 03/13 negative for abscess, suspected early OM Bone biopsy completed 03/15- awaiting results for wound culture, pathology, and anaerobic culture. Urine culture positive for E.coli. ID following for ATB management Continue to wear diabetic boot and fiore boot. MR/MR foot RT wo con IMPRESSION: 1. Soft tissue defect overlying the medial aspect of 1st MTP joint. No abscess. 2. Suspected early osteomyelitis of the 1st proximal phalangeal head and possibly the distal phalangeal base. Consider septic arthritis although no joint effusion is identified. 3. Nondisplaced right 5th intra-articular metatarsal base fracture. D/ / 03/13/2018 11:31:42 Prudencio Pablo MD / gera Interpreting Provider: Prudencio Pablo MD Qualifiers: Diabetes mellitus type: type 2 Laterality: right Non-pressure ulcer stage: limited to breakdown of skin Qualified Code(s): E11.621 - Type 2 diabetes mellitus with foot ulcer; L97.511 - Non-pressure chronic ulcer of other part of right foot limited to breakdown of skin (2) Osteomyelitis Current Visit: Yes Status: Suspected Suspected. See previous plan Qualifiers: Osteomyelitis type: other Osteomyelitis location: other site Qualified Code(s): M86.8X8 - Other osteomyelitis, other site Subjective Interval history: Patient awake in bed. Alert and oriented x 3. Denies any overnight complications. Patient eating breakfast. Nurse at bedside. States had one bowel movement overnight that appeared bloody in nature. States no occult stool was collected. HGB today 9.8. Denies fevers, pain, nausea, vomiting, chills. Denies chest pain or shortness of breath. Objective - Vital Signs Vital Signs: Vital Signs Temp Pulse Resp BP Pulse Ox 03/16/18 07:25 97.6 F 80 18 153/82 98 03/16/18 03:56 97.7 F 71 17 157/62 96 03/15/18 23:54 98.3 F 75 17 168/97 99 03/15/18 22:08 97.9 F 68 16 164/80 97 03/15/18 21:30 98 03/15/18 20:20 98.6 F 68 17 153/61 100 03/15/18 16:21 97.7 F 68 18 173/77 100 03/15/18 11:46 98.2 F 69 18 173/68 97 Intake and Output 03/15/18 03/16/18 03/16/18 23:59 07:59 15:59 Other: Stool Size Moderate Stool Consistency loose liquid Stool Color Brown Bright Red Blood Blood Tinged # Bowel Movement Diapers 1 Weight 103 kg Blood Glucose* 160 Patient Weight 03/16/18 23:59 Weight 103 kg - Exam Exam: Constitiutional: Alert and oriented x 3. Vascular:1/4 DP/PT right foot, 2/4 popliteal LLE, L BKA, CFT <3 sec to all digits right foot, warm to warm from tibia to toes right foot, no pain when calf squeezed. Neurologic: Sensation to touch, normal plantar response, absent position sense dorsiflexion/plantar flexion Dermatologic: Right hallux with [place] stage 2 ulceration yellow slough noted, DTI to plantar aspect of foot noted to distal and midfoot. Musculoskeletal: 3/5 muscle strength and normal tone right foot. - Lab Result Diagrams: 03/17/18 05:30 03/17/18 05:30 Labs: Abnormal lab results RBC 3.35 M/mcL (3.82-4.97) L 03/16/18 04:19 Hgb 9.8 g/dL (11.5-15.4) L 03/16/18 04:19 Hct 32.8 % (35.3-44.9) L 03/16/18 04:19 MCHC 29.9 g/dL (31.6-35.5) L 03/16/18 04:19 RDW 18.6 % (11.5-14.5) H 03/16/18 04:19 Chloride 111 mEq/L (98-107) H 03/16/18 04:19 BUN 56 mg/dL (8-23) H 03/16/18 04:19 Creatinine 2.37 mg/dL (0.60-1.20) H 03/16/18 04:19 Est GFR ( Amer) 25 (> 60) L 03/16/18 04:19 Est GFR (Non-Af Amer) 20 (> 60) L 03/16/18 04:19 Glucose 141 mg/dL (70-105) H 03/16/18 04:19 POC Glucose 160 mg/dL (70-99) H 03/15/18 20:23 Hemoglobin A1c 6.9 % (-5.6) H 03/12/18 04:24 Calculated Osmolality 314 (280-300) H 03/16/18 04:19 Calcium 8.4 mg/dL (8.6-10.3) L 03/16/18 04:19 Direct Bilirubin 0.3 mg/dL (0.0-0.2) H 03/11/18 17:38 AST 12 Units/L (13-39) L 03/11/18 17:38 Alkaline Phosphatase 129 Units/L (34-104) H 03/11/18 17:38 Urine Clarity Turbid (Clear) A 03/11/18 17:20 Urine Protein >=300 mg/dL (Neg-Trace) H 03/11/18 17:20 Urine Blood Small (Negative) H 03/11/18 17:20 Ur Leukocyte Esterase Large (Negative) H 03/11/18 17:20 Urine Microscopic RBC 5-15 per hpf (0-3) H 03/11/18 17:20 Urine Microscopic WBC TNTC per hpf (0-3) H 03/11/18 17:20 Ur Squamous Epith Cells Many per lpf (None-Few) H 03/11/18 17:20 Urine Bacteria Many per hpf (None-Few) H 03/11/18 17:20 Ur Culture Indicated? NO. (NO) A 03/11/18 17:20 Vancomycin Trough 31 mcg/mL (5-10) H 03/14/18 17:01 Microbiology, Last 48 Hours 03/15/18 12:05 Surgical Biopsy Culture - Preliminary Bone 03/11/18 17:20 Urine Culture - Final Urine,Catheterized Escherichia coli Consult Discharge Plan - Plan Additional Instructions: Follow with Dr. Rios outpatient. Please make appointment prior to D/C. Referrals: Omid Guillermo MD [Primary Care Provider] - ([facility]) Igor Allen DPM [Partnered Physician] -
--- NOTE | 2018-03-16 11:22 | Infectious Disease Progress No ---
Date of Encounter: 03/16/18 Time of Encounter: 11:19 - Assessment and Plan (1) Osteomyelitis Current Visit: Yes Status: Suspected Location: First proximal phalangeal head and distal phalanx base of the right foot. Causative organism: Unclear. No wound culture has been obtained. MRI showed findings consistent with possible early osteomyelitis of the first proximal head and possible distal phalanx base. Podiatry consulted and following. Status post bedside biopsy 03/15/18. Culture is no growth and pathology is pending. ESR normal. CRP not checked. Recommendations: - Await cultures and pathology to finalize. - Continue to observe off antibiotics. - Wound care per the podiatry team. - Right eye infection treatment per ENT. Qualifiers: Osteomyelitis type: other Osteomyelitis location: other site Qualified Code(s): M86.8X8 - Other osteomyelitis, other site (2) UTI (urinary tract infection) Current Visit: Yes Status: Resolved Causative organism: E. coli. Uncomplicated. True infection vs. asymptomatic bacteriuria. Treated with fosfomycin. Qualifiers: Urinary tract infection type: acute cystitis Hematuria presence: with hematuria Qualified Code(s): N30.01 - Acute cystitis with hematuria (3) Toe ulcer due to DM Current Visit: Yes Status: Acute Chronic, ongoing for 3-4 years. Podiatry consulted. Wound care per the podiatry team. Qualifiers: Diabetes mellitus type: type 2 Laterality: right Non-pressure ulcer stage: limited to breakdown of skin Qualified Code(s): E11.621 - Type 2 diabetes mellitus with foot ulcer; L97.511 - Non-pressure chronic ulcer of other part of right foot limited to breakdown of skin (4) Acute metabolic encephalopathy Current Visit: No Status: Resolved Likely secondary to UTI versus early osteomyelitis. CT of the head was negative. Resolved. (5) Chronic kidney disease Current Visit: No Status: Acute Qualifiers: Chronic kidney disease stage: unspecified stage Qualified Code(s): N18.9 - Chronic kidney disease, unspecified (6) PAD (peripheral artery disease) Current Visit: No Status: Chronic Status post left BKA in 2001. (7) DM type 2 (diabetes mellitus, type 2) Current Visit: No Status: Chronic Qualifiers: Diabetes mellitus [facility] insulin use: without [facility] use Diabetes mellitus complication status: with kidney complications Diabetes mellitus complication detail: with chronic kidney disease Chronic kidney disease stage: on chronic dialysis Qualified Code(s): E11.22 - Type 2 diabetes mellitus with diabetic chronic kidney disease; N18.6 - End stage renal disease; Z99.2 - Dependence on renal dialysis (8) Infection of right eye Current Visit: Yes Status: Acute Causative organism unclear. Management per the ENT team. - Subjective Interval history: Patient seen and examined. No acute events noted overnight. Patient states overall she feels well. Denies any fevers or chills or rigors. Denies headache or neck pain. Denies any chest pain, shortness of breath, or cough. Denies any nausea, vomiting, diarrhea, or constipation. She is incontinent of urine and stool at baseline. She reports her last bowel movement was today and was loose with some blood in it. Denies abdominal pain or urinary complaints. Denies any oral thrush or any skin lesions. Denies pain at the site of her ulceration. Status post bedside biopsy of the right great toe 03/15/18. Infect Dis PN-Objective Data - Labs CBC & Chem 7: 03/16/18 04:19 03/16/18 04:19 Labs: Laboratory Results - last 24 hr 03/15/18 03/15/18 03/15/18 07:50 12:04 16:30 WBC RBC Hgb Hct MCV MCH MCHC RDW Plt Count MPV Immature Gran % Seg Neutrophils % Lymphocytes % Monocytes % Eosinophils % Basophils % Neutrophils # Lymphocytes # Monocytes # Eosinophils # Basophils # Sodium Potassium Chloride Carbon Dioxide BUN Creatinine Est GFR ( Amer) Est GFR (Non-Af Amer) BUN/Creatinine Ratio Glucose POC Glucose 159 H 161 H 193 H Calculated Osmolality Calcium 03/15/18 03/15/18 03/16/18 20:23 22:22 04:19 WBC 5.2 RBC 3.39 L Hgb 10.1 L Hct 33.2 L MCV 97.9 MCH 29.8 MCHC 30.4 L RDW 18.8 H Plt Count 132 L MPV 10.4 Immature Gran % 0.4 Seg Neutrophils % 67.3 Lymphocytes % 12.5 Monocytes % 11.3 Eosinophils % 8.1 Basophils % 0.4 Neutrophils # 3.5 Lymphocytes # 0.7 Monocytes # 0.6 Eosinophils # 0.4 Basophils # 0.0 Sodium 143 Potassium 4.2 Chloride 111 H Carbon Dioxide 23 BUN 56 H Creatinine 2.37 H Est GFR ( Amer) 25 L Est GFR (Non-Af Amer) 20 L BUN/Creatinine Ratio 24 Glucose 141 H POC Glucose 160 H Calculated Osmolality 314 H Calcium 8.4 L 03/16/18 04:19 WBC 5.3 RBC 3.35 L Hgb 9.8 L Hct 32.8 L MCV 97.9 MCH 29.3 MCHC 29.9 L RDW 18.6 H Plt Count 145 MPV 12.1 Immature Gran % 0.2 Seg Neutrophils % 70.7 Lymphocytes % 11.8 Monocytes % 10.6 Eosinophils % 6.5 Basophils % 0.2 Neutrophils # 3.7 Lymphocytes # 0.6 Monocytes # 0.6 Eosinophils # 0.3 Basophils # 0.0 Sodium Potassium Chloride Carbon Dioxide BUN Creatinine Est GFR ( Amer) Est GFR (Non-Af Amer) BUN/Creatinine Ratio Glucose POC Glucose Calculated Osmolality Calcium Cultures: Cultures 03/15/18 12:05 Surgical Biopsy Culture - Preliminary Bone 03/11/18 17:20 Urine Culture - Final Urine,Catheterized Escherichia coli 03/11/18 20:30 Blood Culture - Preliminary Peripheral Venipuncture Culture is incubating and being continuously monitored for growth. Final report to follow. 03/11/18 20:30 Blood Culture - Preliminary Peripheral Venipuncture Culture is incubating and being continuously monitored for growth. Final report to follow. Serology 03/11/18 Range/Units 17:20 Urine Color Yellow (Yellow) Urine Clarity Turbid A (Clear) Urine pH 7.0 (5.0-8.0) pH Units Ur Specific Reading 1.013 (1.010-1.025) Urine Protein >=300 H (Neg-Trace) mg/dL Urine Glucose (UA) Normal (Normal) mg/dL Urine Ketones Negative (Negative) mg/dL Urine Blood Small H (Negative) Urine Nitrite Negative (Negative) Urine Bilirubin Negative (Negative) Urine Urobilinogen Normal (Normal) mg/dL Ur Leukocyte Esterase Large H (Negative) Urine Microscopic RBC 5-15 H (0-3) per hpf Urine Microscopic WBC TNTC H (0-3) per hpf Ur Squamous Epith Cells Many H (None-Few) per lpf Urine Bacteria Many H (None-Few) per hpf Hyaline Casts Few (None-Few) per lpf Ur Culture Indicated? NO. A (NO) Exam - Constitutional Vitals: Temp Pulse Resp BP Pulse Ox 97.6 F 80 18 153/82 98 03/16/18 07:25 03/16/18 07:25 03/16/18 07:25 03/16/18 07:25 03/16/18 07:25 General appearance: cooperative, morbidly obese, no acute distress - Head Head exam: Present: atraumatic, normal inspection, normocephalic - Eye Eye exam: Present: EOMI, PERRL. Absent: normal appearance (Pustule noted to the right lower lid. Erythema to the left upper lid improved.) Pupils: Present: normal accommodation - ENT ENT exam: Present: mucous membranes moist - Neck Neck exam: Present: normal inspection - Respiratory Respiratory exam: Present: CTAB. Absent: rales, respiratory distress, rhonchi, wheezes - Cardiovascular Cardiovascular exam: Present: RRR, +S1, +S2 - GI/Abdominal GI/Abdominal exam: Present: distended (obese), normal bowel sounds, soft. Absent: tenderness - Extremities Exam Extremities exam: Absent: normal inspection (right foot dressing/boot C/D/I. Left AKA stump without abnormality.) - Neurological Exam Neurological exam: Present: alert, oriented X3, no focal deficits - Psychiatric Psychiatric exam: Present: normal affect, normal mood - Skin Skin exam: Present: dry, intact, normal color, warm Consult Discharge Plan - Plan Additional Instructions: Follow with Dr. Allen in wound clinic. Please make appointment prior to D/C. Referrals: Omid Guillermo MD [Primary Care Provider] - ([facility]) Igor Allen DPM [Partnered Physician] - - Attending Attestation I examined this patient and my medical decision-making was reviewed with the Resident Physician. I agree with the documented findings, disposition and treatment plan as described except to the extent set forth below.
[2018-03-17] MEDS: *HR* Heparin 5,000 UNIT/ML VIAL SQ SCH ×3 (00:53→16:42)
[2018-03-17 06:07] LABS: Hemoglobin 9.5 g/dL (11.5-15.4); Mean Corpuscular HGB Conc 30.6 g/dL (31.6-35.5); Mean Corpuscular Hemoglobin 30.2 pg (28.0-33.3); Mean Corpuscular Volume 98.4 fL (83.0-100.0); Mean Platelet Volume 11.8 fL (9.4-12.4); Platelet Count 148 K/mcL (140-400); Red Blood Count 3.15 M/mcL (3.82-4.97); Red Cell Distribution Width 19.2 % (11.5-14.5)
[2018-03-17 06:36] LABS: Calcium 8.6 mg/dL (8.6-10.3); Potassium 4.1 mEq/L (3.5-5.1)
[2018-03-17] MEDS: Insulin LISPRO 300 UNITS/3 ML VIAL SQ SCH ×3 (07:27→16:44)
[2018-03-17] MEDS: Metoprolol XL (24 HR) Succ 50 MG TAB.ER.24H PO SCH (08:41)
[2018-03-17] MEDS: Furosemide 20 MG TABLET PO SCH (08:41)
[2018-03-17] MEDS: Aspirin 81 MG TAB.CHEW PO SCH (08:41)
--- NOTE | 2018-03-17 10:17 | Podiatry Progress Note ---
Date of Encounter: 03/17/18 Time of Encounter: 07:50 - Assessment and Plan (1) Toe ulcer due to DM Current Visit: Yes Status: Acute 1 [place] grade 2 ulceration dorsal aspect of right hallux. Negative calf pain with squeeze. CFT <3 seconds. No odor, no streaking. Right foot dressing in tact. No drainage noted to dressing. Nursing to change per orders. 03/12- ESR-2, HGB A1C 6.9 WBC 6.0 today 03/12- VERO 1.76, noncompressible from ankle to thigh 03/12- TCPO2- Right foot 55, right ankle 47 MRI obtained 03/13 negative for abscess, suspected early OM Bone biopsy completed 03/15- awaiting results for wound culture and anaerobic culture, no growth at 24 hours. Pathology 03/15 negative for OM or necrosis Urine culture positive for E.coli. ID following for ATB management- not currently on ATB. Continue to wear diabetic boot and fiore boot. Upon d/c will need follow up with Dr. Rios outpatient MR/MR foot RT wo con IMPRESSION: 1. Soft tissue defect overlying the medial aspect of 1st MTP joint. No abscess. 2. Suspected early osteomyelitis of the 1st proximal phalangeal head and possibly the distal phalangeal base. Consider septic arthritis although no joint effusion is identified. 3. Nondisplaced right 5th intra-articular metatarsal base fracture. D/ / 03/13/2018 11:31:42 Prudencio Pablo MD / gera Interpreting Provider: Prudencio Pablo MD Qualifiers: Diabetes mellitus type: type 2 Laterality: right Non-pressure ulcer stage: limited to breakdown of skin Qualified Code(s): E11.621 - Type 2 diabetes mellitus with foot ulcer; L97.511 - Non-pressure chronic ulcer of other part of right foot limited to breakdown of skin (2) Osteomyelitis Current Visit: Yes Status: Suspected Suspected. See previous plan Qualifiers: Osteomyelitis type: other Osteomyelitis location: other site Qualified Code(s): M86.8X8 - Other osteomyelitis, other site Subjective Interval history: Patient awake in bed. Alert and oriented x 3. Denies any overnight complica tions. Patient eating breakfast. Denies fevers, pain, nausea, vomiting, chills. Denies chest pain or shortness of breath. Objective - Vital Signs Vital Signs: Vital Signs Temp Pulse Resp BP Pulse Ox 03/17/18 07:42 99 03/17/18 07:14 97.7 F 77 18 171/89 99 03/17/18 03:43 97.9 F 84 16 167/85 98 03/16/18 23:42 98.1 F 75 16 176/80 98 03/16/18 19:55 98.4 F 72 16 164/84 97 03/16/18 16:25 97.6 F 68 16 154/80 96 03/16/18 11:27 97.5 F L 64 18 135/79 98 Intake and Output 03/16/18 03/17/18 03/17/18 23:59 07:59 15:59 Output Total 0 / 0 Balance 0 / 0 Output: Urine 0 / 0 Other: Stool Size Moderate Stool Consistency loose soft Stool Color Brown # Urine Diapers 1 # Bowel Movement Diapers 1 Weight 104.6 kg Blood Glucose* 172 136 - Exam Exam: Constitiutional: Alert and oriented x 3. Vascular:1/4 DP/PT right foot, 2/4 popliteal LLE, L BKA, CFT <3 sec to all digits right foot, warm to warm from tibia to toes right foot, no pain when calf squeezed. Neurologic: Sensation to touch, normal plantar response, absent position sense dorsiflexion/plantar flexion Dermatologic: Right hallux with Wagn[place] stage 2 ulceration, yellow slough noted, DTI to plantar aspect of foot noted to distal and midfoot, improving. Musculoskeletal: 3/5 muscle strength and normal tone right foot. - Lab Result Diagrams: 03/17/18 05:30 03/17/18 05:30 Labs: Abnormal lab results RBC 3.15 M/mcL (3.82-4.97) L 03/17/18 05:30 Hgb 9.5 g/dL (11.5-15.4) L 03/17/18 05:30 Hct 31.0 % (35.3-44.9) L 03/17/18 05:30 MCHC 30.6 g/dL (31.6-35.5) L 03/17/18 05:30 RDW 19.2 % (11.5-14.5) H 03/17/18 05:30 Chloride 112 mEq/L (98-107) H 03/17/18 05:30 BUN 52 mg/dL (8-23) H 03/17/18 05:30 Creatinine 2.42 mg/dL (0.60-1.20) H 03/17/18 05:30 Est GFR ( Amer) 24 (> 60) L 03/17/18 05:30 Est GFR (Non-Af Amer) 20 (> 60) L 03/17/18 05:30 Glucose 144 mg/dL (70-105) H 03/17/18 05:30 POC Glucose 172 mg/dL (70-99) H 03/16/18 19:58 Hemoglobin A1c 6.9 % (-5.6) H 03/12/18 04:24 Calculated Osmolality 315 (280-300) H 03/17/18 05:30 Direct Bilirubin 0.3 mg/dL (0.0-0.2) H 03/11/18 17:38 AST 12 Units/L (13-39) L 03/11/18 17:38 Alkaline Phosphatase 129 Units/L (34-104) H 03/11/18 17:38 Urine Clarity Turbid (Clear) A 03/11/18 17:20 Urine Protein >=300 mg/dL (Neg-Trace) H 03/11/18 17:20 Urine Blood Small (Negative) H 03/11/18 17:20 Ur Leukocyte Esterase Large (Negative) H 03/11/18 17:20 Urine Microscopic RBC 5-15 per hpf (0-3) H 03/11/18 17:20 Urine Microscopic WBC TNTC per hpf (0-3) H 03/11/18 17:20 Ur Squamous Epith Cells Many per lpf (None-Few) H 03/11/18 17:20 Urine Bacteria Many per hpf (None-Few) H 03/11/18 17:20 Ur Culture Indicated? NO. (NO) A 03/11/18 17:20 Vancomycin Trough 31 mcg/mL (5-10) H 03/14/18 17:01 Microbiology, Last 48 Hours 03/11/18 20:30 Blood Culture - Final Peripheral Venipuncture No growth. Final report. 03/11/18 20:30 Blood Culture - Final Peripheral Venipuncture No growth. Final report. 03/15/18 12:05 Surgical Biopsy Culture - Preliminary Bone 03/11/18 17:20 Urine Culture - Final Urine,Catheterized Escherichia coli Consult Discharge Plan - Plan Additional Instructions: Follow with Dr. Rios outpatient. Please make appointment prior to D/C. Referrals: Omid Guillermo MD [Primary Care Provider] - (WMP) Igor Allen DPM [Partnered Physician] -
--- NOTE | 2018-03-17 16:19 | Discharge Summary ---
- NOTES TO OUTPATIENT PROVIDER Notes to Outpatient Provider: Patient was admitted for right hallux ulcer. There was a concern for osteomyelitis on MRI but her ESR was normal and bone bx/wound culture have been negative. She will be treated with PO doxy/levaquin for 7 days per ID recommendation and will follow up with podiatry as outpatient. Orders not resulted at time of discharge: Pending orders 03/14/18 14:36 Culture,Anaerobic [RM] Routine Culture,Tissue (Biopsy) [RM] Routine Date of Encounter: 03/17/18 Time of Encounter: 14:00 - Discharge Diagnosis (1) DM type 2 (diabetes mellitus, type 2) Priority: Secondary Status: Chronic Qualifiers: Diabetes mellitus care home insulin use: without terminal computer operator use Diabetes mellitus complication status: with kidney complications Diabetes mellitus complication detail: with chronic kidney disease Chronic kidney disease stage: on chronic dialysis Qualified Code(s): E11.22 - Type 2 diabetes mellitus with diabetic chronic kidney disease; N18.6 - End stage renal disease; Z99.2 - Dependence on renal dialysis (2) CAD (coronary artery disease) Priority: Secondary Status: Acute Qualifiers: Coronary Disease-Associated Artery/Lesion type: [place] artery [place] vs. transplanted heart: [place] heart Associated angina: without angina Qualified Code(s): I25.10 - Atherosclerotic heart disease of [place] coronary artery without angina pectoris (3) Altered mental status, unspecified Priority: Secondary Status: Resolved Qualifiers: Altered mental status type: disorientation Qualified Code(s): R41.0 - Disorientation, unspecified (4) UTI (urinary tract infection) Priority: Secondary Status: Resolved Qualifiers: Urinary tract infection type: acute cystitis Hematuria presence: with hematuria Qualified Code(s): N30.01 - Acute cystitis with hematuria (5) Osteomyelitis Priority: Secondary Status: Suspected Qualifiers: Osteomyelitis type: other Osteomyelitis location: other site Qualified Code(s): M86.8X8 - Other osteomyelitis, other site (6) Toe ulcer due to DM Priority: Primary Status: Acute Qualifiers: Diabetes mellitus type: type 2 Laterality: right Non-pressure ulcer stage: limited to breakdown of skin Qualified Code(s): E11.621 - Type 2 diabetes mellitus with foot ulcer; L97.511 - Non-pressure chronic ulcer of other part of right foot limited to breakdown of skin (7) Anemia in chronic renal disease Priority: Secondary Status: Chronic Qualifiers: Chronic kidney disease stage: stage 4 (severe) Qualified Code(s): N18.4 - Chronic kidney disease, stage 4 (severe); D63.1 - Anemia in chronic kidney disease (8) GERD (gastroesophageal reflux disease) Priority: Secondary Status: Acute (9) Obesity (BMI 30-39.9) Priority: Secondary Status: Acute (10) DVT prophylaxis Priority: Secondary Status: Acute (11) PAD (peripheral artery disease) Priority: Secondary Status: Acute (12) CKD (chronic kidney disease) stage 4, GFR 15-29 ml/min Priority: Secondary Status: Acute (13) Hyperkalemia Priority: Secondary Status: Acute (14) Swelling of left lower eyelid Priority: Secondary Status: Acute Hospital course: Ms. Ibarra is a 67 year old female with hx of DM, CKD, was admitted for right hallux ulcer. There was a concern for osteomyelitis on MRI but her ESR was normal and bone bx/wound culture have been negative. She will be treated with PO doxy/levaquin for 7 days per ID recommendation and will follow up with podiatry as outpatient. Discharge discussed with: patient, case management, service consultant - Time Spent with Patient Total time spent providing and/or coordinating discharge services: 33 mins - Discharge Medications Prescriptions: Doxycycline 100 mg PO BID 7 Days #14 capsule levoFLOXacin [Levaquin] 750 mg PO Q48H #4 tablet Home Medications: Allopurinol [Zyloprim 100 MG] 100 mg PO HS 07/05/17 [History] Linagliptin [Tradjenta] 5 mg PO DAILY 07/05/17 [History] Omeprazole [PriLOSEC] 20 mg PO DAILY 07/05/17 [History] Aspirin 81 mg PO DAILY #30 tab.chew 07/30/17 [Rx] Atorvastatin [Lipitor] 40 mg PO HS #30 tablet 07/30/17 [Rx] Acetaminophen [Tylenol] 650 mg PO Q6HR PRN 03/12/18 [History] Amino Acids/Protein Hydrolys [Pro-Stat Awc Liquid Packet] 30 ml PO DAILY 03/12/18 [History] Furosemide [Lasix] 20 mg PO QAM 03/12/18 [History] Metoprolol [Lopressor] 25 mg PO BID 03/12/18 [History] PARoxetine HCl [Paroxetine HCl] 10 mg PO DAILY 03/12/18 [History] Sevelamer [Renvela] 800 mg PO TIDWM 03/12/18 [History] Tobramycin Opth OINT [Tobrex] 1 drop LEFT EYE TID 03/12/18 [History] Doxycycline 100 mg PO BID 7 Days #14 capsule 03/17/18 [Rx] levoFLOXacin [Levaquin] 750 mg PO Q48H #4 tablet 03/17/18 [Rx] Allergies/Adverse Reactions: Allergy/AdvReac Type Severity Reaction Status Date / Time No Known Allergies Allergy Verified 07/05/17 17:25 Date of admission: 03/11/18 21:53 Primary care physician: Omid Guillermo MD Consults: 03/11/18 22:09 Consult to Podiatry [CONS] Routine Consulting Provider: Podiatry [facility] Reason for Consult: Right great toe infection with xray findings concerning for osteomyelitis Time Notified: 22:11 Call Completed: No Consult to Wound Care [CONS] Routine Reason for Consult: Wound on right great toe Time Notified: 22:10 Call Completed: No 03/13/18 07:57 Consult to Early Childhood Education Specialist [CONS] Routine Reason for SW Consult: return to [facility] 03/14/18 07:55 Consult to Infectious Diseases [CONS] Routine Consulting Provider: Infectious Disease [facility] Reason for Consult: early OM podiatry on board on vancomycin and zosyn Call Completed: No 03/15/18 11:57 Consult to ENT [CONS] Routine Consulting Provider: ENT [facility] Reason for Consult: ? left lower eye lid abscess Call Completed: No - Constitutional Vitals: Temp Pulse Resp BP Pulse Ox 98.0 F 69 16 154/80 98 03/17/18 11:34 03/17/18 11:34 03/17/18 11:34 03/17/18 11:34 03/17/18 11:34 Exam: General: Patient is alert, oriented, no acute distress, obese Eye: 1x1 cm localized swelling on the outer corner of the R lower eyelid (improved). left eye has superior mild swelling above the eye lid 0.5 x 0.2 cm. (improved) Respiratory: Good respiratory effort. Bilateral breath sounds are clear without wheezing, crackles, or rhonchi. Cardiovascular: Regular rate and rhythm. s1 and s2. Abdomen: soft, non-tender Musculoskeletal: Left BKA stump without signs of infection, right leg has surgical boot Neuro: Alert and oriented x3. Sensation light touch intact. no focal deficit - Patient Status Disposition: Transfer SNF Condition: Fair Overall status at discharge: patient is progressing back to baseline - Discharge Instructions Instructions: Diabetes Mellitus Type 2 in Adults (DC), Urinary Tract Infection in Women (DC) Follow Up With: Omid Guillermo MD [Primary Care Provider] - (WMP) Igor Allen DPM [Partnered Physician] - Forms: ED Satisfaction Letter Additional Instructions: Follow with Dr. Rios outpatient. Please make appointment prior to D/C. - Diet and Activity Activity: as per physical therapy Diet: diabetic diet
--- NOTE | 2018-03-17 16:28 | Physician Discharge Referral ---
ExtendedCare Referral Info Institutional Level of Care: Skilled - Diagnosis (1) DM type 2 (diabetes mellitus, type 2) Priority: Secondary Status: Chronic (2) CAD (coronary artery disease) Priority: Secondary Status: Acute (3) Altered mental status, unspecified Priority: Secondary Status: Resolved (4) UTI (urinary tract infection) Priority: Secondary Status: Resolved (5) Osteomyelitis Priority: Secondary Status: Suspected (6) Toe ulcer due to DM Priority: Primary Status: Acute (7) Anemia in chronic renal disease Priority: Secondary Status: Chronic (8) GERD (gastroesophageal reflux disease) Priority: Secondary Status: Acute (9) Obesity (BMI 30-39.9) Priority: Secondary Status: Acute (10) DVT prophylaxis Priority: Secondary Status: Acute (11) PAD (peripheral artery disease) Priority: Secondary Status: Acute (12) CKD (chronic kidney disease) stage 4, GFR 15-29 ml/min Priority: Secondary Status: Acute (13) Hyperkalemia Priority: Secondary Status: Acute (14) Swelling of left lower eyelid Priority: Secondary Status: Acute - Transfer Medications Prescriptions: Doxycycline 100 mg PO BID 7 Days #14 capsule levoFLOXacin [Levaquin] 750 mg PO Q48H #4 tablet Home Medications: Allopurinol [Zyloprim 100 MG] 100 mg PO HS 07/05/17 [History] Linagliptin [Tradjenta] 5 mg PO DAILY 07/05/17 [History] Omeprazole [PriLOSEC] 20 mg PO DAILY 07/05/17 [History] Aspirin 81 mg PO DAILY #30 tab.chew 07/30/17 [Rx] Atorvastatin [Lipitor] 40 mg PO HS #30 tablet 07/30/17 [Rx] Acetaminophen [Tylenol] 650 mg PO Q6HR PRN 03/12/18 [History] Amino Acids/Protein Hydrolys [Pro-Stat Awc Liquid Packet] 30 ml PO DAILY 03/12/18 [History] Furosemide [Lasix] 20 mg PO QAM 03/12/18 [History] Metoprolol [Lopressor] 25 mg PO BID 03/12/18 [History] PARoxetine HCl [Paroxetine HCl] 10 mg PO DAILY 03/12/18 [History] Sevelamer [Renvela] 800 mg PO TIDWM 03/12/18 [History] Tobramycin Opth OINT [Tobrex] 1 drop LEFT EYE TID 03/12/18 [History] Doxycycline 100 mg PO BID 7 Days #14 capsule 03/17/18 [Rx] levoFLOXacin [Levaquin] 750 mg PO Q48H #4 tablet 03/17/18 [Rx] Allergies/Adverse Reactions: Allergy/AdvReac Type Severity Reaction Status Date / Time No Known Allergies Allergy Verified 07/05/17 17:25 - Respiratory Orders Smoking Cessation: Smoking cessation has been advised. For more information, call the [place] Tobacco Quit Line at 4-703-IDXD-NOW. CERTIFICATION: I certify that the transfer of the above named patient to an Extended Care Facility is necessary for the continuing treatment of the diagnosis listed. The above information is true and accurate reflection of patient's current condition. Confidential - Redisclosure prohibited without a patient's written consent.
[2018-03-17 16:34] VITALS: BP 173/87
--- NOTE | 2018-03-17 21:57 | Infectious Disease Progress No ---
Date of Encounter: 03/17/18 Time of Encounter: 21:55 - Assessment and Plan (1) Osteomyelitis Status: Suspected Location: First proximal phalangeal head and distal phalanx base of the right foot. Causative organism: Unclear. No wound culture has been obtained. MRI showed findings consistent with possible early osteomyelitis of the first proximal head and possible distal phalanx base. Podiatry consulted and following. Status post bedside biopsy 03/15/18. Culture is no growth and pathology is pending. ESR normal. CRP not checked. Recommendations: - no infection no osteomyelitis will treat superficial infection with 7 days of doxy and levaquin doxy 100 mg bid and levaquin 750 q48 d/w hospitalist team Qualifiers: Osteomyelitis type: other Osteomyelitis location: other site Qualified Code(s): M86.8X8 - Other osteomyelitis, other site (2) UTI (urinary tract infection) Status: Resolved Causative organism: E. coli. Uncomplicated. True infection vs. asymptomatic bacteriuria. Treated with fosfomycin. Qualifiers: Urinary tract infection type: acute cystitis Hematuria presence: with hem aturia Qualified Code(s): N30.01 - Acute cystitis with hematuria (3) Toe ulcer due to DM Status: Acute Chronic, ongoing for 3-4 years. Podiatry consulted. Wound care per the podiatry team. Qualifiers: Diabetes mellitus type: type 2 Laterality: right Non-pressure ulcer stage: limited to breakdown of skin Qualified Code(s): E11.621 - Type 2 diabetes mellitus with foot ulcer; L97.511 - Non-pressure chronic ulcer of other part of right foot limited to breakdown of skin (4) Acute metabolic encephalopathy Status: Resolved Likely secondary to UTI versus early osteomyelitis. CT of the head was negative. Resolved. (5) Chronic kidney disease Status: Acute Qualifiers: Chronic kidney disease stage: unspecified stage Qualified Code(s): N18.9 - Chronic kidney disease, unspecified (6) PAD (peripheral artery disease) Status: Chronic Status post left BKA in 2001. (7) DM type 2 (diabetes mellitus, type 2) Status: Chronic Qualifiers: Diabetes mellitus termite exterminator helper insulin use: without fci use Diabetes mellitus complication status: with kidney complications Diabetes mellitus complication detail: with chronic kidney disease Chronic kidney disease stage: on chronic dialysis Qualified Code(s): E11.22 - Type 2 diabetes mellitus with diabetic chronic kidney disease; N18.6 - End stage renal disease; Z99.2 - Dependence on renal dialysis (8) Infection of right eye Status: Acute Causative organism unclear. Management per the ENT team. - Subjective Interval history: Patient seen and examined. states she feels great. no complaints. ROS unremarkable. lesion on the eye significantly better. Infect Dis PN-Objective Data - Labs CBC & Chem 7: 03/17/18 05:30 03/17/18 05:30 Labs: Laboratory Results - last 24 hr 03/16/18 03/17/18 03/17/18 19:58 05:30 05:30 WBC 6.0 RBC 3.15 L Hgb 9.5 L Hct 31.0 L MCV 98.4 MCH 30.2 MCHC 30.6 L RDW 19.2 H Plt Count 148 MPV 11.8 Sodium 144 Potassium 4.1 Chloride 112 H Carbon Dioxide 25 BUN 52 H Creatinine 2.42 H Est GFR ( Amer) 24 L Est GFR (Non-Af Amer) 20 L BUN/Creatinine Ratio 21 Glucose 144 H POC Glucose 172 H Calculated Osmolality 315 H Calcium 8.6 03/17/18 03/17/18 07:23 11:32 WBC RBC Hgb Hct MCV MCH MCHC RDW Plt Count MPV Sodium Potassium Chloride Carbon Dioxide BUN Creatinine Est GFR ( Amer) Est GFR (Non-Af Amer) BUN/Creatinine Ratio Glucose POC Glucose 136 H 129 H Calculated Osmolality Calcium Cultures: Cultures 03/15/18 12:05 Surgical Biopsy Culture - Preliminary Bone 03/11/18 20:30 Blood Culture - Final Peripheral Venipuncture No growth. Final report. 03/11/18 20:30 Blood Culture - Final Peripheral Venipuncture No growth. Final report. 03/11/18 17:20 Urine Culture - Final Urine,Catheterized Escherichia coli Serology 03/11/18 Range/Units 17:20 Urine Color Yellow (Yellow) Urine Clarity Turbid A (Clear) Urine pH 7.0 (5.0-8.0) pH Units Ur Specific Thomson 1.013 (1.010-1.025) Urine Protein >=300 H (Neg-Trace) mg/dL Urine Glucose (UA) Normal (Normal) mg/dL Urine Ketones Negative (Negative) mg/dL Urine Blood Small H (Negative) Urine Nitrite Negative (Negative) Urine Bilirubin Negative (Negative) Urine Urobilinogen Normal (Normal) mg/dL Ur Leukocyte Esterase Large H (Negative) Urine Microscopic RBC 5-15 H (0-3) per hpf Urine Microscopic WBC TNTC H (0-3) per hpf Ur Squamous Epith Cells Many H (None-Few) per lpf Urine Bacteria Many H (None-Few) per hpf Hyaline Casts Few (None-Few) per lpf Ur Culture Indicated? NO. A (NO) Exam - Constitutional Vitals: Temp Pulse Resp BP Pulse Ox 97.6 F 74 16 173/87 100 03/17/18 16:33 03/17/18 16:33 03/17/18 16:33 03/17/18 16:33 03/17/18 16:33 General appearance: cooperative, no febrile - Neck Neck exam: Present: full ROM. Absent: meningismus - Respiratory Respiratory exam: Present: CTAB. Absent: wheezes - Cardiovascular Cardiovascular exam: Present: RRR, +S1, +S2 - GI/Abdominal GI/Abdominal exam: Present: soft. Absent: tenderness - Extremities Exam Extremities exam: Present: full ROM, normal inspection Consult Discharge Plan - Plan Instructions: Urinary Tract Infection in Women (DC), Diabetes Mellitus Type 2 in Adults (DC) Additional Instructions: Follow with Dr. Rios outpatient. Please make appointment prior to D/C. Referrals: Omid Guillermo MD [Primary Care Provider] - (P) Igor Allen DPM [Partnered Physician] - Prescriptions: RX: Doxycycline 100 mg PO BID 7 Days #14 capsule levoFLOXacin [Levaquin] 750 mg PO Q48H #4 tablet
== END 2018-03-17 18:10 | DRG 987 ==
LOC: EMEROOARM 16:57 → 2ANU 16:57 → SUATTDRO 21:53 → OBSVTOIN 21:53 → 2ANU 21:55
PROVIDERS: ADMIT Internal Medicine; ATTEND Internal Medicine

== ENCOUNTER 2018-04-21 14:02 | Inpatient (IN) ==
--- NOTE | 2018-04-21 14:45 | Emergency Department Note ---
Disposition Clinical Impression: Lactic acidosis, Acute kidney injury superimposed on chronic kidney disease, Hyperkalemia, Anasarca Altered mental status Qualifiers: Altered mental status type: unspecified Qualified Code(s): R41.82 - Altered mental status, unspecified Acute on chronic heart failure Qualifiers: Heart failure type: unspecified Qualified Code(s): I50.9 - Heart failure, unsp ecified Disposition: Admitted As Inpatient Condition: Critical Altered Mental Status HPI - General Chief Complaint: ED Altered Mental Status Stated Complaint: AMS Time Seen by Provider: 04/21/18 14:08 Source: EMS Mode of arrival: EMS Limitations: no limitations Nursing Notes Reviewed: Yes Vital Signs Reviewed: Yes - History of Present Illness HPI Narrative: Patient is a 67-year-old female with past medical history including end-stage renal disease not on dialysis, coronary artery disease, type 2 diabetes mellitus, left below-knee amputation, prior cerebrovascular accident with residual left-sided weakness, presenting from [facility] via EMS for her worsening altered mental status. Information obtained from EMS. Patient's last known well was yesterday at 6 AM. Yesterday evening patient was starting to "talk out of her head" and was appeared to be more confused. She was sent to the emergency department. She had a full workup including CT head that was negative, chest x-ray negative, urinalysis positive for protein and glucose but no infection, and all other lab results within normal limits. She was discharged back to her facility. Today, the patient is noted to be increasingly confused from yesterday She is now unable to state her name and date of and state where she is at, compared to yesterday. She responsive to sternal rub No fevers at [facility]. Patient is unable to state any complaints at this time secondary to altered mental status. She was hospitalized 1 month ago for altered mental status and was found to have osteomyelitis to the right hallux. A PICC line was placed and she was placed on daptomycin. She is continuing with antibiotics. Yesterday she was seen by podiatry and states her osteomyelitis is healing well. - Related Data Home Medications Medication Instructions Recorded Confirmed RX: Allopurinol [Zyloprim 100 MG] 100 mg PO HS 07/05/17 03/12/18 RX: Linagliptin [Tradjenta] 5 mg PO DAILY 07/05/17 03/12/18 RX: Omeprazole [PriLOSEC] 20 mg PO DAILY 07/05/17 03/12/18 RX: Acetaminophen [Tylenol] 650 mg PO Q6HR PRN 03/12/18 03/12/18 RX: Amino Acids/Protein Hydrolys 30 ml PO DAILY 03/12/18 03/12/18 [Pro-Stat Awc Liquid Packet] RX: Furosemide [Lasix] 20 mg PO QAM 03/12/18 03/12/18 RX: Metoprolol [Lopressor] 25 mg PO BID 03/12/18 03/12/18 RX: PARoxetine HCl [Paroxetine HCl] 10 mg PO DAILY 03/12/18 03/12/18 RX: Sevelamer [Renvela] 800 mg PO TIDWM 03/12/18 03/12/18 RX: Tobramycin Opth OINT [Tobrex] 1 drop LEFT EYE TID 03/12/18 03/12/18 Previous Rx's Medication Instructions Recorded RX: Aspirin 81 mg PO DAILY #30 tab.chew 07/30/17 RX: Atorvastatin [Lipitor] 40 mg PO HS #30 tablet 07/30/17 levoFLOXacin [Levaquin] 750 mg PO Q48H #4 tablet 03/17/18 Allergies Allergy/AdvReac Type Severity Reaction Status Date / Time No Known Allergies Allergy Verified 07/05/17 17:25 Review of Systems: As Per HPI Limitations: ROS unobtainable due to patients medical condition (altered mental status, responds to sternal rub and voice) Past Medical History - Past Medical History Attestation: Yes The following information was validated with the patient. Source: old records reviewed, nursing notes reviewed Medical history: Reports: non-contributory, coronary artery disease, diabetes, hyperlipidemia, hypertension, renal disease Surgical history: Reports: angioplasty/stent, other Psychiatric history: Reports: no psych history - Social History Smoking Status: Former smoker Smokeless Tobacco Status: No Alcohol use: Reports: none Drug use: Reports: none Physical Exam - General Limitations: altered mental status General appearance: lethargic - Head Head exam: atraumatic, normocephalic - Eye Eye exam: Present: PERRL. Absent: nystagmus - ENT ENT exam: normal oropharynx, mucous membranes moist - Neck Neck exam: Present: full ROM, trachea midline - Chest Chest inspection: Absent: tenderness - Respiratory Respiratory exam: Present: other (Rhonchorous breath sounds left side. Diminished breath sounds bilaterally.) - Cardiovascular Cardiovascular exam: Present: regular rate, normal rhythm. Absent: systolic murmur, diastolic murmur - Abdominal Exam Abdominal exam: Present: soft, Non-Tender. Absent: distention - Extremities Exam Extremities exam: Present: other (left below knee amputation) - Neurological Exam Neurological exam: Present: CN II-XII intact, other (Patient is able to squeeze her right hand on my fingers. Normal strength. She has left-sided weakness from a prior CVA. Will not lift up her right leg to commands.). Absent: alert, oriented X3 - Expanded Neurological Exam Coma Scale Eye Opening: To Voice Coma Scale Motor Response: Withdraws to Pain Coma Scale Verbal Response: Inappropriate Coma Scale Total: 10 - Skin Skin exam: Present: warm, dry, other (Osteomyelitis wound on right foot with clean dry dressing) Course Vital Signs Temperature 99.7 F H 04/21/18 14:07 Pulse Rate 95 04/21/18 14:07 Respiratory Rate 20 04/21/18 14:07 O2 Sat by Pulse Oximetry 99 04/21/18 14:07 Temperature 99.7 F H 04/21/18 14:10 Pulse Rate 95 04/21/18 18:30 Respiratory Rate 18 04/21/18 18:30 Blood Pressure 168/97 04/21/18 18:30 O2 Sat by Pulse Oximetry 100 04/21/18 18:30 Oxygen Delivery Oxygen Delivery Bipap Altered Mental Status - [facility] Narrative Medical decision making narrative: Patient is presenting from senior care with worsening altered mental status. She had a full workup overnight and was discharged home. At that time, she was alert and orient to place and self. She is continuing daptomycin with IV PICC line for osteomyelitis of the right hallux and had recent urinary tract infection. Presenting today for worsening mental status. We will evaluate for additional signs of infection. We will obtain broad altered mental status workup. No reports were obtained from outside nursing facility and no family at bedside. We will check repeat CT head, lab work including CBC, BMP, troponin, lactate, ammonia, obtained blood cultures from the PICC line as well as peripheral. We will also check chest x-ray, catheterized urinalysis. Patient will receive a DuoNeb treatment. 1530 Troponin elevated at 0.05. No acute ST elevation or depressions on EKG. EKG does show ventricular bigeminy which is unchanged from yesterday. She has baseline elevation of troponin at 0.04 and also has worsening kidney disease. Elevated lactate. Potassium elevated at 5.2, yesterday it was normal. No peak T waves on EKG. At this point will give IV fluids and hold off on calcium gluconate at this time. Chest x-ray shows interstitial pulmonary edema. To avoid fluid overload, we will give her 500 mL bolus of IV fluids. Although the patient is groaning and unknown able to speak to us at this time, she does open her eyes to voice or, we will try BiPAP. We will also start broad-spectrum IV antibiotics as she has an elevated lactate with cefepime, Levaquin, vancomycin. If she does not respond to treatments, we will need to intubate the patient. She will need to be admitted for further management. Still awaiting VBG. 1630 Tolerating BiPAP. Elevated alk phosphatase and bilirubin. Will check a CT of her abdomen and pelvis to rule out an abdominal infection. 17:[address] abdomen and pelvis and chest were reviewed. Results show small amount of ascites in the abdomen and pelvis with marked anasarca. Patient's ammonia level is normal. There is also large right and small left bilateral pleural effusions and a right lower lobe atelectasis. Significantly elevated BNP. Patient continues to tolerate BiPAP. We will start a low dose nitro drip. Secondary to the patient's chronic kidney disease, worsened creatinine, and dehydration, we will hold off on IV Lasix for now. Patient's symptoms are li beatriz secondary to acute on chronic congestive heart failure, possible pneumonia. Will consult hospitalist for admission. 20:15 Discussed with hospitalist. IVFs and lasix were added. She was accepted and will be admitted for further management and will need close monitoring, 2N versus ICU. - Medical Records Medical records reviewed: Yes I reviewed the patient's medical records. - Lab Data Lab results reviewed: Yes I reviewed the patient's lab results. Result diagrams: 04/21/18 21:20 04/21/18 14:34 Lab Results 04/21/18 04/21/18 04/21/18 Range/Units 14:14 14:34 14:34 WBC 7.9 (4.3-11.1) K/mcL RBC 4.33 (3.82-4.97) M/mcL Hgb 12.6 (11.5-15.4) g/dL Hct 42.1 (35.3-44.9) % MCV 97.2 (83.0-100.0) fL MCH 29.1 (28.0-33.3) pg MCHC 29.9 L (31.6-35.5) g/dL RDW 18.8 H (11.5-14.5) % Plt Count 153 (140-400) K/mcL MPV 12.6 H (9.4-12.4) fL Immature Gran % 0.5 (0-4) % Seg Neutrophils % 82.9 % Lymphocytes % 10.1 % Monocytes % 6.4 % Eosinophils % 0.0 % Basophils % 0.1 % Neutrophils # 6.6 (1.6-8.9) K/mcL Lymphocytes # 0.8 (0.6-4.6) K/mcL Monocytes # 0.5 (0.0-1.3) K/mcL Eosinophils # 0.0 (0.0-0.6) K/mcL Basophils # 0.0 (0.0-0.2) K/mcL Nucleated RBCs/100 WBC 0.3 H (0) /100 WBC VBG pH (7.32-7.42) pH Units VBG pCO2 (41-51) mmHg VBG pO2 (25-50) mmHg VBG HCO3 (21-27) mEq/L Sodium (136-145) mEq/L Potassium (3.5-5.1) mEq/L Chloride (98-107) mEq/L Carbon Dioxide (23-29) mEq/L BUN (8-23) mg/dL Creatinine (0.60-1.20) mg/dL Est GFR ( Amer) (> 60) Est GFR (Non-Af Amer) (> 60) BUN/Creatinine Ratio (6-26) Glucose (70-105) mg/dL POC Glucose 173 H (70-99) mg/dL Calculated Osmolality (280-300) Lactic Acid 3.6 H (0.5-2.2) mmol/L Calcium (8.6-10.3) mg/dL Total Bilirubin (0.3-1.0) mg/dL AST (13-39) Units/L ALT (7-52) Units/L Alkaline Phosphatase (34-104) Units/L Ammonia (16-53) mcmol/L Troponin I (< 0.04) ng/mL B-Natriuretic Peptide (Less than 100) pg/mL Serum Total Protein (6.4-8.9) g/dL Albumin (3.5-5.7) g/dL Globulin (2.4-3.5) g/dL Albumin/Globulin Ratio (1.1-2.2) TSH (0.340-5.600) mcIU/mL Ur Specimen Adequacy Urine Color (Yellow) Urine Clarity (Clear) Urine pH (5.0-8.0) pH Units Ur Specific Homer (1.010-1.025) Urine Protein (Neg-Trace) mg/dL Urine Glucose (UA) (Normal) mg/dL Urine Ketones (Negative) mg/dL Urine Blood (Negative) Urine Nitrite (Negative) Urine Bilirubin (Negative) Urine Urobilinogen (Normal) mg/dL Ur Leukocyte Esterase (Negative) Urine Microscopic WBC (0-3) per hpf Urine Bacteria (None-Few) per hpf Ur Culture Indicated? (NO) 04/21/18 04/21/18 04/21/18 Range/Units 14:34 14:34 14:39 WBC (4.3-11.1) K/mcL RBC (3.82-4.97) M/mcL Hgb (11.5-15.4) g/dL Hct (35.3-44.9) % MCV (83.0-100.0) fL MCH (28.0-33.3) pg MCHC (31.6-35.5) g/dL RDW (11.5-14.5) % Plt Count (140-400) K/mcL MPV (9.4-12.4) fL Immature Gran % (0-4) % Seg Neutrophils % % Lymphocytes % % Monocytes % % Eosinophils % % Basophils % % Neutrophils # (1.6-8.9) K/mcL Lymphocytes # (0.6-4.6) K/mcL Monocytes # (0.0-1.3) K/mcL Eosinophils # (0.0-0.6) K/mcL Basophils # (0.0-0.2) K/mcL Nucleated RBCs/100 WBC (0) /100 WBC VBG pH (7.32-7.42) pH Units VBG pCO2 (41-51) mmHg VBG pO2 (25-50) mmHg VBG HCO3 (21-27) mEq/L Sodium 146 H (136-145) mEq/L Potassium 5.2 H (3.5-5.1) mEq/L Chloride 106 (98-107) mEq/L Carbon Dioxide 25 (23-29) mEq/L BUN 45 H (8-23) mg/dL Creatinine 2.43 H (0.60-1.20) mg/dL Est GFR ( Amer) 24 L (> 60) Est GFR (Non-Af Amer) 20 L (> 60) BUN/Creatinine Ratio 19 (6-26) Glucose 214 H (70-105) mg/dL POC Glucose (70-99) mg/dL Calculated Osmolality 320 H (280-300) Lactic Acid (0.5-2.2) mmol/L Calcium 9.4 (8.6-10.3) mg/dL Total Bilirubin 1.7 H (0.3-1.0) mg/dL AST 17 (13-39) Units/L ALT 8 (7-52) Units/L Alkaline Phosphatase 174 H (34-104) Units/L Ammonia (16-53) mcmol/L Troponin I 0.05 H* (< 0.04) ng/mL B-Natriuretic Peptide 4678 H (Less than 100) pg/mL Serum Total Protein 6.6 (6.4-8.9) g/dL Albumin 3.7 (3.5-5.7) g/dL Globulin 2.9 (2.4-3.5) g/dL Albumin/Globulin Ratio 1.3 (1.1-2.2) TSH 2.573 (0.340-5.600) mcIU/mL Ur Specimen Adequacy See below A Urine Color Yellow (Yellow) Urine Clarity Cloudy A (Clear) Urine pH 5.5 (5.0-8.0) pH Units Ur Specific Homer 1.020 (1.010-1.025) Urine Protein >=300 H (Neg-Trace) mg/dL Urine Glucose (UA) 100 H (Normal) mg/dL Urine Ketones Trace H (Negative) mg/dL Urine Blood Moderate H (Negative) Urine Nitrite Negative (Negative) Urine Bilirubin Small H (Negative) Urine Urobilinogen Normal (Normal) mg/dL Ur Leukocyte Esterase Trace H (Negative) Urine Microscopic WBC Present (0-3) per hpf Urine Bacteria Present (None-Few) per hpf Ur Culture Indicated? YES A (NO) 04/21/18 04/21/18 04/21/18 Range/Units 15:50 16:16 18:23 WBC (4.3-11.1) K/mcL RBC (3.82-4.97) M/mcL Hgb (11.5-15.4) g/dL Hct (35.3-44.9) % MCV (83.0-100.0) fL MCH (28.0-33.3) pg MCHC (31.6-35.5) g/dL RDW (11.5-14.5) % Plt Count (140-400) K/mcL MPV (9.4-12.4) fL Immature Gran % (0-4) % Seg Neutrophils % % Lymphocytes % % Monocytes % % Eosinophils % % Basophils % % Neutrophils # (1.6-8.9) K/mcL Lymphocytes # (0.6-4.6) K/mcL Monocytes # (0.0-1.3) K/mcL Eosinophils # (0.0-0.6) K/mcL Basophils # (0.0-0.2) K/mcL Nucleated RBCs/100 WBC (0) /100 WBC VBG pH 7.34 (7.32-7.42) pH Units VBG pCO2 51 (41-51) mmHg VBG pO2 76 H (25-50) mmHg VBG HCO3 27 (21-27) mEq/L Sodium (136-145) mEq/L Potassium (3.5-5.1) mEq/L Chloride (98-107) mEq/L Carbon Dioxide (23-29) mEq/L BUN (8-23) mg/dL Creatinine (0.60-1.20) mg/dL Est GFR ( Amer) (> 60) Est GFR (Non-Af Amer) (> 60) BUN/Creatinine Ratio (6-26) Glucose (70-105) mg/dL POC Glucose (70-99) mg/dL Calculated Osmolality (280-300) Lactic Acid 3.7 H (0.5-2.2) mmol/L Calcium (8.6-10.3) mg/dL Total Bilirubin (0.3-1.0) mg/dL AST (13-39) Units/L ALT (7-52) Units/L Alkaline Phosphatase (34-104) Units/L Ammonia 49 (16-53) mcmol/L Troponin I (< 0.04) ng/mL B-Natriuretic Peptide (Less than 100) pg/mL Serum Total Protein (6.4-8.9) g/dL Albumin (3.5-5.7) g/dL Globulin (2.4-3.5) g/dL Albumin/Globulin Ratio (1.1-2.2) TSH (0.340-5.600) mcIU/mL Ur Specimen Adequacy Urine Color (Yellow) Urine Clarity (Clear) Urine pH (5.0-8.0) pH Units Ur Specific Homer (1.010-1.025) Urine Protein (Neg-Trace) mg/dL Urine Glucose (UA) (Normal) mg/dL Urine Ketones (Negative) mg/dL Urine Blood (Negative) Urine Nitrite (Negative) Urine Bilirubin (Negative) Urine Urobilinogen (Normal) mg/dL Ur Leukocyte Esterase (Negative) Urine Microscopic WBC (0-3) per hpf Urine Bacteria (None-Few) per hpf Ur Culture Indicated? (NO) - Radiology Data Radiology results reviewed: Yes I reviewed the patient's radiology results. Chest X-Ray 04/21/18 14:27 IMPRESSION: No significant change from prior exam. Interstitial pulmonary edema. D/ / 04/21/2018 15:13:56 Corey Issa MD / gera Interpreting Provider: Corey Issa MD - EKG Data EKG attestation: Yes I reviewed and interpreted this EKG. EKG results narrative: EKG from today at 1419 shows sinus rhythm with heart rate 93. MA interval 175. QT 390. QTc 486. Ventricular bigeminy. No peaked T waves. No ST elevation or depressions noted. Unchanged from EKG from yesterday TPA Checklist - LKW: 3-4.5 hrs Add. Warnings/Precautions Patient/family understanding: The patient/family members have been counseled and understood the risk, benefit, and alternatives of treatment. Critical Care Time Critical Care Time: Yes Total Critical Care Time: 45 Attestation: Critical care time was exclusive of separately billable procedures and treating other patients. Critical care was necessary to treat or prevent imminent or life-threatening deterioration. Critical care was time spent personally by me on the following activities: development of treatment plan with patient and/or surrogate as well as nursing, discussions with consultants, evaluation of patient's response to treatment, examination of patient, obtaining history from patient or surrogate, ordering and performing treatments and interventions, ordering and review of laboratory studies, ordering and review of radiographic studies, pulse oximetry and re-evaluation of patient's condition. Attestation Statement - Attestation Attestation: Resident Attestation: I examined this patient and my medical decision making was reviewed with the Resident Physician. I agree with the documented findings, disposition and treatment plan as described except to the extent set forth below. We independently had [id number] contact with the patient. Patient initially seen yesterday for altered mental status. Patient improved in the emergency department and sent back to senior care. Patient presents today for worsening altered mental status. She is able to open her eyes to command as well as squeeze fingers. The patient is unable to give me further history. She is not sent with any paperwork from the senior care. She will undergo a broad workup including both infectious as well as metabolic etiologies. On exam she is able to open her eyes to commands. She is able to squeeze my fingers. She is unable to give any further participation in neurologic exam. Her lungs are diminished throughout. Abdomen is soft nontender to palpation without any associated grimacing. The patient does not have any other signs of infection. The first phalanx which was previously treated for osteomyelitis does not appear to be acutely infected. Patient has no elevated lactic acid as well as a worsening creatinine. CT of the head does not show any acute abnormality. substation technician noticed significant fluid within the lungs on CT abdomen and pelvis and they did ask to include us chest CT. Chest CT added. Patient with overall fluid overload and anasarca. Mild ascites fluid. CT scan otherwise with no specific etiology. Lactic acid elevated. Mild fluid bolus was initiated. BiPAP and nitroglycerin were started within the emergency department. Overall etiology is unknown at this time. Patient will require admission and likely ICU status. Discussed with the hospitalist who agrees with treatment. Recommends continuing the fluids his repeat lactate did not show any significant improvement. The patient will also be given Lasix. No recommendations for albumin or blood products at this time. Patient's overall status has been monitored throughout her emergency department stay which was over 5 hours. Mental status did not significantly change during this time. She is still able to follow basic commands like squeezing my fin gers. She did have ecchymosis to the lateral aspect of the right neck. This was verified with the night physician and was present yesterday on her arrival. Patient's condition is critical at this time.
[2018-04-21] MEDS ORDERED: Ipratropium/Albuterol Neb 3 ML IH ONE ×2 (14:47→15:39)
[2018-04-21 14:48] LABS: Basophils % 0.1 %; Hematocrit 42.1 % (35.3-44.9); Hemoglobin 12.6 g/dL (11.5-15.4); Immature Granulocytes % 0.5 % (0-4); Lymphocytes # 0.8 K/mcL (0.6-4.6); Lymphocytes % 10.1 %; Mean Corpuscular HGB Conc 29.9 g/dL (31.6-35.5); Mean Corpuscular Hemoglobin 29.1 pg (28.0-33.3); Mean Corpuscular Volume 97.2 fL (83.0-100.0); Mean Platelet Volume 12.6 fL (9.4-12.4); Monocytes # 0.5 K/mcL (0.0-1.3); Monocytes % 6.4 %; Neutrophils # 6.6 K/mcL (1.6-8.9); Nucleated Red Blood Cells 0.3 /100 WBC (0); Platelet Count 153 K/mcL (140-400); Red Blood Count 4.33 M/mcL (3.82-4.97); Red Cell Distribution Width 18.8 % (11.5-14.5); Segmented Neutrophils % 82.9 %
[2018-04-21 15:04] LABS: Bilirubin,Urine Small (Negative); Blood,Urine Moderate (Negative); Clarity,Urine Cloudy (Clear); Color,Urine Yellow (Yellow); Glucose,Urine (UA) 100 mg/dL (Normal); Ketones,Urine Trace mg/dL (Negative); Leukocyte Esterase,Urine Trace (Negative); Nitrite,Urine Negative (Negative); PH,Urine 5.5 pH Units (5.0-8.0); Protein,Urine >=300 mg/dL (Neg-Trace); Urobilinogen,Urine Normal (Normal)
[2018-04-21 15:06] LABS: Albumin 3.7 g/dL (3.5-5.7); Albumin/Globulin Ratio 1.3 (1.1-2.2); Bilirubin,Total 1.7 mg/dL (0.3-1.0); Calcium 9.4 mg/dL (8.6-10.3); Globulin 2.9 g/dL (2.4-3.5); Potassium 5.2 mEq/L (3.5-5.1); Total Protein 6.6 g/dL (6.4-8.9)
[2018-04-21 15:12] LABS: Bacteria,Urine Present per hpf (None-Few)
[2018-04-21 15:13] LABS: WBC,Urine Present per hpf (0-3)
[2018-04-21 15:19] LABS: Troponin I 0.05 ng/mL (< 0.04)
[2018-04-21 15:29] LABS: Thyroid Stimulating Hormone 2.573 mcIU/mL (0.340-5.600)
[2018-04-21] MEDS ORDERED: Levofloxacin 750 MG/150 ML 750 MG/150 ML BAG IVPB STA ×2 (15:39→16:07)
[2018-04-21] MEDS ORDERED: 0.9 % Sodium Chloride 500 ML IVC ONE (15:40)
[2018-04-21] MEDS ORDERED: Cefepime HCl 2,000 MG in 0.9 % Sodium Chloride Mini Bag 100 ML IVPB STA ×2 (15:41→16:05)
[2018-04-21 16:20] LABS: VBG HCO3 27 mEq/L (21-27); VBG PCO2 51 mmHg (41-51); VBG PH 7.34 pH Units (7.32-7.42); VBG PO2 76 mmHg (25-50)
[2018-04-21] MEDS ORDERED: Nitroglycerin 25 MG/250 ML INFUS..BTL IVC SCH (17:45)
[2018-04-21] MEDS ORDERED: Furosemide 40 MG/4 ML VIAL IVP ONE ×2 (20:08→22:31)
[2018-04-21] MEDS ORDERED: 0.9 % Sodium Chloride 1,000 ML IVC SCH (20:15)
[2018-04-21] MEDS ORDERED: Acetaminophen 325 MG TABLET PO PRN (20:55)
[2018-04-21] MEDS ORDERED: *HR* HYDROcodone/Acet 5/325 mg TABLET PO PRN (20:55)
[2018-04-21] MEDS ORDERED: Naloxone 0.4 MG/ML INJ IVP PRN (20:55)
[2018-04-21] MEDS ORDERED: 0.9 % Sodium Chloride 1,000 ML IVC ONE (20:57)
[2018-04-21] MEDS ORDERED: Ondansetron 4 MG/2 ML VIAL IVP PRN (20:58)
--- NOTE | 2018-04-21 21:04 | Internal Med History&Physical ---
<Anna Lozano - Last Filed: 04/21/18 21:30> Date of Encounter: 04/21/18 Time of Encounter: 21:02 Internal Medicine - H&P: HPI Chief complaint: AMS Admitted From: Emergency Dept History of present illness: Ms. Ibarra is a 67 year old female with significant PMHx of ESRD (not currently on dialysis), CAD, Type 2 diabetes, prior CVA with residual left sided weakness admitted for altered mental status. Patient unable to provide any history of present illness in the room. All HPI obtained from the ED physician and previous record. According to the ED, patient was sent from a SNF via EMS for altered mental status. She has been not herself since 6am yesterday. Patient was seen last evening in the ED and completely worked up with no acute finding and was sent back to the SNF. This evening patient became even more confused and was brought in for further evaluation. Patient has not had any new cough, fever, or illnesses at the SNF. 1 month ago patient was admitted for AMS and was found to have osteomyelitis to the right large toe. Patient had a PICC line placed and received daptomycin. Patient still currently receiving these antibiotics. In the emergency department patient was found to have an elevated lactic acid, elevated BNP, and elevated troponin. Repeat lactic acid repeated after 500cc bolus and remained high. CT abd/pelvis and chest were completed that was concerning for anasarca, acites, and bilateral pleural effusions.Patient placed on broad spectrum antibiotics in the ED. UA did not show infection. No leukocytosis. In my evaluation of the patient she mumbled to painful stimuli but was otherwise somnolent. Hemodynamically stable and on BiPAP. Past Med Surg Social Fam HX - Past Medical History Source: old records reviewed Medical history: non-contributory, coronary artery disease, diabetes, hyperlipidemia, hypertension, renal disease Additional medical history: bp/cholesterol "controlled" Psychiatric history: no psych history - Past Surgical History Surgical History: angioplasty/stent, other Additional surgical history: Right BKA - Social History Smoking Status: Former smoker Smokeless Tobacco Status: No Alcohol use: none Drug use: none - Family History Father Living Status: Mother Living Status: Hx Family Endocrine Disorder: Yes Internal Medicine - H&P: Meds RX: Allopurinol [Zyloprim 100 MG] 100 mg PO HS 07/05/17 [History] RX: Linagliptin [Tradjenta] 5 mg PO DAILY 07/05/17 [History] RX: Omeprazole [PriLOSEC] 20 mg PO DAILY 07/05/17 [History] RX: Aspirin 81 mg PO DAILY #30 tab.chew 07/30/17 [Rx] RX: Atorvastatin [Lipitor] 40 mg PO HS #30 tablet 07/30/17 [Rx] RX: Acetaminophen [Tylenol] 650 mg PO Q6HR PRN 03/12/18 [History] RX: Amino Acids/Protein Hydrolys [Pro-Stat Awc Liquid Packet] 30 ml PO DAILY 03/12/18 [History] RX: Furosemide [Lasix] 20 mg PO QAM 03/12/18 [History] RX: Metoprolol [Lopressor] 25 mg PO BID 03/12/18 [History] RX: PARoxetine HCl [Paroxetine HCl] 10 mg PO DAILY 03/12/18 [History] RX: Sevelamer [Renvela] 800 mg PO TIDWM 03/12/18 [History] DAPTOmycin [Cubicin] 500 mg IV Q48H 04/22/18 [History] Allergy/AdvReac Type Severity Reaction Status Date / Time No Known Allergies Allergy Verified 07/05/17 17:25 ROS unobtainable: due to mental status All Systems PM: A 10-system review of systems was performed and is negative for pertinent findings except as documented above in the HPI. - Constitutional Vitals: Temp Pulse Resp BP Pulse Ox 99.7 F H 95 19 166/85 100 04/21/18 14:10 04/21/18 18:30 04/21/18 20:41 04/21/18 20:41 04/21/18 18:30 Exam: Patient is somnolent in the room. Hemodynamically stable. Mildy arouses to painful stimuli. - Head Head exam: Present: normocephalic - Eye Eye exam: Absent: scleral icterus - Neck Additional comments: Eccymosis noted to the right anterior and posterior neck. No palpable fluctuance, mass, or bogginess. - Respiratory Additional comments: decreased breath sounds bilateral bases - Cardiovascular Cardiovascular exam: Present: RRR. Absent: bradycardia, clicks - GI/Abdominal GI/Abdominal exam: Present: soft. Absent: distended, firm, rigid, tenderness - Extremities Exam Additional comments: left BKA, right large toe well healing osteomyelitis Internal Med - H&P Results - Labs CBC & Chem 7: 04/21/18 14:34 04/21/18 14:34 Labs: Short CBC 04/21/18 Range/Units 14:34 WBC 7.9 (4.3-11.1) K/mcL Hgb 12.6 (11.5-15.4) g/dL Hct 42.1 (35.3-44.9) % Plt Count 153 (140-400) K/mcL Neutrophils # 6.6 (1.6-8.9) K/mcL BMP 04/21/18 14:34 Sodium 146 H Potassium 5.2 H Chloride 106 Carbon Dioxide 25 BUN 45 H Creatinine 2.43 H Glucose 214 H Calcium 9.4 Cardiac Enzymes 04/21/18 Range/Units 14:34 Troponin I 0.05 H* (< 0.04) ng/mL Liver Function 04/21/18 Range/Units 14:34 Total Bilirubin 1.7 H (0.3-1.0) mg/dL AST 17 (13-39) Units/L ALT 8 (7-52) Units/L Alkaline Phosphatase 174 H (34-104) Units/L Albumin 3.7 (3.5-5.7) g/dL Urine 04/21/18 Range/Units 14:39 Urine Color Yellow (Yellow) Urine Clarity Cloudy A (Clear) Urine pH 5.5 (5.0-8.0) pH Units Ur Specific [place] 1.020 (1.010-1.025) Urine Protein >=300 H (Neg-Trace) mg/dL Urine Glucose (UA) 100 H (Normal) mg/dL - ABG Interpretation ABG results: 04/21/18 16:16 VBG pH 7.34 VBG pCO2 51 VBG pO2 76 H VBG HCO3 27 - Impressions ITS Impressions Chest CT 04/21/18 00:00 IMPRESSION: Right larger than left pleural effusions with associated multifocal airspace disease. Pulmonary edema is favored over pneumonia Subcutaneous fat stranding is noted diffusely suggesting third-spacing of fluid Mediastinal lymph nodes are likely reactive. Follow-up imaging recommended to ensure resolution. D/ / Dionte Rosas / Dionte Rosas Interpreting Provider: Dionte Rosas Head CT 04/21/18 14:25 IMPRESSION: No evidence of acute intracranial abnormality. D/ / 04/21/2018 16:00:24 Rehan Husain MD / gera Interpreting Provider: Rehan Husain MD Chest X-Ray 04/21/18 14:27 IMPRESSION: No significant change from prior exam. Interstitial pulmonary edema. D/ / 04/21/2018 15:13:56 Corey Issa MD / gera Interpreting Provider: Corey Issa MD Abdomen/Pelvis CT 04/21/18 16:37 IMPRESSION: Small amount of ascites in the abdomen and pelvis. There is marked anasarca. Large right and small left bilateral pleural effusions. Right lower lobe compressive atelectasis. Calcific coronary artery disease. Both kidneys are slightly small in size. No evidence of hydronephrosis. Mild thickening of the gallbladder wall versus pericholecystic fluid/ascites. T11 compression fracture of indeterminate age. D/ / Dionte Chauhan MD / Dionte Chauhan MD Interpreting Provider: Dionte Chauhan MD - Assessment and plan (1) Altered mental status, unspecified Current Visit: Yes Status: Resolved Assessment and plan: Patient somnolent in the room. Mildly arousable with painful stimuli. Unknown source leading to altered mental status at this time. Blood cultures pending. Repeat lactic acid ordered. Trending troponins. Urinalysis negative. CT of the chest concerning for pleural effusion but otherwise no acute abnormality. CT of abdomen and pelvis shows anasarca but no other acute abnormality. Qualifiers: Altered mental status type: disorientation Qualified Code(s): R41.0 - Disorientation, unspecified (2) Lactic acid acidosis Current Visit: Yes Status: Acute Assessment and plan: Patient's initial lactic acid 3.6. Repeat 3.7. We will fluid resuscitate patient with 1 L and repeat lactic acid. Unknown source at this time. (3) Fluid overload Current Visit: Yes Status: Acute Assessment and plan: Patient with anasarca, pleural effusion and ascites. We will consult interventional radiology for possible thoracentesis. Patient looks intravascularly depleted on exam therefore we will bolus with 1 L and reassess. Will determine if patient needs albumin after initial fluid resuscitation. Qualifiers: Hypervolemia type: unspecified Qualified Code(s): E87.70 - Fluid overload, unspecified (4) Chronic kidney disease Current Visit: Yes Status: Acute Assessment and plan: Patient creatinine at baseline. Will trend daily with BMPs. Qualifiers: Chronic kidney disease stage: unspecified stage Qualified Code(s): N18.9 - Chronic kidney disease, unspecified (5) CAD (coronary artery disease) Current Visit: Yes Status: Acute Assessment and plan: Continue home medications. Trend troponin due to initial elevated. According to emergency department patient did not complain of chest pain. EKG unchanged from baseline. Qualifiers: Coronary Disease-Associated Artery/Lesion type: [place] artery [place] vs. transplanted heart: nome heart Associated angina: without angina Qualified Code(s): I25.10 - Atherosclerotic heart disease of nome coronary artery without angina pectoris (6) Osteomyelitis Current Visit: No Status: Suspected Assessment and plan: Patient supposedly taking daptomycin for her right large toe osteomyelitis. This cannot be confirmed in the computer at this time. We will hold until Confirmation completed tomorrow. Qualifiers: Osteomyelitis type: other Osteomyelitis location: other site Qualified Code(s): M86.8X8 - Other osteomyelitis, other site (7) DM type 2 (diabetes mellitus, type 2) Current Visit: Yes Status: Chronic Assessment and plan: Medium dose sliding scale insulin. Qualifiers: Diabetes mellitus mcfp insulin use: without mcfp use Diabetes me llitus complication status: with kidney complications Diabetes mellitus c omplication detail: with chronic kidney disease Chronic kidney disease stage: on chronic dialysis Qualified Code(s): E11.22 - Type 2 diabetes mellitus with diabetic chronic kidney disease; N18.6 - End stage renal disease; Z99.2 - Depe ndence on renal dialysis (8) DVT prophylaxis Current Visit: Yes Status: Acute Assessment and plan: Subcutaneous heparin - Time Spent With Patient Total time spent is greater than 50% in coordination of care (as documented) at patient's floor/unit and/or counseling patient: <Teresa Jiménez - Last Filed: 04/22/18 03:17> Date of Encounter: 04/21/18 Internal Medicine - H&P: HPI History of present illness: Ms. Ibarra is a 67 year old female All Systems PM: A 10-system review of systems was performed and is negative for pertinent findings except as documented above in the HPI. - Constitutional Vitals: Temp Pulse Resp BP Pulse Ox 99 F 91 16 164/95 95 04/21/18 22:04 04/21/18 22:04 04/21/18 22:04 04/21/18 22:24 04/21/18 22:04 Internal Med - H&P Results - Labs CBC & Chem 7: 04/21/18 21:20 04/21/18 14:34 Labs: Short CBC 04/21/18 04/21/18 Range/Units 14:34 21:20 WBC 7.9 7.3 (4.3-11.1) K/mcL Hgb 12.6 12.4 (11.5-15.4) g/dL Hct 42.1 41.5 (35.3-44.9) % Plt Count 153 135 L (140-400) K/mcL Neutrophils # 6.6 5.8 (1.6-8.9) K/mcL BMP 04/21/18 14:34 Sodium 146 H Potassium 5.2 H Chloride 106 Carbon Dioxide 25 BUN 45 H Creatinine 2.43 H Glucose 214 H Calcium 9.4 Cardiac Enzymes 04/21/18 04/21/18 Range/Units 14:34 21:20 Troponin I 0.05 H* 0.05 H* (< 0.04) ng/mL Liver Function 04/21/18 Range/Units 14:34 Total Bilirubin 1.7 H (0.3-1.0) mg/dL AST 17 (13-39) Units/L ALT 8 (7-52) Units/L Alkaline Phosphatase 174 H (34-104) Units/L Albumin 3.7 (3.5-5.7) g/dL Urine 04/21/18 Range/Units 14:39 Urine Color Yellow (Yellow) Urine Clarity Cloudy A (Clear) Urine pH 5.5 (5.0-8.0) pH Units Ur Specific [place] 1.020 (1.010-1.025) Urine Protein >=300 H (Neg-Trace) mg/dL Urine Glucose (UA) 100 H (Normal) mg/dL - ABG Interpretation ABG results: 04/21/18 16:16 VBG pH 7.34 VBG pCO2 51 VBG pO2 76 H VBG HCO3 27 - Impressions ITS Impressions Chest CT 04/21/18 00:00 IMPRESSION: Right larger than left pleural effusions with associated multifocal airspace disease. Pulmonary edema is favored over pneumonia Subcutaneous fat stranding is noted diffusely suggesting third-spacing of fluid Mediastinal lymph nodes are likely reactive. Follow-up imaging recommended to ensure resolution. D/ / Dionte Rosas / Dionte Rosas Interpreting Provider: Dionte Rosas Head CT 04/21/18 14:25 IMPRESSION: No evidence of acute intracranial abnormality. D/ / 04/21/2018 16:00:24 Rehan Husain MD / gera Interpreting Provider: Rehan Husain MD Chest X-Ray 04/21/18 14:27 IMPRESSION: No significant change from prior exam. Interstitial pulmonary edema. D/ / 04/21/2018 15:13:56 Corey Issa MD / gera Interpreting Provider: Corey Issa MD Abdomen/Pelvis CT 04/21/18 16:37 IMPRESSION: Small amount of ascites in the abdomen and pelvis. There is marked anasarca. Large right and small left bilateral pleural effusions. Right lower lobe compressive atelectasis. Calcific coronary artery disease. Both kidneys are slightly small in size. No evidence of hydronephrosis. Mild thickening of the gallbladder wall versus pericholecystic fluid/ascites. T11 compression fracture of indeterminate age. D/ / Dionte Chauhan MD / Dionte Chauhan MD Interpreting Provider: Dionte Chauhan MD - Time Spent With Patient Total time spent is greater than 50% in coordination of care (as documented) at patient's floor/unit and/or counseling patient: - Attending Attestation I performed a history and physical exam of the patient and discussed management with the resident on 04/21/18. I reviewed the resident's note and agree with the documented findings and plan of care. Sil Ibarra is a 67-year-old woman with a history of chronic kidney disease, coronary artery disease, cerebrovascular disease, hypertension and diabetes complicated by peripheral artery disease with lower extremity amputation and right hallux osteomyelitis, current resident at [facility] who has been admitted here multiple times for altered mental status. She is brought in today by EMS with the complaint that she was again more confused than usual. In the ER she was unable to state her name or where she was and was only responsive to sternal rub. Head CT was unremarkable. Labs revealing of troponin of 0.05 which is at her baseline and an elevated serum lactic acid. Potassium is low and BNP is elevated at 4678. Further imaging studies as reviewed by me are revealing for ascites and large volume pleural effusions bilaterally. UA is unremarkable and no overt signs of infection are present. She was given empiric antibiotics due to the lactic acid elevation and fluids followed by furosemide. She was also placed on nitroglycerin drip due to concern for pulmonary edema resulting in respiratory failure requiring BiPAP. Physical exam remarkable for dry mucous membranes, left BKA that is well-healed, lethargic mental status and unresponsive to verbal commands. PICC line seen in her right upper extremity that is without inflammatory signs. Noted that she moves her extremities spontaneously. Unable to assess her affect. We will admit to monitored setting due to her tenuous state. Stop IV fluids to avoid fluid overload; trial of albumin infusion followed by furosemide will be attempted. BiPAP and nitroglycerin drip as tolerated. Check echocardiogram to assess for heart failure. Strict Is and Os. Consult interventional radiology for thoracentesis. Kidney function appears stable and troponin elevation is adynamic and without electrocardiographic changes. Need to verify dose of daptomycin being given at the group home and for what duration so that it can be continued accordingly. KALEIGH BARRY.
[2018-04-21 21:33] LABS: Basophils % 0.1 %; Hematocrit 41.5 % (35.3-44.9); Hemoglobin 12.4 g/dL (11.5-15.4); Immature Granulocytes % 0.8 % (0-4); Lymphocytes # 0.7 K/mcL (0.6-4.6); Mean Corpuscular HGB Conc 29.9 g/dL (31.6-35.5); Mean Corpuscular Hemoglobin 29.2 pg (28.0-33.3); Mean Corpuscular Volume 97.9 fL (83.0-100.0); Mean Platelet Volume 11.5 fL (9.4-12.4); Monocytes # 0.8 K/mcL (0.0-1.3); Monocytes % 10.7 %; Neutrophils # 5.8 K/mcL (1.6-8.9); Nucleated Red Blood Cells 0.4 /100 WBC (0); Platelet Count 135 K/mcL (140-400); Red Blood Count 4.24 M/mcL (3.82-4.97); Red Cell Distribution Width 18.8 % (11.5-14.5); Segmented Neutrophils % 79.4 %
[2018-04-21 22:03] LABS: Troponin I 0.05 ng/mL (< 0.04)
[2018-04-21] MEDS ORDERED: Dextrose Gel 15 GM/37.5 ML TUBE PO PRN ×2 (22:10)
[2018-04-21] MEDS ORDERED: Albumin 25% 25gram/100mL 25 GM/100 ML IV.SOLN IVPB ONE (22:31)
[2018-04-21] MEDS: *HR* Heparin 5,000 UNIT/ML VIAL SQ SCH (22:33)
[2018-04-22] MEDS: Insulin LISPRO 300 UNITS/3 ML VIAL SQ SCH ×5 (00:53→23:46)
[2018-04-22 03:54] LABS: Calcium 9.2 mg/dL (8.6-10.3); Potassium 4.8 mEq/L (3.5-5.1)
[2018-04-22] MEDS: *HR* Heparin 5,000 UNIT/ML VIAL SQ SCH ×3 (04:45→20:53)
[2018-04-22] MEDS ORDERED: *HR* Heparin 5,000 UNIT/ML VIAL SQ SCH (06:00)
--- NOTE | 2018-04-22 10:01 | Pulmonology Consult Note ---
Date of Encounter: 04/22/18 Time of Encounter: 09:00 Assessment and Plan (1) Pleural effusion Current Visit: Yes Status: Acute Patient has right-sided pleural effusion is having moderate to large pleural effusion most likely due to transudative causes secondary to chronic kidney disease and CHF patient V/Q mismatch is stable no respiratory distress patient could not give consent for thoracentesis will hold off until we get family members or if patient wakes up. The urgent workup for this patient will be figuring out the cause for this altered mental status. Please call pulmonary when the patient or family member is able to consent for thoracentesis. (2) Altered mental status Current Visit: Yes Status: Acute Might be UTI low suspicion for pneumonia consider neurology consult for further evaluation for his altered mental status. Qualifiers: Altered mental status type: coma Qualified Code(s): R40.20 - Unspecified coma History of Present Illness Consult date: 04/22/18 Requesting physician: Nabil Huitron Reason for consult: pleural effusion Chief complaint: altered mental status History of present illness: 67-year-old female with past medical history difficult for hypertension, diabetes, coronary artery disease, chronic kidney disease Presented with altered mental status patient has recurrent altered mental status last time when she was admitted and osteomyelitis to light and antibiotics. Pulmonary was consulted for evaluation of this right-sided pleural effusion CT chest showed significant pleural effusion most likely be a transudate since patient did not participate in review of systems from chart review no fever or chills constitutional symptoms on presentation. Pulmonary was consulted for right-sided thoracentesis. Past Med Surg Social Fam HX - Past Medical History Medical history: non-contributory, coronary artery disease, diabetes, hyperlipidemia, hypertension, renal disease Additional medical history: bp/cholesterol "controlled" Psychiatric history: no psych history - Past Surgical History Surgical History: angioplasty/stent, other Additional surgical history: Left BKA - Social History Smoking Status: Former smoker Smokeless Tobacco Status: No Alcohol use: none Drug use: none - Family History Mother History Unknown: Yes Living Status: Hx Family Endocrine Disorder: Yes Father History Unknown: Yes Living Status: Medications and Allergies Allopurinol [Zyloprim 100 MG] 100 mg PO HS 07/05/17 [History] Linagliptin [Tradjenta] 5 mg PO DAILY 07/05/17 [History] Omeprazole [PriLOSEC] 20 mg PO DAILY 07/05/17 [History] Aspirin 81 mg PO DAILY #30 tab.chew 07/30/17 [Rx] Atorvastatin [Lipitor] 40 mg PO HS #30 tablet 07/30/17 [Rx] Acetaminophen [Tylenol] 650 mg PO Q6HR PRN 03/12/18 [History] Amino Acids/Protein Hydrolys [Pro-Stat Awc Liquid Packet] 30 ml PO DAILY 03/12/18 [History] Furosemide [Lasix] 20 mg PO QAM 03/12/18 [History] Metoprolol [Lopressor] 25 mg PO BID 03/12/18 [History] PARoxetine HCl [Paroxetine HCl] 10 mg PO DAILY 03/12/18 [History] Sevelamer [Renvela] 800 mg PO TIDWM 03/12/18 [History] DAPTOmycin [Cubicin] 500 mg IV Q48H 04/22/18 [History] Allergy/AdvReac Type Severity Reaction Status Date / Time No Known Allergies Allergy Verified 07/05/17 17:25 All Systems: The remainder of the systems were reviewed and are negative Physical Examination Vital Signs: Vital Signs, Last 4 Hours Temp Pulse Resp BP Pulse Ox 04/22/18 07:07 98.4 F 96 18 123/86 95 General appearance: comatose Auscultation: right: diminished breath sounds unable to assess due to mental status, other (arousable to painful stimuli) Results - Laboratory Findings CBC and BMP: 04/21/18 21:20 04/22/18 03:23 Abnormal lab findings: Abnormal lab results MCHC 29.9 g/dL (31.6-35.5) L 04/21/18 21:20 RDW 18.8 % (11.5-14.5) H 04/21/18 21:20 Plt Count 135 K/mcL (140-400) L 04/21/18 21:20 Nucleated RBCs/100 WBC 0.4 /100 WBC (0) H 04/21/18 21:20 VBG pO2 76 mmHg (25-50) H 04/21/18 16:16 BUN 48 mg/dL (8-23) H 04/22/18 03:23 Creatinine 2.39 mg/dL (0.60-1.20) H 04/22/18 03:23 Est GFR ( Amer) 24 (> 60) L 04/22/18 03:23 Est GFR (Non-Af Amer) 20 (> 60) L 04/22/18 03:23 Glucose 249 mg/dL (70-105) H 04/22/18 03:23 POC Glucose 173 mg/dL (70-99) H 04/21/18 14:14 Calculated Osmolality 321 (280-300) H 04/22/18 03:23 Lactic Acid 2.6 mmol/L (0.5-2.2) H 04/22/18 03:23 Total Bilirubin 1.7 mg/dL (0.3-1.0) H 04/21/18 14:34 Alkaline Phosphatase 174 Units/L (34-104) H 04/21/18 14:34 Troponin I 0.05 ng/mL (< 0.04) H* 04/21/18 21:20 B-Natriuretic Peptide 4678 pg/mL (Less than 100) H 04/21/18 14:34 Ur Specimen Adequacy See below A 04/21/18 14:39 Urine Clarity Cloudy (Clear) A 04/21/18 14:39 Urine Protein >=300 mg/dL (Neg-Trace) H 04/21/18 14:39 Urine Glucose (UA) 100 mg/dL (Normal) H 04/21/18 14:39 Urine Ketones Trace mg/dL (Negative) H 04/21/18 14:39 Urine Blood Moderate (Negative) H 04/21/18 14:39 Urine Bilirubin Small (Negative) H 04/21/18 14:39 Ur Leukocyte Esterase Trace (Negative) H 04/21/18 14:39 Ur Culture Indicated? YES (NO) A 04/21/18 14:39 - Microbiology Findings Microbiology Findings: Microbiology, Last 48 Hours 04/21/18 15:50 Blood Culture - Preliminary Peripheral Central Cath, Picc Culture is incubating and being continuously monitored for growth. Final report to follow. 04/21/18 14:34 Blood Culture - Preliminary Peripheral Venipuncture Culture is incubating and being continuously monitored for growth. Final report to follow. 04/21/18 14:34 Blood Culture - Preliminary Peripheral Venipuncture Culture is incubating and being continuously monitored for growth. Final report to follow. - Clinical Findings Intake & Output: Intake & Output 04/21/18 04/22/18 04/22/18 23:59 07:59 15:59 Intake Total 750 / 750 50 / 50 Balance 750 / 750 50 / 50 Weight 100 kg 100 kg Consult Discharge Plan - Plan Referrals: NONE,PCP [Primary Care Provider] -
[2018-04-22 10:34] LABS: INR 1.6; Prothrombin Time 18.4 Seconds (9.4-12.1)
--- NOTE | 2018-04-22 11:51 | Nephrology Consult Note ---
Date of Encounter: 04/22/18 Time of Encounter: 11:50 Assessment and Plan (1) CKD (chronic kidney disease) stage 4, GFR 15-29 ml/min Current Visit: No Status: Acute Patient has chronic kidney disease stage IV that is stable compared with labs in March indicating an EGFR right around 20. The patient previously had a diagnosis of end-stage renal disease per records June 2017. There is no clear indication as to when she experienced renal recovery, however, there is no indication that she is currently on hemodialysis. At this time we do not have any additional documents pertaining to this patient. On physical exam the patient does not have a tunneled dialysis catheter and I do not see a fistula nor a hemodialysis graft that would indicate that she is currently getting dialysis. Her labs indicate a stable stage IV chronic kidney disease. At this time it appears that her chronic kidney disease is stable. I do not see an indication for immediate dialysis. There is no indication that she is on chronic dialysis. If her labs change and her renal function worsens feel free to reconsult us [facility]. We will sign off please consult any issues arise. Please have the patient follow-up with her outpatient shredding specialist as previously scheduled. History of Present Illness - Reason for Consult Consult date: 04/22/18 Chronic Kidney Disease - Chief Complaint ckd - History of Present Illness Ms. Bobby is a 67-year-old woman with a history of chronic kidney disease who presents for altered mental status. The history was obtained from talking with the covering hospitalist as well as reviewing the electronic chart as the patient does not answer any questions. She also does not open her eyes. Her review of systems was unobtainable. The patient was previously seen by Dr. Huddleston's group. And apparently was on dialysis. At this time we do not have any other records to know whether not she is on dialysis now. Per my evaluation I do not see a hemodialysis access and her labs appear to be relatively stable. Past Med Surg Social Fam HX - Past Medical History Medical history: non-contributory, coronary artery disease, diabetes, hyperlipidemia, hypertension, renal disease Additional medical history: bp/cholesterol "controlled" Psychiatric history: no psych history - Past Surgical History Surgical History: angioplasty/stent, other Additional surgical history: Left BKA - Social History Smoking Status: Former smoker Smokeless Tobacco Status: No Alcohol use: none Drug use: none - Family History Mother History Unknown: Yes Living Status: Hx Family Endocrine Disorder: Yes Father History Unknown: Yes Living Status: Medications and Allergies Allopurinol [Zyloprim 100 MG] 100 mg PO HS 07/05/17 [History] Linagliptin [Tradjenta] 5 mg PO DAILY 07/05/17 [History] Omeprazole [PriLOSEC] 20 mg PO DAILY 07/05/17 [History] Aspirin 81 mg PO DAILY #30 tab.chew 07/30/17 [Rx] Atorvastatin [Lipitor] 40 mg PO HS #30 tablet 07/30/17 [Rx] Acetaminophen [Tylenol] 650 mg PO Q6HR PRN 03/12/18 [History] Amino Acids/Protein Hydrolys [Pro-Stat Awc Liquid Packet] 30 ml PO DAILY 03/12/18 [History] Furosemide [Lasix] 20 mg PO QAM 03/12/18 [History] Metoprolol [Lopressor] 25 mg PO BID 03/12/18 [History] PARoxetine HCl [Paroxetine HCl] 10 mg PO DAILY 03/12/18 [History] Sevelamer [Renvela] 800 mg PO TIDWM 03/12/18 [History] DAPTOmycin [Cubicin] 500 mg IV Q48H 04/22/18 [History] Allergy/AdvReac Type Severity Reaction Status Date / Time No Known Allergies Allergy Verified 07/05/17 17:25 Review of Systems ROS unobtainable: due to mental status Exam - Vital Signs Vital signs: Initial Vital Signs Temp Pulse Resp Pulse Ox 99.7 F H 95 20 99 04/21/18 14:07 04/21/18 14:07 04/21/18 14:07 04/21/18 14:07 Vital Signs - Last 8 Hours Temp Pulse Resp BP Pulse Ox 04/22/18 07:07 98.4 F 96 18 123/86 95 Intake and Output 04/21/18 04/22/18 04/22/18 23:59 07:59 15:59 Intake Total 750 / 750 50 / 50 Balance 750 / 750 50 / 50 Intake: IV Fluids 750 / 750 50 / 50 0.9 % Sodium Chloride 500 ML @ 500 / 500 999 mls/hr IVC .Q31M ONE Rx#: [id number] Nitroglycerin Premix 25 MG/250 50 / 50 ML 25 mg In 250 ml @ 5 MCG/MIN 3 mls/hr IVC .Q24H ELIS Rx#: [id number] Maxipime 2,000 MG In 0.9 % 100 / 100 Sodium Chloride (Mini-Bag +) 100 ML @ 200 mls/hr IVPB Q8HR STA Rx#:[id number] Levaquin Premix 750mg/150 mL 150 / 150 750 mg In 150 ml @ 100 mls/hr IVPB DAILY STA Rx#:[id number] Oral 0 / 0 Other: Meal NPO Percent of Meal Consumed 0% Stool Size Small Smear Stool Consistency soft Stool Color Brown # Urine Diapers 1 1 # Bowel Movement Diapers 1 Weight 100 kg 100 kg Patient Weight 04/22/18 23:59 Weight 100 kg - General Appearance General appearance: well-developed, well-nourished EENT: ATNC Respiratory: course breath sounds Cardiology: no edema, regular rate Gastrointestinal: no tenderness Integumentary: warm and dry Neurologic: disoriented Musculoskeletal: no cyanosis Results - Lab Results 04/21/18 21:20 04/22/18 03:23 Most recent lab results Calcium 9.2 mg/dL (8.6-10.3) 04/22/18 03:23 Consult Discharge Plan - Plan Referrals: NONE,PCP [Primary Care Provider] -
--- NOTE | 2018-04-22 12:06 | Internal Med Progress Note ---
Hospitalist Progress Note - Encounter Date of Encounter: 04/22/18 Time of Encounter: 10:45 - Subjective Interval History: H&P reviewed. Patient with history of ESRD (?not on HD), A. fib/DVT on Eliquis, CAD s/p CABG, diabetes, COPD, PAD status post left BKA, presented from ECF due to concern of AMS. Patient has her eyes closed and would moan to tactile stimuli but unable to tell me meaningful history. Grossly moving all 4 limbs without obvious deficits. Attempt was made to speak to the halfway staff as well as her emergency contact but was unable to get a hold of them. - Exam Vitals: Temp Pulse Resp BP Pulse Ox 98.5 F 107 22 158/95 94 04/22/18 11:57 04/22/18 11:57 04/22/18 11:57 04/22/18 11:57 04/22/18 11:57 Exam: General: Arousable by tactile stimuli, appears to be comfortable HEENT:pupils equal, round and reactive. Cardiovascular:Normal S1 & S2, No JVD. Pulse regular. Lungs: Diminished breath sounds Abdomen:Soft, non-tender, no rigidity. Extremities: s/p L BKA Neurological: Moving all 4 limbs without obvious deficits - Assessment and Plan (1) Encephalopathy Current Visit: Yes Status: Acute Assessment and Plan: unclear etiology at this point CT head-ve, ABG without hypercarbia urinalysis -ve for nitrite, trace LE and bacteria seen ?UTI CT chest also showed R>L effusion as well as airspace disease which may be more compatible with pulmonary edema than PNA pt also has hx of R 1st toe OM, reported on IV Daptomycin at the halfway was given vanc/cefepime/levaquin 1 dose Plan - follow up on blood and urine cultures - hx of E.coli UTI, will start IV rocephin - continue daptomycin after reconciled, check ESR/CRP - pulm consult for thoracentesis - nephro consult for ?need for HD (2) Pleural effusion Current Visit: Yes Status: Acute Assessment and Plan: suspect fluid overload related to CKD, it is reported that she is not on HD previous nephro consult note 06/2017 reviewed: patient was on HD at that point unclear interim events pulm consult for thoracentesis discussed with nephro as well, appreciate input check echo (3) Lactic acid acidosis Current Visit: Yes Status: Acute Assessment and Plan: unclear etiology, no finding of ischemic colitis on CT slightly improved with IVF and IV albumin but patient otherwise has R>L pleural effusion, small ascites, as well as anasarca monitor off fluid will follow with substation superintendent' rec regarding HD (4) Fluid overload Current Visit: Yes Status: Acute Assessment and Plan: as above (5) Chronic kidney disease, stage V Current Visit: No Status: Acute Assessment and Plan: as above, follow with nephro K normalized (6) CAD (coronary artery disease) Current Visit: No Status: Chronic Assessment and Plan: resume home meds once able to take by mouth (7) DM type 2 (diabetes mellitus, type 2) Current Visit: No Status: Chronic Assessment and Plan: NPO due to mental status insulin sliding scale Q6 (8) DVT prophylaxis Current Visit: Yes Status: Acute Assessment and Plan: SQ heparin - Time Spent with Patient Total time spent is greater than 50% in coordination of care (as documented) at patient's floor/unit and/or counseling patient: Plan of Care Discussed with: nurse (discussed with nephro and pulmonary as well) Internal Medicine: Result - Labs CBC & Chem 7: 04/21/18 21:20 04/22/18 03:23 Labs: Short CBC 04/21/18 04/21/18 Range/Units 14:34 21:20 WBC 7.9 7.3 (4.3-11.1) K/mcL Hgb 12.6 12.4 (11.5-15.4) g/dL Hct 42.1 41.5 (35.3-44.9) % Plt Count 153 135 L (140-400) K/mcL Neutrophils # 6.6 5.8 (1.6-8.9) K/mcL BMP 04/21/18 04/22/18 14:34 03:23 Sodium 146 H 145 Potassium 5.2 H 4.8 Chloride 106 107 Carbon Dioxide 25 26 BUN 45 H 48 H Creatinine 2.43 H 2.39 H Glucose 214 H 249 H Calcium 9.4 9.2 Cardiac Enzymes 04/21/18 04/21/18 Range/Units 14:34 21:20 Troponin I 0.05 H* 0.05 H* (< 0.04) ng/mL Liver Function 04/21/18 Range/Units 14:34 Total Bilirubin 1.7 H (0.3-1.0) mg/dL AST 17 (13-39) Units/L ALT 8 (7-52) Units/L Alkaline Phosphatase 174 H (34-104) Units/L Albumin 3.7 (3.5-5.7) g/dL Urine 04/21/18 Range/Units 14:39 Urine Color Yellow (Yellow) Urine Clarity Cloudy A (Clear) Urine pH 5.5 (5.0-8.0) pH Units Ur Specific [place] 1.020 (1.010-1.025) Urine Protein >=300 H (Neg-Trace) mg/dL Urine Glucose (UA) 100 H (Normal) mg/dL - ABG Interpretation ABG results: PT/INR, D-dimer PT 18.4 Seconds (9.4-12.1) H 04/22/18 10:08 - Impressions Impressions Chest CT 04/21/18 00:00 IMPRESSION: Right larger than left pleural effusions with associated multifocal airspace disease. Pulmonary edema is favored over pneumonia Subcutaneous fat stranding is noted diffusely suggesting third-spacing of fluid Mediastinal lymph nodes are likely reactive. Follow-up imaging recommended to ensure resolution. D/ / Dionte Rosas / Dionte Rosas Interpreting Provider: Dionte Rosas Head CT 04/21/18 14:25 IMPRESSION: No evidence of acute intracranial abnormality. D/ / 04/21/2018 16:00:24 Rehan Husain MD / gera Interpreting Provider: Rehan Husain MD Chest X-Ray 04/21/18 14:27 IMPRESSION: No significant change from prior exam. Interstitial pulmonary edema. D/ / 04/21/2018 15:13:56 Corey Issa MD / gera Interpreting Provider: Corey Issa MD Abdomen/Pelvis CT 04/21/18 16:37 IMPRESSION: Small amount of ascites in the abdomen and pelvis. There is marked anasarca. Large right and small left bilateral pleural effusions. Right lower lobe compressive atelectasis. Calcific coronary artery disease. Both kidneys are slightly small in size. No evidence of hydronephrosis. Mild thickening of the gallbladder wall versus pericholecystic fluid/ascites. T11 compression fracture of indeterminate age. D/ / Dionte Chauhan MD / Dionte Chauhan MD Interpreting Provider: Dionte Chauhan MD Consult Discharge Plan - Plan Referrals: NONE,PCP [Primary Care Provider] - (4) Fluid overload Qualifiers: Hypervolemia type: unspecified Qualified Code(s): E87.70 - Fluid overload, unspecified (6) CAD (coronary artery disease) Qualifiers: Coronary Disease-Associated Artery/Lesion type: [place] artery [place] vs. transplanted heart: [place] heart Associated angina: without angina Qualified Code(s): I25.10 - Atherosclerotic heart disease of [place] coronary artery without angina pectoris (7) DM type 2 (diabetes mellitus, type 2) Qualifiers: Diabetes mellitus detention insulin use: without detention use Diabetes mellitus complication status: with kidney complications Diabetes mellitus complication detail: with chronic kidney disease Chronic kidney disease stage: on chronic dialysis Qualified Code(s): E11.22 - Type 2 diabetes mellitus with diabetic chronic kidney disease; N18.6 - End stage renal disease; Z99.2 - Dependence on renal dialysis
[2018-04-22] MEDS ORDERED: DAPTOmycin 500 MG VIAL IVP SCH (13:00)
[2018-04-22] MEDS: cefTRIAXone 1,000 MG in Water for inj. (sterile) 20 ML 10 ML IVP SCH (13:33)
[2018-04-22 19:24] LABS: Amphetamine Screen,Urine Negative ng/mL (Cutoff=1000); Barbiturate Screen,Urine Negative ng/mL (Cutoff=200); Benzodiazepines Screen,Urine Negative ng/mL (Cutoff=200); Cannabinoid Screen,Urine Negative ng/mL (Cutoff = 50); Cocaine Screen,Urine Negative ng/mL (Cutoff= 300); Opiate Screen,Urine Negative ng/mL (Cutoff=300); Phencyclidine Screen,Urine Negative ng/mL (Cutoff=25)
[2018-04-22] MEDS: DAPTOmycin 500 MG in 0.9 % Sodium Chloride 100 ML IVPB SCH (20:52)
[2018-04-23 05:25] LABS: Basophils % 0.2 %; Hematocrit 36.7 % (35.3-44.9); Hemoglobin 11.1 g/dL (11.5-15.4); Immature Granulocytes % 0.7 % (0-4); Lymphocytes # 0.5 K/mcL (0.6-4.6); Mean Corpuscular HGB Conc 30.2 g/dL (31.6-35.5); Mean Corpuscular Volume 95.8 fL (83.0-100.0); Mean Platelet Volume 13.3 fL (9.4-12.4); Monocytes # 0.6 K/mcL (0.0-1.3); Monocytes % 9.8 %; Platelet Count 134 K/mcL (140-400); Red Blood Count 3.83 M/mcL (3.82-4.97); Segmented Neutrophils % 81.3 %
[2018-04-23 05:45] LABS: Calcium 9.2 mg/dL (8.6-10.3); Magnesium 1.6 mg/dL (1.6-2.6); Phosphorous 3.9 mg/dL (2.7-4.5)
[2018-04-23] MEDS: *HR* Heparin 5,000 UNIT/ML VIAL SQ SCH ×3 (06:15→19:41)
[2018-04-23] MEDS: Insulin LISPRO 300 UNITS/3 ML VIAL SQ SCH ×3 (06:15→17:56)
[2018-04-23] MEDS: cefTRIAXone 1,000 MG in Water for inj. (sterile) 20 ML 10 ML IVP SCH (07:52)
--- NOTE | 2018-04-23 10:50 | Internal Med Progress Note ---
Hospitalist Progress Note - Encounter Date of Encounter: 04/23/18 Time of Encounter: 08:30 - Subjective Interval History: No significant cliniH&P reviewed. Patient with history of ESRD (?not on HD), A. fib/DVT on Eliquis, CAD s/p CABG, diabetes, COPD, PAD status post left BKA, presented from ECF due to concern of AMS. Patient has her eyes closed and would moan to tactile stimuli but unable to tell me meaningful history. Grossly moving all 4 limbs without obvious deficits. Attempt was made to speak to the [facility] staff as well as her emergency contact but was unable to get a hold of them. - Exam Vitals: Temp Pulse Resp BP Pulse Ox 98.7 F 91 20 134/114 98 04/23/18 07:11 04/23/18 07:11 04/23/18 07:11 04/23/18 07:11 04/23/18 07:11 Exam: General: opens eyes spontaneously but no verbal output, not in distress HEENT:pupils equal, round and reactive. Cardiovascular:Normal S1 & S2, No JVD. Pulse regular. Lungs: Diminished breath sounds Abdomen:Soft, non-tender, no rigidity. Extremities: s/p L BKA, L UE contracted Neuro: Unable to examine - Assessment and Plan (1) Encephalopathy Current Visit: Yes Status: Acute Assessment and Plan: unclear etiology at this point CT head-ve, ABG without hypercarbia urinalysis -ve for nitrite, trace LE and bacteria seen ?UTI -> started on Rocephin yesterday, follow up on urine culture CT chest also showed R>L effusion as well as airspace disease which may be more compatible with pulmonary edema than PNA -> pulm input appreciated, will contact emergency contact listed and see if he would consent for thoracentesis pt also has hx of R 1st toe OM, reported on IV Daptomycin at the [facility] -> verified and being continued, ESR/CRP 08/28 MRI did show lacunar infarct in R posterior frontal and frontoparietal cortex, would not explain encephalopathy however -> resume ASA, statin once able to take by mouth carotid doppler discussed with Neuro, will a/w their evaluation ?EEG vs. LP Updated pt's life partner at length over the phone spoke to nursing facility as well but was not able to provide much history regarding previous mentation, mobility, or whether pt received any sedatives/anti-psychotics. Records requested. (2) CVA (cerebral vascular accident) Current Visit: Yes Status: Acute Assessment and Plan: as above (3) Pleural effusion Current Visit: Yes Status: Acute Assessment and Plan: suspect fluid overload related to CKD, it is reported that she is not on HD previous nephro consult note 06/2017 reviewed: patient was on HD at that point unclear interim events nephro input appreciated, no need for HD Echo showed EF 45% with LV diastolic dysfunction and elevated filling pressure pulm consult for thoracentesis consider diuretics post thoracentesis (4) Hypernatremia Current Visit: Yes Status: Acute Assessment and Plan: trial of 1/2 NS at 50ml/hr (5) Fluid overload Current Visit: Yes Status: Acute Assessment and Plan: as above (6) Lactic acid acidosis Current Visit: Yes Status: Resolved Assessment and Plan: unclear etiology, no finding of ischemic colitis on CT slightly improved with IVF and IV albumin but patient otherwise has R>L pleural effusion, small ascites, as well as anasarca resolved (7) Chronic kidney disease, stage V Current Visit: No Status: Acute Assessment and Plan: as above, follow with nephro K normalized (8) CAD (coronary artery disease) Current Visit: No Status: Chronic Assessment and Plan: resume home meds once able to take by mouth (9) DM type 2 (diabetes mellitus, type 2) Current Visit: No Status: Chronic Assessment and Plan: NPO due to mental status insulin sliding scale Q6 (10) DVT prophylaxis Current Visit: Yes Status: Acute Assessment and Plan: SQ heparin - Time Spent with Patient Total time spent is greater than 50% in coordination of care (as documented) at patient's floor/unit and/or counseling patient: 40 mins Plan of Care Discussed with: family (discussed with RN and Neurology as well) Internal Medicine: Result - Labs CBC & Chem 7: 04/23/18 05:00 04/23/18 05:00 Labs: Short CBC 04/23/18 Range/Units 05:00 WBC 6.1 (4.3-11.1) K/mcL Hgb 11.1 L (11.5-15.4) g/dL Hct 36.7 (35.3-44.9) % Plt Count 134 L (140-400) K/mcL Neutrophils # 5.0 (1.6-8.9) K/mcL BMP 04/23/18 05:00 Sodium 149 H Potassium 4.0 Chloride 111 H Carbon Dioxide 29 BUN 55 H Creatinine 2.49 H Glucose 124 H Calcium 9.2 - ABG Interpretation ABG results: PT/INR, D-dimer PT 18.4 Seconds (9.4-12.1) H 04/22/18 10:08 - Impressions Impressions Chest X-Ray 04/21/18 14:27 IMPRESSION: No significant change from prior exam. Interstitial pulmonary edema. D/ / 04/21/2018 15:13:56 Corey Issa MD / gera Interpreting Provider: Corey Issa MD Echocardiogram 04/22/18 03:14 Impressions: LVEF 40-45%. Mild left ventricular diastolic dysfunction with evidence of elevated filling pressures. Normal right ventricular structure and function. Mildly calcified aortic valve leaflets.No aortic stenosis. Trace mitral regurgitation. Moderate pulmonary hypertension. Left Ventricular Wall Motion: Rest Echo Findings The apex, apical inferior, mid inferior, basal inferior, apical anterior, mid anterior, basal anterior, apical septal, mid inferior septal, basal inferior septal, apical lateral, mid anterior lateral, basal anterior lateral, mid anterior septal, mid inferior lateral, basal anterior septal and basal inferior lateral ruiz were hypokinetic. Findings: Study Quality * Technically adequate exam. ECG Findings * Normal sinus rhythm. Left Ventricle * LVEF 40-45%. * Mild left ventricular diastolic dysfunction with evidence of elevated filling pressures. Right Ventricle * Normal right ventricular structure and function. Left Atrium * Normal left atrial size. Right Atrium * Normal right atrial size. Interatrial Septum * No evidence of PFO by color Doppler. Aortic Valve * Trileaflet aortic valve. * Mildly calcified aortic valve leaflets. * No aortic regurgitation. * No aortic stenosis. Mitral Valve * Mildly calcified mitral valve leaflets. * Trace mitral regurgitation. * No mitral stenosis. Tricuspid Valve * Trace tricuspid regurgitation. * No tricuspid stenosis. * Normal tricuspid valve structure. * Moderate pulmonary hypertension. * Estimated RVSP is 41 mmHg. * Estimated RA pressure is 9 mmHg. Pulmonic Valve * No pulmonic regurgitation. Aorta * Normally sized aortic root. Pericardium * The pericardium appears normal. IVC * The IVC is not well evaluated. Brain MRI 04/22/18 18:00 IMPRESSION: Small foci of acute infarct are noted in the right posterior frontal and frontal parietal cortex just above the sylvian fissure. Extensive small-vessel ischemic change bilaterally with numerous old infarcts. Left frontal encephalomalacia with surrounding gliosis Faint increased diffusion signal in the brachium pontis bilaterally. There is no definitive decreased signal on the ADC map sequence raising the question of T2 shine through versus recent ischemia. No acute hemorrhage D/ / Dionte Rosas / Dionte Rosas Interpreting Provider: Dionte Rosas Consult Discharge Plan - Plan Referrals: NONE,PCP [Primary Care Provider] - (2) CVA (cerebral vascular accident) Qualifiers: CVA mechanism: unspecified Qualified Code(s): I63.9 - Cerebral infarction, unspecified (5) Fluid overload Qualifiers: Hypervolemia type: unspecified Qualified Code(s): E87.70 - Fluid overload, unspecified (8) CAD (coronary artery disease) Qualifiers: Coronary Disease-Associated Artery/Lesion type: [place] artery [place] vs. tr ansplanted heart: [place] heart Associated angina: without angina Qualified Code(s): I25.10 - Atherosclerotic heart disease of [place] coronary artery without angina pectoris (9) DM type 2 (diabetes mellitus, type 2) Qualifiers: Diabetes mellitus mcfp insulin use: without mcfp use Diabetes mellitus complication status: with kidney complications Diabetes mellitus complication detail: with chronic kidney disease Chronic kidney disease stage: on chronic dialysis Qualified Code(s): E11.22 - Type 2 diabetes mellitus with diabetic chronic kidney disease; N18.6 - End stage renal disease; Z99.2 - Dependence on renal dialysis
--- NOTE | 2018-04-23 13:28 | Procedure Note ---
<Sue Escobar - Last Filed: 04/23/18 13:20> Date of procedure: 04/23/18 Pre-op diagnosis: pleural effusion Post-op diagnosis: same Procedure: Thoracentesis Date: 04/23/18 Time: 12:30 Indication: Large pleural effusion Resident: Dr. Sue Escobar Attending: Dr. Joelle Charles A time-out was completed verifying correct patient, procedure, site, positioning, and special equipment if applicable. The patients right side was prepped and draped in a sterile manner after the appropriate infiltration level was confirmed by ultrasound. 1% lidocaine was used anesthetize the surrounding skin. A finder needle was then used to locate fluid and clear yellow fluid was obtained. A 10-blade scalpel used to make the incision. The thoracentesis catheter was then threaded without difficulty. The patient had 900 mL of clear yellow fluid removed. Dr. Charles was present for the entire procedure. A post- procedure chest x-ray was ordered and the fluid will be sent for several studies. Estimated Blood Loss: < 5 mL The patient tolerated the procedure well and there were no complications. Anesthesia: local Surgeon: Sue Escobar Was there an nutrition services assistant present: Yes Polystyrene Molding Machine Tender: Joelle Charles Estimated blood loss (cc): 2 Specimen: pleural fluid Condition: stable Disposition: no change <Joelle Charles - Last Filed: 04/23/18 15:54> Procedure: I was present during the entire procedure assisted in the critical portions of the procedure
--- NOTE | 2018-04-23 13:36 | Neurology - Consult Note ---
Date of Encounter: 04/23/18 Time of Encounter: 13:30 Assessment and Plan (1) Acute metabolic encephalopathy Current Visit: No Status: Resolved This patient who seems to have significant metabolic toxic encephalopathy unable to assess clean nervous dysfunction she does noted to have some decreased movement in the left upper extremity with new infarct on MRI scan but that does not explain her mental status changes. Not sure what patient baseline is she does have significant white matter changes on the MRI of the brain suspect she may have underlying memory loss/dementia along with evidence of old infarct She does seem to have very low cortical reserve to deal with any metabolic or toxic dysfunction in the body and along with her kidney dysfunction as well as other metabolic dysfunctions may be reason for her mental status changes. Certainly [employer] infection cannot be excluded completely currently she is on antibiotics suggest to continue she is also on anticoagulation because of atrial fibrillation if we need to do any spinal tap certainly that need to be held and obviously increases the risk of any embolic infarcts on the top of the already to new infarct that she had on her recent MRI scan set this time I would recommend that we should treat her conservatively for any underlying infection and continue to treat other metabolic abnormalities We will get an EEG to exclude the possibility of any interictal abnormalities or any nonconvulsive seizures Other treatment is as per primary team May try to get some more information regarding her baseline status in the intermediate (2) CVA (cerebral vascular accident) Current Visit: Yes Status: Acute Patient noted to have an acute infarction on MRI of the brain Small foci of acute infarct are noted in the right posterior frontal and frontal parietal cortex just above the sylvian fissure.Extensive small-vessel ischemic change bilaterally with numerous old infarcts.Left frontal encephalomalacia with surrounding gliosis, that explain her left upper extremity weakness Suggest to continue on anticoagulation may add a baby aspirin though it does increase the risk of hemorrhagic bleeding complication Continue on the statin. Continue to monitor the blood pressure keep it in stable range At this time do not think she would be able to tolerate any PTOT or any other evaluation Qualifiers: CVA mechanism: unspecified Qualified Code(s): I63.9 - Cerebral infarction, unspecified History of Present Illness HPI: Ms. Ibarra is a 67 year old female Patient with history of ESRD not on dialysis, as well as A. fib/DVT on Eliquis, CAD s/p CABG, diabetes, COPD, PAD with left BKA, presented from [facility] for mental status changes, since admission pt noted to be non verbal, and remain confused, Patient has her eyes closed and would moan to tactile stimuli but did not speak, she [facility] previous history of stroke but not sure what her baseline is she has MRI of brain that showed, foci of acute infarct are noted in the right posterior frontal and frontal parietal cortex just above the sylvian fissure. Extensive small-vessel ischemic change bilaterally with numerous old infarcts. Left frontal encephalomalacia with surrounding gliosis Faint increased diffusion signal in the brachium pontis bilaterally. likley artifacts from T2 shine through versus recent ischemia. No acute hemorrhage noted. Past Med Surg Social Fam HX - Past Medical History Medical history: non-contributory, coronary artery disease, diabetes, hyperlipidemia, hypertension, renal disease Additional medical history: bp/cholesterol "controlled" Psychiatric history: no psych history - Past Surgical History Surgical History: angioplasty/stent, other Additional surgical history: Left BKA - Social History Smoking Status: Former smoker Smokeless Tobacco Status: No Alcohol use: none Drug use: none - Family History Mother History Unknown: Yes Living Status: Hx Family Endocrine Disorder: Yes Father History Unknown: Yes Living Status: Medications and Allergies Allopurinol [Zyloprim 100 MG] 100 mg PO HS 07/05/17 [History] Linagliptin [Tradjenta] 5 mg PO DAILY 07/05/17 [History] Omeprazole [PriLOSEC] 20 mg PO DAILY 07/05/17 [History] Aspirin 81 mg PO DAILY #30 tab.chew 07/30/17 [Rx] Atorvastatin [Lipitor] 40 mg PO HS #30 tablet 07/30/17 [Rx] Acetaminophen [Tylenol] 650 mg PO Q6HR PRN 03/12/18 [History] Amino Acids/Protein Hydrolys [Pro-Stat Awc Liquid Packet] 30 ml PO DAILY 03/12/18 [History] Furosemide [Lasix] 20 mg PO QAM 03/12/18 [History] Metoprolol [Lopressor] 25 mg PO BID 03/12/18 [History] PARoxetine HCl [Paroxetine HCl] 10 mg PO DAILY 03/12/18 [History] Sevelamer [Renvela] 800 mg PO TIDWM 03/12/18 [History] DAPTOmycin [Cubicin] 500 mg IV Q48H 04/22/18 [History] Allergy/AdvReac Type Severity Reaction Status Date / Time No Known Allergies Allergy Verified 07/05/17 17:25 ROS unobtainable: due to mental status All Systems: The remainder of the systems were reviewed and are negative Physical Examination - Vital Signs Vital Signs: Initial Vital Signs Temp Pulse Resp Pulse Ox 99.7 F H 95 20 99 04/21/18 14:07 04/21/18 14:07 04/21/18 14:07 04/21/18 14:07 - Exam Exam: GENERAL: Comfortable in no acute distress HEENT: Normal LUNGS: CTA HEART: RRR, S1 S2 Audible, no murmur EXTREMITIES: LEFT BKA DETAILED NEUROLOGICAL EXAMINATION: MENTAL STATUS: Patient laying comfortably with eyes closed not able to respond to verbal stimuli. Able to localize pain is stimulus with decreased movement in the left upper extremity, but did not speak or have any conversation Cranial Nerve Examination: Not able to assess cranial nerve dysfunction due to mental status changes though there is no obvious facial drooping, eyes are closed and she is resisting when trying to open the eyes but she does able to spontaneously opened eyes at times without any obvious abnormalities but not able to follow or track any stimulus Motor examination: Left BKA Upper limbs Decreased movement to pinprick in the left upper extremity as compared to the right but she does have significantly increased tone in both upper and lower extremities Lower limbs On formal testing she is moving the right upper extremity more to pain as compared to the left seems to be localizing pain is stimulus Coordination: Unable to do Sensory system: Able to localize painful stimulus on the right upper extremity trying to withdraw from the right more from the left Deep tendon reflexes. Symmetrical bilateral, No evidence of Babinski. In the right lower extremity No sign of meningeal irritation Gait Examination: Deferred - Constitutional General appearance: comfortable Results - Laboratory Findings CBC and BMP: 04/23/18 05:00 04/23/18 05:00 Abnormal lab findings: Abnormal lab results Hgb 11.1 g/dL (11.5-15.4) L 04/23/18 05:00 MCHC 30.2 g/dL (31.6-35.5) L 04/23/18 05:00 RDW 19.0 % (11.5-14.5) H 04/23/18 05:00 Plt Count 134 K/mcL (140-400) L 04/23/18 05:00 MPV 13.3 fL (9.4-12.4) H 04/23/18 05:00 Lymphocytes # 0.5 K/mcL (0.6-4.6) L 04/23/18 05:00 Nucleated RBCs/100 WBC 0.4 /100 WBC (0) H 04/21/18 21:20 PT 18.4 Seconds (9.4-12.1) H 04/22/18 10:08 VBG pO2 76 mmHg (25-50) H 04/21/18 16:16 Sodium 149 mEq/L (136-145) H 04/23/18 05:00 Chloride 111 mEq/L (98-107) H 04/23/18 05:00 BUN 55 mg/dL (8-23) H 04/23/18 05:00 Creatinine 2.49 mg/dL (0.60-1.20) H 04/23/18 05:00 Est GFR ( Amer) 23 (> 60) L 04/23/18 05:00 Est GFR (Non-Af Amer) 19 (> 60) L 04/23/18 05:00 Glucose 124 mg/dL (70-105) H 04/23/18 05:00 POC Glucose 118 mg/dL (70-99) H 04/22/18 23:40 Calculated Osmolality 325 (280-300) H 04/23/18 05:00 Total Bilirubin 1.7 mg/dL (0.3-1.0) H 04/21/18 14:34 Alkaline Phosphatase 174 Units/L (34-104) H 04/21/18 14:34 Troponin I 0.05 ng/mL (< 0.04) H* 04/21/18 21:20 C-Reactive Protein 29 mg/L (Less than 10) H 04/22/18 16:26 B-Natriuretic Peptide 4678 pg/mL (Less than 100) H 04/21/18 14:34 Ur Specimen Adequacy See below A 04/21/18 14:39 Urine Clarity Cloudy (Clear) A 04/21/18 14:39 Urine Protein >=300 mg/dL (Neg-Trace) H 04/21/18 14:39 Urine Glucose (UA) 100 mg/dL (Normal) H 04/21/18 14:39 Urine Ketones Trace mg/dL (Negative) H 04/21/18 14:39 Urine Blood Moderate (Negative) H 04/21/18 14:39 Urine Bilirubin Small (Negative) H 04/21/18 14:39 Ur Leukocyte Esterase Trace (Negative) H 04/21/18 14:39 Ur Culture Indicated? YES (NO) A 04/21/18 14:39 - Diagnostic Findings Additional findings: MRI of brain: Small foci of acute infarct are noted in the right posterior frontal and frontal parietal cortex just above the sylvian fissure. Extensive small-vessel ischemic change bilaterally with numerous old infarcts. Left frontal encephalomalacia with surrounding gliosis Faint increased diffusion signal in the brachium pontis bilaterally. There is no definitive decreased signal on the ADC map sequence raising the question of T2 shine through versus recent ischemia. No acute hemorrhage Consult Discharge Plan - Plan Referrals: NONE,PCP [Primary Care Provider] -
[2018-04-23 14:04] LABS: RBC,Pleural Fluid < 0.002 M/mcL
[2018-04-23 14:25] LABS: Amylase,Pleural Fluid < 10 Units/L (No Ref Range); LDH,Pleural Fluid 62 Units/L (No Ref Range); Total Protein,Pleural Fluid < 3.0 g/dL (No Ref Range)
[2018-04-23 14:46] LABS: Appearance of Pleural Fl Clear (Clear)
[2018-04-23 15:07] LABS: Adenovirus Not Detected (Not Detect); Bordetella Pertussis Not Detected (Not Detect); Chlamydophila pneumoniae Not Detected (Not Detect); Coronavirus 229E Not Detected (Not Detect); Coronavirus HKU1 Not Detected (Not Detect); Coronavirus NL63 Not Detected (Not Detect); Coronavirus OC43 Not Detected (Not Detect); Human Metapneumovirus Not Detected (Not Detect); Human Rhinovirus/Enterovirus Not Detected (Not Detect); Influenza A Subtype 2009 H1 Not Detected (Not Detect); Influenza A Untypeable Not Detected (Not Detect); Influenza B Not Detected (Not Detect); Mycoplasma pneumoniae Not Detected (Not Detect); Parainfluenza Virus 1 Not Detected (Not Detect); Parainfluenza Virus 2 Not Detected (Not Detect); Parainfluenza Virus 3 Not Detected (Not Detect); Parainfluenza Virus 4 Not Detected (Not Detect); Respiratory Syncytial Virus Not Detected (Not Detect)
--- NOTE | 2018-04-23 16:03 | Pulmonology Progress Note ---
Date of Encounter: 04/23/18 Time of Encounter: 11:00 Assessment and Plan (1) Pleural effusion Current Visit: Yes Status: Acute Under ultrasound guidance right-sided thoracentesis were performed around 900 mL of pleural fluid was removed and sent for all the chemistry studies and microbiology. Suspect this pleural fluid is transudate.Post CXR showed decreased right sided pleural effusion with no pneumothorax. (2) Altered mental status Current Visit: Yes Status: Acute Patient had MRI showed embolic infarct , Neurology on board Qualifiers: Altered mental status type: somnolence Qualified Code(s): R40.0 - Somnolence Subjective Principal diagnosis: altered mental status with acute embolic cerebral infarct Interval history: Pulmonary was consult her for right-sided thoracentesis for sampling of the pleural effusion is today MRI showed embolic infarcts that might be the reason for altered mental status patient is more awake than yesterday. Objective PUL Vital signs: Last Vital Signs Temp 98.7 F 04/23/18 15:42 Pulse 85 04/23/18 15:42 Resp 18 04/23/18 15:42 BP 136/71 04/23/18 15:42 Pulse Ox 99 04/23/18 15:42 General appearance: other (lethargic) Auscultation: right: diminished breath sounds Gait: other (unable to assess ) unable to assess due to mental status Results - Laboratory Findings CBC and BMP: 04/23/18 05:00 04/23/18 05:00 PT/INR, D-dimer PT 18.4 Seconds (9.4-12.1) H 04/22/18 10:08 Abnormal lab findings: Abnormal lab results Hgb 11.1 g/dL (11.5-15.4) L 04/23/18 05:00 MCHC 30.2 g/dL (31.6-35.5) L 04/23/18 05:00 RDW 19.0 % (11.5-14.5) H 04/23/18 05:00 Plt Count 134 K/mcL (140-400) L 04/23/18 05:00 MPV 13.3 fL (9.4-12.4) H 04/23/18 05:00 Lymphocytes # 0.5 K/mcL (0.6-4.6) L 04/23/18 05:00 Nucleated RBCs/100 WBC 0.4 /100 WBC (0) H 04/21/18 21:20 PT 18.4 Seconds (9.4-12.1) H 04/22/18 10:08 VBG pO2 76 mmHg (25-50) H 04/21/18 16:16 Sodium 149 mEq/L (136-145) H 04/23/18 05:00 Chloride 111 mEq/L (98-107) H 04/23/18 05:00 BUN 55 mg/dL (8-23) H 04/23/18 05:00 Creatinine 2.49 mg/dL (0.60-1.20) H 04/23/18 05:00 Est GFR ( Amer) 23 (> 60) L 04/23/18 05:00 Est GFR (Non-Af Amer) 19 (> 60) L 04/23/18 05:00 Glucose 124 mg/dL (70-105) H 04/23/18 05:00 POC Glucose 118 mg/dL (70-99) H 04/22/18 23:40 Calculated Osmolality 325 (280-300) H 04/23/18 05:00 Total Bilirubin 1.7 mg/dL (0.3-1.0) H 04/21/18 14:34 Alkaline Phosphatase 174 Units/L (34-104) H 04/21/18 14:34 Troponin I 0.05 ng/mL (< 0.04) H* 04/21/18 21:20 C-Reactive Protein 29 mg/L (Less than 10) H 04/22/18 16:26 B-Natriuretic Peptide 4678 pg/mL (Less than 100) H 04/21/18 14:34 Ur Specimen Adequacy See below A 04/21/18 14:39 Urine Clarity Cloudy (Clear) A 04/21/18 14:39 Urine Protein >=300 mg/dL (Neg-Trace) H 04/21/18 14:39 Urine Glucose (UA) 100 mg/dL (Normal) H 04/21/18 14:39 Urine Ketones Trace mg/dL (Negative) H 04/21/18 14:39 Urine Blood Moderate (Negative) H 04/21/18 14:39 Urine Bilirubin Small (Negative) H 04/21/18 14:39 Ur Leukocyte Esterase Trace (Negative) H 04/21/18 14:39 Ur Culture Indicated? YES (NO) A 04/21/18 14:39 - Microbiology Findings Microbiology Findings: Microbiology, Last 48 Hours 04/23/18 12:50 Body Fluid Culture - Preliminary Pleural Fluid 04/21/18 14:39 Urine Culture - Preliminary Urine,Catheterized Yeast Species 04/21/18 15:50 Blood Culture - Preliminary Peripheral Central Cath, Picc Culture is incubating and being continuously monitored for growth. Final report to follow. 04/21/18 14:34 Blood Culture - Preliminary Peripheral Venipuncture Culture is incubating and being continuously monitored for growth. Final report to follow. 04/21/18 14:34 Blood Culture - Preliminary Peripheral Venipuncture Culture is incubating and being continuously monitored for growth. Final report to follow. - Clinical Findings Intake & Output: Intake & Output 04/22/18 04/23/18 04/23/18 23:59 07:59 15:59 Intake Total 0 / 0 Output Total 400 / 400 Balance -400 / -400 Weight 99.5 kg Consult Discharge Plan - Plan Referrals: NONE,PCP [Primary Care Provider] -
[2018-04-23 16:07] LABS: Albumin 3.2 g/dL (3.5-5.7); Albumin/Globulin Ratio 1.3 (1.1-2.2); Bilirubin,Direct 0.4 mg/dL (0.0-0.2); Bilirubin,Indirect 0.6 mg/dL (0.0-1.2); Globulin 2.4 g/dL (2.4-3.5); Total Protein 5.6 g/dL (6.4-8.9)
[2018-04-23 16:56] LABS: Folate 9.4 ng/mL (3.0-16.0)
[2018-04-23] MEDS: Nystatin POWDER 30 GM BOTTLE TP SCH (19:42)
[2018-04-24] MEDS: Insulin LISPRO 300 UNITS/3 ML VIAL SQ SCH ×5 (03:02→23:50)
[2018-04-24] MEDS: *HR* Heparin 5,000 UNIT/ML VIAL SQ SCH ×3 (06:37→21:16)
[2018-04-24] MEDS: cefTRIAXone 1,000 MG in Water for inj. (sterile) 20 ML 10 ML IVP SCH (07:43)
[2018-04-24] MEDS: Nystatin POWDER 30 GM BOTTLE TP SCH ×2 (07:44→21:18)
[2018-04-24 08:15] LABS: Basophils % 0.2 %; Eosinophils % 0.5 %; Hematocrit 37.9 % (35.3-44.9); Hemoglobin 11.4 g/dL (11.5-15.4); Immature Granulocytes % 0.3 % (0-4); Lymphocytes # 0.5 K/mcL (0.6-4.6); Lymphocytes % 7.4 %; Mean Corpuscular HGB Conc 30.1 g/dL (31.6-35.5); Mean Corpuscular Hemoglobin 29.5 pg (28.0-33.3); Mean Corpuscular Volume 98.2 fL (83.0-100.0); Mean Platelet Volume 12.2 fL (9.4-12.4); Monocytes # 0.6 K/mcL (0.0-1.3); Monocytes % 8.9 %; Neutrophils # 5.1 K/mcL (1.6-8.9); Nucleated Red Blood Cells 0.3 /100 WBC (0); Platelet Count 116 K/mcL (140-400); Red Blood Count 3.86 M/mcL (3.82-4.97); Red Cell Distribution Width 19.1 % (11.5-14.5); Segmented Neutrophils % 82.7 %
[2018-04-24] MEDS ORDERED: *HR* LORazepam 2 MG/ML VIAL IVP ONE (08:30)
[2018-04-24 10:10] LABS: Calcium 8.5 mg/dL (8.6-10.3); Magnesium 1.6 mg/dL (1.6-2.6); Potassium 4.1 mEq/L (3.5-5.1)
--- NOTE | 2018-04-24 10:26 | Internal Med Progress Note ---
Hospitalist Progress Note - Encounter Date of Encounter: 04/24/18 Time of Encounter: 08:30 - Subjective Interval History: Mild improvement in her clinical status noted. RN reports that she was able to say yes earlier and she is also spontaneously opening her eyes. No verbal output noted at the time of my exam. - Exam Vitals: Temp Pulse Resp BP Pulse Ox 98.3 F 90 20 151/75 98 04/24/18 07:14 04/24/18 07:14 04/24/18 07:14 04/24/18 07:14 04/24/18 07:14 Exam: General: opens eyes and tracks with eyes intermittently, no verbal output, not in distress HEENT:pupils equal, round and reactive. Spontaneous twitching noted on left side of her face Cardiovascular:Normal S1 & S2, No JVD. Pulse regular. Lungs: Diminished breath sounds Abdomen:Soft, non-tender, no rigidity. Extremities: s/p L BKA, L UE contracted Neuro: Unable to examine - Assessment and Plan (1) Encephalopathy Current Visit: Yes Status: Acute Assessment and Plan: unclear etiology, now spontaneously opens her eyes and attempts to track with her eyes as well. Also noted to have left facial twitching ?seizure Na also mildly elevated as well. Refractory to 1/[address] head-ve, ABG without hypercarbia urinalysis -ve for nitrite, trace LE and bacteria seen ?UTI -> started on Rocephin, continue, follow up on urine culture CT chest also showed R>L effusion as well as airspace disease which may be more compatible with pulmonary edema than PNA -> pulm input appreciated, thoracentesis done yesterday. Transudative fluid pt also has hx of R 1st toe OM, reported on IV Daptomycin at the skilled nursing -> verified and being continued, ESR/CRP 08/28 MRI did show lacunar infarct in R posterior frontal and frontoparietal cortex, would not explain encephalopathy however -> resume ASA, statin once able to take by mouth carotid doppler was unremarkable discussed with Neuro, will a/w their rec after EEG may consider LP (2) Hypernatremia Current Visit: Yes Status: Acute Assessment and Plan: had 1/2 NS run at 50ml/hr yesterday without improvement will start D5W at 75 today (3) CVA (cerebral vascular accident) Current Visit: Yes Status: Acute Assessment and Plan: as above (4) Pleural effusion Current Visit: Yes Status: Acute Assessment and Plan: suspect fluid overload related to CKD, it is reported that she is not on HD previous nephro consult note 06/2017 reviewed: patient was on HD at that point unclear interim events nephro input appreciated, no need for HD Echo showed EF 45% with LV diastolic dysfunction and elevated filling pressure s/p thoracentesis by pulm, transudative (5) Fluid overload Current Visit: Yes Status: Acute Assessment and Plan: as above (6) Lactic acid acidosis Current Visit: Yes Status: Resolved Assessment and Plan: unclear etiology, no finding of ischemic colitis on CT slightly improved with IVF and IV albumin but patient otherwise has R>L pleural effusion, small ascites, as well as anasarca resolved (7) Chronic kidney disease, stage V Current Visit: No Status: Acute Assessment and Plan: as above, follow with nephro K normalized (8) CAD (coronary artery disease) Current Visit: No Status: Chronic Assessment and Plan: resume home meds once able to take by mouth (9) DM type 2 (diabetes mellitus, type 2) Current Visit: No Status: Chronic Assessment and Plan: NPO due to mental status insulin sliding scale Q6 (10) DVT prophylaxis Current Visit: Yes Status: Acute Assessment and Plan: SQ heparin - Time Spent with Patient Total time spent is greater than 50% in coordination of care (as documented) at patient's floor/unit and/or counseling patient: Plan of Care Discussed with: nurse Internal Medicine: Result - Labs CBC & Chem 7: 04/24/18 07:53 04/24/18 07:53 Labs: Short CBC 04/24/18 Range/Units 07:53 WBC 6.2 (4.3-11.1) K/mcL Hgb 11.4 L (11.5-15.4) g/dL Hct 37.9 (35.3-44.9) % Plt Count 116 L (140-400) K/mcL Neutrophils # 5.1 (1.6-8.9) K/mcL BMP 04/24/18 07:53 Sodium 150 H Potassium 4.1 Chloride 111 H Carbon Dioxide 26 BUN 57 H Glucose 99 Calcium 8.5 L Liver Function 04/23/18 Range/Units 13:03 Total Bilirubin 1.0 (0.3-1.0) mg/dL Direct Bilirubin 0.4 H (0.0-0.2) mg/dL AST 32 (13-39) Units/L ALT 17 (7-52) Units/L Alkaline Phosphatase 123 H (34-104) Units/L Albumin 3.2 L (3.5-5.7) g/dL - ABG Interpretation ABG results: PT/INR, D-dimer PT 18.4 Seconds (9.4-12.1) H 04/22/18 10:08 - Impressions Impressions Head CT 04/21/18 14:25 IMPRESSION: No evidence of acute intracranial abnormality. D/ / 04/21/2018 16:00:24 Rehan Husain MD / gera Interpreting Provider: Rehan Husain MD Echocardiogram 04/22/18 03:14 Impressions: LVEF 40-45%. Mild left ventricular diastolic dysfunction with evidence of elevated filling pressures. Normal right ventricular structure and function. Mildly calcified aortic valve leaflets.No aortic stenosis. Trace mitral regurgitation. Moderate pulmonary hypertension. Left Ventricular Wall Motion: Rest Echo Findings The apex, apical inferior, mid inferior, basal inferior, apical anterior, mid anterior, basal anterior, apical septal, mid inferior septal, basal inferior septal, apical lateral, mid anterior lateral, basal anterior lateral, mid anterior septal, mid inferior lateral, basal anterior septal and basal inferior lateral ruiz were hypokinetic. Findings: Study Quality * Technically adequate exam. ECG Findings * Normal sinus rhythm. Left Ventricle * LVEF 40-45%. * Mild left ventricular diastolic dysfunction with evidence of elevated filling pressures. Right Ventricle * Normal right ventricular structure and function. Left Atrium * Normal left atrial size. Right Atrium * Normal right atrial size. Interatrial Septum * No evidence of PFO by color Doppler. Aortic Valve * Trileaflet aortic valve. * Mildly calcified aortic valve leaflets. * No aortic regurgitation. * No aortic stenosis. Mitral Valve * Mildly calcified mitral valve leaflets. * Trace mitral regurgitation. * No mitral stenosis. Tricuspid Valve * Trace tricuspid regurgitation. * No tricuspid stenosis. * Normal tricuspid valve structure. * Moderate pulmonary hypertension. * Estimated RVSP is 41 mmHg. * Estimated RA pressure is 9 mmHg. Pulmonic Valve * No pulmonic regurgitation. Aorta * Normally sized aortic root. Pericardium * The pericardium appears normal. IVC * The IVC is not well evaluated. Chest X-Ray 04/23/18 12:57 IMPRESSION: Decreased right pleural effusion. No pneumothorax. Otherwise, stable chest D/ / Jose Boston MD / Jose Boston MD Interpreting Provider: Jose Boston MD Consult Discharge Plan - Plan Referrals: NONE,PCP [Primary Care Provider] - (3) CVA (cerebral vascular accident) Qualifiers: CVA mechanism: unspecified Qualified Code(s): I63.9 - Cerebral infarction, unspecified (5) Fluid overload Qualifiers: Hypervolemia type: unspecified Qualified Code(s): E87.70 - Fluid overload, unspecified (8) CAD (coronary artery disease) Qualifiers: Coronary Disease-Associated Artery/Lesion type: [place] artery [place] vs. transplanted heart: [place] heart Associated angina: without angina Qualified Code(s): I25.10 - Atherosclerotic heart disease of [place] coronary artery without angina pectoris (9) DM type 2 (diabetes mellitus, type 2) Qualifiers: Diabetes mellitus [facility] insulin use: without [facility] use Diabetes mellitus complication status: with kidney complications Diabetes mellitus complication detail: with chronic kidney disease Chronic kidney disease stage: on chronic dialysis Qualified Code(s): E11.22 - Type 2 diabetes mellitus with diabetic chronic kidney disease; N18.6 - End stage renal disease; Z99.2 - Dependence on renal dialysis
[2018-04-24] MEDS: D5% in Water 1,000 ML IVC SCH (11:02)
--- NOTE | 2018-04-24 12:48 | EEG/EMG/Oth Biometrics Report ---
EEG Procedure Report EEG Procedure: Routine EEG Procedure Note: This is a routine 21 channel digital EEG performed utilizing 10- 20 international electrode placement system. FINDINGS: Patient has a predominant waking background frequency that is low voltage consistent with 4-6 Hz activity in the posterior region, normal amplitude symmetrical over the both hemispheres reactive to eyes opening and closing record continued to show delta activity intermixed with some theta off and on, no abnormal activity recorded, predominantly no evidence of any spike wave discharges or any lateralizing abnormalities, at the same time there is evidence of triphasic waves noted off-and-on during this study likely related to under lying hepatorenal dysfunction, Photic stimulation did not produce any convulsive response. Intermittent EMG artifacts were noted. Stage II sleep was not achieved. Impression: Abnormal electroencephalogram. This EEG demonstrates generalized slowing which is a nonspecific pattern consistent with diffuse cortical dysfunction consistent with metabolic toxic encephalopathy, at the same time there evidence of triphasic waves noted usually associated with hepatorenal dysfunction Clinical correlation is suggested, No epileptiform discharges or any other paroxysmal activities noted.
--- NOTE | 2018-04-24 13:59 | Neurology Progress Note ---
Date of Encounter: 04/24/18 Time of Encounter: 13:56 Assessment and Plan (1) Acute metabolic encephalopathy Current Visit: No Status: Resolved EEG did not show any seizure activity seemed to be consistent with metabolic toxic encephalopathy Suggest continue conservative treatment with the improvement off metabolic dysfunction perhaps patient should improve No evidence of clinical seizure but continue to monitor if she had any clinical seizures that might need to be treated If there is no improvement may need Spinal tap at the moment suggest to continue on antibiotics that she is been on (2) CVA (cerebral vascular accident) Current Visit: Yes Status: Acute Patient noted to have an acute infarction on MRI of the brain Small foci of acute infarct are noted in the right posterior frontal and frontal parietal cortex just above the sylvian fissure.Extensive small-vessel ischemic change bilaterally with numerous old infarcts.Left frontal encephalomalacia with surrounding gliosis, that explain her left upper extremity weakness Suggest to continue on antiplatelet therapy , she is not on anticoagulation as it was thought earlier Continue on the statin. Continue to monitor the blood pressure keep it in stable range At this time do not think she would be able to tolerate any PTOT or any other evaluation Qualifiers: CVA mechanism: unspecified Qualified Code(s): I63.9 - Cerebral infarction, unspecified Subjective Principal diagnosis: altered mental status with acute embolic cerebral infarct Interval history: Patient continued to be encephalopathic at times she is more responsive but is still limited were per output moving all 4 extremities. Earlier she noted to have some twitching of the face without any convulsive activity noted by the staff respond to Ativan she just had an EEG that did not show any seizure activity but showed generalized slowing consistent with encephalopathy at the same time evidence of triphasic makes could be seen with hepatic and renal dysfunction Objective - Constitutional Vitals: Temp Pulse Resp BP Pulse Ox 97.3 F L 82 21 139/71 100 04/24/18 11:35 04/24/18 11:35 04/24/18 11:35 04/24/18 11:35 04/24/18 11:35 - Neurological Exam Mental Status Examination: Present: awake, does not follow commands, lethargic, opens eyes to noxious stimulation, localizes noxious stimulation (Limited neurological examination she does open eyes to the deep pain , localizes the pain and withdraws but limited verbal output) Results - Laboratory Findings CBC and BMP: 04/24/18 07:53 04/24/18 07:53 Abnormal lab findings: Abnormal lab results Hgb 11.4 g/dL (11.5-15.4) L 04/24/18 07:53 MCHC 30.1 g/dL (31.6-35.5) L 04/24/18 07:53 RDW 19.1 % (11.5-14.5) H 04/24/18 07:53 Plt Count 116 K/mcL (140-400) L 04/24/18 07:53 Lymphocytes # 0.5 K/mcL (0.6-4.6) L 04/24/18 07:53 Nucleated RBCs/100 WBC 0.3 /100 WBC (0) H 04/24/18 07:53 PT 18.4 Seconds (9.4-12.1) H 04/22/18 10:08 VBG pO2 76 mmHg (25-50) H 04/21/18 16:16 Sodium 150 mEq/L (136-145) H 04/24/18 07:53 Chloride 111 mEq/L (98-107) H 04/24/18 07:53 BUN 57 mg/dL (8-23) H 04/24/18 07:53 Creatinine 2.40 mg/dL (0.60-1.20) H 04/24/18 07:53 Est GFR ( Amer) 24 (> 60) L 04/24/18 07:53 Est GFR (Non-Af Amer) 20 (> 60) L 04/24/18 07:53 POC Glucose 102 mg/dL (70-99) H 04/24/18 11:39 Calculated Osmolality 326 (280-300) H 04/24/18 07:53 Calcium 8.5 mg/dL (8.6-10.3) L 04/24/18 07:53 Direct Bilirubin 0.4 mg/dL (0.0-0.2) H 04/23/18 13:03 Alkaline Phosphatase 123 Units/L (34-104) H 04/23/18 13:03 Troponin I 0.05 ng/mL (< 0.04) H* 04/21/18 21:20 C-Reactive Protein 29 mg/L (Less than 10) H 04/22/18 16:26 B-Natriuretic Peptide 4678 pg/mL (Less than 100) H 04/21/18 14:34 Serum Total Protein 5.6 g/dL (6.4-8.9) L 04/23/18 13:03 Albumin 3.2 g/dL (3.5-5.7) L 04/23/18 13:03 Ur Specimen Adequacy See below A 04/21/18 14:39 Urine Clarity Cloudy (Clear) A 04/21/18 14:39 Urine Protein >=300 mg/dL (Neg-Trace) H 04/21/18 14:39 Urine Glucose (UA) 100 mg/dL (Normal) H 04/21/18 14:39 Urine Ketones Trace mg/dL (Negative) H 04/21/18 14:39 Urine Blood Moderate (Negative) H 04/21/18 14:39 Urine Bilirubin Small (Negative) H 04/21/18 14:39 Ur Leukocyte Esterase Trace (Negative) H 04/21/18 14:39 Ur Culture Indicated? YES (NO) A 04/21/18 14:39 Consult Discharge Plan - Plan Referrals: NONE,PCP [Primary Care Provider] -
[2018-04-24] MEDS: DAPTOmycin 500 MG in 0.9 % Sodium Chloride 100 ML IVPB SCH (21:17)
[2018-04-25] MEDS: D5% in Water 1,000 ML IVC SCH ×2 (05:40→16:57)
[2018-04-25] MEDS: *HR* Heparin 5,000 UNIT/ML VIAL SQ SCH ×3 (05:40→21:03)
[2018-04-25] MEDS: Insulin LISPRO 300 UNITS/3 ML VIAL SQ SCH ×3 (05:41→18:00)
[2018-04-25] MEDS: cefTRIAXone 1,000 MG in Water for inj. (sterile) 20 ML 10 ML IVP SCH (07:46)
[2018-04-25] MEDS: Nystatin POWDER 30 GM BOTTLE TP SCH ×2 (07:48→21:05)
[2018-04-25 08:06] LABS: Basophils % 0.2 %; Eosinophils # 0.2 K/mcL (0.0-0.6); Eosinophils % 2.9 %; Hematocrit 37.7 % (35.3-44.9); Hemoglobin 11.4 g/dL (11.5-15.4); Immature Granulocytes % 0.4 % (0-4); Lymphocytes # 0.4 K/mcL (0.6-4.6); Lymphocytes % 6.9 %; Mean Corpuscular HGB Conc 30.2 g/dL (31.6-35.5); Mean Corpuscular Hemoglobin 29.3 pg (28.0-33.3); Mean Corpuscular Volume 96.9 fL (83.0-100.0); Mean Platelet Volume 12.7 fL (9.4-12.4); Monocytes # 0.5 K/mcL (0.0-1.3); Monocytes % 9.5 %; Neutrophils # 4.4 K/mcL (1.6-8.9); Platelet Count 124 K/mcL (140-400); Red Blood Count 3.89 M/mcL (3.82-4.97); Red Cell Distribution Width 19.4 % (11.5-14.5); Segmented Neutrophils % 80.1 %
[2018-04-25 08:32] LABS: Calcium 8.9 mg/dL (8.6-10.3); Potassium 3.7 mEq/L (3.5-5.1)
--- NOTE | 2018-04-25 09:39 | Internal Med Progress Note ---
Hospitalist Progress Note - Encounter Date of Encounter: 04/25/18 Time of Encounter: 08:30 - Subjective Interval History: Reported that she was able to interact with RN yesterday, was able to tell her that Ayo is her boyfriend. She remains non-verbal on my exam but more alert and responsive to both verbal and tactile stimuli. - Exam Vitals: Temp Pulse Resp BP Pulse Ox 98.1 F 86 16 174/96 96 04/25/18 07:27 04/25/18 07:27 04/25/18 07:27 04/25/18 07:27 04/25/18 07:27 Exam: General: opens eyes but no verbal output, not in distress HEENT:pupils equal, round and reactive. Spontaneous twitching on the left side of her face no longer evident Cardiovascular:Normal S1 & S2, No JVD. Pulse regular. Lungs: Diminished breath sounds Abdomen:Soft, non-tender, no rigidity. Extremities: s/p L BKA, L UE contracted Neuro: Unable to examine - Assessment and Plan (1) Encephalopathy Current Visit: Yes Status: Acute Assessment and Plan: unclear etiology but slightly improving CT head-ve, ABG without hypercarbia MRI did show lacunar infarct in R posterior frontal and frontoparietal cortex, would not explain encephalopathy however -> resume ASA, statin once able to take by mouth carotid doppler was unremarkable urinalysis -ve for nitrite, trace LE and bacteria seen ?UTI -> on D4 Rocephin, follow up on final urine and blood cultures CT chest also showed R>L effusion as well as airspace disease which may be more compatible with pulmonary edema than PNA -> pulm input appreciated, thoracentesis done. Transudative fluid, no empyema L facial twitching resolved. EEG did now show any seizure activity but cystoscopy with metabolic toxic encephalopathy. Na improving with D5W, continue pt also has hx of R 1st toe OM, reported on IV Daptomycin at the longterm -> verified and being continued, ESR/CRP 08/28 discussed with Neuro, if no significant improvement noted, may consider LP tomorrow (2) Hypernatremia Current Visit: Yes Status: Acute Assessment and Plan: improving with D5W, continue while NPO (3) CVA (cerebral vascular accident) Current Visit: Yes Status: Acute Assessment and Plan: as above (4) Pleural effusion Current Visit: Yes Status: Acute Assessment and Plan: suspect fluid overload related to CKD, it is reported that she is not on HD previous nephro consult note 06/2017 reviewed: patient was on HD at that point unclear interim events nephro input appreciated, no need for HD Echo showed EF 45% with LV diastolic dysfunction and elevated filling pressure s/p thoracentesis by pulm, transudative (5) Fluid overload Current Visit: Yes Status: Acute Assessment and Plan: as above (6) Lactic acid acidosis Current Visit: Yes Status: Resolved Assessment and Plan: unclear etiology, no finding of ischemic colitis on CT slightly improved with IVF and IV albumin but patient otherwise has R>L pleural effusion, small ascites, as well as anasarca resolved (7) Chronic kidney disease, stage V Current Visit: No Status: Acute Assessment and Plan: as above, follow with nephro K normalized (8) CAD (coronary artery disease) Current Visit: No Status: Chronic Assessment and Plan: resume home meds once able to take by mouth (9) DM type 2 (diabetes mellitus, type 2) Current Visit: No Status: Chronic Assessment and Plan: NPO due to mental status insulin sliding scale Q6 (10) DVT prophylaxis Current Visit: Yes Status: Acute Assessment and Plan: SQ heparin - Time Spent with Patient Total time spent is greater than 50% in coordination of care (as documented) at patient's floor/unit and/or counseling patient: Plan of Care Discussed with: nurse Internal Medicine: Result - Labs CBC & Chem 7: 04/25/18 07:49 04/25/18 07:49 Labs: Short CBC 04/25/18 Range/Units 07:49 WBC 5.5 (4.3-11.1) K/mcL Hgb 11.4 L (11.5-15.4) g/dL Hct 37.7 (35.3-44.9) % Plt Count 124 L (140-400) K/mcL Neutrophils # 4.4 (1.6-8.9) K/mcL BMP 04/24/18 04/25/18 07:53 07:49 Sodium 150 H 147 H Potassium 4.1 3.7 Chloride 111 H 110 H Carbon Dioxide 26 28 BUN 57 H 57 H Creatinine 2.40 H 2.28 H Glucose 99 158 H Calcium 8.5 L 8.9 - ABG Interpretation ABG results: PT/INR, D-dimer PT 18.4 Seconds (9.4-12.1) H 04/22/18 10:08 Consult Discharge Plan - Plan Referrals: NONE,PCP [Primary Care Provider] - (3) CVA (cerebral vascular accident) Qualifiers: CVA mechanism: unspecified Qualified Code(s): I63.9 - Cerebral infarction, unspecified (5) Fluid overload Qualifiers: Hypervolemia type: unspecified Qualified Code(s): E87.70 - Fluid overload, unspecified (8) CAD (coronary artery disease) Qualifiers: Coronary Disease-Associated Artery/Lesion type: [place] artery [place] vs. transplanted heart: [place] heart Associated angina: without angina Qualified Code(s): I25.10 - Atherosclerotic heart disease of [place] coronary artery without angina pectoris (9) DM type 2 (diabetes mellitus, type 2) Qualifiers: Diabetes mellitus [facility] insulin use: without long term care phlebotomist use Diabetes mellitus complication status: with kidney complications Diabetes mellitus complication detail: with chronic kidney disease Chronic kidney disease stage: on chronic dialysis Qualified Code(s): E11.22 - Type 2 diabetes mellitus with diabetic chronic kidney disease; N18.6 - End stage renal disease; Z99.2 - Dependence on renal dialysis
[2018-04-25] MEDS: *HR* Labetalol 20 MG/4 ML SYRINGE IVP PRN (13:15)
--- NOTE | 2018-04-25 15:20 | Neurology Progress Note ---
Date of Encounter: 04/25/18 Time of Encounter: 15:18 Assessment and Plan (1) Acute metabolic encephalopathy Current Visit: No Status: Resolved No significant overall change in neurological status but other times she noted to be more awake and able to have some conversation but other times she is not able to have any conversations remained very lethargic and weak. EEG and overall neurological status seems to be consistent with metabolic toxic encepha lopathy with these fluctuating mental status likely related to it. At this time I would recommend that we should continue to treat her underlying metabolic and infectious etiologies at likely the main reason for her overall symptoms and condition (2) CVA (cerebral vascular accident) Current Visit: Yes Status: Acute Qualifiers: CVA mechanism: unspecified Qualified Code(s): I63.9 - Cerebral infarction, unspecified Subjective Principal diagnosis: altered mental status with acute embolic cerebral infarct Interval history: Patient continued to be encephalopathic at times she is more responsive but is still limited were per output moving all 4 extremities. Earlier she noted to have some twitching of the face without any convulsive activity noted by the staff respond to Ativan she just had an EEG that did not show any seizure activity but showed generalized slowing consistent with encephalopathy at the same time evidence of triphasic makes could be seen with hepatic and renal dysfunction Objective - Constitutional Vitals: Temp Pulse Resp BP Pulse Ox 98.5 F 86 18 179/90 94 04/25/18 10:55 04/25/18 10:55 04/25/18 10:55 04/25/18 10:55 04/25/18 10:55 - Neurological Exam Mental Status Examination: Present: awake, does not follow commands, lethargic, opens eyes to noxious stimulation, localizes noxious stimulation (Limited neurological examination she does open eyes to the deep pain , localizes the pain and withdraws but limited verbal output) Results - Laboratory Findings CBC and BMP: 04/25/18 07:49 04/25/18 07:49 Abnormal lab findings: Abnormal lab results Hgb 11.4 g/dL (11.5-15.4) L 04/25/18 07:49 MCHC 30.2 g/dL (31.6-35.5) L 04/25/18 07:49 RDW 19.4 % (11.5-14.5) H 04/25/18 07:49 Plt Count 124 K/mcL (140-400) L 04/25/18 07:49 MPV 12.7 fL (9.4-12.4) H 04/25/18 07:49 Lymphocytes # 0.4 K/mcL (0.6-4.6) L 04/25/18 07:49 Nucleated RBCs/100 WBC 0.3 /100 WBC (0) H 04/24/18 07:53 PT 18.4 Seconds (9.4-12.1) H 04/22/18 10:08 VBG pO2 76 mmHg (25-50) H 04/21/18 16:16 Sodium 147 mEq/L (136-145) H 04/25/18 07:49 Chloride 110 mEq/L (98-107) H 04/25/18 07:49 BUN 57 mg/dL (8-23) H 04/25/18 07:49 Creatinine 2.28 mg/dL (0.60-1.20) H 04/25/18 07:49 Est GFR ( Amer) 26 (> 60) L 04/25/18 07:49 Est GFR (Non-Af Amer) 21 (> 60) L 04/25/18 07:49 Glucose 158 mg/dL (70-105) H 04/25/18 07:49 POC Glucose 132 mg/dL (70-99) H 04/25/18 10:52 Calculated Osmolality 323 (280-300) H 04/25/18 07:49 Direct Bilirubin 0.4 mg/dL (0.0-0.2) H 04/23/18 13:03 Alkaline Phosphatase 123 Units/L (34-104) H 04/23/18 13:03 Troponin I 0.05 ng/mL (< 0.04) H* 04/21/18 21:20 C-Reactive Protein 29 mg/L (Less than 10) H 04/22/18 16:26 B-Natriuretic Peptide 4678 pg/mL (Less than 100) H 04/21/18 14:34 Serum Total Protein 5.6 g/dL (6.4-8.9) L 04/23/18 13:03 Albumin 3.2 g/dL (3.5-5.7) L 04/23/18 13:03 Ur Specimen Adequacy See below A 04/21/18 14:39 Urine Clarity Cloudy (Clear) A 04/21/18 14:39 Urine Protein >=300 mg/dL (Neg-Trace) H 04/21/18 14:39 Urine Glucose (UA) 100 mg/dL (Normal) H 04/21/18 14:39 Urine Ketones Trace mg/dL (Negative) H 04/21/18 14:39 Urine Blood Moderate (Negative) H 04/21/18 14:39 Urine Bilirubin Small (Negative) H 04/21/18 14:39 Ur Leukocyte Esterase Trace (Negative) H 04/21/18 14:39 Ur Culture Indicated? YES (NO) A 04/21/18 14:39 Consult Discharge Plan - Plan Referrals: NONE,PCP [Primary Care Provider] -
[2018-04-26] MEDS: Insulin LISPRO 300 UNITS/3 ML VIAL SQ SCH ×4 (00:14→18:39)
[2018-04-26 03:15] LABS: Eosinophils # 0.2 K/mcL (0.0-0.6); Eosinophils % 4.1 %; Hematocrit 38.9 % (35.3-44.9); Hemoglobin 11.7 g/dL (11.5-15.4); Immature Granulocytes % 0.2 % (0-4); Lymphocytes # 0.5 K/mcL (0.6-4.6); Lymphocytes % 8.4 %; Mean Corpuscular HGB Conc 30.1 g/dL (31.6-35.5); Mean Corpuscular Volume 96.5 fL (83.0-100.0); Mean Platelet Volume 12.6 fL (9.4-12.4); Monocytes # 0.6 K/mcL (0.0-1.3); Neutrophils # 4.3 K/mcL (1.6-8.9); Platelet Count 118 K/mcL (140-400); Red Blood Count 4.03 M/mcL (3.82-4.97); Red Cell Distribution Width 19.1 % (11.5-14.5); Segmented Neutrophils % 77.3 %
[2018-04-26 03:29] LABS: Calcium 8.7 mg/dL (8.6-10.3); Potassium 3.5 mEq/L (3.5-5.1)
[2018-04-26 03:31] LABS: INR 1.4; Prothrombin Time 15.5 Seconds (9.4-12.1)
[2018-04-26] MEDS: *HR* Heparin 5,000 UNIT/ML VIAL SQ SCH ×2 (05:48→14:10)
[2018-04-26] MEDS: D5% in Water 1,000 ML IVC SCH (05:49)
[2018-04-26] MEDS: cefTRIAXone 1,000 MG in Water for inj. (sterile) 20 ML 10 ML IVP SCH (07:42)
[2018-04-26] MEDS: Nystatin POWDER 30 GM BOTTLE TP SCH ×2 (07:42→20:12)
--- NOTE | 2018-04-26 12:06 | Internal Med Progress Note ---
Hospitalist Progress Note - Encounter Date of Encounter: 04/26/18 Time of Encounter: 12:06 - Subjective Interval History: 67 old female resident of [facility] facility with history of coronary artery disease and CKG stage V is admitted and being managed for encephalopathy. Patient is nonverbal, confused, does not open eyes to name call, moves right upper and lower extremity to noxious stimuli. He has been nothing by mouth since admission 4 days ago. Family family member is her boyfriend Neurology was following. We will request a lumbar puncture today.-Will obtain 2 physician consent as patient is encephalopathic and we have no records of jorje hall being her POA - Exam Vitals: Temp Pulse Resp BP Pulse Ox 97.6 F 84 18 137/87 100 04/26/18 11:54 04/26/18 11:54 04/26/18 11:54 04/26/18 11:54 04/26/18 11:54 Exam: General: opens eyes but no verbal output, not in distress HEENT:pupils equal, round and reactive. Spontaneous twitching on the left side o f her face no longer evident Cardiovascular:Normal S1 & S2, No JVD. Pulse regular. Lungs: Diminished breath sounds Abdomen:Soft, non-tender, no rigidity. Extremities: s/p L BKA, L UE contracted, upper and lower extremity pitting pedal edema bilaterally. Neuro: Patient is unresponsive following commands. Skin: No rash noted - Assessment and Plan (1) Encephalopathy Current Visit: Yes Status: Acute Assessment and Plan: Etiology remains unknown Per patient's boyfriend, she was able to talk and get on the wheelchair with assistance up to early this month she is currently not following commands and unresponsive CT head-ve ABG done on admission unremarkable, patient is protecting her airway MRI did show lacunar infarct in R posterior frontal and frontoparietal cortex carotid doppler was unremarkable Urine culture with titi-on day 5 of rocephin, will add fluconazole CT chest also showed R>L effusion as well as airspace disease which may be more compatible with pulmonary edema than PNA -> pulm input appreciated, thoracentesis done. Transudative fluid, no empyema L facial twitching resolved. EEG did now show any seizure activity but cystoscopy with metabolic toxic encephalopathy. Lumbar puncture requested today-Neurology is following, there is low suspicion for an infective intracranial process Patient's prognosis remains guarded as source of etiology is unknown and she is currently unable to participate in therapy or feeding (2) DVT prophylaxis Current Visit: Yes Status: Acute Assessment and Plan: SQ heparin (3) Chronic kidney disease, stage V Current Visit: Yes Status: Acute Assessment and Plan: as above, follow with nephro K normalized (4) DM type 2 (diabetes mellitus, type 2) Current Visit: Yes Status: Chronic Assessment and Plan: NPO due to mental status insulin sliding scale Q6 (5) Fluid overload Current Visit: Yes Status: Acute Assessment and Plan: as above (6) Lactic acid acidosis Current Visit: Yes Status: Resolved Assessment and Plan: unclear etiology, no finding of ischemic colitis on CT slightly improved with IVF and IV albumin but patient otherwise has R>L pleural effusion, small ascites, as well as anasarca resolved (7) CAD (coronary artery disease) Current Visit: Yes Status: Chronic Assessment and Plan: Unable to take po, due to encephalopathy (8) Pleural effusion Current Visit: Yes Status: Acute Assessment and Plan: suspect fluid overload related to CKD, it is reported that she is not on HD previous nephro consult note 06/2017 reviewed: patient was on HD at that point unclear interim events nephro input appreciated, no need for HD Echo showed EF 45% with LV diastolic dysfunction and elevated filling pressure s/p thoracentesis by pulm, transudative Continue to monitor (9) Hypernatremia Current Visit: Yes Status: Acute Assessment and Plan: improving with D5W, continue while NPO (10) CVA (cerebral vascular accident) Current Visit: Yes Status: Acute Assessment and Plan: CT head-ve, ABG without hypercarbia MRI did show lacunar infarct in R posterior frontal and frontoparietal cortex, would not explain encephalopathy however -> resume ASA, statin once able to take by mouth Patient with chronic LUE weakness, per boyfriend ECHO noted-EF 40-45%,mild LVDD, multiple wall motion hypokinesis Compared to ECHO in 06/2017 ,EF slightly decreased, will consult cardiology prior to discharge Prognosis at this time is guarded (11) History of osteomyelitis Current Visit: Yes Status: Acute Assessment and Plan: Patient with hx of R 1st toe OM on daptomycin from SNF Continue same (12) UTI (urinary tract infection) Current Visit: Yes Status: Acute Assessment and Plan: Day 5 ceftriaxone-will treat for 7 days Urine culture with titi-will start on fluconazole - Time Spent with Patient Total time spent is greater than 50% in coordination of care (as documented) at patient's floor/unit and/or counseling patient: Plan of Care Discussed with: nurse Internal Medicine: Result - Labs CBC & Chem 7: 04/26/18 03:00 04/26/18 03:00 Labs: Short CBC 04/26/18 Range/Units 03:00 WBC 5.6 (4.3-11.1) K/mcL Hgb 11.7 (11.5-15.4) g/dL Hct 38.9 (35.3-44.9) % Plt Count 118 L (140-400) K/mcL Neutrophils # 4.3 (1.6-8.9) K/mcL BMP 04/26/18 03:00 Sodium 145 Potassium 3.5 Chloride 110 H Carbon Dioxide 28 BUN 51 H Creatinine 1.98 H Glucose 140 H Calcium 8.7 - ABG Interpretation ABG results: PT/INR, D-dimer PT 15.5 Seconds (9.4-12.1) H 04/26/18 03:00 Consult Discharge Plan - Plan Referrals: NONE,PCP [Primary Care Provider] - (4) DM type 2 (diabetes mellitus, type 2) Qualifiers: Diabetes mellitus residential insulin use: without residential use Diabetes mellitus complication status: with kidney complications Diabetes mellitus complication detail: with chronic kidney disease Chronic kidney disease stage: on chronic dialysis Qualified Code(s): E11.22 - Type 2 diabetes mellitus with diabetic chronic kidney disease; N18.6 - End stage renal disease; Z99.2 - Dep endence on renal dialysis (5) Fluid overload Qualifiers: Hypervolemia type: unspecified Qualified Code(s): E87.70 - Fluid overload, unspecified (7) CAD (coronary artery disease) Qualifiers: Coronary Disease-Associated Artery/Lesion type: [place] artery [place] vs. transplanted heart: [place] heart Associated angina: without angina Qualified Code(s): I25.10 - Atherosclerotic heart disease of [place] coronary artery without angina pectoris (10) CVA (cerebral vascular accident) Qualifiers: CVA mechanism: unspecified Qualified Code(s): I63.9 - Cerebral infarction, unspecified (12) UTI (urinary tract infection) Qualifiers: Urinary tract infection type: acute cystitis Hematuria presence: without hematuria Qualified Code(s): N30.00 - Acute cystitis without hematuria
[2018-04-26] MEDS ORDERED: Fluconazole 400 MG/200 ML 400 MG/200 ML BAG IVPB ONE (14:00)
--- NOTE | 2018-04-26 17:43 | Electrocardiograph Report ---
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
[2018-04-26 18:38] LABS: Red Blood Cell,CSF < 0.002 M/mcL
[2018-04-26] MEDS: DAPTOmycin 500 MG in 0.9 % Sodium Chloride 100 ML IVPB SCH (18:42)
[2018-04-26 18:49] LABS: Appearance,CSF Clear (Clear)
[2018-04-26 19:16] LABS: Glucose,CSF 96 mg/dL (40-70); Total Protein,CSF 55 mg/dL (15-45)
[2018-04-26] MEDS: *HR* Labetalol 20 MG/4 ML SYRINGE IVP PRN (20:59)
[2018-04-27] MEDS: *HR* Heparin 5,000 UNIT/ML VIAL SQ SCH ×2 (00:18→06:01)
[2018-04-27] MEDS: D5% in Water 1,000 ML IVC SCH ×2 (00:18→07:51)
[2018-04-27] MEDS: Insulin LISPRO 300 UNITS/3 ML VIAL SQ SCH ×3 (00:21→11:25)
[2018-04-27 04:38] LABS: Basophils % 0.2 %; Eosinophils # 0.3 K/mcL (0.0-0.6); Eosinophils % 4.9 %; Immature Granulocytes % 0.6 % (0-4); Lymphocytes # 0.5 K/mcL (0.6-4.6); Lymphocytes % 7.3 %; Mean Corpuscular HGB Conc 30.8 g/dL (31.6-35.5); Mean Corpuscular Hemoglobin 29.3 pg (28.0-33.3); Mean Corpuscular Volume 95.4 fL (83.0-100.0); Mean Platelet Volume 12.7 fL (9.4-12.4); Monocytes # 0.6 K/mcL (0.0-1.3); Monocytes % 9.2 %; Neutrophils # 5.1 K/mcL (1.6-8.9); Platelet Count 120 K/mcL (140-400); Red Blood Count 4.09 M/mcL (3.82-4.97); Red Cell Distribution Width 19.4 % (11.5-14.5); Segmented Neutrophils % 77.8 %
[2018-04-27 04:55] LABS: Calcium 8.5 mg/dL (8.6-10.3); Potassium 3.6 mEq/L (3.5-5.1)
[2018-04-27] MEDS: cefTRIAXone 1,000 MG in Water for inj. (sterile) 20 ML 10 ML IVP SCH (07:58)
[2018-04-27] MEDS: Nystatin POWDER 30 GM BOTTLE TP SCH (07:58)
[2018-04-27] MEDS ORDERED: *HR* Labetalol 20 MG/4 ML SYRINGE IVP PRN (08:13)
[2018-04-27 08:38] LABS: ABG Base Excess 4 mEq/L (-2 to 3); ABG HCO3 29 mEq/L (21-27); ABG Oxygen Saturation 97 % (95-98); ABG PCO2 42 mmHg (35-45); ABG PH 7.45 pH Units (7.32-7.45); ABG PO2 85 mmHg (85-104); ABG TCO2 30 mEq/L (20-26)
[2018-04-27] MEDS ORDERED: *HR* LORazepam 2 MG/ML VIAL IVP ONE ×4 (09:06→11:10)
--- NOTE | 2018-04-27 09:08 | Neurology Progress Note ---
Date of Encounter: 04/27/18 Time of Encounter: 08:05 Assessment and Plan (1) Acute metabolic encephalopathy Current Visit: No Status: Resolved Patient continued to be encephalopathic likely generalized metabolic toxic encephalopathy. 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 Considering twitching of her whole body I would recommend repeating EEG today may give her some Ativan on as-needed basis (2) CVA (cerebral vascular accident) Current Visit: Yes Status: Acute Continue her on aspirin Echocardiogram and carotid is negative for any embolic source Qualifiers: CVA mechanism: unspecified Qualified Code(s): I63.9 - Cerebral infarction, unspecified Subjective Principal diagnosis: altered mental status with acute embolic cerebral infarct Interval history: Patient continued to be encephalopathic at times she is more responsive but is still limited were per output moving all 4 extremities. She had a spinal tap yesterday. 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 on CSF analysis mildly elevated proteins and glucose basically nonspecific but no evidence of any white count, She noted to have some twitching of her whole body today continued to have fluctuating confusion she had an EEG earlier that was negative For any seizure activity she is currently not following commands and unresponsive CT head was negative , MRI did show lacunar infarct in R posterior frontal and frontoparietal cortex, that may explain her left upper extremity decreased movement as compared to the right, carotid doppler was unremarkable Objective - Constitutional Vitals: Temp Pulse Resp BP Pulse Ox 97.9 F 84 18 160/70 98 04/27/18 07:02 04/27/18 07:02 04/27/18 07:02 04/27/18 07:02 04/27/18 07:02 - Neurological Exam Sensorimotor examination: Present: intact (Limited neurological examination as patient remain on verbal open eyes to deep pain and verbal stimuli at times she is able to say a few words today she does mumble few words opened eyes to the deep pain moving right upper extremity more than the left with left BKA.) Mental Status Examination: Present: awake, does not follow commands, lethargic, opens eyes to noxious stimulation, localizes noxious stimulation (Limited neurological examination she does open eyes to the deep pain , localizes the pain and withdraws but limited verbal output) Results - Laboratory Findings CBC and BMP: 04/27/18 04:15 04/27/18 04:15 Abnormal lab findings: Abnormal lab results MCHC 30.8 g/dL (31.6-35.5) L 04/27/18 04:15 RDW 19.4 % (11.5-14.5) H 04/27/18 04:15 Plt Count 120 K/mcL (140-400) L 04/27/18 04:15 MPV 12.7 fL (9.4-12.4) H 04/27/18 04:15 Lymphocytes # 0.5 K/mcL (0.6-4.6) L 04/27/18 04:15 Nucleated RBCs/100 WBC 0.3 /100 WBC (0) H 04/24/18 07:53 PT 15.5 Seconds (9.4-12.1) H 04/26/18 03:00 ABG HCO3 29 mEq/L (21-27) H 04/27/18 08:33 ABG Total CO2 30 mEq/L (20-26) H 04/27/18 08:33 ABG Base Excess 4 mEq/L (-2 to 3) H 04/27/18 08:33 VBG pO2 76 mmHg (25-50) H 04/21/18 16:16 Chloride 108 mEq/L (98-107) H 04/27/18 04:15 BUN 44 mg/dL (8-23) H 04/27/18 04:15 Creatinine 1.71 mg/dL (0.60-1.20) H 04/27/18 04:15 Est GFR ( Amer) 36 (> 60) L 04/27/18 04:15 Est GFR (Non-Af Amer) 30 (> 60) L 04/27/18 04:15 Glucose 159 mg/dL (70-105) H 04/27/18 04:15 POC Glucose 122 mg/dL (70-99) H 04/27/18 06:20 Calculated Osmolality 315 (280-300) H 04/27/18 04:15 Calcium 8.5 mg/dL (8.6-10.3) L 04/27/18 04:15 Direct Bilirubin 0.4 mg/dL (0.0-0.2) H 04/23/18 13:03 Alkaline Phosphatase 123 Units/L (34-104) H 04/23/18 13:03 Troponin I 0.05 ng/mL (< 0.04) H* 04/21/18 21:20 C-Reactive Protein 29 mg/L (Less than 10) H 04/22/18 16:26 B-Natriuretic Peptide 4678 pg/mL (Less than 100) H 04/21/18 14:34 Serum Total Protein 5.6 g/dL (6.4-8.9) L 04/23/18 13:03 Albumin 3.2 g/dL (3.5-5.7) L 04/23/18 13:03 Ur Specimen Adequacy See below A 04/21/18 14:39 Urine Clarity Cloudy (Clear) A 04/21/18 14:39 Urine Protein >=300 mg/dL (Neg-Trace) H 04/21/18 14:39 Urine Glucose (UA) 100 mg/dL (Normal) H 04/21/18 14:39 Urine Ketones Trace mg/dL (Negative) H 04/21/18 14:39 Urine Blood Moderate (Negative) H 04/21/18 14:39 Urine Bilirubin Small (Negative) H 04/21/18 14:39 Ur Leukocyte Esterase Trace (Negative) H 04/21/18 14:39 Ur Culture Indicated? YES (NO) A 04/21/18 14:39 CSF Glucose 96 mg/dL (40-70) H 04/26/18 17:47 CSF Total Protein 55 mg/dL (15-45) H 04/26/18 17:47 Consult Discharge Plan - Plan Referrals: NONE,PCP [Primary Care Provider] -
--- NOTE | 2018-04-27 10:12 | Transfer Summary ---
Date of Encounter: 04/27/18 Time of Encounter: 10:12 Transfer Discharge Sum: Diag - Discharge Diagnosis (1) Status epilepticus Status: Acute (2) Encephalopathy Status: Acute (3) DVT prophylaxis Status: Acute (4) Chronic kidney disease, stage V Status: Acute (5) DM type 2 (diabetes mellitus, type 2) Status: Chronic (6) Fluid overload Status: Acute (7) Lactic acid acidosis Status: Resolved (8) CAD (coronary artery disease) Status: Chronic (9) Pleural effusion Status: Acute (10) Hypernatremia Status: Acute (11) CVA (cerebral vascular accident) Status: Acute (12) History of osteomyelitis Status: Acute (13) UTI (urinary tract infection) Status: Acute (14) Acute respiratory failure with hypoxia Status: Acute Transfer Discharge Sum: Med - Medications Active and Home Medications: Home Medications Allopurinol [Zyloprim 100 MG] 100 mg PO HS 07/05/17 [History Confirmed 04/22/18] Linagliptin [Tradjenta] 5 mg PO DAILY 07/05/17 [History Confirmed 04/22/18] Omeprazole [PriLOSEC] 20 mg PO DAILY 07/05/17 [History Confirmed 04/22/18] Aspirin 81 mg PO DAILY #30 tab.chew 07/30/17 [Rx Confirmed 04/22/18] Atorvastatin [Lipitor] 40 mg PO HS #30 tablet 07/30/17 [Rx Confirmed 04/22/18] Acetaminophen [Tylenol] 650 mg PO Q6HR PRN 03/12/18 [History Confirmed 04/22/18] Amino Acids/Protein Hydrolys [Pro-Stat Awc Liquid Packet] 30 ml PO DAILY 03/12/18 [History Confirmed 04/22/18] Furosemide [Lasix] 20 mg PO QAM 03/12/18 [History Confirmed 04/22/18] Metoprolol [Lopressor] 25 mg PO BID 03/12/18 [History Confirmed 04/22/18] PARoxetine HCl [Paroxetine HCl] 10 mg PO DAILY 03/12/18 [History Confirmed 04/22/18] Sevelamer [Renvela] 800 mg PO TIDWM 03/12/18 [History Confirmed 04/22/18] DAPTOmycin [Cubicin] 500 mg IV Q48H 04/22/18 [History Confirmed 12/22/18] Active Medications Acetaminophen (Tylenol) 650 mg PO Q6HR PRN PRN Reason: Mild Pain/Fever Stop: 10/21/18 20:56 Hydrocodone Bitart/Acetaminophen ([place] 5-325 Mg) 1 tab PO Q6HR PRN PRN Reason: Moderate to Severe Pain Stop: 10/21/18 20:56 Glucose (Gluctose) 15 gm PO ONCE PRN PRN Reason: Hypoglycemia Stop: 10/21/18 22:11 Glucose (Gluctose) 30 gm PO ONCE PRN PRN Reason: Hypoglycemia Stop: 10/21/18 22:11 Heparin Sodium (Porcine) (Heparin) 5,000 unit SQ Q8HCO [facility] Stop: 10/21/18 22:01 Last Admin: 04/27/18 06:01 Dose: 5,000 unit Ceftriaxone Sodium 1,000 mg/ (Sterile Water) 10 mls @ 600 mls/hr IVP DAILY [facility] Stop: 10/22/18 13:01 Last Admin: 04/27/18 07:58 Dose: 600 mls/hr Daptomycin 500 mg/ Sodium (Chloride) 100 mls @ 200 mls/hr IVPB Q48H [facility] Stop: 10/22/18 19:01 Last Admin: 04/26/18 18:42 Dose: 200 mls/hr Dextrose (Dextrose 5%) 1,000 mls @ 75 mls/hr IVC .[id number] [facility] Stop: 10/24/18 10:31 Last Admin: 04/27/18 07:51 Dose: Not Given Fluconazole (Diflucan Premix 200 Mg/100 Ml) 200 mg in 100 mls @ 100 mls/hr IVPB Q24H [facility] Stop: 10/27/18 13:01 Insulin Human Lispro (Humalog) 0 units SQ Q6HR [facility]; Protocol Stop: 10/22/18 00:01 Last Admin: 04/27/18 06:29 Dose: Not Given Labetalol HCl (Labetalol) 10 mg IVP Q4H PRN PRN Reason: SBP >150, DBP >100 Stop: 10/25/18 10:16 Naloxone HCl (Narcan) 0.4 mg IVP Q2MIN PRN PRN Reason: SEE COMMENTS Stop: 10/21/18 20:56 Nystatin (Nystop) 1 appl TP BID [facility] Stop: 10/23/18 21:01 Last Admin: 04/27/18 07:58 Dose: 1 appl Ondansetron HCl (Zofran) 4 mg IVP Q8HR PRN; Protocol PRN Reason: Nausea And Vomiting Stop: 10/21/18 20:59 Transfer Discharge Sum: Data Procedures and tests throughout hospitalization: Pending Orders 04/21/18 15:43 BIPAP [RC] .CONTINUOUS RT has an order or consult [RC] NOW NPO Diet 04/21/18 15:[address] Stat 04/21/18 20:55 Vital Signs Assessment [RC] Q15MX4,Q30MX2,Q1HX2,Q4H Acetaminophen [Tylenol] 650 mg PO Q6HR PRN HYDROcodone/Acet 5/325 mg [[place] 5-325 mg] 1 tab PO Q6HR PRN Naloxone [Narcan] 0.4 mg IVP Q2MIN PRN Resuscitation Status: Active [RES] Routine 04/21/18 20:58 Ondansetron [Zofran] 4 mg IVP Q8HR PRN 04/21/18 21:10 Admit as Inpatient Routine 04/21/18 22:00 Heparin 5,000 unit SQ Q8HCO 04/21/18 22:10 Dextrose Gel [Gluctose] 15 gm PO ONCE PRN Dextrose Gel [Gluctose] 30 gm PO ONCE PRN 04/22/18 00:00 Insulin LISPRO [HumaLOG] See Protocol SQ Q6HR 04/22/18 13:00 cefTRIAXone [Rocephin] 1,000 mg Water for inj. (sterile) 20 ML [Water for inj. (sterile)] 10 ml IVP DAILY 04/22/18 19:00 DAPTOmycin [Cubicin] 500 mg 0.9 % Sodium Chloride 100 ml IVPB Q48H 04/23/18 10:43 Consult to Neurology [CONS] Routine 04/23/18 21:00 Nystatin POWDER [Nystop] 1 appl TP BID 04/24/18 10:30 D5% in Water [Dextrose 5%] 1,000 ml IVC 75 mls/hr 04/24/18 10:42 Consult to Interpret Exam [CONS] Routine 04/24/18 13:46 EEG Routine 04/26/18 12:34 Consult to Speech Therapy [CONS] Routine 04/26/18 12:37 Bacterial Antigen, CSF [RC] .Stat 04/26/18 17:47 Culture,CSF [RM] Routine VDRL reflex titer, CSF Routine 04/27/18 08:13 Labetalol 10 mg IVP Q4H PRN 04/27/18 08:56 EEG Routine 04/27/18 13:00 Fluconazole 200 MG/100 ML [Diflucan Premix 200 MG/100 ML] 200 mg in 100 ml IVPB Q24H 04/28/18 04:00 Chem 7 [Basic Metabolic Panel] AM 0400 Complete Blood Count [HEME] AM 0400 04/29/18 04:00 Chem 7 [Basic Metabolic Panel] AM 0400 Complete Blood Count [HEME] AM 0400 - Impressions ITS Impressions Chest CT 04/21/18 00:00 IMPRESSION: Right larger than left pleural effusions with associated multifocal airspace disease. Pulmonary edema is favored over pneumonia Subcutaneous fat stranding is noted diffusely suggesting third-spacing of fluid Mediastinal lymph nodes are likely reactive. Follow-up imaging recommended to ensure resolution. D/ / Dionte Rosas / Dionte Rosas Interpreting Provider: Dionte Rosas Head CT 04/21/18 14:25 IMPRESSION: No evidence of acute intracranial abnormality. D/ / 04/21/2018 16:00:24 Rehan Husain MD / gera Interpreting Provider: Rehan Husain MD Chest X-Ray 04/21/18 14:27 IMPRESSION: No significant change from prior exam. Interstitial pulmonary edema. D/ / 04/21/2018 15:13:56 Corey Issa MD / gera Interpreting Provider: Corey Issa MD Abdomen/Pelvis CT 04/21/18 16:37 IMPRESSION: Small amount of ascites in the abdomen and pelvis. There is marked anasarca. Large right and small left bilateral pleural effusions. Right lower lobe compressive atelectasis. Calcific coronary artery disease. Both kidneys are slightly small in size. No evidence of hydronephrosis. Mild thickening of the gallbladder wall versus pericholecystic fluid/ascites. T11 compression fracture of indeterminate age. D/ / Dionte Chauhan MD / Dionte Chauhan MD Interpreting Provider: Dionte Chauhan MD Echocardiogram 04/22/18 03:14 Impressions: LVEF 40-45%. Mild left ventricular diastolic dysfunction with evidence of elevated filling pressures. Normal right ventricular structure and function. Mildly calcified aortic valve leaflets.No aortic stenosis. Trace mitral regurgitation. Moderate pulmonary hypertension. Left Ventricular Wall Motion: Rest Echo Findings The apex, apical inferior, mid inferior, basal inferior, apical anterior, mid anterior, basal anterior, apical septal, mid inferior septal, basal inferior septal, apical lateral, mid anterior lateral, basal anterior lateral, mid anterior septal, mid inferior lateral, basal anterior septal and basal inferior lateral ruiz were hypokinetic. Findings: Study Quality * Technically adequate exam. ECG Findings * Normal sinus rhythm. Left Ventricle * LVEF 40-45%. * Mild left ventricular diastolic dysfunction with evidence of elevated filling pressures. Right Ventricle * Normal right ventricular structure and function. Left Atrium * Normal left atrial size. Right Atrium * Normal right atrial size. Interatrial Septum * No evidence of PFO by color Doppler. Aortic Valve * Trileaflet aortic valve. * Mildly calcified aortic valve leaflets. * No aortic regurgitation. * No aortic stenosis. Mitral Valve * Mildly calcified mitral valve leaflets. * Trace mitral regurgitation. * No mitral stenosis. Tricuspid Valve * Trace tricuspid regurgitation. * No tricuspid stenosis. * Normal tricuspid valve structure. * Moderate pulmonary hypertension. * Estimated RVSP is 41 mmHg. * Estimated RA pressure is 9 mmHg. Pulmonic Valve * No pulmonic regurgitation. Aorta * Normally sized aortic root. Pericardium * The pericardium appears normal. IVC * The IVC is not well evaluated. Brain MRI 04/22/18 18:00 IMPRESSION: Small foci of acute infarct are noted in the right posterior frontal and frontal parietal cortex just above the sylvian fissure. Extensive small-vessel ischemic change bilaterally with numerous old infarcts. Left frontal encephalomalacia with surrounding gliosis Faint increased diffusion signal in the brachium pontis bilaterally. There is no definitive decreased signal on the ADC map sequence raising the question of T2 shine through versus recent ischemia. No acute hemorrhage D/ / Dionte Rosas / Dionte Rosas Interpreting Provider: Dionte Rosas Chest X-Ray 04/23/18 12:57 IMPRESSION: Decreased right pleural effusion. No pneumothorax. Otherwise, stable chest D/ / Jose Boston MD / Jose Boston MD Interpreting Provider: Jose Boston MD Lumbar Puncture Fluoroscopy 04/26/18 13:58 IMPRESSION: Successful fluoroscopic-guided lumbar puncture. D/ / Jai Parker MD / Jai Parker MD Interpreting Provider: Jai Parker MD Transfer Discharge Sum: Prov Date of admission: 04/21/18 22:41 Primary care physician: PCP NONE Admitting clinician: Teresa Jiménez Attending physician on admission: Teresa Jiménez Consults: 04/22/18 09:50 Consult to Pulmonology [CONS] Routine Consulting Provider: [facility] [place] Reason for Consult: R pleural effusion, ESRD not on HD Call Completed: Yes 04/22/18 10:37 Consult to Nephrology [CONS] Routine Consulting Provider: [facility] Reason for Consult: ESRD Call Completed: Yes 04/23/18 10:43 Consult to Neurology [CONS] Routine Consulting Provider: Neurology [facility] Reason for Consult: encephalopathy, small lacunar infarct in R posterior frontal and frontoparietal cortex Call Completed: Yes 04/24/18 10:42 Consult to Interpret Exam [CONS] Routine Consulting Provider: Bashir Dickey I Consult to Interpret Exam: Interpret EEG 04/26/18 12:34 Consult to Speech Therapy [CONS] Routine Comment: Evaluate, develop and implement POC Reason for Consult: Evaluate swallowing ability Call Completed: Yes Attending physician on discharge: Ramon Rushing Discharging clinician: Ramon Rushing Anticipated date of transfer: 04/27/18 Receiving physician/facility: [facility] Transfer Discharge Sum: A/P - Plan Functional capacity at transfer: bed bound Overall status at transfer: patient is not back to baseline Disposition: Transfer Critical Access Hosp Transfer Discharge Sum: Hosp Hospital course: Ms. Ibarra is a 67 year old female with medical history of chronic kidney disease stage V not on hemodialysis, coronary artery disease, type 2 diabetes mellitus, HTN, history of CVA with residual left hemiparesis, status post left below-knee amputation, resident of [facility], chronic osteomyelitis of the right big toe. The patient was admitted to this facility on 04/21 following a history of altered mental status from the halfway facility. At time of arrival to this facility, the patient had no had any new cough, fever, chest pain, palpitations at the halfway facility. She had been on daptomycin for Right big toe osteomyelitis for about a month prior to presentation. Upon arrival to this facility, she was found to have an elevated lactic acid, el evated BNP and elevated troponin. CT of the abdomen and pelvis and chest were done which showed anasarca, ascites, and bilateral pleural effusions right greater than left. Urine analysis did not show any infection or central culture. She had no leukocytosis and she was afebrile EKG was sinus, there has been no significant events on telemetry. The patient was admitted to the stepdown unit and started on impact improve with antibiotics, further cultures were drawn including blood cultures. Head CT and brain MRI was scheduled, brain MRI showed multiple small areas of infarct in the right frontal, right parieto- frontal cortex, encephalomalacia and gliosis in the left frontal lobe. Echocardiogram done showed an EF of 40-45%, with global hypokinesis, as well as moderate pulmonary hypertension. There was no left ventricular thrombus. Carotid Doppler showed no significant plaques or stenosis. Pulmonology was consulted for significant right pleural effusion, she is status post thoracentesis with a right-sided pleural effusion which was transudative without any evidence of infection. Blood culture remains negative, and ascitic fluid workup was unremarkable. On 04/23, the patient developed hypernatremia and is responding to D5 in water. Neurology was consulted for patient's persistent encephalopathy on 04/23 , an EEG done on 04/24 showed generalized slowing which was nonspecific pattern consistent with cortical dysfunction with metabolic toxic encephalopathy and triphasic waves noted usually with hepatorenal dysfunction. However, patient's renal function has remained at her baseline, and her BUN/creatinine and creatinine at baseline. No hyperkalemia or acidosis. Lactic acidosis that was present on admission had resolved. Considered that the patient might be encepha lopathic due to metabolic derangements. Nephrology was consulted and did not deem the patient needing hemodialysis at this time. There was an emergent or urgent present for hemodialysis as patient's renal function remained at her baseline and she was not having pulmonary edema, respiratory failure at that time. On 04/25 we obtained a lumbar puncture to rule out any intracranial infectious processes. CSF was negative , preliminary cultures with no growth. Normal white count. Glucose was within normal limit within the slightly elevated protein. Urine culture sent on admission noted to eb growing titi galbrata, blood culture was negative, patient started on fluconazole. Ceftriaxone was discontinued . This morning, we obtained an ABG at 833 a.m, to assess patient's ventilatory status, results were pH 7.45/PCO2 42/PO2 85 on room air. Oxygen saturation at that time 97%. Shortly after initial assessment, patient began to have generalized tonic-clonic seizures, which lasted for about 30 mins , STAT EEG done showed evidence of continuous epilpetic activity She has received a total of 4 mg of Ativan, was loaded with Keppra however, she also developed hypoxia post-seizure episode now requiring 7 liters of oxygen by Oxymask and saturating 90-94%. Patient remains non-verbal, does not follow commands Due to concerns for acute hypoxic respiratory failure, patient's inability to protect the distal continuous status epilepticus, she was intubated successfully and transferred to the intensive care unit for ventilator management. She has been started on propofol for sedation She was Was discussed with the neurologist on-call, and we have concerns for subclinical epilepsy with need for escalation of care to a facility with neurointensive care and continuous EEG monitoring. As an accepted at [facility] neurology intensive care unit by Dr. Osbaldo Fields - Time Spent with Patient Total time spent providing and/or coordinating transfer services: Greater than 30 minutes (75 minutes spent on face to face, procedures, discussion with specialist, transfer center, documentation.) Transfer Discharge Sum: Exam - Constitutional Vitals: Vital Signs Temp Pulse Resp BP Pulse Ox 04/27/18 07:02 97.9 F 84 18 160/70 98 04/27/18 04:41 82 18 176/99 99 04/27/18 00:03 80 18 154/91 100 04/26/18 20:15 88 04/26/18 18:43 97.6 F 87 22 175/97 04/26/18 15:45 97.6 F 75 18 151/86 99 04/26/18 11:54 97.6 F 84 18 137/87 100 Intake and Output 04/26/18 04/27/18 04/27/18 23:59 07:59 15:59 Intake Total 1000 / 1000 Output Total 250 / 250 Balance 750 / 750 Intake: IV Fluids 1000 / 1000 Dextrose 5% 1,000 ML @ 75 mls/ 1000 / 1000 hr IVC .[id number] ELIS Rx#: [id number] Output: Urine 250 / 250 Other: Meal NPO Percent of Meal Consumed 0% # Voids 1 1 Blood Glucose* 125 122 Additional comments: At 850 a.m this morning General: opens eyes but no verbal output, not in distress HEENT:pupils equal, round and reactive. Cardiovascular:Normal S1 & S2, No JVD. Pulse regular. Lungs: Diminished breath sounds Abdomen:Soft, non-tender, no rigidity. Extremities: s/p L BKA, L UE contracted, upper and lower extremity pitting pedal edema bilaterally. Neuro: Patient is unresponsive , not following commands. Skin: No rash noted At time of transfer to the ICu at 1200, patient was still having left facial twitching, she is now intubated and sedated.
[2018-04-27] MEDS ORDERED: Artificial Tears SOLN 15 ML BOTTLE BOTH EYES PRN (12:14)
--- NOTE | 2018-04-27 12:14 | Procedure Note ---
Addendum entered and electronically signed by Hunter Monroe DO 04/27/18 14:37: ITS Impressions Chest X-Ray 04/27/18 12:32 IMPRESSION: 1. Endotracheal tube terminating 3 cm above the laney. 2. Enteric tube coiled in the fundus of the stomach. 3. Right internal jugular central venous catheter terminating in the proximal SVC. 4. No pneumothorax identified. 5. Bilateral perihilar opacities suggesting pulmonary edema. D/ / Damian Escoto MD / Damian Escoto MD Interpreting Provider: Damian Escoto MD Original Note: Date of procedure: 04/27/18 Pre-op diagnosis: Status epilepticus Post-op diagnosis: same Procedure: A time-out was completed verifying correct patient, procedure, site, positioning, and special equipment if applicable. The patient was placed in a flat position. Sedation was obtained using Versed 7mg and additionally with Etomidate 20mg. The patient was easily ventilated using an ambu bag. The MAC 3 BLADE was used and inserted into the oropharynx at which time there was a Grade 1 view of the vocal cords. A 7.5-portuguese endotracheal tube was inserted and visualized going through the vocal cords on second attempt. The stylette was removed. Colorimetric change was visualized on the CO2 meter. Breath sounds were heard in both lung verduzco equally. The endotracheal tube was placed at 23 cm, measured at the teeth. Attending Dr. Rushing was present for the entire procedure. A chest x-ray was ordered to assess for pneumothorax and verify endotracheal tube placement. Ventilator orders were placed. Restraints were not ordered due to contraindication with seizure activity. Estimated Blood Loss: 0 cc The patient tolerated the procedure well and there were no complications. Anesthesia: IV sedation Surgeon: Hunter Monroe Was there an medical assistant instructor present: Yes Merchandising Team Lead: Sue Escobar Estimated blood loss (cc): 0 Specimen: N/A Pathology: none sent Condition: critical Disposition: ICU
[2018-04-27 12:59] VITALS: BP 102/63
[2018-04-27] MEDS ORDERED: Fluconazole 200 MG/100 ML 200 MG/100 ML BAG IVPB SCH (13:00)
--- NOTE | 2018-04-27 15:20 | Event Note ---
Date of Encounter: 04/27/18 Time of Encounter: 11:00 Considering patient been having mental status changes as well as clinical twitching of the body she had a stat EEG that showed continuous electrographic seizure activity along with the pleds, predominantly originating from the right temporal lobe but seemed to be generalized consistent with status epilepticus While EEG was running patient has received 2 doses of IV Ativan as well as Keppra , which resolved the status Discussed with the primary team patient might need to be transferred to a tertiary care center for continuous EEG monitoring We will continue her on Keppra as well as Ativan on as-needed basis
[2018-04-27] MEDS ORDERED: Artificial Tears SOLN 15 ML BOTTLE BOTH EYES SCH (16:00)
--- NOTE | 2018-04-27 20:20 | EEG/EMG/Oth Biometrics Report ---
EEG Procedure Report Date of procedure: 04/27/18 (STAT EEG) EEG Procedure: Routine EEG Procedure Note: STAT EEG: This is a multichannel digital EEG recording using the international 10-20 placement system. The resting record is unorganized and asymmetric. A dominant posterior rhythm can not be established The Background activity during this EEG was replaced by diffuse background slowing in the range of delta and theta activity with predominant delta activity. The background activity was minimally active. Later during the recording, EEG tracing gradually evolved into higher amplitude delta activity and then diffusely thyrhmic sharp wave with a frequency of 1-1.5Hz rather persistently. Pattern continued through out the study consistent with Status epilepticus . Pt was than given 1 mg of Ativan during the procedure without much change, later given another 1 mg along with Keppra infusion, which eventually stopped the seizure activity, replacing with generalized slowing with few sharp discharges Impression: This is a severely abnormal EEG due to presence of bilateral periodic epileptiform discharges and presence of severe diffuse background activity consistent with STATUS EPILEPTICUS. This would signify some underlying frontal temporal dysfunction of a nonspecific etiology, Pt would benefit from continuous EEG monitoring and need repeat imaging studies.. Clinical correlation is suggested as to the etiology of this.
[2018-04-27] MEDS ORDERED: Chlorhexidine Rinse 15 ML MOUTHWASH MM SCH (21:00)
[2018-04-28] MEDS ORDERED: Pantoprazole 40 MG VIAL IVP SCH (09:00)
== END 2018-04-27 12:35 | disposition critical access hospital (66) | DRG 64 ==
LOC: EMEROOARM 14:02 → 2NNU 14:02 → SUATTDRO 22:41 → ICNU 04-27 12:14
PROVIDERS: ADMIT Internal Medicine; ATTEND Internal Medicine